=== PATIENT | female | born 1980 | race Two or more races ===

== ENCOUNTER 2017-02-09 19:37 | Inpatient (IN) | payer MEDICAID ==
[~2017-02-09] VITALS: Ht 154.9 cm; Wt 61.2 kg
[~2017-02-09 19:37] MED LIST: ACETAMINOPHEN-1 EAC1 ORAL; AZITHROMYCIN250 MG ORAL; CARAFATE1 G1 ORAL; CYCLOBENZAPRINE10 MG ORAL; DICLOFENAC SODI50 MG ORAL; FLEXERIL10 MG PO; IBUPROFEN600 MG ORAL; IMITREX50 MG ORAL; LEVAQUIN750 MG ORAL; MAALOX MAXIMUM355 M1 PO; NKM; NORCO 5-325 TA1 EAC1 ORAL; NORCO 5-325 TA1 EACH ORAL; OMEPRAZOLE-BIC1 EAC1 PO; PEPCID20 MG ORAL; REGLAN10 MG ORAL; ZANTAC150 MG ORAL; ZOFRAN ODT4 MG ORAL; ZOFRAN4 M3 ORAL; ZOFRAN4 MG ORAL; tramadol
[2017-02-09 20:00] VITALS: BP 101/62
[2017-02-09] MEDS ORDERED: LR 1000ml 1,000 ML IV SCH (20:15)
[2017-02-09] MEDS ORDERED: fentaNYL 100 mcg/2 mL IV ONE (20:15)
--- NOTE | 2017-02-09 20:21 | Emergency Room Report ---
History of Present Illness General Chief Complaint: Abdominal Pain Source: Patient, Family Member Present Illness HPI 36YOF walk-in with intermittent RUQ pain for 3 months. Worse today. Refractory to home [place]. No associ nausea/vomiting, urinary complaints. [facility] was "in and out of multiple hospitals" and "told me I have kidney stones and gallstones" but paperwork patient has with her [facility] outpatient followup scheduled for gallstones surgery. Allergies: Coded Allergies: DIPHENHYDRAMINE (Unverified Allergy, Severe, Shortness of Breath, 09/15/14) PROMETHAZINE (Verified Allergy, Unknown, 05/07/09) PROCHLORPERAZINE EDISYLATE (Verified Adverse Reaction, Severe, Anaphylaxis , 01/28/13) Tremors PROCHLORPERAZINE MALEATE (Verified Adverse Reaction, Severe, Anaphylaxis, 01/28/13) Tremors Patient History Past Medical History: other - cholelithiasis Past Surgical History: none Pertinent Family History: none Social History: Denies: alcohol use, drug use, smoking Last Menstrual Period: January Now: No Immunizations: UTD Reviewed Nursing Documentation: PMH: Agreed, PSxH: Agreed Nursing Documentation-PMH Hx Cardiac Problems: No - MIGRAINE Hx Gastrointestinal Problems: Yes - Gastritis,GALLSTONES Hx Headaches: Yes - Migraine Review of Systems All Other Systems: negative except mentioned in HPI Physical Exam Vital Signs Date Time Temp Pulse Resp B/P Pulse Ox O2 Delivery O2 Flow Rate FiO2 02/09/17 19:42 98.2 71 18 109/68 99 Room Air Sp02 EP Interpretation: reviewed, normal General Appearance: normal inspection, well appearing, no apparent distress, alert, GCS 15, non-toxic Head: normocephalic, atraumatic Eyes: bilateral eye EOMI, bilateral eye PERRL ENT: normal ENT inspection, hearing grossly normal, normal voice Neck: normal inspection, full range of motion, supple, no bony tend Respiratory: normal inspection, lungs clear, normal breath sounds, no respiratory distress, no retraction, no wheezing Cardiovascular #1: regular rate, rhythm, no edema Gastrointestinal: normal inspection, normal bowel sounds, soft, no guarding, no hernia, other - TTP RUQW Genitourinary: no CVA tenderness Musculoskeletal: normal inspection, back normal, normal range of motion, Danni' s Sign negative Neurologic: normal inspection, alert, oriented x3, responsive, handle turner III-XII nml as tested, motor strength/tone normal, speech normal Psychiatric: normal inspection, judgement/insight normal, mood/affect normal Skin: normal inspection Lymphatic: normal inspection Medical Decision Making Diagnostic Impression: Primary Impression: Abdominal pain Additional Impressions: Sludge in gallbladder Intractable abdominal pain ER Course RUQ pain for 3 months, worse today - History of cholelithiasis - VSS. Afebrile - No leuks. LFTs normal - Oral report from Repair Report on abd sono - GS sludge. No wall thickening, no ed- chol fluid. No gall stones. Also with fatty liver. - Patient continues with RUQ pain despite fentanyl, morphine, toradol. - Already taking many home PO meds - Low suspicion for acute kiara given Endorsed to Dr Wade for med/surg admission for intractable pain at 952pm - I also discussed case with Dr Anderson from [facility] who will see patient in Am Last Vital Signs Date Time Temp Pulse Resp B/P Pulse Ox O2 Delivery O2 Flow Rate FiO2 02/09/17 19:42 98.2 71 18 109/68 99 Room Air Status: improved Disposition: ADMITTED INPATIENT Condition: Serious MING SHERIDAN M.D. Feb 09, 2017 20:21
[2017-02-09 20:40] LABS: APPEARANCE,URINE CLEAR; KETONES,URINE NEGATIVE (NEGATIVE); LEUKOCYTE ESTERASE ,URINE NEGATIVE (NEGATIVE); NITRITE,URINE NEGATIVE (NEGATIVE); PH,URINE 7 (4.5-8.0); PROTEIN,URINE NEGATIVE (NEGATIVE); UROBILINOGEN,URINE NORMAL MG/DL (0.0-1.0)
[2017-02-09 20:42] LABS: BASOPHILS % (AUTO) 1.6 % (0.0-2.0); EOSINOPHILS % (AUTO) 1.2 % (0.0-3.0); LYMPHOCYTES % (AUTO) 40.4 % (20.0-45.0); MEAN CORPUSCULAR HEMOGLOBIN 31.5 PG (27.0-31.0); MEAN CORPUSCULAR HGB CONC 34.2 G/DL (32.0-36.0); MEAN CORPUSCULAR VOLUME 92 FL (80-99); MONOCYTES % (AUTO) 8.1 % (1.0-10.0); NEUTROPHILS % (AUTO) 48.8 % (45.0-75.0); PLATELET COUNT 226 K/UL (150-450); RED BLOOD COUNT 4.14 M/UL (4.20-5.40); RED CELL DISTRIBUTION WIDTH 11.4 % (11.6-14.8); WHITE BLOOD COUNT 8.7 K/UL (4.8-10.8)
[2017-02-09 20:54] LABS: PROTHROMBIN TIME 10.1 SEC (9.30-11.50)
[2017-02-09 20:56] LABS: RBC,URINE 0-2 /HPF (0 - 2); SQUAMOUS EPITHELIAL CELL,UR MODERATE /LPF (NONE/OCC); WBC,URINE 0-2 /HPF (0 - 2)
[2017-02-09 20:57] LABS: BACTERIA,URINE FEW /HPF
[2017-02-09] MEDS ORDERED: Morphine Sulfate 4mg/ml Inj IVP ONE (21:00)
[2017-02-09] MEDS ORDERED: Ketorolac 30mg Inj IV ONE (21:00)
[2017-02-09 21:05] LABS: ALANINE AMINOTRANSFERASE 17 U/L (3-33); ALBUMIN/GLOBULIN RATIO 1.6 (1.0-2.7); ANION GAP 16 (5-15); ASPARTATE AMINO TRANSFERASE 20 U/L (5-40); CALCIUM 9.2 mg/dL (8.6-10.2); CARBON DIOXIDE 25 mEQ/L (20-30); CHLORIDE 97 mEQ/L (98-107); CREATININE 0.7 mg/dL (0.5-0.9); GLOMERULAR FILTRATION RATE > 60 mL/min (>60); HEMOLYSIS 5; LIPASE 17 U/L (< 60); POTASSIUM 4.3 mEQ/L (3.4-4.9); SODIUM 138 mEQ/L (135-145); TOTAL PROTEIN 7.3 g/dL (6.6-8.7)
[2017-02-09 22:00] VITALS: BP 108/65
[2017-02-09] MEDS ORDERED: HYDROmorphone 1mg/ml Carpuject IVP ONE (22:30)
[2017-02-09 23:15] VITALS: BP 109/67
[2017-02-10] MEDS ORDERED: Morphine Sulfate 2mg/ml Inj IVP PRN (01:00)
[2017-02-10] MEDS: Morphine Sulfate 4mg/ml Inj IVP PRN ×5 (01:25→13:56)
[2017-02-10 04:00] VITALS: BP 97/54
[2017-02-10 06:47] LABS: BASOPHILS % (AUTO) 1.9 % (0.0-2.0); EOSINOPHILS % (AUTO) 1.5 % (0.0-3.0); MEAN CORPUSCULAR HGB CONC 35.1 G/DL (32.0-36.0); MEAN CORPUSCULAR VOLUME 94 FL (80-99); MEAN PLATELET VOLUME 9.7 FL (6.5-10.1); NEUTROPHILS % (AUTO) 41.5 % (45.0-75.0); PLATELET COUNT 191 K/UL (150-450); RED BLOOD COUNT 3.56 M/UL (4.20-5.40); RED CELL DISTRIBUTION WIDTH 11.6 % (11.6-14.8); WHITE BLOOD COUNT 7.4 K/UL (4.8-10.8)
[2017-02-10 06:55] LABS: ALANINE AMINOTRANSFERASE 14 U/L (3-33); ALBUMIN/GLOBULIN RATIO 1.4 (1.0-2.7); ANION GAP 12 (5-15); ASPARTATE AMINO TRANSFERASE 18 U/L (5-40); CALCIUM 8.8 mg/dL (8.6-10.2); CARBON DIOXIDE 26 mEQ/L (20-30); CHLORIDE 103 mEQ/L (98-107); CREATININE 0.7 mg/dL (0.5-0.9); GLOMERULAR FILTRATION RATE > 60 mL/min (>60); HEMOLYSIS 9; POTASSIUM 4.6 mEQ/L (3.4-4.9); SODIUM 141 mEQ/L (135-145); TOTAL PROTEIN 6.7 g/dL (6.6-8.7)
[2017-02-10 08:00] VITALS: BP 92/52
--- NOTE | 2017-02-10 08:19 | History & Physical ---
History and Physical History & Physicial 36YOF walk-in with intermittent RUQ pain for 3 months. Worse on admission. Refractory to home [place]. No associated nausea/vomiting, urinary complaints. Patient aware of kidney stones and gallstones and apparently scheduled for gallstones surgery. Allergies: DIPHENHYDRAMINE (Unverified Allergy, Severe, Shortness of Breath, 09/15/14) PROMETHAZINE (Verified Allergy, Unknown, 05/07/09) PROCHLORPERAZINE EDISYLATE (Verified Adverse Reaction, Severe, Anaphylaxis , 01/28/13) Tremors PROCHLORPERAZINE MALEATE (Verified Adverse Reaction, Severe, Anaphylaxis, 01/28/13) Tremors Past Medical History: cholelithiasis Past Surgical History: none Pertinent Family History: none Social History: Denies: alcohol use, drug use, smoking Physical exam WDWN NAD clear breath sounds bilaterally without rhonchi or wheeze [id number] without MRG NABS mildly tender no HSM no CCE nonfocal Laboratory Tests Test 02/09/17 20:20 02/10/17 05:30 White Blood Count 8.7 K/UL (4.8-10.8) 7.4 K/UL (4.8-10.8) Red Blood Count 4.14 M/UL (4.20-5.40) L 3.56 M/UL (4.20-5.40) L Hemoglobin 13.1 G/DL (12.0-16.0) 11.7 G/DL (12.0-16.0) L Hematocrit 38.2 % (37.0-47.0) 33.4 % (37.0-47.0) L Mean Corpuscular Volume 92 FL (80-99) 94 FL (80-99) Mean Corpuscular Hemoglobin 31.5 PG (27.0-31.0) H 33.0 PG (27.0-31.0) H Mean Corpuscular Hemoglobin Concent 34.2 G/DL (32.0-36.0) 35.1 G/DL (32.0-36.0) Red Cell Distribution Width 11.4 % (11.6-14.8) L 11.6 % (11.6-14.8) Platelet Count 226 K/UL (150-450) 191 K/UL (150-450) Mean Platelet Volume 9.0 FL (6.5-10.1) 9.7 FL (6.5-10.1) Neutrophils (%) (Auto) 48.8 % (45.0-75.0) 41.5 % (45.0-75.0) L Lymphocytes (%) (Auto) 40.4 % (20.0-45.0) 47.0 % (20.0-45.0) H Monocytes (%) (Auto) 8.1 % (1.0-10.0) 8.0 % (1.0-10.0) Eosinophils (%) (Auto) 1.2 % (0.0-3.0) 1.5 % (0.0-3.0) Basophils (%) (Auto) 1.6 % (0.0-2.0) 1.9 % (0.0-2.0) Prothrombin Time 10.1 SEC (9.30-11.50) Prothromb Time International Ratio 1.0 (0.9-1.1) Activated Partial Thromboplast Time 26 SEC (23-33) Urine Color Pale yellow Urine Appearance Clear Urine pH 7 (4.5-8.0) Urine Specific [place] 1.010 (1.005-1.035) Urine Protein Negative (NEGATIVE) Urine Glucose (UA) Negative (NEGATIVE) Urine Ketones Negative (NEGATIVE) Urine Occult Blood 1+ (NEGATIVE) H Urine Nitrite Negative (NEGATIVE) Urine Bilirubin Negative (NEGATIVE) Urine Urobilinogen Normal MG/DL (0.0-1.0) Urine Leukocyte Esterase Negative (NEGATIVE) Urine RBC 0-2 /HPF (0 - 2) Urine WBC 0-2 /HPF (0 - 2) Urine Squamous Epithelial Cells Moderate /LPF (NONE/OCC) H Urine Bacteria Few /HPF (NONE) Urine HCG, Qualitative Negative Sodium Level 138 mEQ/L (135-145) 141 mEQ/L (135-145) Potassium Level 4.3 mEQ/L (3.4-4.9) 4.6 mEQ/L (3.4-4.9) Chloride Level 97 mEQ/L (98-107) L 103 mEQ/L (98-107) Carbon Dioxide Level 25 mEQ/L (20-30) 26 mEQ/L (20-30) Anion Gap 16 (5-15) H 12 (5-15) Blood Urea Nitrogen 9 mg/dL (7-23) 8 mg/dL (7-23) Creatinine 0.7 mg/dL (0.5-0.9) 0.7 mg/dL (0.5-0.9) Estimat Glomerular Filtration Rate > 60 mL/min (>60) > 60 mL/min (>60) Glucose Level 89 mg/dL (74-106) 88 mg/dL (74-106) Calcium Level 9.2 mg/dL (8.6-10.2) 8.8 mg/dL (8.6-10.2) Total Bilirubin 0.6 mg/dL (0.0-1.2) 1.0 mg/dL (0.0-1.2) Aspartate Amino Transf (AST/SGOT) 20 U/L (5-40) 18 U/L (5-40) Alanine Aminotransferase (ALT/SGPT) 17 U/L (3-33) 14 U/L (3-33) Alkaline Phosphatase 58 U/L (35-104) 53 U/L (35-104) Total Protein 7.3 g/dL (6.6-8.7) 6.7 g/dL (6.6-8.7) Albumin 4.5 g/dL (3.5-5.2) 4.0 g/dL (3.5-5.2) Globulin 2.8 g/dL 2.7 g/dL Albumin/Globulin Ratio 1.6 (1.0-2.7) 1.4 (1.0-2.7) Lipase 17 U/L (< 60) Urine Opiates Screen Positive (NEGATIVE) H Urine Barbiturates Screen Negative (NEGATIVE) Phencyclidine (PCP) Screen Negative (NEGATIVE) Urine Amphetamines Screen Negative (NEGATIVE) Urine Benzodiazepines Screen Negative (NEGATIVE) Urine Cocaine Screen Negative (NEGATIVE) Urine Marijuana (THC) Screen Negative (NEGATIVE) IMPRESSION gallstones RUQ pain PLAN pain control IV hydration outpatient kiara needed JOAQUIN TIRADO Feb 10, 2017 08:19
--- NOTE | 2017-02-10 08:55 | Diagnostic Imaging Report ---
Indication: Right upper quadrant pain Technique: Ultrasound of the abdomen. Comparison: 09/08/15 Findings: Pancreas is obscured by overlying bowel gas. The liver is normal in size and echogenicity. No focal liver lesions are identified. Visualized portions of the main portal vein and the hepatic veins are grossly unremarkable although incompletely evaluated. Gallbladder sludge is present. Gallbladder wall thickness is within normal limits. Sonographic Jordan's is negative. Common bile duct measures 5 mm. Bilateral kidneys demonstrate normal echogenicity. No focal renal lesions are seen. There is no hydronephrosis. No echogenic renal stones are identified. The spleen is normal in size and echogenicity. The visualized aorta is normal in caliber. Visualized portions of the inferior vena cava are unremarkable. Impression: Gallbladder sludge. Positive sonographic Jrodan sign. Gallbladder wall thickness and common bile duct caliber within normal limits. Consider HIDA scan for further evaluation as indicated. Pancreas obscured by overlying bowel gas. Correlation with pancreatic enzymes recommended.
[2017-02-10] MEDS ORDERED: Pantoprazole Inj IVP SCH (09:00)
[2017-02-10 12:00] VITALS: BP 95/53
--- NOTE | 2017-02-10 13:43 | Consultation ---
History of Present Illness General Date patient seen: Feb 10, 2017 Chief Complaint: Abdominal Pain Reason for Consultation: biliary colic Present Illness HPI 36 year old otherwise healthy female presented to ED with complaints of persistent RUQ abdominal pain for 3+ weeks. States that she went out outside facility ([facility]) for similar episode and was discharged with follow up in surgery clinic 6 weeks later. She still had some vague RUQ pain with radiation to the back and did not want to wait for appointment so she came to ED at [facility] for evaluation. She was told that she needs a surgery for her gallbladder and has desire to have surgery as soon as possible. States pain is a constant RUQ cramping pain that radiates to the upper right back. No nausea or emesis. Can tolerate diet. ambulatory. normal BM's. In ED labs normal and ultrasound with only gallbladder sludge. Admitted for pain management and surgical evaluation. Allergies: Coded Allergies: DIPHENHYDRAMINE (Unverified Allergy, Severe, Shortness of Breath, 09/15/14) PROMETHAZINE (Verified Allergy, Unknown, 05/07/09) PROCHLORPERAZINE EDISYLATE (Verified Adverse Reaction, Severe, Anaphylaxis , 01/28/13) Tremors PROCHLORPERAZINE MALEATE (Verified Adverse Reaction, Severe, Anaphylaxis, 01/28/13) Tremors Medication History Scheduled Diclofenac Sod* (Voltaren*), 50 MG ORAL THREE TIMES A DAY Famotidine (Pepcid), 20 MG ORAL BID No Known Medications* (NKM - No Known Medications*), 0 ., (Reported) Scheduled PRN Acetaminophen With Codeine (T#3) (Tylenol #3 Tab*), 1 TAB ORAL Q4H PRN for For Pain Cyclobenzaprine Hcl* (Flexeril*), 10 MG ORAL BID PRN for Muscle Spasm Hydrocodone Bit/Acetaminophen 5-325* ([place] 5-325 Tablet*), 1 TAB ORAL Q4H PRN for For Pain Ibuprofen* (Motrin*), 600 MG ORAL Q8H PRN for For Pain Mag Hydrox/Al Hydrox/Simeth (Maalox Maximum Strength Susp), 5 ML PO Q6HR PRN for For Pain Ondansetron Odt* (Zofran Odt*), 4 MG ORAL Q6H PRN for Nausea & Vomiting Ondansetron Odt* (Zofran Odt*), 4 MG ORAL Q8H PRN for Nausea & Vomiting Ondansetron* (Zofran*), 4 MG ORAL Q6H PRN for Nausea & Vomiting Patient History History Provided By: Patient Healthcare decision maker Resuscitation status Full Code Advanced Directive on File Past Medical/Surgical History Past Medical/Surgical History: (1) Abdominal pain (2) Headache (3) Nausea (4) Lower Extremity Pain (5) migraine headaches (6) Torticollis, acute (7) Pain (8) Torticollis, acute (9) Pyelonephritis (10) Pyelonephritis (11) Flank pain (12) Flank pain (13) URI, acute (14) URI, acute (15) Cervicalgia (16) Cervicalgia (17) Acute abdominal pain (18) Gastritis (19) Left shoulder strain (20) Arthritis (21) Gastroenteritis (22) Sludge in gallbladder (23) Intractable abdominal pain (24) Gallstone Review of Systems Constitutional: Denies: chills, fever, malaise, no symptoms, other, see HPI, sweats, weakness Eye: Denies: acuity changes, blurred vision, discharge, double vision, eye pain , no symptoms, nose congestion, nose pain, other, see HPI, tearing ENT: Denies: ear discharge, ear pain, hearing loss, mouth pain, nasal discharge , no symptoms, nose congestion, nose pain, other, see HPI, throat pain, throat swelling Respiratory: Denies: HARDING, cough, no symptoms, orthopnea, other, see HPI, shortness of breath, sputum, stridor, wheezing Cardiovascular: Denies: PND, chest pain, edema, no symptoms, other, palpitations, see HPI, syncope Gastrointestinal: Denies: abdominal pain, constipation, diarrhea, hematemesis, melena, nausea, no symptoms, other, see HPI, vomiting Genitourinary: Denies: discharge, dysuria, frequency, hematuria, incontinence, no symptoms, other, pain, retention, see HPI, urgency, vag bleed/dc Musculoskeletal: Denies: back pain, gout, joint pain, joint swelling, muscle pain, muscle stiffness, no symptoms, other, see HPI Skin: Denies: change in color, change in hair/nails, dryness, lesions, no symptoms, other, rash, see HPI Psychiatric: Denies: HI, SI, anxiety, depressed feelings, emotional problems, hallucinations, no symptoms, other, prior hx, see HPI Neurological: Denies: dizziness, focal weakness, headache, no symptoms, numbness, other, paresthesia, see HPI, seizure, syncope, tingling, tremors Endocrine: Denies: excessive sweating, flushing, increased thirst, increased urine, intolerance to temperature, no symptoms, other, see HPI, unexplained weight loss Hematologic/Lymphatic: Denies: anemia, blood clots, diathesis, easy bleeding, easy bruising, no symptoms, other, see HPI, swollen glands All Other Systems: negative except mentioned in HPI Physical Exam General Appearance: WD/WN, no apparent distress, alert Lines, tubes and drains: peripheral HEENT: normocephalic, mucous membranes moist, PERRL Neck: normal inspection Respiratory/Chest: normal breath sounds, no respiratory distress, no accessory muscle use Cardiovascular/Chest: normal peripheral pulses, normal rate, regular rhythm Abdomen: normal bowel sounds, non tender - states RUQ pain but no rebound, guarding, and exam inconsistent. , soft Skin Exam: normal pigmentation Neurologic: alert, oriented x 3, responsive Last 24 Hour Vital Signs Date Time Temp Pulse Resp B/P Pulse Ox O2 Delivery O2 Flow Rate FiO2 02/10/17 12:00 96.3 52 18 95/53 97 Room Air 02/10/17 08:00 96.6 62 20 92/52 100 Room Air 02/10/17 04:00 97.0 52 20 97/54 97 Room Air 02/09/17 23:35 66 18 109/67 100 Room Air 02/09/17 23:15 98.2 66 18 109/67 100 Room Air 02/09/17 23:01 98.2 02/09/17 22:00 98.4 65 17 108/65 100 Room Air 02/09/17 21:28 98.2 02/09/17 21:28 98.2 02/09/17 20:59 98.2 02/09/17 20:00 98.2 63 15 101/62 100 Room Air 02/09/17 19:42 98.2 71 18 109/68 99 Room Air Intake and Output 02/09/17 02/10/17 19:00 07:00 Intake Total 300 ml Output Total 300 ml Balance 0 ml Intake IV Total 300 ml Output Urine Total 300 ml # Voids 3 Laboratory Tests Test 02/09/17 20:20 02/10/17 05:30 White Blood Count 8.7 K/UL (4.8-10.8) 7.4 K/UL (4.8-10.8) Red Blood Count 4.14 M/UL (4.20-5.40) L 3.56 M/UL (4.20-5.40) L Hemoglobin 13.1 G/DL (12.0-16.0) 11.7 G/DL (12.0-16.0) L Hematocrit 38.2 % (37.0-47.0) 33.4 % (37.0-47.0) L Mean Corpuscular Volume 92 FL (80-99) 94 FL (80-99) Mean Corpuscular Hemoglobin 31.5 PG (27.0-31.0) H 33.0 PG (27.0-31.0) H Mean Corpuscular Hemoglobin Concent 34.2 G/DL (32.0-36.0) 35.1 G/DL (32.0-36.0) Red Cell Distribution Width 11.4 % (11.6-14.8) L 11.6 % (11.6-14.8) Platelet Count 226 K/UL (150-450) 191 K/UL (150-450) Mean Platelet Volume 9.0 FL (6.5-10.1) 9.7 FL (6.5-10.1) Neutrophils (%) (Auto) 48.8 % (45.0-75.0) 41.5 % (45.0-75.0) L Lymphocytes (%) (Auto) 40.4 % (20.0-45.0) 47.0 % (20.0-45.0) H Monocytes (%) (Auto) 8.1 % (1.0-10.0) 8.0 % (1.0-10.0) Eosinophils (%) (Auto) 1.2 % (0.0-3.0) 1.5 % (0.0-3.0) Basophils (%) (Auto) 1.6 % (0.0-2.0) 1.9 % (0.0-2.0) Prothrombin Time 10.1 SEC (9.30-11.50) Prothromb Time International Ratio 1.0 (0.9-1.1) Activated Partial Thromboplast Time 26 SEC (23-33) Urine Color Pale yellow Urine Appearance Clear Urine pH 7 (4.5-8.0) Urine Specific [place] 1.010 (1.005-1.035) Urine Protein Negative (NEGATIVE) Urine Glucose (UA) Negative (NEGATIVE) Urine Ketones Negative (NEGATIVE) Urine Occult Blood 1+ (NEGATIVE) H Urine Nitrite Negative (NEGATIVE) Urine Bilirubin Negative (NEGATIVE) Urine Urobilinogen Normal MG/DL (0.0-1.0) Urine Leukocyte Esterase Negative (NEGATIVE) Urine RBC 0-2 /HPF (0 - 2) Urine WBC 0-2 /HPF (0 - 2) Urine Squamous Epithelial Cells Moderate /LPF (NONE/OCC) H Urine Bacteria Few /HPF (NONE) Urine HCG, Qualitative Negative Sodium Level 138 mEQ/L (135-145) 141 mEQ/L (135-145) Potassium Level 4.3 mEQ/L (3.4-4.9) 4.6 mEQ/L (3.4-4.9) Chloride Level 97 mEQ/L (98-107) L 103 mEQ/L (98-107) Carbon Dioxide Level 25 mEQ/L (20-30) 26 mEQ/L (20-30) Anion Gap 16 (5-15) H 12 (5-15) Blood Urea Nitrogen 9 mg/dL (7-23) 8 mg/dL (7-23) Creatinine 0.7 mg/dL (0.5-0.9) 0.7 mg/dL (0.5-0.9) Estimat Glomerular Filtration Rate > 60 mL/min (>60) > 60 mL/min (>60) Glucose Level 89 mg/dL (74-106) 88 mg/dL (74-106) Calcium Level 9.2 mg/dL (8.6-10.2) 8.8 mg/dL (8.6-10.2) Total Bilirubin 0.6 mg/dL (0.0-1.2) 1.0 mg/dL (0.0-1.2) Aspartate Amino Transf (AST/SGOT) 20 U/L (5-40) 18 U/L (5-40) Alanine Aminotransferase (ALT/SGPT) 17 U/L (3-33) 14 U/L (3-33) Alkaline Phosphatase 58 U/L (35-104) 53 U/L (35-104) Total Protein 7.3 g/dL (6.6-8.7) 6.7 g/dL (6.6-8.7) Albumin 4.5 g/dL (3.5-5.2) 4.0 g/dL (3.5-5.2) Globulin 2.8 g/dL 2.7 g/dL Albumin/Globulin Ratio 1.6 (1.0-2.7) 1.4 (1.0-2.7) Lipase 17 U/L (< 60) Urine Opiates Screen Positive (NEGATIVE) H Urine Barbiturates Screen Negative (NEGATIVE) Phencyclidine (PCP) Screen Negative (NEGATIVE) Urine Amphetamines Screen Negative (NEGATIVE) Urine Benzodiazepines Screen Negative (NEGATIVE) Urine Cocaine Screen Negative (NEGATIVE) Urine Marijuana (THC) Screen Negative (NEGATIVE) Height (Feet): 5 Height (Inches): 1.00 Weight (Pounds): 135 Medications Current Medications Medications (Trade) Dose Ordered Sig/Zahida Route PRN Reason Start Time Stop Time Status Last Admin Dose Admin Morphine Sulfate (Morphine Sulfate) 2 mg Q3H PRN IVP For mild Pain 02/10/17 01:00 02/17/17 00:59 Morphine Sulfate (Morphine Sulfate) 4 mg Q3H PRN IVP For mod Pain 02/10/17 01:00 02/17/17 00:59 02/10/17 05:09 Morphine Sulfate (Morphine Sulfate) 6 mg Q3H PRN IVP For severe Pain 02/10/17 01:00 02/17/17 00:59 02/10/17 11:06 Ondansetron HCl (Zofran) 4 mg Q6H PRN IVP Nausea & Vomiting 02/10/17 01:15 03/12/17 01:14 Pantoprazole 40 mg 40 mg DAILY IVP 02/10/17 09:00 03/12/17 08:59 02/10/17 08:09 Sodium Chloride (Sodium Chloride 1000ml bag) 1,000 ml @ 100 mls/hr Q10H IV 02/10/17 02:00 03/12/17 01:59 02/10/17 13:00 Assessment/Plan Problem List: (1) Sludge in gallbladder Assessment & Plan: 36F biliary colic. Initially diagnosed recently at outside facility and was given outpatient surgical appointment. Feels as if she is not better yet and came to ED yesterday for evaluation and possible surgery. This AM doing better but still has some cramping RUQ pain. Able to tolerate diet. Exam inconsistent (pain when asked but no pain on palpation). Ultrasound with sludge, some thickening of wall. Labs normal (no leukocytosis, LFT's okay, lipase okay) -No acute surgical intervention necessary -Okay to d/c from surgical standpoint -Office number and information given to patient for outpatient follow up. -patient and family member expressed understanding. I explained to them that based on her exam, labs findings, and ultrasound findings there is no need for urgent or emergent surgery. She can have procedure as outpatient. they will follow up with me in office this week to discuss possible surgical intervention. ICD Codes: K82.8 - Other specified diseases of gallbladder SNOMED: [id number] Status: stable Segun Ramírez Feb 10, 2017 13:43
--- NOTE | 2017-02-12 11:45 | Discharge Summary ---
Discharge Summary Hospital Course Date of Admission Feb 09, 2017 at 22:15 Date of Discharge Feb 10, 2017 at 16:07 Admitting Diagnosis intractable pain/gallstones HPI Kati Blankenship is a 36 year old female who was admitted on Feb 09, 2017 at 22:15 for Intractable Pain/Gallstones Hospital Course dc summary #[id number] Discharge Medications Continued Medications: Famotidine (Pepcid) 20 Mg Tablet 20 MG ORAL BID, #20 TAB 0 Refills Hydrocodone Bit/Acetaminophen 5-325* ([place] 5-325 Tablet*) 1 Each Tablet 1 TAB ORAL Q4H PRN for For Pain, #10 TAB Ibuprofen* (Motrin*) 600 Mg Tablet 600 MG ORAL Q8H PRN for For Pain, #30 TAB Mag Hydrox/Al Hydrox/Simeth (Maalox Maximum Strength Susp) 355 Ml Oral.susp 5 ML PO Q6HR PRN for For Pain, #355 ML Ondansetron* (Zofran*) 4 Mg Tablet 4 MG ORAL Q6H PRN for Nausea & Vomiting, #15 TAB Discharge Condition Upon Discharge: stable Discharge Disposition Patient was discharged to Home () Discharge Diagnoses: Discharge Instructions Discharge Instructions Special Instructions I have been assigned to complete a D/C Summary on this account. I was not involved in the patient management Megan Giordano NP (Vanchtein) Feb 12, 2017 11:45
--- NOTE | 2017-02-13 01:45 | Discharge Summary 2 SIG ---
DATE OF ADMISSION: 02/09/2017 DATE OF DISCHARGE: 02/10/2017 REASON FOR ADMISSION: 36-year-old female without past medical history, presented to emergency room complaining of intermittent right upper quadrant pain for the last three months. The patient reported no nausea, no vomiting, and no urinary complaints. The patient stated that she was in an out in [facility] and was told that she had gallstones .She was given option to be scheduled for outpatient surgery. The patient felt like the pain was worse; on the day of the presentation, was refractory to home [facility] , therefore she came for evaluation. The patient was afebrile. Vital signs were stable. Laboratory work was unremarkable. No leukocytosis. Stable LFT. Stable lipase. Abdominal ultrasound done in the emergency room revealed gallbladder sludge. Positive sonographic Jordan sign. Positive for gallbladder wall thickness, common bile duct caliber was within normal limits. The patient was admitted for further management. ADMITTING DIAGNOSES: 1. Gallbladder sludge. 2. Intractable right upper quadrant abdominal pain. HOSPITAL STAY: Surgery consult was requested. Surgeon seen and evaluated the patient. Per surgery, the patient had biliary colic. No acute surgical intervention required at this time. LFT stable, afebrile, no leukocytosis, stable lipase. Abdominal US reviewed in detail by surgeon. The patient was able to tolerate diet. Pain improved, but still had intermittent cramping in right upper quadrant pain. The exam was inconsistent. The patient reported pain when asked, but no pain on palpation. Surgeon discussed in detail with the patient and family member further plan of care. Based on the exam, laboratory findings and ultrasound findings, there was no need for urgent or emergent surgery. Phone number and address of the office was provided to the patient. Follow up next week to discuss possible surgical intervention. The patient was stable for discharge. Due to raid and unexpected improvement in patient condition, the patient was discharged in one day. DISCHARGE DIAGNOSES: 1. Intractable right upper quadrant abdominal pain. 2. Gallbladder sludge. 3. Biliary colic. DISCHARGE MEDICATIONS: See medication reconciliation list. DISCHARGE INSTRUCTIONS: The patient was discharged home. Follow up with the surgeon next week for discussion and schedule outpatient elective surgery. Ricardo Wade M.D. I have been assigned to dictate discharge summary on this account and I was not involved in the patient's management. Megan Giordano ([place]tein) NTheresaPTheresa DR: ADRIANNA JOB#: [id number] CC: [id number]
== END 2017-02-10 16:07 | disposition home or self-care (01) ==
LOC: EMR 20:26 → 4E 22:15 → EDBEDREQ 22:25
DX: K82.8 Other specified diseases of gallbladder (principal); R10.11 Right upper quadrant pain; Z88.8 Allergy status to other drugs, medicaments and biological substances
CPT/HCPCS: 36415; 76700; 80053; 80300; 81003; 81025; 83690; 85025; 85610; 85730; 86850; 86900; 86901; J2405

== ENCOUNTER 2017-02-13 14:17 | Emergency (ER) | payer MEDICAID ==
[~2017-02-13] VITALS: Ht 149.9 cm; Wt 56.7 kg
[2017-02-13 14:38] VITALS: BP 101/47
[2017-02-13] MEDS ORDERED: Lidocaine 2% Visc 15ml soln ORAL ONE (15:00)
[2017-02-13 15:03] LABS: APPEARANCE,URINE CLEAR; KETONES,URINE NEGATIVE (NEGATIVE); LEUKOCYTE ESTERASE ,URINE NEGATIVE (NEGATIVE); NITRITE,URINE NEGATIVE (NEGATIVE); PH,URINE 7 (4.5-8.0); PROTEIN,URINE NEGATIVE (NEGATIVE); UROBILINOGEN,URINE NORMAL MG/DL (0.0-1.0)
[2017-02-13 15:05] LABS: BASOPHILS % (AUTO) 1.3 % (0.0-2.0); EOSINOPHILS % (AUTO) 0.5 % (0.0-3.0); LYMPHOCYTES % (AUTO) 34.4 % (20.0-45.0); MEAN CORPUSCULAR HEMOGLOBIN 31.4 PG (27.0-31.0); MEAN CORPUSCULAR HGB CONC 34.1 G/DL (32.0-36.0); MEAN CORPUSCULAR VOLUME 92 FL (80-99); MEAN PLATELET VOLUME 9.2 FL (6.5-10.1); MONOCYTES % (AUTO) 8.2 % (1.0-10.0); NEUTROPHILS % (AUTO) 55.6 % (45.0-75.0); PLATELET COUNT 218 K/UL (150-450); RED BLOOD COUNT 3.93 M/UL (4.20-5.40); RED CELL DISTRIBUTION WIDTH 11.4 % (11.6-14.8); WHITE BLOOD COUNT 8.7 K/UL (4.8-10.8)
[2017-02-13] MEDS ORDERED: Pantoprazole Inj IVP ONE (15:15)
[2017-02-13] MEDS ORDERED: Ketorolac 30mg Inj IV ONE (15:15)
--- NOTE | 2017-02-13 15:24 | Emergency Room Report ---
History of Present Illness General Chief Complaint: Abdominal Pain Source: Patient Present Illness HPI This patient was discharged from [facility] 3 days ago. The patient first developed right upper quadrant abdominal pain back in October of this year. She has had ongoing pain daily since. The patient was initially diagnosed with kidney stones at [facility]. The patient was then diagnosed with gallstones at [facility] thereafter. The patient was seen here at [facility] last week and admitted for intractable pain. She was found to have gallbladder sludge but no gallstones or cholecystitis. She has uncontrolled pain and was admitted. The patient returns for ongoing and severe worsening pain in the same location. Allergies: Coded Allergies: DIPHENHYDRAMINE (Unverified Allergy, Severe, Shortness of Breath, 09/15/14) PROMETHAZINE (Verified Allergy, Unknown, 05/07/09) PROCHLORPERAZINE EDISYLATE (Verified Adverse Reaction, Severe, Anaphylaxis , 01/28/13) Tremors PROCHLORPERAZINE MALEATE (Verified Adverse Reaction, Severe, Anaphylaxis, 01/28/13) Tremors Patient History Past Medical History: see triage record, GERD, migraines, other - Kidney stones Social History: Reports: alcohol use, smoking, Denies: drug use Last Menstrual Period: 01/30/2017 Now: No Reviewed Nursing Documentation: PMH: Agreed, PSxH: Agreed Nursing Documentation-PMH Hx Cardiac Problems: No - MIGRAINE Hx Gastrointestinal Problems: Yes - Gastritis Review of Systems All Other Systems: negative except mentioned in HPI Physical Exam Vital Signs Date Time Temp Pulse Resp B/P Pulse Ox O2 Delivery O2 Flow Rate FiO2 02/13/17 14:26 98.4 72 22 101/47 97 Room Air Sp02 EP Interpretation: reviewed, normal General Appearance: no apparent distress, alert, GCS 15, non-toxic Head: normocephalic, atraumatic Eyes: bilateral eye PERRL, bilateral eye normal inspection ENT: hearing grossly normal, normal pharynx, no angioedema, normal voice Neck: full range of motion, supple/symm/no masses Respiratory: chest non-tender, lungs clear, normal breath sounds, speaking full sentences Cardiovascular #1: regular rate, rhythm, no edema Gastrointestinal: normal bowel sounds, soft, non-distended, no guarding, no rebound, tenderness - TTP RUQ Rectal: deferred Musculoskeletal: back normal, gait/station normal, normal range of motion, non- tender Neurologic: alert, oriented x3, responsive, motor strength/tone normal, sensory intact, speech normal Psychiatric: judgement/insight normal, memory normal, mood/affect normal, no suicidal/homicidal ideation Skin: normal color, no rash, warm/dry, well hydrated Medical Decision Making Diagnostic Impression: Primary Impression: Abdominal pain Additional Impression: Gastritis vs peptic ulcer disease ER Course This patient has a history of biliary colic. She complains of ongoing and worsening pain in uncontrolled pain at home. The patient states that the symptoms have been ongoing for several months but have escalated in severity. The patient did recently get admitted here to [facility] for intractable pain. The laboratory and ultrasound findings on that visit were benign. However, the patient has been home for a few days and has had worsening symptoms, so I did obtain repeat auditory workup to include CBC, CMP which was unremarkable. Lipase is also normal. Patient also underwent a right upper quadrant ultrasound which showed a normal gallbladder without gallstones and normal GB wall. I will go ahead and treat this patient has gastritis/ peptic ulcer disease. I did offer the patient a CT of the abdomen and pelvis, however, the patient states that she underwent 2 CT scans recently that was unremarkable. Therefore I felt that this was unnecessary given the urinalysis that is unremarkable. Educated the patient that she should followup closely with the cutter wet machine for possible upper endoscopy and/or HIDA scan. At this time I did not identify an emergency medical condition. The patient was given return precautions and followup instructions. Labs Test 02/13/17 14:45 02/13/17 15:00 Urine Color Pale yellow Urine Appearance Clear Urine pH 7 (4.5-8.0) Urine Specific [place] 1.005 (1.005-1.035) Urine Protein Negative (NEGATIVE) Urine Glucose (UA) Negative (NEGATIVE) Urine Ketones Negative (NEGATIVE) Urine Occult Blood Negative (NEGATIVE) Urine Nitrite Negative (NEGATIVE) Urine Bilirubin Negative (NEGATIVE) Urine Urobilinogen Normal MG/DL (0.0-1.0) Urine Leukocyte Esterase Negative (NEGATIVE) Urine HCG, Qualitative Negative White Blood Count 8.7 K/UL (4.8-10.8) Red Blood Count 3.93 M/UL (4.20-5.40) Hemoglobin 12.3 G/DL (12.0-16.0) Hematocrit 36.1 % (37.0-47.0) Mean Corpuscular Volume 92 FL (80-99) Mean Corpuscular Hemoglobin 31.4 PG (27.0-31.0) Mean Corpuscular Hemoglobin Concent 34.1 G/DL (32.0-36.0) Red Cell Distribution Width 11.4 % (11.6-14.8) Platelet Count 218 K/UL (150-450) Mean Platelet Volume 9.2 FL (6.5-10.1) Neutrophils (%) (Auto) 55.6 % (45.0-75.0) Lymphocytes (%) (Auto) 34.4 % (20.0-45.0) Monocytes (%) (Auto) 8.2 % (1.0-10.0) Eosinophils (%) (Auto) 0.5 % (0.0-3.0) Basophils (%) (Auto) 1.3 % (0.0-2.0) Sodium Level 139 mEQ/L (135-145) Potassium Level 4.3 mEQ/L (3.4-4.9) Chloride Level 98 mEQ/L (98-107) Carbon Dioxide Level 26 mEQ/L (20-30) Anion Gap 15 (5-15) Blood Urea Nitrogen 7 mg/dL (7-23) Creatinine 0.7 mg/dL (0.5-0.9) Estimat Glomerular Filtration Rate > 60 mL/min (>60) Glucose Level 76 mg/dL (74-106) Calcium Level 9.2 mg/dL (8.6-10.2) Total Bilirubin 0.8 mg/dL (0.0-1.2) Aspartate Amino Transf (AST/SGOT) 18 U/L (5-40) Alanine Aminotransferase (ALT/SGPT) 14 U/L (3-33) Alkaline Phosphatase 50 U/L (35-104) Total Protein 7.3 g/dL (6.6-8.7) Albumin 4.4 g/dL (3.5-5.2) Globulin 2.9 g/dL Albumin/Globulin Ratio 1.5 (1.0-2.7) Lipase 16 U/L (< 60) CT/MRI/US Diagnostic Results CT/MRI/US Diagnostic Results : Imaging Test Ordered: US RUQ Impression No acute findings. No gallstones. WNL. See official report. Last Vital Signs Date Time Temp Pulse Resp B/P Pulse Ox O2 Delivery O2 Flow Rate FiO2 02/13/17 14:26 98.4 72 22 101/47 97 Room Air Status: improved Disposition: HOME, SELF-CARE Condition: Improved Patient Instructions: Abdominal Pain, Adult Additional Instructions: Please to follow up with a cutter wet machine and your primary care physician. LAKESHA JOHNSON D.O. Feb 13, 2017 15:24
[2017-02-13 15:32] LABS: ALANINE AMINOTRANSFERASE 14 U/L (3-33); ALBUMIN/GLOBULIN RATIO 1.5 (1.0-2.7); ANION GAP 15 (5-15); ASPARTATE AMINO TRANSFERASE 18 U/L (5-40); CALCIUM 9.2 mg/dL (8.6-10.2); CARBON DIOXIDE 26 mEQ/L (20-30); CHLORIDE 98 mEQ/L (98-107); CREATININE 0.7 mg/dL (0.5-0.9); GLOMERULAR FILTRATION RATE > 60 mL/min (>60); HEMOLYSIS 3; LIPASE 16 U/L (< 60); POTASSIUM 4.3 mEQ/L (3.4-4.9); SODIUM 139 mEQ/L (135-145); TOTAL PROTEIN 7.3 g/dL (6.6-8.7)
[2017-02-13] MEDS ORDERED: PROTONIX40 MG ORAL (16:43)
[2017-02-13 16:45] VITALS: BP 101/41
--- NOTE | 2017-02-13 17:40 | Diagnostic Imaging Report ---
Indication: PAIN right upper quadrant pain, nausea, vomiting Technique: Steinberg-scale and duplex images of the upper abdomen were obtained Comparison: 02/09/2017 Findings: Gallbladder is unremarkable, without stones nor pericholecystic fluid. However, the wall is borderline thickened, measuring 3 mm thick Previously demonstrated sludge is not evident currently. Sonographic Jordan's sign is negative, previously thought 3 positive. Common bile duct measures 3 mm in diameter. No intrahepatic biliary ductal dilatation. Liver demonstrates normal echogenicity, no focal abnormality. Portal vein and hepatic veins are patent. Pancreas is unremarkable. Spleen is unremarkable. Left kidney measures 9.5 cm in length. Right kidney measures 10 cm length. Both kidneys demonstrate normal echogenicity. There is no hydronephrosis. No focal abnormality . Non-aneurysmal abdominal aorta . Impression: Probably normal gallbladder, with no evidence of stones, interim resolution of previously demonstrated sludge, and currently normal slight Jordan's sign. However, borderline gallbladder wall thickening precludes complete exclusion of acute acalculous cholecystitis, and hepatobiliary nuclear scan should be considered if there is high clinical suspicion Otherwise unremarkable
== END 2017-02-13 16:51 | disposition home or self-care (01) ==
LOC: EMR 16:27
DX: R10.11 Right upper quadrant pain (principal); Z87.19 Personal history of other diseases of the digestive system; Z88.8 Allergy status to other drugs, medicaments and biological substances; F17.200 Nicotine dependence, unspecified, uncomplicated
CPT/HCPCS: 36415; 76700; 80053; 81003; 81025; 83690; 85025; 96360; 96361; 96374; 96375; 99284; C9113; J1885; J2405

== ENCOUNTER 2017-03-23 15:02 | Emergency (ER) | payer MEDICAID ==
[~2017-03-23] VITALS: Ht 152.4 cm; Wt 60.8 kg
[~2017-03-23 15:02] MED LIST changes: +PROTONIX40 MG ORAL
[2017-03-23] MEDS ORDERED: Ketorolac 30mg Inj IV ONE (15:45)
[2017-03-23 16:19] LABS: BASOPHILS % (AUTO) 1.4 % (0.0-2.0); EOSINOPHILS % (AUTO) 0.8 % (0.0-3.0); LYMPHOCYTES % (AUTO) 28.9 % (20.0-45.0); MEAN CORPUSCULAR HEMOGLOBIN 32.2 PG (27.0-31.0); MEAN CORPUSCULAR HGB CONC 34.3 G/DL (32.0-36.0); MEAN CORPUSCULAR VOLUME 94 FL (80-99); MEAN PLATELET VOLUME 7.8 FL (6.5-10.1); MONOCYTES % (AUTO) 7.1 % (1.0-10.0); NEUTROPHILS % (AUTO) 61.9 % (45.0-75.0); PLATELET COUNT 224 K/UL (150-450); RED BLOOD COUNT 3.91 M/UL (4.20-5.40); RED CELL DISTRIBUTION WIDTH 11.3 % (11.6-14.8); WHITE BLOOD COUNT 8.8 K/UL (4.8-10.8)
[2017-03-23 16:20] LABS: APPEARANCE,URINE SLIGHTLY CLOUDY; KETONES,URINE NEGATIVE (NEGATIVE); LEUKOCYTE ESTERASE ,URINE NEGATIVE (NEGATIVE); NITRITE,URINE NEGATIVE (NEGATIVE); PH,URINE 7 (4.5-8.0); PROTEIN,URINE NEGATIVE (NEGATIVE); UROBILINOGEN,URINE NORMAL MG/DL (0.0-1.0)
--- NOTE | 2017-03-23 16:21 | Emergency Room Report ---
History of Present Illness General Chief Complaint: Abdominal Pain Source: Patient, Medical Record Present Illness HPI This patient has a history of biliary colic. She has had gallbladder sludge and gets right upper quadrant pain in the area of her gallbladder. She has undergone multiple tests and studies and was planned to undergo elective cholecystectomy on Sunday. However, the surgery was canceled secondary to some sort of approval that did not go through. The patient has had ongoing pain for the past week. She would like to have her gallbladder removed. She has no other complaints. Allergies: Coded Allergies: DIPHENHYDRAMINE (Unverified Allergy, Severe, Shortness of Breath, 09/15/14) PROMETHAZINE (Verified Allergy, Unknown, 05/07/09) PROCHLORPERAZINE EDISYLATE (Verified Adverse Reaction, Severe, Anaphylaxis , 01/28/13) Tremors PROCHLORPERAZINE MALEATE (Verified Adverse Reaction, Severe, Anaphylaxis, 01/28/13) Tremors Patient History Past Medical History: see triage record, GERD, other - migraine, biliary colic Social History: Denies: alcohol use, drug use, smoking Last Menstrual Period: 01/30/17 Now: No Reviewed Nursing Documentation: PMH: Agreed, PSxH: Agreed Nursing Documentation-PMH Past Medical History: No History, Except For Hx Cardiac Problems: No - MIGRAINE Hx Gastrointestinal Problems: Yes - Gastritis Review of Systems All Other Systems: negative except mentioned in HPI Physical Exam Vital Signs Date Time Temp Pulse Resp B/P Pulse Ox O2 Delivery O2 Flow Rate FiO2 03/23/17 15:05 98.1 77 18 106/65 99 Room Air Sp02 EP Interpretation: reviewed, normal General Appearance: no apparent distress, alert, GCS 15, non-toxic Head: normocephalic, atraumatic Eyes: bilateral eye PERRL, bilateral eye normal inspection ENT: hearing grossly normal, normal pharynx, no angioedema, normal voice Neck: full range of motion, supple/symm/no masses Respiratory: chest non-tender, lungs clear, normal breath sounds, speaking full sentences Cardiovascular #1: regular rate, rhythm, no edema Gastrointestinal: normal bowel sounds, soft, non-distended, no guarding, no rebound, tenderness - TTP RUQ Rectal: deferred Musculoskeletal: back normal, gait/station normal, normal range of motion, non- tender Neurologic: alert, oriented x3, responsive, motor strength/tone normal, sensory intact, speech normal Psychiatric: judgement/insight normal, memory normal, mood/affect normal, no suicidal/homicidal ideation Skin: normal color, no rash, warm/dry, well hydrated Medical Decision Making Diagnostic Impression: Primary Impression: Biliary colic Additional Impression: Abdominal pain ER Course This patient has ongoing known biliary colic. She had planned on getting an elective cholecystectomy but it ended up being canceled. She is requesting cholecystectomy because she has ongoing uncontrolled pain. The patient underwent basic laboratory workup and a repeat abdominal ultrasound which showed no acute findings. This patient is being followed by Dr. Tuttle. Further discussion with Dr. Allen and at this time this patient is not indicated to have emergency surgery. There are no gallstones and no evidence of cholecystitis or choledocholithiasis. Laboratory workup is within normal limits. There is no fever or systemic findings that would make me concerned for ongoing infection. The patient was instructed to followup with Dr. Tuttle on Sunday and they will plan the surgery electively. Patient was given return precautions and followup instructions. Labs Test 03/23/17 15:40 White Blood Count 8.8 K/UL (4.8-10.8) Red Blood Count 3.91 M/UL (4.20-5.40) Hemoglobin 12.6 G/DL (12.0-16.0) Hematocrit 36.7 % (37.0-47.0) Mean Corpuscular Volume 94 FL (80-99) Mean Corpuscular Hemoglobin 32.2 PG (27.0-31.0) Mean Corpuscular Hemoglobin Concent 34.3 G/DL (32.0-36.0) Red Cell Distribution Width 11.3 % (11.6-14.8) Platelet Count 224 K/UL (150-450) Mean Platelet Volume 7.8 FL (6.5-10.1) Neutrophils (%) (Auto) 61.9 % (45.0-75.0) Lymphocytes (%) (Auto) 28.9 % (20.0-45.0) Monocytes (%) (Auto) 7.1 % (1.0-10.0) Eosinophils (%) (Auto) 0.8 % (0.0-3.0) Basophils (%) (Auto) 1.4 % (0.0-2.0) Urine Color Pale yellow Urine Appearance Slightly cloudy Urine pH 7 (4.5-8.0) Urine Specific [place] 1.015 (1.005-1.035) Urine Protein Negative (NEGATIVE) Urine Glucose (UA) Negative (NEGATIVE) Urine Ketones Negative (NEGATIVE) Urine Occult Blood 1+ (NEGATIVE) Urine Nitrite Negative (NEGATIVE) Urine Bilirubin Negative (NEGATIVE) Urine Urobilinogen Normal MG/DL (0.0-1.0) Urine Leukocyte Esterase Negative (NEGATIVE) Urine RBC 0-2 /HPF (0 - 2) Urine WBC 0-2 /HPF (0 - 2) Urine Squamous Epithelial Cells Few /LPF (NONE/OCC) Urine Amorphous Sediment Many /LPF (NONE) Urine Bacteria Few /HPF (NONE) Urine HCG, Qualitative Negative Sodium Level 139 mEQ/L (135-145) Potassium Level 3.8 mEQ/L (3.4-4.9) Chloride Level 101 mEQ/L (98-107) Carbon Dioxide Level 25 mEQ/L (20-30) Anion Gap 13 (5-15) Blood Urea Nitrogen 10 mg/dL (7-23) Creatinine 0.7 mg/dL (0.5-0.9) Estimat Glomerular Filtration Rate > 60 mL/min (>60) Glucose Level 92 mg/dL (74-106) Calcium Level 9.6 mg/dL (8.6-10.2) Total Bilirubin 0.5 mg/dL (0.0-1.2) Aspartate Amino Transf (AST/SGOT) 19 U/L (5-40) Alanine Aminotransferase (ALT/SGPT) 15 U/L (3-33) Alkaline Phosphatase 54 U/L (35-104) Total Protein 7.2 g/dL (6.6-8.7) Albumin 4.3 g/dL (3.5-5.2) Globulin 2.9 g/dL Albumin/Globulin Ratio 1.4 (1.0-2.7) Lipase 21 U/L (< 60) CT/MRI/US Diagnostic Results CT/MRI/US Diagnostic Results : Imaging Test Ordered: US RUQ: Impression Negative RUQ US. See official report. Last Vital Signs Date Time Temp Pulse Resp B/P Pulse Ox O2 Delivery O2 Flow Rate FiO2 03/23/17 15:05 98.1 77 18 106/65 99 Room Air Disposition: HOME, SELF-CARE Condition: Stable LAKESHA JOHNSON D.O. Mar 23, 2017 16:21
[2017-03-23 16:30] LABS: RBC,URINE 0-2 /HPF (0 - 2); SQUAMOUS EPITHELIAL CELL,UR FEW /LPF (NONE/OCC); WBC,URINE 0-2 /HPF (0 - 2)
[2017-03-23 16:31] LABS: AMORPHOUS SEDIMENT,UR MANY /LPF; BACTERIA,URINE FEW /HPF
[2017-03-23 16:32] LABS: ALANINE AMINOTRANSFERASE 15 U/L (3-33); ALBUMIN/GLOBULIN RATIO 1.4 (1.0-2.7); ANION GAP 13 (5-15); ASPARTATE AMINO TRANSFERASE 19 U/L (5-40); CALCIUM 9.6 mg/dL (8.6-10.2); CARBON DIOXIDE 25 mEQ/L (20-30); CHLORIDE 101 mEQ/L (98-107); CREATININE 0.7 mg/dL (0.5-0.9); GLOMERULAR FILTRATION RATE > 60 mL/min (>60); HEMOLYSIS 7; LIPASE 21 U/L (< 60); POTASSIUM 3.8 mEQ/L (3.4-4.9); SODIUM 139 mEQ/L (135-145); TOTAL PROTEIN 7.2 g/dL (6.6-8.7)
[2017-03-23] MEDS ORDERED: Morphine Sulfate 4mg/ml Inj IVP ONE (16:45)
[2017-03-23 19:06] VITALS: BP 110/72
[2017-03-23 19:10] VITALS: BP 110/72
[2017-03-23] MEDS ORDERED: Norco 5mg/325mg tab ORAL ONE (19:15)
--- NOTE | 2017-03-26 08:04 | Diagnostic Imaging Report ---
Indication: Right upper quadrant and back pain Technique: Steinberg-scale and duplex images of the upper abdomen were obtained Comparison: None Findings: Gallbladder is unremarkable, without stones, wall thickening, nor pericholecystic fluid. However, technologist reports that the sonographic Jordan sign is positive previously demonstrated mild wall thickening is no longer evident. Common bile duct measures 3 mm in diameter. No intrahepatic biliary ductal dilatation. Liver demonstrates normal echogenicity, no focal abnormality. Portal vein and hepatic veins are patent. Pancreas is unremarkable. Spleen is unremarkable. Left kidney measures 10.2 cm in length. Right kidney measures 10.7 cm length. Both kidneys demonstrate normal echogenicity. There is no hydronephrosis. Bright echoes in the left renal sinus most likely represent calcified vessels, although nonobstructive calyceal calculus cannot be excluded. . Non-aneurysmal abdominal aorta . Impression: Negative for gallstones or dilated ducts. However, positive sonographic Jordan's sign does raise possibility of acute acalculous cholecystitis. Consider nuclear medicine hepatobiliary scan for further evaluation it there is high clinical suspicion Left renal hyperechoic focus, could represent arterial or nonobstructive calyceal calcification Otherwise unremarkable
== END 2017-03-23 19:12 | disposition home or self-care (01) ==
LOC: EMR 18:16 → EDBEDREQ 18:44 → CANBEDREQ 19:10 → EMR 19:12
DX: K80.20 Calculus of gallbladder without cholecystitis without obstruction (principal); Z88.8 Allergy status to other drugs, medicaments and biological substances; Z87.19 Personal history of other diseases of the digestive system
CPT/HCPCS: 36415; 76700; 80053; 81003; 81025; 83690; 85025; 96374; 96375; 99284; J1885; J2270; J2405

== ENCOUNTER 2017-05-22 10:55 | Emergency (ER) | payer MEDICAID, OTHER ==
[~2017-05-22] VITALS: Ht 160 cm; Wt 59.0 kg
[2017-05-22 11:20] VITALS: BP 101/56
[2017-05-22] MEDS ORDERED: Morphine Sulfate 4mg/ml Inj IVP ONE (11:45)
[2017-05-22] MEDS ORDERED: Famotidine 20 MG/ 2ML VIAL IVP ONE (11:45)
[2017-05-22 11:54] LABS: APPEARANCE,URINE CLOUDY; KETONES,URINE NEGATIVE (NEGATIVE); LEUKOCYTE ESTERASE ,URINE 1+ (NEGATIVE); NITRITE,URINE NEGATIVE (NEGATIVE); PH,URINE 5 (4.5-8.0); PROTEIN,URINE NEGATIVE (NEGATIVE); UROBILINOGEN,URINE NORMAL MG/DL (0.0-1.0)
[2017-05-22 12:07] LABS: RBC,URINE TNTC /HPF (0 - 2)
[2017-05-22 12:08] LABS: BACTERIA,URINE FEW /HPF; SQUAMOUS EPITHELIAL CELL,UR OCCASIONAL /LPF (NONE/OCC)
[2017-05-22 12:11] LABS: BASOPHILS % (AUTO) 1.1 % (0.0-2.0); EOSINOPHILS % (AUTO) 0.8 % (0.0-3.0); LYMPHOCYTES % (AUTO) 32.3 % (20.0-45.0); MEAN CORPUSCULAR HEMOGLOBIN 30.4 PG (27.0-31.0); MEAN CORPUSCULAR HGB CONC 32.4 G/DL (32.0-36.0); MEAN CORPUSCULAR VOLUME 94 FL (80-99); MEAN PLATELET VOLUME 9.2 FL (6.5-10.1); MONOCYTES % (AUTO) 6.1 % (1.0-10.0); NEUTROPHILS % (AUTO) 59.6 % (45.0-75.0); PLATELET COUNT 250 K/UL (150-450); RED BLOOD COUNT 3.72 M/UL (4.20-5.40); RED CELL DISTRIBUTION WIDTH 12.2 % (11.6-14.8); WHITE BLOOD COUNT 8.3 K/UL (4.8-10.8)
[2017-05-22 12:19] LABS: PROTHROMBIN TIME 10.3 SEC (9.30-11.50)
[2017-05-22 12:29] LABS: ALANINE AMINOTRANSFERASE 11 U/L (3-33); ALBUMIN/GLOBULIN RATIO 1.3 (1.0-2.7); ANION GAP 13 (5-15); ASPARTATE AMINO TRANSFERASE 20 U/L (5-40); CALCIUM 8.3 mg/dL (8.6-10.2); CARBON DIOXIDE 21 mEQ/L (20-30); CHLORIDE 107 mEQ/L (98-107); CREATININE 0.7 mg/dL (0.5-0.9); GLOMERULAR FILTRATION RATE > 60 mL/min (>60); HEMOLYSIS 92; LIPASE 39 U/L (< 60); POTASSIUM 4.4 mEQ/L (3.4-4.9); SODIUM 141 mEQ/L (135-145); TOTAL PROTEIN 6.3 g/dL (6.6-8.7)
[2017-05-22 13:30] VITALS: BP 95/67
[2017-05-22] MEDS ORDERED: HYDROmorphone 1mg/ml Carpuject IVP ONE (13:45)
--- NOTE | 2017-05-22 14:33 | Emergency Room Report ---
History of Present Illness General Chief Complaint: Abdominal Pain Source: Patient Present Illness HPI Patient presents with several days of abdominal pain, feverish and diarrhea. No vomiting. Diarrhea has been yellow without blood. No chills. Pain is mostly RUQ and radiates to back = severe 10/10, sharp pressure. Has had before and states U/S done with some question of problems in gall bladder. Has been taking advil with minimal help. Menses now. Not think she is . no dysuria. No URI sy, rashes, WICK, dizziness, cough, dysuria, chest pain. No travel, unusual foods, sick contacts. Ultrasound done 03/23/17: Impression: Negative for gallstones or dilated ducts. However, positive sonographic Jordan's sign does raise possibility of acute acalculous cholecystitis. Consider nuclear medicine hepatobiliary scan for further evaluation it there is high clinical suspicion Left renal hyperechoic focus, could represent arterial or nonobstructive calyceal calcification Otherwise unremarkable Allergies: Coded Allergies: DIPHENHYDRAMINE (Unverified Allergy, Severe, Shortness of Breath, 09/15/14) PROMETHAZINE (Verified Allergy, Unknown, 05/07/09) PROCHLORPERAZINE EDISYLATE (Verified Adverse Reaction, Severe, Anaphylaxis , 01/28/13) Tremors PROCHLORPERAZINE MALEATE (Verified Adverse Reaction, Severe, Anaphylaxis, 01/28/13) Tremors Patient History Past Medical History: see triage record Social History: Denies: smoking Social History Narrative with daughters, no outside work Now: No Reviewed Nursing Documentation: PMH: Agreed, PSxH: Agreed Nursing Documentation-PMH Past Medical History: No Stated History Hx Cardiac Problems: No - MIGRAINE Hx Gastrointestinal Problems: Yes - Gastritis Review of Systems All Other Systems: negative except mentioned in HPI Physical Exam Vital Signs Date Time Temp Pulse Resp B/P (MAP) Pulse Ox O2 Delivery O2 Flow Rate FiO2 05/22/17 11:10 98.1 88 16 110/80 98 Room Air Sp02 EP Interpretation: reviewed, normal General Appearance: well appearing, no apparent distress, GCS 15 Head: normocephalic Eyes: bilateral eye normal inspection, bilateral eye PERRL, bilateral eye anticteric ENT: moist mucus membranes Neck: supple Respiratory: lungs clear, normal breath sounds Cardiovascular #1: regular rate, rhythm Cardiovascular #2: 2+ radial (R) Gastrointestinal: normal inspection, normal bowel sounds, no mass, non- distended, no rebound, guarding - RUQ, tenderness Genitourinary: no CVA tenderness Musculoskeletal: back normal, gait/station normal, normal range of motion Neurologic: alert, oriented x3, grossly normal Psychiatric: mood/affect normal Skin: normal inspection, warm/dry Medical Decision Making Diagnostic Impression: Primary Impression: Abdominal pain ER Course Patient with RUQ pain and diarrhea. Ddx: GItis, cholecystitis, PUD, diverticulitis, pancreatitis, hepatitis amongst others. Significant pain, needs urgent evaluation with labs. U/S not indicated as prior negative. Tx with iv hydration and analgesia. Consider U/S or CT if abnormal labs or persistent pain. Complicated patient with possible surgical problem. Labs with normal WBC and h/h. Normal lytes, LFTs, lipase. UA c/w menses. ( Area of pain not near L kidney.) Pain better with MS, but still significant. Dilaudid given. Improved with tx. Discussed need for further work up. (Stated tramadol causes itching.) Consider CT in future if pain and abnormal labs. Patient stable for outpatient observation and treatment. Laboratory Tests Test 05/22/17 11:09 05/22/17 11:40 Urine Color Yellow Urine Appearance Cloudy Urine pH 5 (4.5-8.0) Urine Specific [place] 1.025 (1.005-1.035) Urine Protein Negative (NEGATIVE) Urine Glucose (UA) Negative (NEGATIVE) Urine Ketones Negative (NEGATIVE) Urine Occult Blood 5+ (NEGATIVE) H Urine Nitrite Negative (NEGATIVE) Urine Bilirubin Negative (NEGATIVE) Urine Urobilinogen Normal MG/DL (0.0-1.0) Urine Leukocyte Esterase 1+ (NEGATIVE) H Urine RBC Tntc /HPF (0 - 2) H Urine WBC 2-4 /HPF (0 - 2) Urine Squamous Epithelial Cells Occasional /LPF Urine Bacteria Few /HPF (NONE) Urine HCG, Qualitative Negative White Blood Count 8.3 K/UL (4.8-10.8) Red Blood Count 3.72 M/UL (4.20-5.40) L Hemoglobin 11.3 G/DL (12.0-16.0) L Hematocrit 34.9 % (37.0-47.0) L Mean Corpuscular Volume 94 FL (80-99) Mean Corpuscular Hemoglobin 30.4 PG (27.0-31.0) Mean Corpuscular Hemoglobin Concent 32.4 G/DL (32.0-36.0) Red Cell Distribution Width 12.2 % (11.6-14.8) Platelet Count 250 K/UL (150-450) Mean Platelet Volume 9.2 FL (6.5-10.1) Neutrophils (%) (Auto) 59.6 % (45.0-75.0) Lymphocytes (%) (Auto) 32.3 % (20.0-45.0) Monocytes (%) (Auto) 6.1 % (1.0-10.0) Eosinophils (%) (Auto) 0.8 % (0.0-3.0) Basophils (%) (Auto) 1.1 % (0.0-2.0) Prothrombin Time 10.3 SEC (9.30-11.50) Prothrombin Time INR 1.0 (0.9-1.1) Sodium Level 141 mEQ/L (135-145) Potassium Level 4.4 mEQ/L (3.4-4.9) Chloride Level 107 mEQ/L (98-107) Carbon Dioxide Level 21 mEQ/L (20-30) Anion Gap 13 (5-15) Blood Urea Nitrogen 9 mg/dL (7-23) Creatinine 0.7 mg/dL (0.5-0.9) Estimate Glomerular Filtration Rate > 60 mL/min (>60) Glucose Level 114 mg/dL (74-106) H Calcium Level 8.3 mg/dL (8.6-10.2) L Total Bilirubin 0.4 mg/dL (0.0-1.2) Aspartate Amino Transferase (AST) 20 U/L (5-40) Alanine Aminotransferase (ALT) 11 U/L (3-33) Alkaline Phosphatase 51 U/L (35-104) Total Protein 6.3 g/dL (6.6-8.7) L Albumin 3.6 g/dL (3.5-5.2) Globulin 2.7 g/dL Albumin/Globulin Ratio 1.3 (1.0-2.7) Lipase 39 U/L (< 60) Last Vital Signs Date Time Temp Pulse Resp B/P (MAP) Pulse Ox O2 Delivery O2 Flow Rate FiO2 05/22/17 15:00 84 20 107/85 99 Room Air 05/22/17 15:00 97.6 Status: improved Disposition: HOME, SELF-CARE Condition: Improved Scripts Hydrocodone Bit/Acetaminophen 5-325* (NORCO 5-325*) 1 Each Tablet 1 TAB ORAL Q6H Y for For Pain, #14 TAB 0 Refills Prov: Patrick Soto M.D. 05/22/17 Diphenoxylate HCl/Atropine (Lomotil Tablet) 1 Each Tablet 1 EACH PO BID Y for Diarrhea, #6 TAB Prov: Patrick Soto M.D. 05/22/17 Famotidine (PEPCID) 20 Mg Tablet 20 MG ORAL DAILY, #30 TAB 0 Refills Prov: Patrick Soto M.D. 05/22/17 Ondansetron Odt* (ZOFRAN ODT*) 4 Mg Tab.rapdis 4 MG ORAL Q8H Y for Nausea & Vomiting, #12 TAB 1 Refill Prov: Patrick Soto M.D. 05/22/17 Referrals: [facility],REFERRING (PCP) Patrick Soto M.D. May 22, 2017 14:33
[2017-05-22] MEDS ORDERED: PEPCID20 MG ORAL (14:44)
[2017-05-22] MEDS ORDERED: ZOFRAN ODT4 MG ORAL (14:44)
[2017-05-22] MEDS ORDERED: TRAMADOL HCL50 MG ORAL (14:44)
[2017-05-22] MEDS ORDERED: LOMOTIL TABLET1 EAC1 PO (14:50)
[2017-05-22] MEDS ORDERED: NORCO 5-325 TA1 EACH ORAL (14:50)
[2017-05-22 15:00] VITALS: BP 107/85
== END 2017-05-22 15:00 | disposition home or self-care (01) ==
LOC: EMR 11:45
DX: R10.11 Right upper quadrant pain (principal); Z87.19 Personal history of other diseases of the digestive system; Z88.8 Allergy status to other drugs, medicaments and biological substances
CPT/HCPCS: 36415; 80053; 81003; 81025; 83690; 85025; 85610; 96361; 96374; 96375; 99284; J1170; J2270; J2405; S0028

== ENCOUNTER 2017-06-11 13:44 | Emergency (ER) | payer MEDICAID, OTHER ==
[~2017-06-11] VITALS: Ht 149.9 cm; Wt 56.7 kg
[~2017-06-11 13:44] MED LIST changes: +LOMOTIL TABLET1 EAC1 PO; +TRAMADOL HCL50 MG ORAL
[2017-06-11] MEDS ORDERED: Morphine Sulfate 4mg/ml Inj IM ONE (14:30)
[2017-06-11 14:38] LABS: APPEARANCE,URINE SLIGHTLY CLOUDY; KETONES,URINE NEGATIVE (NEGATIVE); LEUKOCYTE ESTERASE ,URINE 1+ (NEGATIVE); NITRITE,URINE NEGATIVE (NEGATIVE); PH,URINE 8 (4.5-8.0); PROTEIN,URINE NEGATIVE (NEGATIVE); UROBILINOGEN,URINE NORMAL MG/DL (0.0-1.0)
[2017-06-11 14:54] LABS: WBC,URINE 0-2 /HPF (0 - 2)
[2017-06-11 14:55] LABS: BACTERIA,URINE FEW /HPF; SQUAMOUS EPITHELIAL CELL,UR OCCASIONAL /LPF (NONE/OCC)
[2017-06-11] MEDS ORDERED: Ketorolac 30mg Inj IV ONE (16:00)
[2017-06-11 17:05] LABS: BASOPHILS % (AUTO) 1.5 % (0.0-2.0); EOSINOPHILS % (AUTO) 0.7 % (0.0-3.0); LYMPHOCYTES % (AUTO) 34.7 % (20.0-45.0); MEAN CORPUSCULAR HEMOGLOBIN 30.4 PG (27.0-31.0); MEAN CORPUSCULAR HGB CONC 31.8 G/DL (32.0-36.0); MEAN CORPUSCULAR VOLUME 96 FL (80-99); MEAN PLATELET VOLUME 7.4 FL (6.5-10.1); PLATELET COUNT 253 K/UL (150-450); RED BLOOD COUNT 3.78 M/UL (4.20-5.40); RED CELL DISTRIBUTION WIDTH 12.2 % (11.6-14.8); WHITE BLOOD COUNT 9.6 K/UL (4.8-10.8)
[2017-06-11 17:16] LABS: PROTHROMBIN TIME 10.4 SEC (9.30-11.50)
[2017-06-11 17:28] LABS: ALANINE AMINOTRANSFERASE 22 U/L (12-78); ALBUMIN/GLOBULIN RATIO 0.9 (1.0-2.7); ANION GAP 8 mmol/L (5-15); ASPARTATE AMINO TRANSFERASE 17 U/L (15-37); CALCIUM 9.2 MG/DL (8.5-10.1); CARBON DIOXIDE 26 MMOL/L (21-32); CHLORIDE 104 MMOL/L (98-107); CREATININE 0.9 MG/DL (0.55-1.30); GLOMERULAR FILTRATION RATE > 60 mL/min (>60); LIPASE 160 U/L (73-393); POTASSIUM 4.4 MMOL/L (3.5-5.1); SODIUM 138 MMOL/L (136-145); TOTAL PROTEIN 7.5 G/DL (6.4-8.2)
[2017-06-11] MEDS ORDERED: Morphine Sulfate 4mg/ml Inj IVP ONE (17:30)
[2017-06-11] MEDS ORDERED: NORCO 5-325 TA1 EAC1 ORAL (18:14)
[2017-06-11] MEDS ORDERED: ZOFRAN4 M3 ORAL (18:14)
[2017-06-11 19:26] VITALS: BP 99/50
[2017-06-11 19:28] VITALS: BP 99/50
--- NOTE | 2017-06-11 23:37 | Emergency Room Report ---
History of Present Illness General Chief Complaint: Pelvic Pain Source: Patient Present Illness HPI The patient is a 36-year-old female presenting for abdominal pain. She denies recent travel or sick contacts. She states the symptoms began yesterday described as a 9/10 dull ache to the entire abdomen primarily the mid lower region. She also admits to nausea and vomiting. She denies diarrhea, fever, chills, shortness of breath, back pain, dysuria Allergies: Coded Allergies: DIPHENHYDRAMINE (Unverified Allergy, Severe, Shortness of Breath, 09/15/14) PROMETHAZINE (Verified Allergy, Unknown, 05/07/09) PROCHLORPERAZINE EDISYLATE (Verified Adverse Reaction, Severe, Anaphylaxis , 01/28/13) Tremors PROCHLORPERAZINE MALEATE (Verified Adverse Reaction, Severe, Anaphylaxis, 01/28/13) Tremors Patient History Past Medical History: see triage record Pertinent Family History: none Last Menstrual Period: 05/25/17 Now: No Reviewed Nursing Documentation: PMH: Agreed, PSxH: Agreed Nursing Documentation-PMH Past Medical History: No Stated History Hx Cardiac Problems: No - MIGRAINE Hx Gastrointestinal Problems: Yes - Gastritis Review of Systems All Other Systems: negative except mentioned in HPI Physical Exam Vital Signs Date Time Temp Pulse Resp B/P (MAP) Pulse Ox O2 Delivery O2 Flow Rate FiO2 06/11/17 13:47 98.2 89 18 99/50 98 Room Air Sp02 EP Interpretation: reviewed, normal General Appearance: no apparent distress, alert, GCS 15, non-toxic Head: normocephalic, atraumatic Eyes: bilateral eye normal inspection, bilateral eye PERRL ENT: hearing grossly normal, normal pharynx, no angioedema, normal voice Neck: full range of motion, supple/symm/no masses Respiratory: chest non-tender, lungs clear, normal breath sounds, speaking full sentences Gastrointestinal: normal bowel sounds, soft, non-distended, no guarding, no rebound, tenderness - epigastric, suprapubic Genitourinary: normal inspection, no CVA tenderness Musculoskeletal: back normal, gait/station normal, normal range of motion, non- tender, calf tenderness Neurologic: alert, oriented x3, responsive, motor strength/tone normal, sensory intact, speech normal Psychiatric: judgement/insight normal, memory normal, mood/affect normal, no suicidal/homicidal ideation Skin: normal color, no rash, warm/dry, well hydrated Medical Decision Making PA Attestation Dr. Nguyen is my supervising physician. Patient management was discussed with my supervising physician Diagnostic Impression: Primary Impression: Gastroenteritis ER Course The patient is a 36-year-old female presenting for abdominal pain Differential diagnoses considered but not limited to: Gastroenteritis, GERD, gastritis, appendicitis, pancreatitis, UTI PE: Vitals WNL. NAD. Abdomen: Normal appearance. Non distended. No ecchymosis. + Epigastric TTP. No McBurney point tenderness. No guarding. No CVA tenderness Labs: CBC unremarkable CMP unremarkable Lipase unremarkable UA: Not consistent with UTI The patient is given IV fluids, Zofran, and pain medication and states that she is feeling much better. CT scan has signs consistent with gastroenteritis The patient we discharged home and treated symptomatically. She will followup with her primary doctor. ER precautions given Laboratory Tests Test 06/11/17 14:10 06/11/17 16:00 Urine Color Pale yellow Urine Appearance Slightly cloudy Urine pH 8 (4.5-8.0) Urine Specific [place] 1.015 (1.005-1.035) Urine Protein Negative (NEGATIVE) Urine Glucose (UA) Negative (NEGATIVE) Urine Ketones Negative (NEGATIVE) Urine Occult Blood 1+ (NEGATIVE) H Urine Nitrite Negative (NEGATIVE) Urine Bilirubin Negative (NEGATIVE) Urine Urobilinogen Normal MG/DL (0.0-1.0) Urine Leukocyte Esterase 1+ (NEGATIVE) H Urine RBC 2-4 /HPF (0 - 2) H Urine WBC 0-2 /HPF (0 - 2) Urine Squamous Epithelial Cells Occasional /LPF Urine Bacteria Few /HPF (NONE) Urine HCG, Qualitative Negative White Blood Count 9.6 K/UL (4.8-10.8) Red Blood Count 3.78 M/UL (4.20-5.40) L Hemoglobin 11.5 G/DL (12.0-16.0) L Hematocrit 36.2 % (37.0-47.0) L Mean Corpuscular Volume 96 FL (80-99) Mean Corpuscular Hemoglobin 30.4 PG (27.0-31.0) Mean Corpuscular Hemoglobin Concent 31.8 G/DL (32.0-36.0) L Red Cell Distribution Width 12.2 % (11.6-14.8) Platelet Count 253 K/UL (150-450) Mean Platelet Volume 7.4 FL (6.5-10.1) Neutrophils (%) (Auto) 56.0 % (45.0-75.0) Lymphocytes (%) (Auto) 34.7 % (20.0-45.0) Monocytes (%) (Auto) 7.0 % (1.0-10.0) Eosinophils (%) (Auto) 0.7 % (0.0-3.0) Basophils (%) (Auto) 1.5 % (0.0-2.0) Prothrombin Time 10.4 SEC (9.30-11.50) Prothrombin Time INR 1.0 (0.9-1.1) PTT 28 SEC (23-33) Sodium Level 138 MMOL/L (136-145) Potassium Level 4.4 MMOL/L (3.5-5.1) Chloride Level 104 MMOL/L (98-107) Carbon Dioxide Level 26 MMOL/L (21-32) Anion Gap 8 mmol/L (5-15) Blood Urea Nitrogen 14 mg/dL (7-18) Creatinine 0.9 MG/DL (0.55-1.30) Estimate Glomerular Filtration Rate > 60 mL/min (>60) Glucose Level 94 MG/DL (74-106) Calcium Level 9.2 MG/DL (8.5-10.1) Total Bilirubin 0.4 MG/DL (0.2-1.0) Aspartate Amino Transferase (AST) 17 U/L (15-37) Alanine Aminotransferase (ALT) 22 U/L (12-78) Alkaline Phosphatase 64 U/L (46-116) Total Protein 7.5 G/DL (6.4-8.2) Albumin 3.6 G/DL (3.4-5.0) Globulin 3.9 g/dL Albumin/Globulin Ratio 0.9 (1.0-2.7) L Lipase 160 U/L (73-393) Lab Results Impression No leukocytosis. Unremarkable CT/MRI/US Diagnostic Results CT/MRI/US Diagnostic Results : Imaging Test Ordered: CT Abd/Pelvis Impression consistent with gastroenteritis Last Vital Signs Date Time Temp Pulse Resp B/P (MAP) Pulse Ox O2 Delivery O2 Flow Rate FiO2 06/11/17 19:28 98.3 68 18 99/50 98 Room Air Status: improved Disposition: HOME, SELF-CARE Condition: Improved Scripts Ondansetron* (ZOFRAN*) 4 Mg Tablet 4 MG ORAL Q6H Y for Nausea & Vomiting, #15 TAB Prov: MOLLY UMAÑA.Ephraim. 06/11/17 Hydrocodone Bit/Acetaminophen 5-325* (NORCO 5-325 TABLET*) 1 Each Tablet 1 TAB ORAL Q6HR Y for For Pain, #12 TAB Prov: MOLLY UMAÑA 06/11/17 Patient Instructions: Viral Gastroenteritis, Adult, Abdominal Pain, Adult Additional Instructions: I discussed my findings with the patient. All questions and concerns have been answered. Treatment and medication compliance have been addressed. I advised the patient that they need to follow up with PMD in 3-5 days. Return to ED if symptoms worsen, new symptoms arise, or if needed for any reason. Patient verbalized understanding of discharge instructions. MOLLY UMAÑA Jun 11, 2017 23:37
--- NOTE | 2017-06-12 10:55 | Diagnostic Imaging Report ---
Indication: Abdominal pain Technique: Continuous helical transaxial imaging of the abdomen and pelvis was obtained from the lung bases to the pubic symphysis during intravenous contrast administration. Coronal 2-D reformats were also obtained. Study obtained in a Siemens sensation [address] Total Dose length Product (DLP): [address] Dose Index Volume (CTDIvol): 0.15, 15.03 mGy Comparison: None Findings: Lung bases are clear. Proximal small bowel loops appear mildly distended and fluid-filled. Consider enteritis. Some stool retention in the colon demonstrated. Gallbladder is contracted. There is no free fluid or free air. There are several small nodes in the mesentery especially on the right lower quadrant. The appendix is normal. Diverticula demonstrated in the sigmoid colon. No definite diverticulitis. Uterus is present. Suggestion of a left ovarian cyst demonstrated measuring approximately 2.6 x 2.0 cm. Urinary bladder is unremarkable in appearance. There is a small umbilical hernia containing fat. Slight heterogeneity of the uterus noted, nonspecific. Both kidneys enhance normally. There is no hydronephrosis. No abnormalities of the liver or spleen identified. Pancreas is unremarkable. Impression: Suspected enteritis/ileus as discussed above. Diverticulosis of the sigmoid colon. 2.6 cm left ovarian cyst suspected. Heterogeneous uterus nonspecific. Small mesenteric nodes nonspecific. Small fat-containing umbilical hernia. The CT scanner at [facility] is accredited by the [employer] and the scans are performed using dose optimization techniques as appropriate to a performed exam including Automatic Exposure control.
== END 2017-06-11 18:45 | disposition home or self-care (01) ==
LOC: EMR 14:55
DX: K52.9 Noninfective gastroenteritis and colitis, unspecified (principal); K57.30 Diverticulosis of large intestine without perforation or abscess without bleeding; K42.9 Umbilical hernia without obstruction or gangrene; Z88.8 Allergy status to other drugs, medicaments and biological substances; Z87.19 Personal history of other diseases of the digestive system
CPT/HCPCS: 36415; 74177; 80053; 81003; 81025; 83690; 85025; 85610; 85730; 96361; 96372; 96374; 96375; 99284; J1885; J2270; J2405; Q9967

== ENCOUNTER 2017-06-28 15:17 | Emergency (ER) | payer MEDICAID ==
[~2017-06-28] VITALS: Ht 157.5 cm; Wt 63.5 kg
[2017-06-28 15:37] VITALS: BP 111/69
[2017-06-28] MEDS ORDERED: Morphine Sulfate 4mg/ml Inj IVP ONE ×2 (16:00→17:45)
[2017-06-28 16:27] LABS: BASOPHILS % (AUTO) 1.2 % (0.0-2.0); EOSINOPHILS % (AUTO) 1.1 % (0.0-3.0); LYMPHOCYTES % (AUTO) 31.4 % (20.0-45.0); MEAN CORPUSCULAR HEMOGLOBIN 31.5 PG (27.0-31.0); MEAN CORPUSCULAR HGB CONC 34.5 G/DL (32.0-36.0); MEAN CORPUSCULAR VOLUME 92 FL (80-99); MONOCYTES % (AUTO) 8.5 % (1.0-10.0); NEUTROPHILS % (AUTO) 57.8 % (45.0-75.0); PLATELET COUNT 210 K/UL (150-450); RED BLOOD COUNT 3.66 M/UL (4.20-5.40); WHITE BLOOD COUNT 8.2 K/UL (4.8-10.8)
[2017-06-28 16:30] LABS: APPEARANCE,URINE CLEAR; KETONES,URINE NEGATIVE (NEGATIVE); LEUKOCYTE ESTERASE ,URINE NEGATIVE (NEGATIVE); NITRITE,URINE NEGATIVE (NEGATIVE); PH,URINE 7 (4.5-8.0); PROTEIN,URINE NEGATIVE (NEGATIVE); UROBILINOGEN,URINE 4 MG/DL (0.0-1.0)
[2017-06-28 16:33] LABS: PROTHROMBIN TIME 10.7 SEC (9.30-11.50)
[2017-06-28 16:39] LABS: ALANINE AMINOTRANSFERASE 21 U/L (12-78); ALBUMIN/GLOBULIN RATIO 1.3 (1.0-2.7); ANION GAP 8 mmol/L (5-15); ASPARTATE AMINO TRANSFERASE 16 U/L (15-37); CARBON DIOXIDE 27 MMOL/L (21-32); CHLORIDE 104 MMOL/L (98-107); CREATININE 0.7 MG/DL (0.55-1.30); GLOMERULAR FILTRATION RATE > 60 mL/min (>60); LIPASE 148 U/L (73-393); POTASSIUM 3.7 MMOL/L (3.5-5.1); SODIUM 139 MMOL/L (136-145); TOTAL PROTEIN 6.8 G/DL (6.4-8.2)
[2017-06-28 16:46] LABS: AMORPHOUS SEDIMENT,UR FEW /LPF; BACTERIA,URINE FEW /HPF; SQUAMOUS EPITHELIAL CELL,UR FEW /LPF (NONE/OCC); WBC,URINE 0-2 /HPF (0 - 2)
[2017-06-28] MEDS ORDERED: TRAMADOL HCL50 MG ORAL (17:16)
[2017-06-28] MEDS ORDERED: ZOFRAN4 M3 ORAL (17:16)
[2017-06-28] MEDS ORDERED: CIPROFLOXACIN500 M2 ORAL (17:16)
[2017-06-28 18:09] VITALS: BP 110/70
[2017-06-28 18:15] VITALS: BP 110/70
--- NOTE | 2017-06-28 22:35 | Emergency Room Report ---
History of Present Illness General Chief Complaint: Abdominal Pain Source: Patient Present Illness HPI The patient is a 36 old female presenting for abdominal pain, nausea, diarrhea, and subjective fever for the past 4 weeks. She was seen in this emergency department approximately 2 weeks prior for the same complaint and had blood work done with CT scan. CT scan had findings consistent with enteritis. She states that symptoms have continued and she admits to having occasional bright red blood mixed with diarrhea. Abdominal pain is an 8/10 dull ache. No known provoking or relieving factors. She denies any recent travel or known sick contacts. She denies seeing anything else in her stools. She denies any other symptoms Allergies: Coded Allergies: DIPHENHYDRAMINE (Unverified Allergy, Severe, Shortness of Breath, 09/15/14) PROMETHAZINE (Verified Allergy, Unknown, 05/07/09) PROCHLORPERAZINE EDISYLATE (Verified Adverse Reaction, Severe, Anaphylaxis , 01/28/13) Tremors PROCHLORPERAZINE MALEATE (Verified Adverse Reaction, Severe, Anaphylaxis, 01/28/13) Tremors Patient History Past Medical History: see triage record Pertinent Family History: none Last Menstrual Period: 06/21/2017 Now: No Reviewed Nursing Documentation: PMH: Agreed, PSxH: Agreed Nursing Documentation-PMH Past Medical History: No History, Except For Hx Cardiac Problems: No - MIGRAINE Hx Gastrointestinal Problems: Yes - Gastritis Review of Systems All Other Systems: negative except mentioned in HPI Physical Exam Vital Signs Date Time Temp Pulse Resp B/P (MAP) Pulse Ox O2 Delivery O2 Flow Rate FiO2 06/28/17 15:25 98.2 87 16 111/69 100 Room Air Sp02 EP Interpretation: reviewed, normal General Appearance: no apparent distress, alert, GCS 15, non-toxic Head: normocephalic, atraumatic Eyes: bilateral eye normal inspection, bilateral eye PERRL ENT: hearing grossly normal, normal pharynx, no angioedema, normal voice Neck: full range of motion, supple/symm/no masses Respiratory: chest non-tender, lungs clear, normal breath sounds, speaking full sentences Gastrointestinal: normal bowel sounds, soft, non-distended, no guarding, no rebound, tenderness - diffuse Genitourinary: normal inspection, no CVA tenderness Musculoskeletal: back normal, gait/station normal, normal range of motion, non- tender Neurologic: alert, oriented x3, responsive, motor strength/tone normal, sensory intact, speech normal Psychiatric: judgement/insight normal, memory normal, mood/affect normal, no suicidal/homicidal ideation Skin: normal color, no rash, warm/dry, well hydrated Medical Decision Making PA Attestation Dr. Akhtar is my supervising physician. Patient management was discussed with my supervising physician Diagnostic Impression: Primary Impression: Gastroenteritis ER Course The patient is a 36 old female presenting for abdominal pain, nausea, diarrhea, and subjective fever for the past 4 weeks DDx considered but not limited to: viral or bacterial gastroenteritis, diverticulitis, appendicitis, cholecystitis, pancreatitis, among others PE: vitals WNL. NAD RRR Lungs CTA bilat Abd is soft. Normal BS. Non distended. No guarding. Diffuse TTP. No CVA tenderness Skin is warm and dry Labs unremarkable. No leukocytosis. Previous CT showed signs of enteritis. Due to prolonged symptoms and presence of bright red blood in stool, the patient will be treated with antibiotics. She needs to FU with PMD. ER precautions given I spoke with the patient on 06/02/17 and she stated symptoms have improved. Labs Test 06/28/17 16:00 White Blood Count 8.2 K/UL (4.8-10.8) Red Blood Count 3.66 M/UL (4.20-5.40) Hemoglobin 11.5 G/DL (12.0-16.0) Hematocrit 33.5 % (37.0-47.0) Mean Corpuscular Volume 92 FL (80-99) Mean Corpuscular Hemoglobin 31.5 PG (27.0-31.0) Mean Corpuscular Hemoglobin Concent 34.5 G/DL (32.0-36.0) Red Cell Distribution Width 12.0 % (11.6-14.8) Platelet Count 210 K/UL (150-450) Mean Platelet Volume 10.0 FL (6.5-10.1) Neutrophils (%) (Auto) 57.8 % (45.0-75.0) Lymphocytes (%) (Auto) 31.4 % (20.0-45.0) Monocytes (%) (Auto) 8.5 % (1.0-10.0) Eosinophils (%) (Auto) 1.1 % (0.0-3.0) Basophils (%) (Auto) 1.2 % (0.0-2.0) Prothrombin Time 10.7 SEC (9.30-11.50) Prothromb Time International Ratio 1.0 (0.9-1.1) Activated Partial Thromboplast Time 27 SEC (23-33) Urine Color Yellow Urine Appearance Clear Urine pH 7 (4.5-8.0) Urine Specific [place] 1.015 (1.005-1.035) Urine Protein Negative (NEGATIVE) Urine Glucose (UA) Negative (NEGATIVE) Urine Ketones Negative (NEGATIVE) Urine Occult Blood 1+ (NEGATIVE) Urine Nitrite Negative (NEGATIVE) Urine Bilirubin Negative (NEGATIVE) Urine Urobilinogen 4 MG/DL (0.0-1.0) Urine Leukocyte Esterase Negative (NEGATIVE) Urine RBC 2-4 /HPF (0 - 2) Urine WBC 0-2 /HPF (0 - 2) Urine Squamous Epithelial Cells Few /LPF (NONE/OCC) Urine Amorphous Sediment Few /LPF (NONE) Urine Bacteria Few /HPF (NONE) Urine HCG, Qualitative Negative Sodium Level 139 MMOL/L (136-145) Potassium Level 3.7 MMOL/L (3.5-5.1) Chloride Level 104 MMOL/L (98-107) Carbon Dioxide Level 27 MMOL/L (21-32) Anion Gap 8 mmol/L (5-15) Blood Urea Nitrogen 11 mg/dL (7-18) Creatinine 0.7 MG/DL (0.55-1.30) Estimat Glomerular Filtration Rate > 60 mL/min (>60) Glucose Level 91 MG/DL (74-106) Calcium Level 9.0 MG/DL (8.5-10.1) Total Bilirubin 0.8 MG/DL (0.2-1.0) Aspartate Amino Transf (AST/SGOT) 16 U/L (15-37) Alanine Aminotransferase (ALT/SGPT) 21 U/L (12-78) Alkaline Phosphatase 57 U/L (46-116) Total Protein 6.8 G/DL (6.4-8.2) Albumin 3.8 G/DL (3.4-5.0) Globulin 3.0 g/dL Albumin/Globulin Ratio 1.3 (1.0-2.7) Lipase 148 U/L (73-393) Lab Results Impression CBC, CMP, UA unremarkable Last Vital Signs Date Time Temp Pulse Resp B/P (MAP) Pulse Ox O2 Delivery O2 Flow Rate FiO2 06/28/17 18:15 98.2 65 17 110/70 100 Room Air Status: improved Disposition: HOME, SELF-CARE Condition: Improved Scripts Ciprofloxacin Hcl* (CIPROFLOXACIN HCL*) 500 Mg Tablet 500 MG ORAL EVERY 12 HOURS, #10 TAB 0 Refills Prov: MOLLY UMAÑA.A. 06/28/17 Ondansetron* (ZOFRAN*) 4 Mg Tablet 4 MG ORAL Q6H Y for Nausea & Vomiting, #10 TAB Prov: MOLLY UMAÑA P.A. 06/28/17 Tramadol Hcl* (ULTRAM*) 50 Mg Tablet 50 MG ORAL Q6H Y for For Pain, #10 TAB 0 Refills Prov: MOLLY UMAÑA P.A. 06/28/17 Patient Instructions: Abdominal Pain, Adult, Bloody Diarrhea Additional Instructions: I discussed my findings with the patient. All questions and concerns have been answered. Treatment and medication compliance have been addressed. I advised the patient that they need to follow up with primary doctor as soon as possible. Return to ED if symptoms worsen, new symptoms arise, or if needed for any reason. Patient verbalized understanding of discharge instructions. MOLLY UMAÑA Jun 28, 2017 22:35
== END 2017-06-28 18:17 | disposition home or self-care (01) ==
LOC: EMR 16:20
DX: K52.9 Noninfective gastroenteritis and colitis, unspecified (principal)
CPT/HCPCS: 36415; 80053; 81003; 81025; 83690; 85025; 85610; 85730; 96361; 96374; 96375; 99284; J2270; J2405

== ENCOUNTER 2017-07-02 10:42 | Emergency (ER) | payer MEDICAID ==
[~2017-07-02] VITALS: Ht 149.9 cm; Wt 61.2 kg
[~2017-07-02 10:42] MED LIST changes: +CIPROFLOXACIN500 M2 ORAL
[2017-07-02] MEDS ORDERED: Norco 10mg/325mg tab ORAL ONE (11:00)
--- NOTE | 2017-07-02 11:03 | Emergency Room Report ---
History of Present Illness General Chief Complaint: Upper Extremity Injury Source: Patient Present Illness HPI Patient reports fall yesterday at about 7 PM In the shower Patient has pain to the left elbow 8/10 worse with touch or movement Patient initially had some mild left shoulder discomfort as well however reports her main discomfort is the elbow Denies any head injury denies any chest pain or shortness of breath Allergies: Coded Allergies: DIPHENHYDRAMINE (Unverified Allergy, Severe, Shortness of Breath, 09/15/14) PROMETHAZINE (Verified Allergy, Unknown, 05/07/09) PROCHLORPERAZINE EDISYLATE (Verified Adverse Reaction, Severe, Anaphylaxis , 01/28/13) Tremors PROCHLORPERAZINE MALEATE (Verified Adverse Reaction, Severe, Anaphylaxis, 01/28/13) Tremors Patient History Past Medical History: see triage record Pertinent Family History: none Last Menstrual Period: 06/21/17 Now: No Reviewed Nursing Documentation: PMH: Agreed, PSxH: Agreed Nursing Documentation-PMH Past Medical History: No Stated History Hx Cardiac Problems: No - MIGRAINE Hx Gastrointestinal Problems: Yes - Gastritis Review of Systems All Other Systems: negative except mentioned in HPI Physical Exam Vital Signs Date Time Temp Pulse Resp B/P (MAP) Pulse Ox O2 Delivery O2 Flow Rate FiO2 07/02/17 10:44 98.1 65 16 105/60 99 Room Air Sp02 EP Interpretation: reviewed, normal General Appearance: well appearing, no apparent distress Head: normocephalic, atraumatic Eyes: bilateral eye PERRL, bilateral eye EOMI ENT: hearing grossly normal, normal pharynx, TMs + canals normal, uvula midline Neck: full range of motion, supple, no meningismus, no bony tend Respiratory: lungs clear, normal breath sounds, no rhonchi, no respiratory distress, no retraction, no accessory muscle use Cardiovascular #1: regular rate, rhythm Gastrointestinal: normal bowel sounds, non tender Musculoskeletal: swelling - Obvious swelling to the left elbow, neurovascularly intact, able to move digits Neurologic: alert, oriented x3, responsive Skin: other - as above Lymphatic: no adenopathy Medical Decision Making Diagnostic Impression: Primary Impression: Elbow contusion ER Course Given the patient's history and presentation imaging study was obtained At this time no obvious acute pathology was seen Patient was given a shoulder sling This is not a splint Patient was provided with pain medication and will have close outpatient followup Other X-Ray Diagnostic Results Other X-Ray Diagnostic Results : X-Ray ordered: left elbow # of Views/Limited Vs Complete: 3 View Indication: Pain EP Interpretation: Yes Interpretation: no dislocation, no fractures, other - Mild soft tissue swelling Impression: Other - soft tissue swelling Electronically Signed by: Nacho English, Last Vital Signs Date Time Temp Pulse Resp B/P (MAP) Pulse Ox O2 Delivery O2 Flow Rate FiO2 07/02/17 10:44 98.1 65 16 105/60 99 Room Air Status: improved Disposition: HOME, SELF-CARE Condition: Improved Scripts Ibuprofen* (MOTRIN*) 600 Mg Tablet 600 MG ORAL Q8H Y for For Pain, #20 TAB 0 Refills Prov: NACHO ENGLISH D.O. 07/02/17 Additional Instructions: Patient is provided with the discharge instructions notified to follow up with primary doctor in the next 2-3 days otherwise return to the er with any worsening symptoms. Please note that this report is being documented using [employer] technology. This can lead to erroneous entry secondary to incorrect interpretation by the dictating instrument. NACHO ENGLISH D.O. Jul 02, 2017 11:03
--- NOTE | 2017-07-02 11:58 | Diagnostic Imaging Report ---
Indication: Pain Findings: 3 views of the left elbow were obtained. No acute fractures, malalignment, erosions or periostitis are identified. Soft tissues are unremarkable. Impression: No acute injury
[2017-07-02] MEDS ORDERED: IBUPROFEN600 MG ORAL (12:03)
[2017-07-02 12:06] VITALS: BP 108/68
[2017-07-02 12:45] VITALS: BP 108/68
== END 2017-07-02 12:45 | disposition home or self-care (01) ==
LOC: EMR 11:10
DX: S50.02XA Contusion of left elbow, initial encounter (principal); Z88.8 Allergy status to other drugs, medicaments and biological substances; W18.30XA Fall on same level, unspecified, initial encounter; Y93.E1 Activity, personal bathing and showering; Y92.9 Unspecified place or not applicable
CPT/HCPCS: 99283

== ENCOUNTER 2017-07-08 21:11 | Emergency (ER) | payer MEDICAID, OTHER ==
[~2017-07-08] VITALS: Ht 149.9 cm; Wt 61.7 kg
[2017-07-08] MEDS ORDERED: Metoclopramide 10mg/2ml Inj IVP ONE (21:30)
[2017-07-08] MEDS ORDERED: Ketorolac 30mg Inj IV ONE (21:30)
[2017-07-08 22:12] LABS: BASOPHILS % (AUTO) 2.2 % (0.0-2.0); EOSINOPHILS % (AUTO) 1.4 % (0.0-3.0); LYMPHOCYTES % (AUTO) 41.2 % (20.0-45.0); MEAN CORPUSCULAR VOLUME 94 FL (80-99); MEAN PLATELET VOLUME 9.9 FL (6.5-10.1); MONOCYTES % (AUTO) 10.1 % (1.0-10.0); NEUTROPHILS % (AUTO) 45.1 % (45.0-75.0); PLATELET COUNT 213 K/UL (150-450); RED BLOOD COUNT 3.78 M/UL (4.20-5.40); RED CELL DISTRIBUTION WIDTH 11.9 % (11.6-14.8); WHITE BLOOD COUNT 8.3 K/UL (4.8-10.8)
[2017-07-08 22:13] LABS: KETONES,URINE NEGATIVE (NEGATIVE); LEUKOCYTE ESTERASE ,URINE 1+ (NEGATIVE); NITRITE,URINE NEGATIVE (NEGATIVE); PH,URINE 7 (4.5-8.0); PROTEIN,URINE NEGATIVE (NEGATIVE); UROBILINOGEN,URINE NORMAL MG/DL (0.0-1.0)
[2017-07-08 22:25] LABS: APPEARANCE,URINE SLIGHTLY CLOUDY
[2017-07-08 22:26] LABS: BACTERIA,URINE MANY /HPF; SQUAMOUS EPITHELIAL CELL,UR MANY /LPF (NONE/OCC)
[2017-07-08 22:27] LABS: ANION GAP 9 mmol/L (5-15); CALCIUM 8.8 MG/DL (8.5-10.1); CARBON DIOXIDE 27 MMOL/L (21-32); CHLORIDE 103 MMOL/L (98-107); CREATININE 0.8 MG/DL (0.55-1.30); GLOMERULAR FILTRATION RATE > 60 mL/min (>60); POTASSIUM 3.7 MMOL/L (3.5-5.1); SODIUM 139 MMOL/L (136-145)
[2017-07-08 22:33] LABS: ALANINE AMINOTRANSFERASE 27 U/L (12-78); ASPARTATE AMINO TRANSFERASE 19 U/L (15-37); TOTAL PROTEIN 7.3 G/DL (6.4-8.2)
[2017-07-08] MEDS ORDERED: Cephalexin 500mg cap ORAL ONE (22:45)
[2017-07-08] MEDS ORDERED: KEFLEX500 MG ORAL (23:12)
[2017-07-08 23:15] VITALS: BP 122/68
[2017-07-08 23:19] VITALS: BP 122/68
--- NOTE | 2017-07-08 23:28 | Emergency Room Report ---
History of Present Illness General Chief Complaint: Headache Source: Patient Present Illness HPI 36 year-old female presents ED for evaluation. Patient states she's had a headache today since about noon. Patient describes the pain as throbbing, 10 out of 10, left-sided. Denies photophobia or blurry vision. Denies neck stiffness. Denies nausea or vomiting. Patient states she is prior history of headaches. Denies fevers or chills. No other aggravating relieving factors. Denies any other associated symptoms Allergies: Coded Allergies: DIPHENHYDRAMINE (Unverified Allergy, Severe, Shortness of Breath, 09/15/14) PROMETHAZINE (Verified Allergy, Unknown, 05/07/09) PROCHLORPERAZINE EDISYLATE (Verified Adverse Reaction, Severe, Anaphylaxis , 01/28/13) Tremors PROCHLORPERAZINE MALEATE (Verified Adverse Reaction, Severe, Anaphylaxis, 01/28/13) Tremors Patient History Past Medical History: GERD Past Surgical History: none Pertinent Family History: none Social History: Denies: smoking, alcohol use, drug use Last Menstrual Period: jun 21 Now: No : 3 Immunizations: UTD Reviewed Nursing Documentation: PMH: Agreed, PSxH: Agreed Nursing Documentation-PMH Hx Cardiac Problems: No - MIGRAINE Hx Gastrointestinal Problems: Yes - Gastritis Review of Systems All Other Systems: negative except mentioned in HPI Physical Exam Vital Signs Date Time Temp Pulse Resp B/P (MAP) Pulse Ox O2 Delivery O2 Flow Rate FiO2 07/08/17 21:17 98.2 90 18 126/75 98 Room Air Sp02 EP Interpretation: reviewed, normal General Appearance: no apparent distress, alert, GCS 15, non-toxic Head: normocephalic, atraumatic Eyes: bilateral eye normal inspection, bilateral eye PERRL ENT: hearing grossly normal, normal pharynx, no angioedema, normal voice Neck: full range of motion, supple, no meningismus, supple/symm/no masses Respiratory: chest non-tender, lungs clear, normal breath sounds, speaking full sentences Cardiovascular #1: regular rate, rhythm, no edema Cardiovascular #2: 2+ carotid (R), 2+ carotid (L), 2+ radial (R), 2+ radial (L) , 2+ dorsalis pedis (R), 2+ dorsalis pedis (L) Gastrointestinal: normal bowel sounds, non tender, soft, non-distended, no guarding, no rebound Rectal: deferred Genitourinary: normal inspection, no CVA tenderness Musculoskeletal: back normal, gait/station normal, normal range of motion, non- tender Neurologic: alert, oriented x3, responsive, motor strength/tone normal, sensory intact, speech normal Psychiatric: judgement/insight normal, memory normal, mood/affect normal, no suicidal/homicidal ideation Reflexes: 3+ bicep (R), 3+ bicep (L), 3+ tricep (R), 3+ tricep (L), 3+ knee (R) , 3+ knee (L) Skin: normal color, no rash, warm/dry, well hydrated Lymphatic: no adenopathy Medical Decision Making Diagnostic Impression: Primary Impression: UTI (urinary tract infection) Qualified Codes: N39.0 - Urinary tract infection, site not specified Additional Impression: Headache Qualified Codes: G44.059 - Short lasting unilateral neuralgiform headache with conjunctival injection and tearing (SUNCT), not intractable ER Course Hospital Course 36-year-old female presents to ED complaining of headaches. No photophobia, no nausea or vomiting Differential diagnoses include: tension headache, migraine, dehydration, intracranial bleed Clinical course Patient placed on stretcher. After initial history and physical I ordered labs , IV fluids, Reglan, Toradol and CT Head Labs reviewed- electrolytes okay, no leukocytosis, hemoglobin/hematocrit stable , UA + bacteria Upon reassessment patient states pain has improved. Patient feels better wishes to go home. Given the lack of fever, nuchal rigidity or neurological findings my suspicion for intracranial pathology is low patient be safely discharged to home. given keflex in ED i. I feel this is a highly complex case requiring extensive working including EKG/Rhythm strip, Xray/CT/US, Blood/urine lab work, repeat exams while in ED, and administration of strong opiates/narcotics for pain control, admission to hospital or close patient follow up. Diagnosis - headache, UTI stable and discharged to home with Rx Keflex. f/up with PMD. return to ED if symptoms recur/worsen. Labs Test 07/08/17 21:54 White Blood Count 8.3 K/UL (4.8-10.8) Red Blood Count 3.78 M/UL (4.20-5.40) Hemoglobin 11.3 G/DL (12.0-16.0) Hematocrit 35.4 % (37.0-47.0) Mean Corpuscular Volume 94 FL (80-99) Mean Corpuscular Hemoglobin 30.0 PG (27.0-31.0) Mean Corpuscular Hemoglobin Concent 32.0 G/DL (32.0-36.0) Red Cell Distribution Width 11.9 % (11.6-14.8) Platelet Count 213 K/UL (150-450) Mean Platelet Volume 9.9 FL (6.5-10.1) Neutrophils (%) (Auto) 45.1 % (45.0-75.0) Lymphocytes (%) (Auto) 41.2 % (20.0-45.0) Monocytes (%) (Auto) 10.1 % (1.0-10.0) Eosinophils (%) (Auto) 1.4 % (0.0-3.0) Basophils (%) (Auto) 2.2 % (0.0-2.0) Urine Color Pale yellow Urine Appearance Slightly cloudy Urine pH 7 (4.5-8.0) Urine Specific [place] 1.010 (1.005-1.035) Urine Protein Negative (NEGATIVE) Urine Glucose (UA) Negative (NEGATIVE) Urine Ketones Negative (NEGATIVE) Urine Occult Blood 2+ (NEGATIVE) Urine Nitrite Negative (NEGATIVE) Urine Bilirubin Negative (NEGATIVE) Urine Urobilinogen Normal MG/DL (0.0-1.0) Urine Leukocyte Esterase 1+ (NEGATIVE) Urine RBC 2-4 /HPF (0 - 2) Urine WBC 10-15 /HPF (0 - 2) Urine Squamous Epithelial Cells Many /LPF (NONE/OCC) Urine Bacteria Many /HPF (NONE) Urine HCG, Qualitative Negative Sodium Level 139 MMOL/L (136-145) Potassium Level 3.7 MMOL/L (3.5-5.1) Chloride Level 103 MMOL/L (98-107) Carbon Dioxide Level 27 MMOL/L (21-32) Anion Gap 9 mmol/L (5-15) Blood Urea Nitrogen 13 mg/dL (7-18) Creatinine 0.8 MG/DL (0.55-1.30) Estimat Glomerular Filtration Rate > 60 mL/min (>60) Glucose Level 99 MG/DL (74-106) Calcium Level 8.8 MG/DL (8.5-10.1) Total Bilirubin 0.4 MG/DL (0.2-1.0) Aspartate Amino Transf (AST/SGOT) 19 U/L (15-37) Alanine Aminotransferase (ALT/SGPT) 27 U/L (12-78) Alkaline Phosphatase 50 U/L (46-116) Total Protein 7.3 G/DL (6.4-8.2) Albumin 3.7 G/DL (3.4-5.0) Globulin 3.6 g/dL Albumin/Globulin Ratio 1.0 (1.0-2.7) CT/MRI/US Diagnostic Results CT/MRI/US Diagnostic Results : Imaging Test Ordered: CT head Impression no acute process Last Vital Signs Date Time Temp Pulse Resp B/P (MAP) Pulse Ox O2 Delivery O2 Flow Rate FiO2 07/08/17 23:15 98.2 66 16 122/68 98 Room Air Status: improved Disposition: HOME, SELF-CARE Condition: Stable Scripts Cephalexin* (KEFLEX*) 500 Mg Capsule 500 MG ORAL Q6H, #28 CAP 0 Refills Prov: XAVIER JOHNSON M.D. 07/08/17 Patient Instructions: Dysuria XAVIER JOHNSON M.D. Jul 08, 2017 23:28
--- NOTE | 2017-07-09 11:55 | Diagnostic Imaging Report ---
Indication: H/A left-sided numbness and headache since today around 12:00 10 out of 10 pain Technique: Continuous helical CT scanning of the head was performed without intravenous contrast material. Axial and coronal 5 mm sections were generated. Radiation dose was minimized using automated exposure control Dose: Total Dose Length Product - DLP [address] Dose Index - CTDIvol(s) 70.38 mGy. Comparison: 10/17/2013 Findings: The ventricular system is normal in size and configuration. There is no shift of midline structures. No abnormal extra-axial fluid collections are noted. There is no evidence of intracerebral bleeding. No other abnormal high or low density areas are noted within the brain. No significant interim change Impression: Normal CT scan of the head without contrast material. This agrees with the preliminary interpretation provided overnight by [facility] teleradiology service. The CT scanner at [facility] is accredited by the [employer] and the scans are performed using protocols designed to limit radiation exposure to as low as reasonably achievable to attain images of sufficient resolution adequate for diagnostic evaluation.
== END 2017-07-08 23:19 | disposition home or self-care (01) ==
LOC: EMR 21:18
DX: N39.0 Urinary tract infection, site not specified (principal); R51 Headache; Z87.19 Personal history of other diseases of the digestive system
CPT/HCPCS: 36415; 70450; 80053; 81003; 81025; 85025; 87086; 96361; 96374; 96375; 99284; J1885; J2765

== ENCOUNTER 2017-07-27 15:24 | Emergency (ER) | payer MEDICAID ==
[~2017-07-27] VITALS: Ht 157.5 cm; Wt 65.8 kg
[~2017-07-27 15:24] MED LIST changes: +KEFLEX500 MG ORAL
[2017-07-27] MEDS ORDERED: NKM (15:30)
--- NOTE | 2017-07-27 15:54 | Emergency Room Report ---
History of Present Illness General Chief Complaint: Abdominal Pain Source: Patient (Nilda Douglass) Present Illness HPI 36 YO Female presents to the ED c/o 06/05 in severity RUQ abdominal pain acute onset after EGD performed on Sunday. pt. reports pain to be constant. and no relief from PO tramadol. Pt. has hx of RUQ pain intermittently x months with hx of gallbladder stones and sludge. pt. reports she was supposed to have surgery but her insurance required prior auth., and has been waiting months. pt. denies fevers, chills, vomiting, constipation, diarrhea, blood in the stool or dark tarry stools. pt. denies night sweats, or significant changes in weight. pt. reports exacerbation of her symptoms with eating. Denies CP, Palpitations, LOC, AMS, dizziness, Changes in Vision, Sensation, paresthesias, or a sudden severe headache. (Nilda Douglass) Allergies: Coded Allergies: DIPHENHYDRAMINE (Unverified Allergy, Severe, Shortness of Breath, 09/15/14) PROMETHAZINE (Verified Allergy, Unknown, 05/07/09) PROCHLORPERAZINE EDISYLATE (Verified Adverse Reaction, Severe, Anaphylaxis , 01/28/13) Tremors PROCHLORPERAZINE MALEATE (Verified Adverse Reaction, Severe, Anaphylaxis, 01/28/13) Tremors Patient History Past Medical History: see triage record Past Surgical History: none Pertinent Family History: none Last Menstrual Period: 07/20/17 Immunizations: UTD Reviewed Nursing Documentation: PMH: Agreed, PSxH: Agreed (Nilda Douglass) Nursing Documentation-PMH Past Medical History: No Stated History Hx Cardiac Problems: No - MIGRAINE Hx Gastrointestinal Problems: Yes - Gastritis (Nilda Douglass) Review of Systems All Other Systems: negative except mentioned in HPI (Nilda Douglass) Physical Exam Vital Signs Date Time Temp Pulse Resp B/P (MAP) Pulse Ox O2 Delivery O2 Flow Rate FiO2 07/27/17 15:26 97.9 82 18 103/72 98 Room Air Sp02 EP Interpretation: reviewed, normal General Appearance: no apparent distress, alert, GCS 15, non-toxic Head: normocephalic, atraumatic Eyes: bilateral eye normal inspection, bilateral eye PERRL ENT: hearing grossly normal, normal voice Neck: full range of motion Respiratory: chest non-tender, lungs clear, normal breath sounds, speaking full sentences Cardiovascular #1: regular rate, rhythm Gastrointestinal: normal bowel sounds, soft, no guarding, no rebound, tenderness - RUQ TTP Rectal: deferred Genitourinary: normal inspection, no CVA tenderness Musculoskeletal: back normal, gait/station normal, normal range of motion, non- tender Neurologic: alert, oriented x3, responsive, motor strength/tone normal, sensory intact, speech normal Skin: normal color, no rash, warm/dry, well hydrated (Nilda Douglass) Medical Decision Making PA Attestation Dr. Nguyen is my supervising Physician whom patient management has been discussed with. (Nilda Douglass) Diagnostic Impression: Primary Impression: Recurrent biliary colic ER Course Pt. presents to the ED c/o 06/05 in severity RUQ abdominal pain acute onset after EGD performed on Sunday. pt. reports pain to be constant. and no relief from PO tramadol. Pt. has hx of RUQ pain intermittently x months with hx of gallbladder stones and sludge. pt. reports she was supposed to have surgery but her insurance required prior auth, and has been waiting months. pt. denies fevers, chills, vomiting, constipation, diarrhea, blood in the stool or dark tarry stools. pt. denies night sweats, or significant changes in weight. pt. reports exacerbation of her symptoms with eating. Ddx considered but are not limited to Diverticulitis, acute appy, diarrhea,UC, PUD, GE, pancreatitis, gallstone, perforation. Vital signs: are WNL, pt. is afebrile H&PE are most consistent with abdominal pain in female of reproductive age, with recent EGD performed. ORDERS: -CBC, CMP, lipase, amylase: Unremarkable normal lipase and LFT's - UA: Unremarkable -Urine HCG: Negative -ABDOMINAL xray- had well circumscribed 4.4 cm round radiopaque FB, not found on pt. sent to [facility] which recommended additional views as possible lung mass. - CXR PA and lateral as requested by [facility] radiologist: WNL no acute pathology ED INTERVENTIONS: -Morphine IV -1000cc NS Bolus -Lidocaine viscous PO -Pepcid IV -Mylanta PO - D/w pt. to follow up with GI specialist, will give Dr. Anderson's contact information as he was the specialist that evaluated her on her previous admission. d/w pt. to return to ED with worsening or new symptoms. I do not suspect an emergent condition at this time. With current presentation, pt. is stable for close outpatient follow up and conservative treatment. DISCHARGE: At this time pt. is stable for d/c to home. Will provide printed patient care instructions, and any necessary prescriptions. Care plan and follow up instructions have been discussed with the patient prior to discharge. Labs Test 07/27/17 16:05 White Blood Count 6.7 K/UL (4.8-10.8) Red Blood Count 3.96 M/UL (4.20-5.40) Hemoglobin 12.1 G/DL (12.0-16.0) Hematocrit 35.7 % (37.0-47.0) Mean Corpuscular Volume 90 FL (80-99) Mean Corpuscular Hemoglobin 30.6 PG (27.0-31.0) Mean Corpuscular Hemoglobin Concent 33.9 G/DL (32.0-36.0) Red Cell Distribution Width 12.3 % (11.6-14.8) Platelet Count 279 K/UL (150-450) Mean Platelet Volume 9.4 FL (6.5-10.1) Neutrophils (%) (Auto) 50.8 % (45.0-75.0) Lymphocytes (%) (Auto) 40.1 % (20.0-45.0) Monocytes (%) (Auto) 7.0 % (1.0-10.0) Eosinophils (%) (Auto) 1.0 % (0.0-3.0) Basophils (%) (Auto) 1.2 % (0.0-2.0) Urine Color Pale yellow Urine Appearance Clear Urine pH 5 (4.5-8.0) Urine Specific [place] 1.015 (1.005-1.035) Urine Protein Negative (NEGATIVE) Urine Glucose (UA) Negative (NEGATIVE) Urine Ketones Negative (NEGATIVE) Urine Occult Blood 2+ (NEGATIVE) Urine Nitrite Negative (NEGATIVE) Urine Bilirubin Negative (NEGATIVE) Urine Urobilinogen Normal MG/DL (0.0-1.0) Urine Leukocyte Esterase Negative (NEGATIVE) Urine RBC 2-4 /HPF (0 - 2) Urine WBC 0-2 /HPF (0 - 2) Urine Squamous Epithelial Cells Many /LPF (NONE/OCC) Urine Bacteria Few /HPF (NONE) Urine HCG, Qualitative Negative Sodium Level 139 MMOL/L (136-145) Potassium Level 3.7 MMOL/L (3.5-5.1) Chloride Level 103 MMOL/L (98-107) Carbon Dioxide Level 28 MMOL/L (21-32) Anion Gap 8 mmol/L (5-15) Blood Urea Nitrogen 9 mg/dL (7-18) Creatinine 0.8 MG/DL (0.55-1.30) Estimat Glomerular Filtration Rate > 60 mL/min (>60) Glucose Level 82 MG/DL (74-106) Calcium Level 9.5 MG/DL (8.5-10.1) Total Bilirubin 0.9 MG/DL (0.2-1.0) Aspartate Amino Transf (AST/SGOT) 16 U/L (15-37) Alanine Aminotransferase (ALT/SGPT) 20 U/L (12-78) Alkaline Phosphatase 61 U/L (46-116) Total Protein 7.6 G/DL (6.4-8.2) Albumin 4.1 G/DL (3.4-5.0) Globulin 3.5 g/dL Albumin/Globulin Ratio 1.2 (1.0-2.7) Amylase Level 36 U/L (25-115) Lipase 70 U/L (73-393) (Nilda Douglass.Ephraim.) ER Course I have reviewed the PA's interpretation of Xray results and agree with findings. (Noa Nguyen M.D.) Other X-Ray Diagnostic Results Other X-Ray Diagnostic Results #1: X-Ray ordered: Abdomen # of Views/Limited Vs Complete: 2 View Indication: Pain EP Interpretation: Yes PA Xray: Interpretation reviewed, by supervising MD Interpretation: nonspecific bowel gas, no sbo, other - no free air under the diaphragm. had well circumscribed 4.4 cm round radiopaque FB, not found on pt. sent to [facility] which recommended additional views as possible lung mass. Impression: No acute disease - had well circumscribed 4.4 cm round radiopaque FB, not found on pt. sent to [facility] which recommended additional views as possible lung mass. Electronically Signed by: Nilda Douglass PA-C Other X-Ray Diagnostic Results #2: X-Ray ordered: Chest PA + Lateral # of Views/Limited Vs Complete: 2 View Indication: Other - due to 4.4cm well circumcribed opacity on abdominal xray to evaluate for possible lung mass EP Interpretation: Yes PA Xray: Interpretation reviewed, by supervising MD, and agrees with findings. Interpretation: no dislocation, no soft tissue swelling, no fractures, other - previously seen opacity is no longer present Impression: No acute disease Electronically Signed by: Nilda Douglass PA-C (Nilda Douglass) Last Vital Signs Date Time Temp Pulse Resp B/P (MAP) Pulse Ox O2 Delivery O2 Flow Rate FiO2 07/27/17 15:26 97.9 82 18 103/72 98 Room Air (Nilda Douglass) Disposition: HOME, SELF-CARE Condition: Stable Scripts Famotidine (PEPCID) 20 Mg Tablet 20 MG ORAL BEDTIME, #7 TAB 0 Refills Prov: Nilda Douglass 07/27/17 Lidocaine HCl 2% Viscous (Lidocaine HCl 2% Viscous) 100 Ml Solution 15 ML ORAL QID for For Pain, #200 ML Prov: Nilda Douglass 07/27/17 Patient Instructions: Biliary Colic Additional Instructions: Take medications as directed. Avoid fatty foods , spicy foods, or oily foods. recommend plain breads, high fiber diet Follow up with a GI Specialist in 3-5 days, even if your symptoms have resolved. Return sooner to ED if new symptoms occur, or current symptoms become worse. - Please note that this Emergency Department Report was dictated using [employer] sack breaker technology software, occasionally this can lead to erroneous entry secondary to interpretation by the dictation equipment. Nilda Douglass Jul 27, 2017 15:54 Noa Nguyen M.D. Aug 08, 2017 03:02
[2017-07-27] MEDS: Morphine Sulfate 4mg/ml Inj IVP ONE (16:12)
[2017-07-27 16:31] VITALS: BP 103/72
[2017-07-27 16:41] LABS: BASOPHILS % (AUTO) 1.2 % (0.0-2.0); LYMPHOCYTES % (AUTO) 40.1 % (20.0-45.0); MEAN CORPUSCULAR HEMOGLOBIN 30.6 PG (27.0-31.0); MEAN CORPUSCULAR HGB CONC 33.9 G/DL (32.0-36.0); MEAN CORPUSCULAR VOLUME 90 FL (80-99); MEAN PLATELET VOLUME 9.4 FL (6.5-10.1); NEUTROPHILS % (AUTO) 50.8 % (45.0-75.0); PLATELET COUNT 279 K/UL (150-450); RED BLOOD COUNT 3.96 M/UL (4.20-5.40); RED CELL DISTRIBUTION WIDTH 12.3 % (11.6-14.8); WHITE BLOOD COUNT 6.7 K/UL (4.8-10.8)
[2017-07-27 16:46] LABS: APPEARANCE,URINE CLEAR; KETONES,URINE NEGATIVE (NEGATIVE); LEUKOCYTE ESTERASE ,URINE NEGATIVE (NEGATIVE); NITRITE,URINE NEGATIVE (NEGATIVE); PH,URINE 5 (4.5-8.0); PROTEIN,URINE NEGATIVE (NEGATIVE); UROBILINOGEN,URINE NORMAL MG/DL (0.0-1.0)
[2017-07-27 16:49] LABS: ANION GAP 8 mmol/L (5-15); CALCIUM 9.5 MG/DL (8.5-10.1); CARBON DIOXIDE 28 MMOL/L (21-32); CHLORIDE 103 MMOL/L (98-107); CREATININE 0.8 MG/DL (0.55-1.30); GLOMERULAR FILTRATION RATE > 60 mL/min (>60); POTASSIUM 3.7 MMOL/L (3.5-5.1); SODIUM 139 MMOL/L (136-145)
[2017-07-27 16:54] LABS: ALANINE AMINOTRANSFERASE 20 U/L (12-78); ALBUMIN/GLOBULIN RATIO 1.2 (1.0-2.7); ASPARTATE AMINO TRANSFERASE 16 U/L (15-37); LIPASE 70 U/L (73-393); TOTAL PROTEIN 7.6 G/DL (6.4-8.2)
[2017-07-27 16:56] LABS: BACTERIA,URINE FEW /HPF; SQUAMOUS EPITHELIAL CELL,UR MANY /LPF (NONE/OCC); WBC,URINE 0-2 /HPF (0 - 2)
[2017-07-27 17:50] VITALS: BP 114/68
[2017-07-27] MEDS: Lidocaine 2% Visc 15ml soln ORAL ONE (18:43)
[2017-07-27] MEDS ORDERED: PEPCID20 MG ORAL (19:01)
[2017-07-27] MEDS ORDERED: LIDOCAINE VISC100 ML ORAL (19:01)
[2017-07-27 20:55] VITALS: BP 106/59
--- NOTE | 2017-07-28 10:02 | Diagnostic Imaging Report ---
Indication:Abdominal pain Technique: Grayscale and duplex Doppler imaging of the abdomen performed. Comparison: None Findings: Colon is distended. No definite gallstones are seen but Jordan's is positive per technologist. Please correlate clinically for cholecystitis. The liver, demonstrated part of the pancreas, aorta and IVC, both kidneys, spleen appear unremarkable. There is no biliary ductal dilatation identified. Doppler evaluation of the main portal vein shows patency. There is no ascites. No hydronephrosis seen. CBD is 5 mm Impression: Distended gallbladder. No gallstones. Positive sonographic Jordan's per technologist. Please correlate for cholecystitis.
--- NOTE | 2017-07-28 10:56 | Diagnostic Imaging Report ---
Indication: Dyspnea Comparison: 10/17/14 2 views of the chest obtained. Findings: Cardiomediastinal silhouette and pulmonary vascularity are within normal limits for age. The diaphragmatic contour is smooth and costophrenic angles are sharp. No pleural effusions are identified. The bones are unremarkable. Impression: No acute disease
--- NOTE | 2017-07-28 11:02 | Diagnostic Imaging Report ---
Indication: Abdominal pain Comparison: None Single view of the abdomen obtained Findings: Bowel gas pattern is nonspecific. No mass, ectopic calcifications, or abnormal gas collections are identified. The bones are unremarkable. There is an unusually dense rounded opacity projected over the right lung base. This is probably artifact from a structure external to the patient. A subsequent chest x-ray done at 20:15 shows disappearance of this density, presumably removed. Impression: No acute findings
== END 2017-07-27 20:55 | disposition home or self-care (01) ==
LOC: EMR 15:55
DX: K80.50 Calculus of bile duct without cholangitis or cholecystitis without obstruction (principal); Z87.19 Personal history of other diseases of the digestive system
CPT/HCPCS: 36415; 71020; 74000; 76700; 80053; 81003; 81025; 82150; 83690; 85025; 96374; 96375; 99284; J2270; S0028

== ENCOUNTER 2017-08-31 16:39 | Emergency (ER) | payer MEDICAID ==
[~2017-08-31] VITALS: Ht 157.5 cm; Wt 65.8 kg
[~2017-08-31 16:39] MED LIST changes: +LIDOCAINE VISC100 ML ORAL
[2017-08-31] MEDS ORDERED: Morphine Sulfate 4mg/ml Inj IVP ONE (17:15)
[2017-08-31] MEDS ORDERED: Phenazopyridine 200mg tab ORAL ONE (17:15)
[2017-08-31 17:21] LABS: APPEARANCE,URINE CLEAR; BILIRUBIN, URINE NEGATIVE (NEGATIVE); COLOR,URINE PALE YELLOW; GLUCOSE, URINE (UA) NEGATIVE (NEGATIVE); KETONES,URINE NEGATIVE (NEGATIVE); LEUKOCYTE ESTERASE ,URINE NEGATIVE (NEGATIVE); NITRITE,URINE NEGATIVE (NEGATIVE); PH,URINE 6.5 (4.5-8.0); PROTEIN,URINE NEGATIVE (NEGATIVE); UROBILINOGEN,URINE NORMAL MG/DL (0.0-1.0)
[2017-08-31 18:00] LABS: BASOPHILS % (AUTO) 1.3 % (0.0-2.0); EOSINOPHILS % (AUTO) 0.6 % (0.0-3.0); HEMATOCRIT 35.2 % (37.0-47.0); HEMOGLOBIN 11.1 G/DL (12.0-16.0); LYMPHOCYTES % (AUTO) 37.2 % (20.0-45.0); MEAN CORPUSCULAR VOLUME 92 FL (80-99); MONOCYTES % (AUTO) 6.1 % (1.0-10.0); NEUTROPHILS % (AUTO) 54.8 % (45.0-75.0); PLATELET COUNT 224 K/UL (150-450); RED BLOOD COUNT 3.82 M/UL (4.20-5.40); RED CELL DISTRIBUTION WIDTH 11.8 % (11.6-14.8); WHITE BLOOD COUNT 9.3 K/UL (4.8-10.8)
[2017-08-31 18:15] LABS: ANION GAP 7 mmol/L (5-15); BLOOD UREA NITROGEN 10 mg/dL (7-18); CALCIUM 8.2 MG/DL (8.5-10.1); CARBON DIOXIDE 27 MMOL/L (21-32); CHLORIDE 106 MMOL/L (98-107); CREATININE 0.8 MG/DL (0.55-1.30); POTASSIUM 4.1 MMOL/L (3.5-5.1); SODIUM 140 MMOL/L (136-145)
[2017-08-31 18:21] LABS: ALANINE AMINOTRANSFERASE 16 U/L (12-78); ALBUMIN 3.7 G/DL (3.4-5.0); ALBUMIN/GLOBULIN RATIO 1.1 (1.0-2.7); ALKALINE PHOSPHATASE 50 U/L (46-116); ASPARTATE AMINO TRANSFERASE 19 U/L (15-37); BILIRUBIN,TOTAL 0.3 MG/DL (0.2-1.0)
--- NOTE | 2017-08-31 18:59 | Emergency Room Report ---
History of Present Illness General Chief Complaint: Abdominal Pain Present Illness HPI 36 YO Female presents to the ED c/o 10 out of 10 in severity right-sided abdominal pain that started in the upper quadrant tenderness migrated to the lower quadrant in addition to dysuria, urinary frequency and nausea x2 days. Patient has a history of gallstones and biliary colic. Pt. reports 2 episodes of nonbloody diarrhea. Patient denies recent antibiotic use. Denies fevers or chills. reports abdominal bloating. Patient reports nausea she denies vomiting. Denies CP, Palpitations, LOC, AMS, dizziness, Changes in Vision, Sensation, paresthesias, or a sudden severe headache. Denies . Allergies: Coded Allergies: DIPHENHYDRAMINE (Unverified Allergy, Severe, Shortness of Breath, 09/15/14) PROMETHAZINE (Verified Allergy, Unknown, 05/07/09) PROCHLORPERAZINE EDISYLATE (Verified Adverse Reaction, Severe, Anaphylaxis , 01/28/13) Tremors PROCHLORPERAZINE MALEATE (Verified Adverse Reaction, Severe, Anaphylaxis, 01/28/13) Tremors Patient History Past Medical History: see triage record Past Surgical History: none Pertinent Family History: none Immunizations: UTD Reviewed Nursing Documentation: PMH: Agreed, PSxH: Agreed Nursing Documentation-PMH Hx Cardiac Problems: No - MIGRAINE Hx Gastrointestinal Problems: Yes - Gastritis, KIDNEYSTONE Review of Systems All Other Systems: negative except mentioned in HPI Physical Exam Vital Signs Date Time Temp Pulse Resp B/P (MAP) Pulse Ox O2 Delivery O2 Flow Rate FiO2 08/31/17 16:46 98.1 78 20 114/69 100 Room Air Sp02 EP Interpretation: reviewed, normal General Appearance: alert, GCS 15, non-toxic, moderate distress Head: normocephalic, atraumatic ENT: hearing grossly normal, normal voice Neck: full range of motion Respiratory: chest non-tender, lungs clear, normal breath sounds, speaking full sentences Cardiovascular #1: regular rate, rhythm Gastrointestinal: normal bowel sounds, soft, no organomegaly, no peritonitis, non-distended, no guarding, no rebound, tenderness - RUQ TTP. Rectal: deferred Genitourinary: normal inspection, CVA tenderness (R) Musculoskeletal: back normal, gait/station normal, normal range of motion, non- tender Neurologic: alert, oriented x3, responsive, motor strength/tone normal, sensory intact, normal gait, speech normal Skin: normal color, no rash, warm/dry, well hydrated Medical Decision Making PA Attestation Dr. Akhtar is my supervising Physician whom patient management has been discussed with. Diagnostic Impression: Primary Impression: Abdominal pain Additional Impressions: Dysuria UTI (urinary tract infection) Qualified Codes: N30.01 - Acute cystitis with hematuria ER Course 36 YO Female presents to the ED c/o 10 out of 10 in severity right-sided abdominal pain that started in the upper quadrant tenderness migrated to the lower quadrant in addition to dysuria, urinary frequency and nausea x2 days. Patient has a history of gallstones and biliary colic. Pt. reports 2 episodes of nonbloody diarrhea. Patient denies recent antibiotic use. Denies fevers or chills. reports abdominal bloating. Patient reports nausea she denies vomiting. Denies CP, Palpitations, LOC, AMS, dizziness, Changes in Vision, Sensation, paresthesias, or a sudden severe headache. Denies . Ddx considered but are not limited to Diverticulitis, acute appy, diarrhea,UC, PUD, GE, pancreatitis, gallstone Vital signs: are WNL, pt. is afebrile H&PE are most consistent with Hypovolemia and diarrhea ORDERS: -CBC, CMP, lipase: unremarkable, no leukocytosis , normal lipase. - Urine HCG: negative -UA: some RBC's and few bacteria -- Although most likely contamination since this patient is having clinical symptoms of dysuria will treat as UTI. -Ultrasound abdomen: "Unremarkable, no evidence of hydronephrosis, normal gallbladder no evidence of gallstones at this time".--Per Preliminary reliability technologist report ED INTERVENTIONS: - zofran 4mg. -Morphine IV - Pepcid PO - Mylanta PO - pt. declines toradol requests something "stronger" - Tylenol # 3 PO -I do not identify an emergent condition at this time. With current presentation , pt. is stable for close outpatient follow up and conservative treatment. D/ w pt. to return promptly to ED with worsening or new symptoms.- Pt. (and or responsible alliance party) verbalizes' understanding and agreement with proposed treatment plan.proposed treatment plan. DISCHARGE: At this time pt. is stable for d/c to home. Will provide printed patient care instructions, and any necessary prescriptions. Care plan and follow up instructions have been discussed with the patient prior to discharge. Labs Test 08/31/17 17:01 08/31/17 17:30 Urine Color Pale yellow Urine Appearance Clear Urine pH 6.5 (4.5-8.0) Urine Specific [place] 1.020 (1.005-1.035) Urine Protein Negative (NEGATIVE) Urine Glucose (UA) Negative (NEGATIVE) Urine Ketones Negative (NEGATIVE) Urine Occult Blood 1+ (NEGATIVE) Urine Nitrite Negative (NEGATIVE) Urine Bilirubin Negative (NEGATIVE) Urine Urobilinogen Normal MG/DL (0.0-1.0) Urine Leukocyte Esterase Negative (NEGATIVE) Urine RBC 2-4 /HPF (0 - 2) Urine WBC 0-2 /HPF (0 - 2) Urine Squamous Epithelial Cells Moderate /LPF (NONE/OCC) Urine Bacteria Few /HPF (NONE) Urine HCG, Qualitative Negative White Blood Count 9.3 K/UL (4.8-10.8) Red Blood Count 3.82 M/UL (4.20-5.40) Hemoglobin 11.1 G/DL (12.0-16.0) Hematocrit 35.2 % (37.0-47.0) Mean Corpuscular Volume 92 FL (80-99) Mean Corpuscular Hemoglobin 29.1 PG (27.0-31.0) Mean Corpuscular Hemoglobin Concent 31.5 G/DL (32.0-36.0) Red Cell Distribution Width 11.8 % (11.6-14.8) Platelet Count 224 K/UL (150-450) Mean Platelet Volume 8.1 FL (6.5-10.1) Neutrophils (%) (Auto) 54.8 % (45.0-75.0) Lymphocytes (%) (Auto) 37.2 % (20.0-45.0) Monocytes (%) (Auto) 6.1 % (1.0-10.0) Eosinophils (%) (Auto) 0.6 % (0.0-3.0) Basophils (%) (Auto) 1.3 % (0.0-2.0) Sodium Level 140 MMOL/L (136-145) Potassium Level 4.1 MMOL/L (3.5-5.1) Chloride Level 106 MMOL/L (98-107) Carbon Dioxide Level 27 MMOL/L (21-32) Anion Gap 7 mmol/L (5-15) Blood Urea Nitrogen 10 mg/dL (7-18) Creatinine 0.8 MG/DL (0.55-1.30) Estimat Glomerular Filtration Rate > 60 mL/min (>60) Glucose Level 90 MG/DL (74-106) Calcium Level 8.2 MG/DL (8.5-10.1) Total Bilirubin 0.3 MG/DL (0.2-1.0) Aspartate Amino Transf (AST/SGOT) 19 U/L (15-37) Alanine Aminotransferase (ALT/SGPT) 16 U/L (12-78) Alkaline Phosphatase 50 U/L (46-116) Total Protein 7.2 G/DL (6.4-8.2) Albumin 3.7 G/DL (3.4-5.0) Globulin 3.5 g/dL Albumin/Globulin Ratio 1.1 (1.0-2.7) Lipase 68 U/L (73-393) Last Vital Signs Date Time Temp Pulse Resp B/P (MAP) Pulse Ox O2 Delivery O2 Flow Rate FiO2 08/31/17 16:46 98.1 78 20 114/69 100 Room Air Disposition: HOME, SELF-CARE Condition: Stable Scripts Acetaminophen With Codeine (T#3) (TYLENOL #3 TAB*) Y Tab 1 TAB ORAL Q6HR Y for For Pain, #10 TAB Prov: Nilda Douglass P.A. 08/31/17 Nitrofurantoin Monohyd/M-Cryst* (MACROBID 100 MG*) 100 Mg Capsule 100 MG ORAL EVERY 12 HOURS for 5 Days, #10 CAP Prov: Nilda Douglass P.A. 08/31/17 Phenazopyridine Hcl* (PYRIDIUM*) 200 Mg Tablet 200 MG ORAL THREE TIMES A DAY for 3 Days, #9 TAB 0 Refills Prov: Nilda Douglass P.A. 08/31/17 Ondansetron Odt* (ZOFRAN ODT*) 4 Mg Tab.rapdis 4 MG ORAL Q6H Y for Nausea & Vomiting, #15 TAB Prov: Nilda Douglass P.A. 08/31/17 Ranitidine Hcl* (ZANTAC*) 150 Mg Tablet 150 MG ORAL TWICE A DAY, #20 TAB Prov: Nilda Douglass 08/31/17 Referrals: [facility],REFERRING (PCP) Patient Instructions: Abdominal Pain, Adult, Flank Pain, [id number], Gastritis, Adult, [id number], Urinary Tract Infection, [id number] Additional Instructions: Take medications as directed. Follow up with a Primary Care Provider in 3-5 days, even if your symptoms have resolved. --Please review list of primary care clinics, if you do not already have a primary care provider Return sooner to ED if new symptoms occur, or current symptoms become worse. - Please note that this Emergency Department Report was dictated using [employer] commission technology software, occasionally this can lead to erroneous entry secondary to interpretation by the dictation equipment. Nilda Douglass Aug 31, 2017 18:59
[2017-08-31] MEDS ORDERED: Lidocaine 2% Visc 15ml soln ORAL ONE (19:30)
[2017-08-31] MEDS ORDERED: Ketorolac 60mg Inj IM ONE (19:30)
[2017-08-31 19:45] VITALS: BP 116/69
[2017-08-31] MEDS ORDERED: ZANTAC150 MG ORAL (20:01)
[2017-08-31] MEDS ORDERED: PHENAZOPYRIDIN200 MG ORAL (20:01)
[2017-08-31] MEDS ORDERED: ZOFRAN ODT4 MG ORAL (20:01)
[2017-08-31] MEDS ORDERED: ACETAMINOPHEN-1 EAC1 ORAL (20:01)
[2017-08-31] MEDS ORDERED: NITROFURANTOIN100 M2 ORAL (20:01)
[2017-08-31 20:40] VITALS: BP 120/62
[2017-08-31] MEDS ORDERED: Tylenol #3 tab (300mg/30mg) ORAL ONE (20:45)
[2017-08-31 20:50] VITALS: BP 120/62
== END 2017-08-31 20:50 | disposition home or self-care (01) ==
LOC: EMR 18:04
DX: R10.11 Right upper quadrant pain (principal); N39.0 Urinary tract infection, site not specified; Z87.19 Personal history of other diseases of the digestive system; Z87.442 Personal history of urinary calculi; Z88.8 Allergy status to other drugs, medicaments and biological substances
CPT/HCPCS: 36415; 76705; 80053; 81003; 81025; 83690; 85025; 96374; 96375; 99284; J2270; J2405

== ENCOUNTER 2017-09-25 19:02 | Emergency (ER) | payer MEDICAID ==
[~2017-09-25] VITALS: Ht 152.4 cm; Wt 59.0 kg
[~2017-09-25 19:02] MED LIST changes: +NITROFURANTOIN100 M2 ORAL; +PHENAZOPYRIDIN200 MG ORAL
[2017-09-25 19:15] VITALS: BP 105/65
[2017-09-25] MEDS ORDERED: Morphine Sulfate 4mg/ml Inj IVP ONE (19:30)
[2017-09-25 19:52] LABS: APPEARANCE,URINE SLIGHTLY CLOUDY; BILIRUBIN, URINE NEGATIVE (NEGATIVE); COLOR,URINE PALE YELLOW; GLUCOSE, URINE (UA) NEGATIVE (NEGATIVE); KETONES,URINE NEGATIVE (NEGATIVE); LEUKOCYTE ESTERASE ,URINE NEGATIVE (NEGATIVE); NITRITE,URINE NEGATIVE (NEGATIVE); PH,URINE 6.5 (4.5-8.0); PROTEIN,URINE NEGATIVE (NEGATIVE); UROBILINOGEN,URINE NORMAL MG/DL (0.0-1.0)
[2017-09-25 19:58] LABS: BASOPHILS % (AUTO) 1.7 % (0.0-2.0); EOSINOPHILS % (AUTO) 1.1 % (0.0-3.0); HEMATOCRIT 34.4 % (37.0-47.0); HEMOGLOBIN 11.1 G/DL (12.0-16.0); LYMPHOCYTES % (AUTO) 34.1 % (20.0-45.0); MEAN CORPUSCULAR VOLUME 91 FL (80-99); MONOCYTES % (AUTO) 8.8 % (1.0-10.0); NEUTROPHILS % (AUTO) 54.4 % (45.0-75.0); PLATELET COUNT 241 K/UL (150-450); RED BLOOD COUNT 3.78 M/UL (4.20-5.40); RED CELL DISTRIBUTION WIDTH 12.7 % (11.6-14.8); WHITE BLOOD COUNT 9.4 K/UL (4.8-10.8)
[2017-09-25 20:10] LABS: ANION GAP 8 mmol/L (5-15); BLOOD UREA NITROGEN 10 mg/dL (7-18); CARBON DIOXIDE 25 MMOL/L (21-32); CHLORIDE 108 MMOL/L (98-107); CREATININE 0.6 MG/DL (0.55-1.30); POTASSIUM 4.3 MMOL/L (3.5-5.1); SODIUM 141 MMOL/L (136-145)
[2017-09-25 20:15] LABS: ALANINE AMINOTRANSFERASE 16 U/L (12-78); ALBUMIN 3.4 G/DL (3.4-5.0); ALKALINE PHOSPHATASE 53 U/L (46-116); ASPARTATE AMINO TRANSFERASE 18 U/L (15-37); BILIRUBIN,TOTAL 0.4 MG/DL (0.2-1.0)
--- NOTE | 2017-09-25 20:46 | Emergency Room Report ---
History of Present Illness General Chief Complaint: Abdominal Pain Present Illness HPI 36-year-old female presents to the emergency department complaining of 10 out of 10 in severity right upper quadrant pain that radiates to the right flank area in addition to frequency and dysuria x2 days. Denies vaginal discharge or lesions. Patient has a history of gallstones and has frequent visits to the ER for gallstone-related pain. She states that she has followed up with GI specialist and she is scheduled to have gallbladder removal next month. Patient currently takes omeprazole and ranitidine. Denies fevers, chills, nausea, vomiting, constipation or diarrhea. Denies CP, Palpitations, LOC, AMS, dizziness, Changes in Vision, Sensation, paresthesias, or a sudden severe headache. Allergies: Coded Allergies: DIPHENHYDRAMINE (Unverified Allergy, Severe, Shortness of Breath, 09/15/14) PROMETHAZINE (Verified Allergy, Unknown, 05/07/09) PROCHLORPERAZINE EDISYLATE (Verified Adverse Reaction, Severe, Anaphylaxis , 01/28/13) Tremors PROCHLORPERAZINE MALEATE (Verified Adverse Reaction, Severe, Anaphylaxis, 01/28/13) Tremors Patient History Past Medical History: see triage record, other - gall stones with sludge. Past Surgical History: none Pertinent Family History: none Now: No Reviewed Nursing Documentation: PMH: Agreed, PSxH: Agreed Nursing Documentation-PMH Hx Cardiac Problems: No - MIGRAINE Hx Gastrointestinal Problems: Yes - Gastritis, KIDNEYSTONE Review of Systems All Other Systems: negative except mentioned in HPI Physical Exam Vital Signs Date Time Temp Pulse Resp B/P (MAP) Pulse Ox O2 Delivery O2 Flow Rate FiO2 09/25/17 19:07 97.3 71 20 102/60 99 Room Air Sp02 EP Interpretation: reviewed, normal General Appearance: alert, GCS 15, non-toxic, mild distress Head: normocephalic, atraumatic Eyes: bilateral eye normal inspection, bilateral eye PERRL ENT: hearing grossly normal, normal voice Neck: full range of motion Respiratory: lungs clear, normal breath sounds, speaking full sentences Cardiovascular #1: regular rate, rhythm Gastrointestinal: normal bowel sounds, soft, tenderness - RUQ TTP Rectal: deferred Genitourinary: normal inspection, no CVA tenderness Musculoskeletal: back normal, gait/station normal, normal range of motion, non- tender Neurologic: alert, oriented x3, responsive, motor strength/tone normal, sensory intact, normal gait, speech normal, grossly normal Psychiatric: judgement/insight normal Skin: normal color, no rash, warm/dry, well hydrated Lymphatic: no adenopathy Medical Decision Making PA Attestation Dr. Puri is my supervising Physician whom patient management has been discussed with. Diagnostic Impression: Primary Impression: UTI (urinary tract infection) Qualified Codes: N30.00 - Acute cystitis without hematuria Additional Impression: Gallstone Qualified Codes: K80.10 - Calculus of gallbladder with chronic cholecystitis without obstruction ER Course 36-year-old female presents to the emergency department complaining of 10 out of 10 in severity right upper quadrant pain that radiates to the right flank area in addition to frequency and dysuria x2 days. Denies vaginal discharge or lesions. Patient has a history of gallstones and has frequent visits to the ER for gallstone-related pain. She states that she has followed up with GI specialist and she is scheduled to have gallbladder removal next month. Patient currently takes omeprazole and ranitidine. Denies fevers, chills, nausea, vomiting, constipation or diarrhea. Denies CP, Palpitations, LOC, AMS, dizziness, Changes in Vision, Sensation, paresthesias, or a sudden severe headache. Ddx considered but are not limited to Diverticulitis, acute appy, diarrhea,UC, PUD, GE, pancreatitis, gallstone, cholecystitis, cholangitis, UTI, pyelo, renal stone just to name a few. Vital signs: are WNL, pt. is afebrile H&PE are most consistent with biliary colic secondary to known frequently exacerbated gallstones and possible UTI, no CVA Tenderness, no changes in character to previous symptoms. - US performed at last ED visit showed notable stones, sludge but no CBD. ORDERS: -CBC, CMP & lipase,: Unremarkable no evidence of acute obstruction, inflammatory response or elevated LFTs. UA: Moderate bacteria suspicious for UTI. -Urine Hcg: Negative ED INTERVENTIONS: -- 4mg Morphine IV DISCHARGE: At this time pt. is stable for d/c to home. Will provide printed patient care instructions, and any necessary prescriptions. Care plan and follow up instructions have been discussed with the patient prior to discharge. Labs Test 09/25/17 19:04 1/30/18 19:30 Urine Color Pale yellow Urine Appearance Slightly cloudy Urine pH 6.5 (4.5-8.0) Urine Specific [place] 1.020 (1.005-1.035) Urine Protein Negative (NEGATIVE) Urine Glucose (UA) Negative (NEGATIVE) Urine Ketones Negative (NEGATIVE) Urine Occult Blood 1+ (NEGATIVE) Urine Nitrite Negative (NEGATIVE) Urine Bilirubin Negative (NEGATIVE) Urine Urobilinogen Normal MG/DL (0.0-1.0) Urine Leukocyte Esterase Negative (NEGATIVE) Urine RBC 5-10 /HPF (0 - 2) Urine WBC 0-2 /HPF (0 - 2) Urine Squamous Epithelial Cells Many /LPF (NONE/OCC) Urine Bacteria Moderate /HPF (NONE) Urine HCG, Qualitative Negative White Blood Count 9.4 K/UL (4.8-10.8) Red Blood Count 3.78 M/UL (4.20-5.40) Hemoglobin 11.1 G/DL (12.0-16.0) Hematocrit 34.4 % (37.0-47.0) Mean Corpuscular Volume 91 FL (80-99) Mean Corpuscular Hemoglobin 29.4 PG (27.0-31.0) Mean Corpuscular Hemoglobin Concent 32.3 G/DL (32.0-36.0) Red Cell Distribution Width 12.7 % (11.6-14.8) Platelet Count 241 K/UL (150-450) Mean Platelet Volume 9.6 FL (6.5-10.1) Neutrophils (%) (Auto) 54.4 % (45.0-75.0) Lymphocytes (%) (Auto) 34.1 % (20.0-45.0) Monocytes (%) (Auto) 8.8 % (1.0-10.0) Eosinophils (%) (Auto) 1.1 % (0.0-3.0) Basophils (%) (Auto) 1.7 % (0.0-2.0) Sodium Level 141 MMOL/L (136-145) Potassium Level 4.3 MMOL/L (3.5-5.1) Chloride Level 108 MMOL/L (98-107) Carbon Dioxide Level 25 MMOL/L (21-32) Anion Gap 8 mmol/L (5-15) Blood Urea Nitrogen 10 mg/dL (7-18) Creatinine 0.6 MG/DL (0.55-1.30) Estimat Glomerular Filtration Rate > 60 mL/min (>60) Glucose Level 94 MG/DL (74-106) Calcium Level 9.0 MG/DL (8.5-10.1) Total Bilirubin 0.4 MG/DL (0.2-1.0) Aspartate Amino Transf (AST/SGOT) 18 U/L (15-37) Alanine Aminotransferase (ALT/SGPT) 16 U/L (12-78) Alkaline Phosphatase 53 U/L (46-116) Total Protein 6.8 G/DL (6.4-8.2) Albumin 3.4 G/DL (3.4-5.0) Globulin 3.4 g/dL Albumin/Globulin Ratio 1.0 (1.0-2.7) Lipase 134 U/L (73-393) Last Vital Signs Date Time Temp Pulse Resp B/P (MAP) Pulse Ox O2 Delivery O2 Flow Rate FiO2 09/25/17 19:07 97.3 71 20 102/60 99 Room Air Disposition: HOME, SELF-CARE Condition: Stable Scripts Phenazopyridine Hcl* (PYRIDIUM*) 200 Mg Tablet 200 MG ORAL THREE TIMES A DAY for 3 Days, #9 TAB 0 Refills Prov: Nilda Douglass P.A. 09/25/17 Cephalexin* (KEFLEX*) 500 Mg Capsule 500 MG ORAL EVERY 12 HOURS for 7 Days, #14 CAP 0 Refills Prov: Nilda Douglass P.A. 09/25/17 Acetaminophen With Codeine (T#3) (TYLENOL #3 TAB*) Y Tab 1 TAB ORAL Q8HR Y for For Pain, #9 TAB Prov: Nilda Douglass P.A. 09/25/17 Patient Instructions: Urinary Tract Infection, [id number] Additional Instructions: Take medications as directed. Follow up with Your GI SPECIALIST in 3-5 days, even if your symptoms have resolved. Let them know that you visited the ED again for biliary colic. --Please review list of primary care clinics, if you do not already have a primary care provider Pyridium will cause your urine to change color (Red/[place]), this is a normal side effect of the medication. Return sooner to ED if new symptoms occur, or current symptoms become worse. - Please note that this Emergency Department Report was dictated using [employer] professor technology software, occasionally this can lead to erroneous entry secondary to interpretation by the dictation equipment. Nilda Douglass Sep 25, 2017 20:46
[2017-09-25] MEDS ORDERED: PHENAZOPYRIDIN200 MG ORAL (21:01)
[2017-09-25] MEDS ORDERED: ACETAMINOPHEN-1 EAC1 ORAL (21:01)
[2017-09-25] MEDS ORDERED: CEPHALEXIN500 MG ORAL (21:01)
[2017-09-25 21:15] VITALS: BP 110/68
[2017-09-25 21:30] VITALS: BP 110/68
== END 2017-09-25 21:40 | disposition home or self-care (01) ==
LOC: EMR 21:32
DX: N39.0 Urinary tract infection, site not specified (principal); K80.20 Calculus of gallbladder without cholecystitis without obstruction; Z87.19 Personal history of other diseases of the digestive system; Z88.8 Allergy status to other drugs, medicaments and biological substances; Z87.442 Personal history of urinary calculi
CPT/HCPCS: 36415; 80053; 81003; 81025; 83690; 85025; 87086; 96374; 99284; J2270

== ENCOUNTER 2017-10-11 13:12 | Emergency (ER) | payer MEDICAID ==
[~2017-10-11] VITALS: Ht 152.4 cm; Wt 59.0 kg
[~2017-10-11 13:12] MED LIST changes: +CEPHALEXIN500 MG ORAL
--- NOTE | 2017-10-11 14:03 | Emergency Room Report ---
History of Present Illness General Chief Complaint: Abdominal Pain Source: Patient Present Illness HPI 36-year-old female presents to the emergency department complaining of 10 out of 10 in severity right-sided upper and lower quadrant abdominal pain that radiates around to the low back with vomiting and fevers x2 days. Patient is status post cholecystectomy 2 days ago. She reports taking Motrin to control fevers at home. She states her pain is not controlled with [place]. Patient states she is unable to tolerate oral intake. Patient denies discharge or bleeding from surgical wounds. Pt. reports pain exacerbation with palpation, breathing, and vomiting. She estimates approximately 4 episodes of vomiting since yesterday denies blood in the vomit or stool she denies black tarry stools she does report some constipation her last bowel movement was 3 days ago. Denies CP, Palpitations, LOC, AMS, dizziness, Changes in Vision, Sensation , paresthesias, or a sudden severe headache. Allergies: Coded Allergies: KETOROLAC (Verified Allergy, Unknown, 10/11/17) PROMETHAZINE (Verified Allergy, Unknown, 05/07/09) PROCHLORPERAZINE EDISYLATE (Verified Adverse Reaction, Severe, Anaphylaxis , 01/28/13) Tremors PROCHLORPERAZINE MALEATE (Verified Adverse Reaction, Severe, Anaphylaxis, 01/28/13) Tremors Patient History Past Medical History: see triage record Past Surgical History: none Pertinent Family History: none Last Menstrual Period: 09/15/17 Now: No Reviewed Nursing Documentation: PMH: Agreed, PSxH: Agreed Nursing Documentation-PMH Past Medical History: No History, Except For Hx Cardiac Problems: No - MIGRAINE Hx Gastrointestinal Problems: Yes - Laparoscopic Cholecystectomy Hx Neurological Problems: Yes - Migraine Review of Systems All Other Systems: negative except mentioned in HPI Physical Exam Vital Signs Date Time Temp Pulse Resp B/P (MAP) Pulse Ox O2 Delivery O2 Flow Rate FiO2 10/11/17 13:25 97.3 63 16 117/73 99 97.3 Sp02 EP Interpretation: reviewed, normal General Appearance: alert, GCS 15, non-toxic, moderate distress Head: normocephalic, atraumatic Eyes: bilateral eye normal inspection, bilateral eye PERRL ENT: hearing grossly normal, normal voice Neck: full range of motion Respiratory: chest non-tender, lungs clear, normal breath sounds, no rhonchi, no respiratory distress, no wheezing, speaking full sentences Cardiovascular #1: regular rate, rhythm Gastrointestinal: normal bowel sounds, soft, tenderness - TTP generalized in all 4 quadrants. , other - umbillical surgical incision as well as several small abdominal incisions that are not erythematous. Rectal: deferred Genitourinary: normal inspection Musculoskeletal: back normal, gait/station normal, normal range of motion, non- tender Neurologic: alert, oriented x3, responsive, motor strength/tone normal, sensory intact, speech normal, grossly normal Psychiatric: judgement/insight normal Skin: normal color, no rash, warm/dry, well hydrated, wd healing/no infection noted - umbillical and several abdominal surgical incisions., other - umbillical surgical incisions as well as several small abdominal incisions that are not erythematous. prior to exam were dressed and mild spotting of blood noted on dressing upon removal for visual inspection Medical Decision Making PA Attestation Dr. Nguyen is my supervising physician whom pt. management has been discussed with. Diagnostic Impression: Primary Impression: Abdominal pain ER Course 36-year-old female presents to the emergency department complaining of 10 out of 10 in severity right-sided upper and lower quadrant abdominal pain that radiates around to the low back with vomiting and fevers x2 days. Patient is status post cholecystectomy 2 days ago. She reports taking Motrin to control fevers at home. She states her pain is not controlled with [place]. Patient states she is unable to tolerate oral intake. Patient denies discharge or bleeding from surgical wounds. Pt. reports pain exacerbation with palpation, breathing, and vomiting. She estimates approximately 4 episodes of vomiting since yesterday denies blood in the vomit or stool she denies black tarry stools she does report some constipation her last bowel movement was 3 days ago. Denies CP, Palpitations, LOC, AMS, dizziness, Changes in Vision, Sensation , paresthesias, or a sudden severe headache. Ddx considered but are not limited to Diverticulitis, acute appy, diarrhea,UC, PUD, GE, pancreatitis, gallstone, surgical site infection, peritonitis, bowel perforation, just to name a few. Vital signs: are WNL, pt. is afebrile H&PE are most consistent with vomiting s/p cholecystectomy will do labs and imaging to r/o differentials. ORDERS: -CBC: mild anemia no evidence of significant acute blood loss -CMP: unremarkable -Lactic Acid : WNL 1.6 -Blood Cultures: no growth after 48 hours -UA: unremarkable -Urine HCG: Negative -CXR: WNL - CT Abdomen & Pelvis: " Status post recent laparoscopic cholecystectomy. Postsurgical changes noted. No abscess. Suggestion of a small left ovarian cyst. Slightly prominent appendix although there is no definite inflammation and similar appearance previously. Doubt appendicitis." - Per official radiology report- Please see report for specific details. ED INTERVENTIONS: -- 1000NS - Zofran 4mg. -Morphine IV -[place] PO DISCHARGE: At this time pt. is stable for d/c to home. Will provide printed patient care instructions, and any necessary prescriptions. Care plan and follow up instructions have been discussed with the patient prior to discharge. Labs Test 10/11/17 14:30 White Blood Count 11.2 K/UL (4.8-10.8) Red Blood Count 4.02 M/UL (4.20-5.40) Hemoglobin 11.9 G/DL (12.0-16.0) Hematocrit 36.4 % (37.0-47.0) Mean Corpuscular Volume 91 FL (80-99) Mean Corpuscular Hemoglobin 29.7 PG (27.0-31.0) Mean Corpuscular Hemoglobin Concent 32.8 G/DL (32.0-36.0) Red Cell Distribution Width 13.2 % (11.6-14.8) Platelet Count 259 K/UL (150-450) Mean Platelet Volume 8.9 FL (6.5-10.1) Neutrophils (%) (Auto) 68.3 % (45.0-75.0) Lymphocytes (%) (Auto) 21.9 % (20.0-45.0) Monocytes (%) (Auto) 8.4 % (1.0-10.0) Eosinophils (%) (Auto) 0.5 % (0.0-3.0) Basophils (%) (Auto) 0.8 % (0.0-2.0) Urine Color Pale yellow Urine Appearance Clear Urine pH 6.5 (4.5-8.0) Urine Specific [place] 1.005 (1.005-1.035) Urine Protein Negative (NEGATIVE) Urine Glucose (UA) Negative (NEGATIVE) Urine Ketones Negative (NEGATIVE) Urine Occult Blood 1+ (NEGATIVE) Urine Nitrite Negative (NEGATIVE) Urine Bilirubin Negative (NEGATIVE) Urine Urobilinogen Normal MG/DL (0.0-1.0) Urine Leukocyte Esterase Negative (NEGATIVE) Urine RBC 2-4 /HPF (0 - 2) Urine WBC 0-2 /HPF (0 - 2) Urine Squamous Epithelial Cells Few /LPF (NONE/OCC) Urine Bacteria Few /HPF (NONE) Urine HCG, Qualitative Negative Sodium Level 136 MMOL/L (136-145) Potassium Level 4.3 MMOL/L (3.5-5.1) Chloride Level 103 MMOL/L (98-107) Carbon Dioxide Level 29 MMOL/L (21-32) Anion Gap 4 mmol/L (5-15) Blood Urea Nitrogen 6 mg/dL (7-18) Creatinine 0.6 MG/DL (0.55-1.30) Estimat Glomerular Filtration Rate > 60 mL/min (>60) Glucose Level 93 MG/DL (74-106) Lactic Acid Level 1.60 mmol/L (0.66-2.22) Calcium Level 8.9 MG/DL (8.5-10.1) Total Bilirubin 0.9 MG/DL (0.2-1.0) Aspartate Amino Transf (AST/SGOT) 44 U/L (15-37) Alanine Aminotransferase (ALT/SGPT) 52 U/L (12-78) Alkaline Phosphatase 57 U/L (46-116) Total Creatine Kinase 66 U/L (26-308) Total Protein 7.2 G/DL (6.4-8.2) Albumin 3.3 G/DL (3.4-5.0) Globulin 3.9 g/dL Albumin/Globulin Ratio 0.8 (1.0-2.7) Chest X-Ray Diagnostic Results Chest X-Ray Diagnostic Results : Chest X-Ray Ordered: Yes # of Views/Limited/Complete: 1 View Indication: Chest Pain EP Interpretation: Yes PA Xray: Interpretation reviewed, by supervising MD, and agrees with findings. Interpretation: no consolidation, no effusion, no pneumothorax, no acute cardiopulmonary disease, other - no free air under the diaphragm Impression: No acute disease Electronically Signed by: Nilda Douglass PA-C CT/MRI/US Diagnostic Results CT/MRI/US Diagnostic Results : Imaging Test Ordered: CT Abdomen & Pelvis with contrast Impression " Status post recent laparoscopic cholecystectomy. Postsurgical changes noted. No abscess. Suggestion of a small left ovarian cyst. Slightly prominent appendix although there is no definite inflammation and similar appearance previously. Doubt appendicitis." - Per official radiology report- Please see report for specific details. Last Vital Signs Date Time Temp Pulse Resp B/P (MAP) Pulse Ox O2 Delivery O2 Flow Rate FiO2 10/11/17 13:25 97.3 63 16 117/73 99 97.3 Disposition: HOME, SELF-CARE Condition: Stable Scripts Famotidine (PEPCID) 20 Mg Tablet 20 MG ORAL DAILY, #7 TAB 0 Refills Prov: Nilda Douglass 10/11/17 Docusate Sodium* (COLACE*) 100 Mg Capsule 100 MG ORAL THREE TIMES A DAY, #20 CAP Prov: Nilda Douglass 10/11/17 Patient Instructions: Abdominal Pain, Adult Additional Instructions: You have an appointment scheduled with YOUR SURGEON Dr. MALONE for Sunday at 3: 30 PM. Take previously prescribed and any new medications as directed. Follow up with you surgeon and PCP in 3-5 days, even if your symptoms have resolved. --Please review list of primary care clinics, if you do not already have a primary care provider Return sooner to ED if new symptoms occur, or current symptoms become worse. - Please note that this Emergency Department Report was dictated using [employer] technology software, occasionally this can lead to erroneous entry secondary to interpretation by the dictation equipment. Nilda Douglass Oct 11, 2017 14:03
[2017-10-11] MEDS ORDERED: Morphine Sulfate 4mg/ml Inj IVP ONE (14:15)
[2017-10-11 14:47] LABS: APPEARANCE,URINE CLEAR; BILIRUBIN, URINE NEGATIVE (NEGATIVE); COLOR,URINE PALE YELLOW; GLUCOSE, URINE (UA) NEGATIVE (NEGATIVE); KETONES,URINE NEGATIVE (NEGATIVE); LEUKOCYTE ESTERASE ,URINE NEGATIVE (NEGATIVE); NITRITE,URINE NEGATIVE (NEGATIVE); PH,URINE 6.5 (4.5-8.0); PROTEIN,URINE NEGATIVE (NEGATIVE); UROBILINOGEN,URINE NORMAL MG/DL (0.0-1.0)
[2017-10-11 14:48] LABS: BASOPHILS % (AUTO) 0.8 % (0.0-2.0); EOSINOPHILS % (AUTO) 0.5 % (0.0-3.0); HEMATOCRIT 36.4 % (37.0-47.0); HEMOGLOBIN 11.9 G/DL (12.0-16.0); LYMPHOCYTES % (AUTO) 21.9 % (20.0-45.0); MEAN CORPUSCULAR VOLUME 91 FL (80-99); MONOCYTES % (AUTO) 8.4 % (1.0-10.0); NEUTROPHILS % (AUTO) 68.3 % (45.0-75.0); PLATELET COUNT 259 K/UL (150-450); RED BLOOD COUNT 4.02 M/UL (4.20-5.40); RED CELL DISTRIBUTION WIDTH 13.2 % (11.6-14.8); WHITE BLOOD COUNT 11.2 K/UL (4.8-10.8)
[2017-10-11 15:00] LABS: ANION GAP 4 mmol/L (5-15); BLOOD UREA NITROGEN 6 mg/dL (7-18); CALCIUM 8.9 MG/DL (8.5-10.1); CARBON DIOXIDE 29 MMOL/L (21-32); CHLORIDE 103 MMOL/L (98-107); CREATININE 0.6 MG/DL (0.55-1.30); POTASSIUM 4.3 MMOL/L (3.5-5.1); SODIUM 136 MMOL/L (136-145)
[2017-10-11 15:05] LABS: ALBUMIN 3.3 G/DL (3.4-5.0); ALBUMIN/GLOBULIN RATIO 0.8 (1.0-2.7); ALKALINE PHOSPHATASE 57 U/L (46-116); ASPARTATE AMINO TRANSFERASE 44 U/L (15-37); BILIRUBIN,TOTAL 0.9 MG/DL (0.2-1.0); CREATINE KINASE 66 U/L (26-308)
--- NOTE | 2017-10-11 15:06 | Diagnostic Imaging Report ---
Indication: Chest pain Comparison: 07/27/2017 A single view chest radiograph was obtained. Findings: Cardiomediastinal appearance is within normal limits for age. Pulmonary vascularity is appropriate. The diaphragmatic contour is smooth and costophrenic angles are sharp. No pleural effusions are identified. The bones are unremarkable. Impression: No acute findings
[2017-10-11 15:15] LABS: ALANINE AMINOTRANSFERASE 52 U/L (12-78)
[2017-10-11 15:29] VITALS: BP 117/73
--- NOTE | 2017-10-11 16:55 | Diagnostic Imaging Report ---
Indication: Abdominal pain Technique: Continuous helical transaxial imaging of the abdomen and pelvis was obtained from the lung bases to the pubic symphysis during intravenous contrast administration. Coronal 2-D reformats were also obtained. Study obtained in a Siemens sensation [address] Automatic Exposure Control was utilized. Total Dose length Product (DLP): 599.[address] Dose Index Volume (CTDIvol): 12.57 mGy Comparison: 06/11/2017 Findings: Mild subsegmental atelectasis demonstrated at the lung bases. Cholecystectomy noted. Liver and spleen are unremarkable. Pancreas is unremarkable. There is a tiny focus of air noted within the gallbladder fossa consistent with recent surgery. There are also laparoscopic scars and air in the subcutaneous anterior abdominal wall. There is no abscess. There is moderate amount of fecal retention. Urinary bladder is mildly distended. There is a suggestion of a small left ovarian cyst. The uterus is noted. The appendix appears slightly prominent. There is no inflammation and the appearance was similar previously. IMPRESSION: Status post recent laparoscopic cholecystectomy. Postsurgical changes noted. No abscess. Suggestion of a small left ovarian cyst. Slightly prominent appendix although there is no definite inflammation and similar appearance previously. Doubt appendicitis. The CT scanner at [facility] is accredited by the [employer] and the scans are performed using dose optimization techniques as appropriate to a performed exam including Automatic Exposure control.
[2017-10-11] MEDS ORDERED: PEPCID20 MG ORAL (17:27)
[2017-10-11] MEDS ORDERED: COLACE100 MG ORAL (17:27)
[2017-10-11] MEDS ORDERED: Norco 5mg/325mg tab ORAL ONE (17:30)
[2017-10-11 17:50] VITALS: BP 119/76
[2017-10-11 17:55] VITALS: BP 119/76
== END 2017-10-11 17:57 | disposition home or self-care (01) ==
LOC: EMR 14:27
DX: R10.11 Right upper quadrant pain (principal); R10.31 Right lower quadrant pain; Z90.49 Acquired absence of other specified parts of digestive tract; Z88.8 Allergy status to other drugs, medicaments and biological substances
CPT/HCPCS: 36415; 71045; 74177; 80053; 81003; 81025; 82550; 83605; 85025; 87040; 96361; 96374; 99284; J2270; Q9967

== ENCOUNTER 2017-11-01 16:05 | Emergency (ER) | payer MEDICAID ==
[~2017-11-01] VITALS: Ht 152.4 cm; Wt 56.7 kg
[~2017-11-01 16:05] MED LIST changes: +COLACE100 MG ORAL
--- NOTE | 2017-11-01 16:43 | Emergency Room Report ---
History of Present Illness General Chief Complaint: Back Pain-No Injury Source: Patient Present Illness HPI 37 yo female patient presents to ER complaining of flank pain. Complains of dysuria and burning sensation with urination. Denies hematuria, vaginal discharge, foul odor. Reports recent hx of gallbladder surgery 3 weeks ago. Patient reports she is , sexually monogamous relationship. Also complains of nausea, denies vomiting. Seen in ER 3 weeks ago for similar symptoms, CT performed at that time.. Denies chest pain, SOB, neck pain, leg swelling. Reports watery diarrhea; denies recent travel, denies blood in stool. Reports taking Ibuprofen and Tylenol today for pain symptoms prior to arrival at ER. Reports being seen at another hospital one week ago and having CT abdomen performed, results negative. Allergies: Coded Allergies: KETOROLAC (Verified Allergy, Unknown, 10/11/17) PROMETHAZINE (Verified Allergy, Unknown, 05/07/09) PROCHLORPERAZINE EDISYLATE (Verified Adverse Reaction, Severe, Anaphylaxis , 01/28/13) Tremors PROCHLORPERAZINE MALEATE (Verified Adverse Reaction, Severe, Anaphylaxis, 01/28/13) Tremors Patient History Past Medical History: see triage record Last Menstrual Period: 10/12/2017 Reviewed Nursing Documentation: PMH: Agreed, PSxH: Agreed Nursing Documentation-PMH Past Medical History: No History, Except For Hx Cardiac Problems: No - MIGRAINE Hx Gastrointestinal Problems: Yes - Laparoscopic Cholecystectomy Hx Neurological Problems: Yes Review of Systems All Other Systems: negative except mentioned in HPI Physical Exam Vital Signs Date Time Temp Pulse Resp B/P (MAP) Pulse Ox O2 Delivery O2 Flow Rate FiO2 11/01/17 16:20 99.1 78 16 101/68 98 Room Air 99.1 Sp02 EP Interpretation: reviewed, normal General Appearance: well appearing, no apparent distress, alert, GCS 15 Head: normocephalic, atraumatic Eyes: bilateral eye normal inspection, bilateral eye PERRL ENT: hearing grossly normal, normal pharynx, no angioedema, normal voice, uvula midline, moist mucus membranes Neck: full range of motion Respiratory: lungs clear, normal breath sounds, no rhonchi, no respiratory distress, no accessory muscle use, no wheezing, speaking full sentences Cardiovascular #1: regular rate, rhythm, no edema Gastrointestinal: non tender, soft, no mass, non-distended, no guarding, no rebound Genitourinary: no CVA tenderness, deferred Musculoskeletal: back normal, digits/nails normal, gait/station normal, normal range of motion, non-tender Neurologic: alert, oriented x3, responsive, motor strength/tone normal, sensory intact Psychiatric: mood/affect normal Skin: no rash, other - no ecchhymosis Lymphatic: no adenopathy Medical Decision Making PA Attestation Dr. Venegas is my supervising Physician whom patient management has been discussed with. Diagnostic Impression: Primary Impression: UTI (urinary tract infection) ER Course Pt presents to ED c/o urinary problems. DDX considered but are not limited to cystitis, pyelonephritis, STI, vaginitis, . VITAL SIGNS are WNL, patient is afebrile. On PE patient has TTP of abdomen initially but no pain on distraction. Patient has had 2 CT scans of abdomen in three weeks, last one was 1 week ago; both negative. Patient wants to know if she needs more imaging. Patient does not need imaging at this time. Discuss with patient harm of that much radiation. Patient reports understanding and agreement. Ordered UA with reflux and urine . UA with reflux ED INTERVENTIONS: Ibuprofen for pain. Zofran ER COURSE UA results indicate UTI, will treat accordingly. UA was equivocal, will treat based on symptoms. Patient is resting comfortably in chair, nontoxic appearing, in no acute distress. Patient states they feel better and is ready to go home. Patient is afebrile prior to discharge. DISCHARGE: -Rx provided for Macrobid -Rx provided for Phenazopyridine for dysuria. Advised of side effect of turning urine orange. Patient ready for discharge. Patient resting comfortably, in no acute distress, nontoxic appearing, smiling and talking on phone without difficulty. Will provide with patient care instructions and any necessary prescriptions. Patient understands and agrees to treatment plan. Patient encouraged to drink plenty of fluids. Patient to take medication as instructed. Care plan and follow-up instructions provided. Patient questions asked and answered. Patient instructed to follow-up with primary care provider in 3 - 5 days. ER precautions given. Patient instructed to return to ER immediately for any new or worsening of symptoms. Including but not limited to fever, worsening pain , intractable vomiting. Labs Test 11/01/17 16:42 Urine Color Yellow Urine Appearance Clear Urine pH 6.5 (4.5-8.0) Urine Specific [place] 1.015 (1.005-1.035) Urine Protein Negative (NEGATIVE) Urine Glucose (UA) Negative (NEGATIVE) Urine Ketones 1+ (NEGATIVE) Urine Occult Blood 2+ (NEGATIVE) Urine Nitrite Negative (NEGATIVE) Urine Bilirubin Negative (NEGATIVE) Urine Urobilinogen 1 MG/DL (0.0-1.0) Urine Leukocyte Esterase 1+ (NEGATIVE) Urine RBC 2-4 /HPF (0 - 2) Urine WBC 0-2 /HPF (0 - 2) Urine Squamous Epithelial Cells Many /LPF (NONE/OCC) Urine Bacteria Moderate /HPF (NONE) Urine Mucus Many /LPF (NONE/OCC) Urine HCG, Qualitative Negative Last Vital Signs Date Time Temp Pulse Resp B/P (MAP) Pulse Ox O2 Delivery O2 Flow Rate FiO2 11/01/17 16:20 99.1 78 16 101/68 98 Room Air 99.1 Disposition: HOME, SELF-CARE Condition: Stable Scripts Phenazopyridine Hcl* (PYRIDIUM*) 100 Mg Tablet 100 MG ORAL THREE TIMES A DAY for 3 Days, #9 TAB Prov: Matthew Robertson 11/01/17 Nitrofurantoin Monohyd/M-Cryst* (MACROBID 100 MG*) 100 Mg Capsule 100 MG ORAL EVERY 12 HOURS for 7 Days, #14 CAP Prov: Matthew Robertson 11/01/17 Patient Instructions: Urinary Tract Infection, [id number] Additional Instructions: Followup with primary care provider in 3 -5 days. Take medications as directed. Patient questions asked and answered. ER precautions given, patient instructed to return to ER immediately for any new or worsening of symptoms. Matthew Robertson Nov 01, 2017 16:43
[2017-11-01 16:48] VITALS: BP 108/66
[2017-11-01 17:09] LABS: APPEARANCE,URINE CLEAR; BILIRUBIN, URINE NEGATIVE (NEGATIVE); COLOR,URINE YELLOW; GLUCOSE, URINE (UA) NEGATIVE (NEGATIVE); KETONES,URINE 1+ (NEGATIVE); LEUKOCYTE ESTERASE ,URINE 1+ (NEGATIVE); NITRITE,URINE NEGATIVE (NEGATIVE); PH,URINE 6.5 (4.5-8.0); PROTEIN,URINE NEGATIVE (NEGATIVE); UROBILINOGEN,URINE 1 MG/DL (0.0-1.0)
[2017-11-01] MEDS ORDERED: NITROFURANTOIN100 M2 ORAL (18:07)
[2017-11-01] MEDS ORDERED: PHENAZOPYRIDIN100 MG ORAL (18:07)
[2017-11-01 18:35] VITALS: BP_SYST 104; BP_SYST 108; BP_DIAS 62; BP_DIAS 66
== END 2017-11-01 18:35 | disposition home or self-care (01) ==
LOC: EMR 18:20
DX: N39.0 Urinary tract infection, site not specified (principal); Z88.8 Allergy status to other drugs, medicaments and biological substances; Z90.49 Acquired absence of other specified parts of digestive tract
CPT/HCPCS: 81003; 81025; 87086; 99283

== ENCOUNTER 2017-12-23 15:38 | Emergency (ER) | payer MEDICAID ==
[~2017-12-23] VITALS: Ht 149.9 cm; Wt 57.2 kg
[~2017-12-23 15:38] MED LIST changes: +PHENAZOPYRIDIN100 MG ORAL
[2017-12-23] MEDS ORDERED: Naproxen 500mg tab ORAL ONE (16:00)
[2017-12-23] MEDS ORDERED: Morphine Sulfate 2mg/ml Inj IVP ONE (16:00)
[2017-12-23 16:37] LABS: BASOPHILS % (AUTO) 1.2 % (0.0-2.0); EOSINOPHILS % (AUTO) 0.6 % (0.0-3.0); HEMATOCRIT 37.2 % (37.0-47.0); HEMOGLOBIN 12.8 G/DL (12.0-16.0); LYMPHOCYTES % (AUTO) 24.8 % (20.0-45.0); MEAN CORPUSCULAR VOLUME 88 FL (80-99); MONOCYTES % (AUTO) 9.3 % (1.0-10.0); NEUTROPHILS % (AUTO) 64.1 % (45.0-75.0); PLATELET COUNT 231 K/UL (150-450); RED BLOOD COUNT 4.21 M/UL (4.20-5.40); RED CELL DISTRIBUTION WIDTH 12.2 % (11.6-14.8); WHITE BLOOD COUNT 8.7 K/UL (4.8-10.8)
[2017-12-23 16:44] LABS: ANION GAP 6 mmol/L (5-15); BLOOD UREA NITROGEN 8 mg/dL (7-18); CALCIUM 8.8 MG/DL (8.5-10.1); CARBON DIOXIDE 30 MMOL/L (21-32); CHLORIDE 104 MMOL/L (98-107); CREATININE 0.7 MG/DL (0.55-1.30); SODIUM 140 MMOL/L (136-145)
[2017-12-23 16:49] LABS: ALANINE AMINOTRANSFERASE 20 U/L (12-78); ALBUMIN 3.8 G/DL (3.4-5.0); ALBUMIN/GLOBULIN RATIO 1.1 (1.0-2.7); ALKALINE PHOSPHATASE 67 U/L (46-116); ASPARTATE AMINO TRANSFERASE 16 U/L (15-37); BILIRUBIN,TOTAL 0.6 MG/DL (0.2-1.0); CREATINE KINASE 120 U/L (26-308)
[2017-12-23 17:22] VITALS: BP 114/71
[2017-12-23] MEDS ORDERED: Morphine Sulfate 4mg/ml Inj IVP ONE (17:30)
[2017-12-23 17:45] LABS: APPEARANCE,URINE CLEAR; BILIRUBIN, URINE NEGATIVE (NEGATIVE); COLOR,URINE AMBER; GLUCOSE, URINE (UA) NEGATIVE (NEGATIVE); KETONES,URINE NEGATIVE (NEGATIVE); LEUKOCYTE ESTERASE ,URINE 1+ (NEGATIVE); NITRITE,URINE NEGATIVE (NEGATIVE); PH,URINE 8 (4.5-8.0); PROTEIN,URINE 1+ (NEGATIVE); UROBILINOGEN,URINE 1 MG/DL (0.0-1.0)
--- NOTE | 2017-12-23 18:29 | Emergency Room Report ---
History of Present Illness General Chief Complaint: Chest Pain Source: Patient Present Illness HPI Patient presents with chest pain and swelling which she noticed this morning. She has associated nausea and vomiting X1. No blood or coffee grounds. No fever, cough, sore throat. She has some SOB, not exertional HARDING. No calf pain , edema/swelling of LE. She has been seen for epigastric pain in the past and denies this now. The pain is where the swelling in her chest is. Pain rated 10 /10, sharp, positional and somewhat pleuritic. She took Aleve with some help. Post kiara. No dysuria. She doesn't believe she is . No ill contacts, travel or unusual foods. She is anxious and worried about breast cancer. She has not had a mammogram and denies family hx of breast CA. No breast D/C or rash in area. H/O migraines Allergies: Coded Allergies: KETOROLAC (Verified Allergy, Unknown, 10/11/17) PROCHLORPERAZINE EDISYLATE (Verified Adverse Reaction, Severe, Anaphylaxis , 01/28/13) Tremors PROCHLORPERAZINE MALEATE (Verified Adverse Reaction, Severe, Anaphylaxis, 01/28/13) Tremors Patient History Past Medical History: see triage record Past Surgical History: kiara Social History: Reports: smoking Social History Narrative at home Last Menstrual Period: 12/10/17 Reviewed Nursing Documentation: PMH: Agreed; PSxH: Agreed Nursing Documentation-PMH Hx Cardiac Problems: No - MIGRAINE Hx Gastrointestinal Problems: Yes - Laparoscopic Cholecystectomy Review of Systems All Other Systems: negative except mentioned in HPI Physical Exam Vital Signs Date Time Temp Pulse Resp B/P (MAP) Pulse Ox O2 Delivery O2 Flow Rate FiO2 12/23/17 15:46 98.1 93 17 104/68 99 Room Air 98.1 Sp02 EP Interpretation: reviewed, normal General Appearance: well appearing, no apparent distress, GCS 15 Head: normocephalic Eyes: bilateral eye normal inspection ENT: moist mucus membranes Neck: supple Respiratory: lungs clear, normal breath sounds, other - anterior costosteral boarder with TTP which re-creates the pain Cardiovascular #1: regular rate, rhythm Cardiovascular #2: 2+ radial (R) Gastrointestinal: normal inspection, normal bowel sounds, non tender, no mass, non-distended Musculoskeletal: back normal, gait/station normal, normal range of motion, no calf tenderness, Danni's Sign negative Neurologic: alert, oriented x3, grossly normal Psychiatric: anxious Skin: normal inspection, warm/dry Medical Decision Making Diagnostic Impression: Primary Impression: Costochondral chest pain Additional Impression: Nausea ER Course Patient presents with chest wall pain and vomiting beginning this AM. DDx: cellulitis, costochondritis, pleurisy, muscle strain, cardiac cause, pulmonary etiology amongst others. Based on Hx, and exam, PE unlikely. Evaluation with EKG, CXR, labs. Treatment with Naprosyn, morphine and Zofran. EKG without injury. CXR normal. Labs unremarkable. Patient improved but still with pain. Morphine repeated, increased dose. Patient improved. Discussed etiology of pain and swelling with importance of treatment and follow up. Patient stable for outpatient observation and treatment. Laboratory Tests Test 12/23/17 16:18 12/23/17 17:25 White Blood Count 8.7 K/UL (4.8-10.8) Red Blood Count 4.21 M/UL (4.20-5.40) Hemoglobin 12.8 G/DL (12.0-16.0) Hematocrit 37.2 % (37.0-47.0) Mean Corpuscular Volume 88 FL (80-99) Mean Corpuscular Hemoglobin 30.4 PG (27.0-31.0) Mean Corpuscular Hemoglobin Concent 34.4 G/DL (32.0-36.0) Red Cell Distribution Width 12.2 % (11.6-14.8) Platelet Count 231 K/UL (150-450) Mean Platelet Volume 8.5 FL (6.5-10.1) Neutrophils (%) (Auto) 64.1 % (45.0-75.0) Lymphocytes (%) (Auto) 24.8 % (20.0-45.0) Monocytes (%) (Auto) 9.3 % (1.0-10.0) Eosinophils (%) (Auto) 0.6 % (0.0-3.0) Basophils (%) (Auto) 1.2 % (0.0-2.0) Sodium Level 140 MMOL/L (136-145) Potassium Level 4.0 MMOL/L (3.5-5.1) Chloride Level 104 MMOL/L (98-107) Carbon Dioxide Level 30 MMOL/L (21-32) Anion Gap 6 mmol/L (5-15) Blood Urea Nitrogen 8 mg/dL (7-18) Creatinine 0.7 MG/DL (0.55-1.30) Estimate Glomerular Filtration Rate > 60 mL/min (>60) Glucose Level 102 MG/DL (74-106) Calcium Level 8.8 MG/DL (8.5-10.1) Total Bilirubin 0.6 MG/DL (0.2-1.0) Aspartate Amino Transferase (AST) 16 U/L (15-37) Alanine Aminotransferase (ALT) 20 U/L (12-78) Alkaline Phosphatase 67 U/L (46-116) Total Creatine Kinase 120 U/L (26-308) Total Protein 7.4 G/DL (6.4-8.2) Albumin 3.8 G/DL (3.4-5.0) Globulin 3.6 g/dL Albumin/Globulin Ratio 1.1 (1.0-2.7) Urine Color [place] Urine Appearance Clear Urine pH 8 (4.5-8.0) Urine Specific [place] 1.010 (1.005-1.035) Urine Protein 1+ (NEGATIVE) H Urine Glucose (UA) Negative (NEGATIVE) Urine Ketones Negative (NEGATIVE) Urine Occult Blood Negative (NEGATIVE) Urine Nitrite Negative (NEGATIVE) Urine Bilirubin Negative (NEGATIVE) Urine Ictotest Negative Urine Urobilinogen 1 MG/DL (0.0-1.0) H Urine Leukocyte Esterase 1+ (NEGATIVE) H Urine RBC 0-2 /HPF (0 - 2) Urine WBC 2-4 /HPF (0 - 2) Urine Squamous Epithelial Cells Moderate /LPF (NONE/OCC) H Urine Amorphous Sediment Few /LPF (NONE) H Urine Bacteria Moderate /HPF (NONE) H Urine HCG, Qualitative Negative (NEGATIVE) EKG Diagnostic Results Rate: normal Rhythm: NSR ST Segments: no acute changes Rhythm Strip Diag. Results EP Interpretation: yes Rhythm: NSR, no PVC's, no ectopy Chest X-Ray Diagnostic Results Chest X-Ray Diagnostic Results : Chest X-Ray Ordered: Yes # of Views/Limited/Complete: 1 View Indication: Chest Pain Interpretation: no consolidation, no effusion, no pneumothorax Impression: No acute disease Electronically Signed by: Patrick Soto MD Last Vital Signs Date Time Temp Pulse Resp B/P (MAP) Pulse Ox O2 Delivery O2 Flow Rate FiO2 12/23/17 19:08 97.8 75 13 112/73 100 Room Air 97.8 Status: improved Disposition: HOME, SELF-CARE Condition: Improved Scripts Tramadol Hcl* (ULTRAM*) 50 Mg Tablet 50 MG ORAL Q6H PRN for For Pain, #14 TAB 0 Refills Prov: Patrick Soto M.D. 12/23/17 Naproxen* (NAPROSYN*) 375 Mg Tablet 375 MG ORAL TID, #14 TAB 0 Refills Prov: Patrick Soto M.D. 12/23/17 Referrals: NON PHYSICIAN (PCP) Patrick Soto M.D. Dec 23, 2017 18:29
[2017-12-23] MEDS ORDERED: TRAMADOL HCL50 MG ORAL (18:34)
[2017-12-23] MEDS ORDERED: NAPROXEN375 MG ORAL (18:34)
[2017-12-23 19:05] VITALS: BP 112/73
[2017-12-23 19:08] VITALS: BP 112/73
--- NOTE | 2017-12-24 14:55 | Diagnostic Imaging Report ---
Indication: Chest pain Technique: XRAY Chest 1v Comparison: 08/10/2018 Findings: Heart size and mediastinal contours are within normal limits and stable compared to the prior exam. There is no focal consolidation, pneumothorax or pleural effusion. Osseous structures demonstrate no acute abnormality. Likely cholecystectomy clips noted in the right upper quadrant. Impression: No radiographic evidence of acute cardiopulmonary disease.
== END 2017-12-23 19:08 | disposition home or self-care (01) ==
LOC: EMR 17:33
DX: R07.89 Other chest pain (principal); R11.0 Nausea; Z90.49 Acquired absence of other specified parts of digestive tract; F41.9 Anxiety disorder, unspecified; Z88.8 Allergy status to other drugs, medicaments and biological substances; F17.200 Nicotine dependence, unspecified, uncomplicated
CPT/HCPCS: 36415; 71045; 80053; 81003; 81025; 82550; 85025; 87086; 93005; 96374; 96375; 99284; J2270; J2405; S0028

== ENCOUNTER → 2018-01-14 | Emergency (ER) | payer MEDICAID ==
[~2018-01-14] VITALS: Ht 152.4 cm; Wt 54.4 kg
[~2018-01-14] MED LIST changes: +NAPROXEN375 MG ORAL
[2018-01-14 13:00] VITALS: BP 108/64
--- NOTE | 2018-01-14 13:06 | Emergency Room Report ---
History of Present Illness General Chief Complaint: Abdominal Pain Source: Patient Present Illness HPI Patient presents with complaints of right flank pain radiation towards the lower abdomen Increased nausea and vomiting Patient also reports episode of diarrhea Denies any dysuria denies any fevers or chills Denies any chest pain or shortness of breath Patient has had previous cholecystectomy Denies any other fall or trauma Allergies: Coded Allergies: KETOROLAC (Verified Allergy, Unknown, 10/11/17) PROCHLORPERAZINE EDISYLATE (Verified Adverse Reaction, Severe, Anaphylaxis , 01/28/13) Tremors PROCHLORPERAZINE MALEATE (Verified Adverse Reaction, Severe, Anaphylaxis, 01/28/13) Tremors Patient History Past Medical History: see triage record Pertinent Family History: none Last Menstrual Period: 01/11/2018 Now: No Reviewed Nursing Documentation: PMH: Agreed; PSxH: Agreed Nursing Documentation-PMH Past Medical History: No History, Except For Hx Cardiac Problems: No - MIGRAINE Hx Gastrointestinal Problems: Yes - Laparoscopic Cholecystectomy Review of Systems All Other Systems: negative except mentioned in HPI Physical Exam Vital Signs Date Time Temp Pulse Resp B/P (MAP) Pulse Ox O2 Delivery O2 Flow Rate FiO2 01/14/18 12:50 98.1 81 16 108/64 98 Room Air 98.1 Sp02 EP Interpretation: reviewed, normal General Appearance: well appearing, no apparent distress Head: normocephalic, atraumatic Eyes: bilateral eye PERRL, bilateral eye EOMI ENT: hearing grossly normal, normal pharynx, TMs + canals normal, uvula midline Neck: full range of motion, supple, no meningismus, no bony tend Respiratory: lungs clear, normal breath sounds, no rhonchi, no respiratory distress, no retraction, no accessory muscle use Cardiovascular #1: normal peripheral pulses, regular rate, rhythm, no edema, no gallop, no JVD, no murmur Gastrointestinal: normal bowel sounds, non tender - On palpation however subjectively points to the right mid abdomen, soft, no mass, no organomegaly, non-distended, no guarding, no hernia, no pulsatile mass, no rebound Genitourinary: no CVA tenderness Musculoskeletal: normal inspection Neurologic: oriented x3, responsive, drapery hand III-XII nml as tested, motor strength/ tone normal, sensory intact Psychiatric: mood/affect normal Skin: normal color, no rash, warm/dry, palpation normal Lymphatic: normal inspection, no adenopathy Medical Decision Making Diagnostic Impression: Primary Impression: Abdominal pain Additional Impression: Flank pain ER Course With the history exam and presentation, multiple differentials considered, including but not limited to appendicitis, gastritis, cholecystitis, diverticulitis Patient has significant discomfort in the for unfortunately CT imaging was obtained again Does not show any obvious acute pathology There was area a small calcification with possible ureteral stone but difficult to evaluate no signs of any obstruction Urine sample also was clean Appendicolith is seen however no secondary signs of inflammation or appendicitis , patient is also afebrile and does not appear septic or toxic Is provided early abdominal pain educational instruction Also regarding early appendicitis At this time is stable for close outpatient follow-up, Labs Test 01/14/18 13:04 Urine Color Pale yellow Urine Appearance Cloudy Urine pH 8 (4.5-8.0) Urine Specific [place] 1.015 (1.005-1.035) Urine Protein Negative (NEGATIVE) Urine Glucose (UA) Negative (NEGATIVE) Urine Ketones Negative (NEGATIVE) Urine Occult Blood 1+ (NEGATIVE) Urine Nitrite Negative (NEGATIVE) Urine Bilirubin Negative (NEGATIVE) Urine Urobilinogen Normal MG/DL (0.0-1.0) Urine Leukocyte Esterase Negative (NEGATIVE) Urine RBC 2-4 /HPF (0 - 2) Urine WBC 0-2 /HPF (0 - 2) Urine Squamous Epithelial Cells Many /LPF (NONE/OCC) Urine Amorphous Sediment Many /LPF (NONE) Urine Bacteria Few /HPF (NONE) Urine HCG, Qualitative Negative (NEGATIVE) CT/MRI/US Diagnostic Results CT/MRI/US Diagnostic Results : Impression CT abdomen pelvisIMPRESSION: Small nonobstructive stone in the left kidney. Right distal ureter not well visualized. No hydronephrosis seen but the possibility of a tiny intraureteral calculus in the distal right ureter is not excluded. Appendicolith without evidence of acute appendicitis. Status post cholecystectomy. Last Vital Signs Date Time Temp Pulse Resp B/P (MAP) Pulse Ox O2 Delivery O2 Flow Rate FiO2 01/14/18 12:50 98.1 81 16 108/64 98 Room Air 98.1 Status: improved Disposition: HOME, SELF-CARE Condition: Stable Additional Instructions: Patient is provided with the discharge instructions notified to follow up with primary doctor in the next 2-3 days otherwise return to the er with any worsening symptoms. Please note that this report is being documented using DRAGON technology. This can lead to erroneous entry secondary to incorrect interpretation by the dictating instrument. Nacho Ybarra DO January 14, 2018 13:06
[2018-01-14 13:25] LABS: APPEARANCE,URINE CLOUDY; BILIRUBIN, URINE NEGATIVE (NEGATIVE); COLOR,URINE PALE YELLOW; GLUCOSE, URINE (UA) NEGATIVE (NEGATIVE); KETONES,URINE NEGATIVE (NEGATIVE); LEUKOCYTE ESTERASE ,URINE NEGATIVE (NEGATIVE); NITRITE,URINE NEGATIVE (NEGATIVE); PH,URINE 8 (4.5-8.0); PROTEIN,URINE NEGATIVE (NEGATIVE); UROBILINOGEN,URINE NORMAL MG/DL (0.0-1.0)
--- NOTE | 2018-01-14 13:52 | Diagnostic Imaging Report ---
Indication: Abdominal pain Technique: Continuous helical transaxial imaging of the abdomen and pelvis was obtained from the lung bases to the pubic symphysis. No intravenous contrast was administered. Coronal 2-D reformats were also obtained. Automatic Exposure Control was utilized. Total Dose length Product (DLP): 555.[address] Dose Index Volume (CTDIvol): 11.66 mGy Comparison: 10/11/2017 Findings: The lung bases are clear. Cholecystectomy noted. There is a small nonobstructive stone in left kidney. There is no hydronephrosis in either kidney. The patient has pain on the right side. The right proximal ureter appears normal caliber. The distal part of the ureter is not seen well on the current examination. There are 2, possibly 3 punctate calcifications in the expected location of the ureter. It is conceivable that one of these may be within the distal ureter. The callus occasions are in the order of 1 to 2 mm in size. At worse there may be a 1 to 2 mm stone in the right distal ureter is nondilated. High density noted within the appendix which appears normal. Small nodes are present. No evidence of bowel obstruction. The uterus is noted. There is trace free fluid within the pelvis are demonstrated. IMPRESSION: Small nonobstructive stone in the left kidney. Right distal ureter not well visualized. No hydronephrosis seen but the possibility of a tiny intraureteral calculus in the distal right ureter is not excluded. Appendicolith without evidence of acute appendicitis. Status post cholecystectomy. The CT scanner at [facility] is accredited by the [employer] and the scans are performed using dose optimization techniques as appropriate to a performed exam including Automatic Exposure control.
[2018-01-14 13:58] VITALS: BP 94/68
== END | disposition home or self-care (01) ==
LOC: EMR 14:12
DX: R10.9 Unspecified abdominal pain (principal); R19.7 Diarrhea, unspecified; R11.2 Nausea with vomiting, unspecified; Z90.49 Acquired absence of other specified parts of digestive tract; N20.0 Calculus of kidney
CPT/HCPCS: 74176; 81003; 81025; 99284

== ENCOUNTER 2018-02-18 11:28 | Emergency (ER) | payer MEDICAID ==
[~2018-02-18] VITALS: Ht 152.4 cm; Wt 54.4 kg
[2018-02-18] MEDS ORDERED: Morphine Sulfate 4mg/ml Inj IVP ONE (12:00)
[2018-02-18 12:25] VITALS: BP 148/127
[2018-02-18 12:35] LABS: BASOPHILS % (AUTO) 1.3 % (0.0-2.0); EOSINOPHILS % (AUTO) 0.6 % (0.0-3.0); HEMATOCRIT 36.4 % (37.0-47.0); HEMOGLOBIN 12.1 G/DL (12.0-16.0); MEAN CORPUSCULAR VOLUME 91 FL (80-99); MONOCYTES % (AUTO) 6.4 % (1.0-10.0); NEUTROPHILS % (AUTO) 61.8 % (45.0-75.0); PLATELET COUNT 272 K/UL (150-450); RED BLOOD COUNT 3.98 M/UL (4.20-5.40); RED CELL DISTRIBUTION WIDTH 11.6 % (11.6-14.8)
[2018-02-18 12:40] LABS: APPEARANCE,URINE SLIGHTLY CLOUDY; BILIRUBIN, URINE NEGATIVE (NEGATIVE); COLOR,URINE PALE YELLOW; GLUCOSE, URINE (UA) NEGATIVE (NEGATIVE); KETONES,URINE NEGATIVE (NEGATIVE); LEUKOCYTE ESTERASE ,URINE NEGATIVE (NEGATIVE); NITRITE,URINE NEGATIVE (NEGATIVE); PH,URINE 8 (4.5-8.0); PROTEIN,URINE NEGATIVE (NEGATIVE); UROBILINOGEN,URINE NORMAL MG/DL (0.0-1.0)
[2018-02-18 12:59] LABS: ANION GAP 5 mmol/L (5-15); BLOOD UREA NITROGEN 9 mg/dL (7-18); CALCIUM 9.1 MG/DL (8.5-10.1); CARBON DIOXIDE 26 MMOL/L (21-32); CHLORIDE 107 MMOL/L (98-107); CREATININE 0.6 MG/DL (0.55-1.30); POTASSIUM 3.7 MMOL/L (3.5-5.1); SODIUM 138 MMOL/L (136-145)
[2018-02-18] MEDS ORDERED: fentaNYL 100 mcg/2 mL IV ONE ×2 (13:00→15:30)
[2018-02-18 13:04] LABS: ALANINE AMINOTRANSFERASE 17 U/L (12-78); ALBUMIN 3.4 G/DL (3.4-5.0); ALBUMIN/GLOBULIN RATIO 0.9 (1.0-2.7); ALKALINE PHOSPHATASE 55 U/L (46-116); ASPARTATE AMINO TRANSFERASE 13 U/L (15-37); BILIRUBIN,TOTAL 0.7 MG/DL (0.2-1.0)
[2018-02-18 13:38] VITALS: BP 106/59
[2018-02-18 16:30] VITALS: BP 111/64
--- NOTE | 2018-02-18 17:42 | Emergency Room Report ---
History of Present Illness General Chief Complaint: Abdominal Pain Source: Patient, Medical Record Present Illness HPI Patient presents with severe flank pain on R which began last night and is constant and worsened. There is associated nausea. She has had renal stones in the past and she feels this is the problem. She denies fevers. There is some dysuria. She has been able to pass the stones in the past without other procedures. LNMP normal, she doesn't believe she is . She has a h/o migraines. Post kiara. No diarrhea, rashes, headache, extremity pain, anxiety. Allergies: Coded Allergies: KETOROLAC (Verified Allergy, Unknown, 10/11/17) PROCHLORPERAZINE EDISYLATE (Verified Adverse Reaction, Severe, Anaphylaxis , 01/28/13) Tremors PROCHLORPERAZINE MALEATE (Verified Adverse Reaction, Severe, Anaphylaxis, 01/28/13) Tremors Patient History Past Medical History: see triage record Past Surgical History: kiara Social History: Reports: smoking Social History Narrative at home Last Menstrual Period: 02/09/18 Reviewed Nursing Documentation: PMH: Agreed; PSxH: Agreed Nursing Documentation-PMH Past Medical History: No History, Except For Hx Cardiac Problems: No - MIGRAINE Hx Gastrointestinal Problems: Yes - Laparoscopic Cholecystectomy Review of Systems All Other Systems: negative except mentioned in HPI Physical Exam Vital Signs Date Time Temp Pulse Resp B/P (MAP) Pulse Ox O2 Delivery O2 Flow Rate FiO2 02/18/18 11:39 98.7 74 18 116/54 99 Room Air 98.8 Sp02 EP Interpretation: reviewed, normal General Appearance: well appearing, alert, GCS 15, mild distress Head: normocephalic Eyes: bilateral eye normal inspection, bilateral eye PERRL ENT: moist mucus membranes Neck: supple Respiratory: lungs clear, normal breath sounds Cardiovascular #1: regular rate, rhythm Cardiovascular #2: 2+ radial (R) Gastrointestinal: normal inspection, normal bowel sounds, non tender, no mass, non-distended Genitourinary: no CVA tenderness Musculoskeletal: back normal, gait/station normal, normal range of motion Neurologic: alert, oriented x3, grossly normal Psychiatric: mood/affect normal Skin: normal inspection, warm/dry Medical Decision Making Diagnostic Impression: Primary Impression: Renal colic on right side Additional Impression: Headache Qualified Codes: R51 - Headache ER Course Patient presents with R flank pain. DDx: renal stone, UTI, pyeolo, diverticulitis, appendicitis, ectopic amongst others. Evaluation with labs and U/S. Treatment with IV hydration and analgesia. Pain was still severe and analgesia repeated. Labs with normal CBC, CMP and UA. U/S normal (at time, no pain). Patient c/o headache. Treated. Pain free. Discussed diagnosis and need for stone analysis. Patient stable for outpatient observation and treatment. Laboratory Tests Test 02/18/18 11:45 02/18/18 12:15 Urine Color Pale yellow Urine Appearance Slightly cloudy Urine pH 8 (4.5-8.0) Urine Specific [place] 1.015 (1.005-1.035) Urine Protein Negative (NEGATIVE) Urine Glucose (UA) Negative (NEGATIVE) Urine Ketones Negative (NEGATIVE) Urine Occult Blood Negative (NEGATIVE) Urine Nitrite Negative (NEGATIVE) Urine Bilirubin Negative (NEGATIVE) Urine Urobilinogen Normal MG/DL (0.0-1.0) Urine Leukocyte Esterase Negative (NEGATIVE) Urine RBC 0-2 /HPF (0 - 2) Urine WBC 0-2 /HPF (0 - 2) Urine Squamous Epithelial Cells Occasional /LPF Urine Amorphous Sediment Many /LPF (NONE) H Urine Bacteria Occasional /HPF (NONE) Urine HCG, Qualitative Negative (NEGATIVE) White Blood Count 8.0 K/UL (4.8-10.8) Red Blood Count 3.98 M/UL (4.20-5.40) L Hemoglobin 12.1 G/DL (12.0-16.0) Hematocrit 36.4 % (37.0-47.0) L Mean Corpuscular Volume 91 FL (80-99) Mean Corpuscular Hemoglobin 30.4 PG (27.0-31.0) Mean Corpuscular Hemoglobin Concent 33.3 G/DL (32.0-36.0) Red Cell Distribution Width 11.6 % (11.6-14.8) Platelet Count 272 K/UL (150-450) Mean Platelet Volume 8.6 FL (6.5-10.1) Neutrophils (%) (Auto) 61.8 % (45.0-75.0) Lymphocytes (%) (Auto) 30.0 % (20.0-45.0) Monocytes (%) (Auto) 6.4 % (1.0-10.0) Eosinophils (%) (Auto) 0.6 % (0.0-3.0) Basophils (%) (Auto) 1.3 % (0.0-2.0) Sodium Level 138 MMOL/L (136-145) Potassium Level 3.7 MMOL/L (3.5-5.1) Chloride Level 107 MMOL/L (98-107) Carbon Dioxide Level 26 MMOL/L (21-32) Anion Gap 5 mmol/L (5-15) Blood Urea Nitrogen 9 mg/dL (7-18) Creatinine 0.6 MG/DL (0.55-1.30) Estimate Glomerular Filtration Rate > 60 mL/min (>60) Glucose Level 102 MG/DL (74-106) Calcium Level 9.1 MG/DL (8.5-10.1) Total Bilirubin 0.7 MG/DL (0.2-1.0) Aspartate Amino Transferase (AST) 13 U/L (15-37) L Alanine Aminotransferase (ALT) 17 U/L (12-78) Alkaline Phosphatase 55 U/L (46-116) Total Protein 7.0 G/DL (6.4-8.2) Albumin 3.4 G/DL (3.4-5.0) Globulin 3.6 g/dL Albumin/Globulin Ratio 0.9 (1.0-2.7) L Lipase 113 U/L (73-393) Rhythm Strip Diag. Results Rhythm: NSR, no PVC's, no ectopy CT/MRI/US Diagnostic Results CT/MRI/US Diagnostic Results : Imaging Test Ordered: Abd US Impression neg Last Vital Signs Date Time Temp Pulse Resp B/P (MAP) Pulse Ox O2 Delivery O2 Flow Rate FiO2 02/18/18 17:55 97.2 72 15 106/59 100 Room Air 97.2 Status: improved Disposition: HOME, SELF-CARE Condition: Improved Scripts Tramadol Hcl* (ULTRAM*) 50 Mg Tablet 50 MG ORAL Q6H PRN for For Pain, #8 TAB 0 Refills Prov: Patrick Soto M.D. 02/18/18 Referrals: NON PHYSICIAN (PCP) Patrick Soto M.D. Feb 18, 2018 17:42
[2018-02-18] MEDS ORDERED: TRAMADOL HCL50 MG ORAL (17:43)
[2018-02-18 17:50] VITALS: BP 106/59
[2018-02-18 17:55] VITALS: BP 106/59
--- NOTE | 2018-02-18 18:37 | Diagnostic Imaging Report ---
Indication: Right-sided abdominal pain and right-sided flank pain Technique: Steinberg-scale and duplex images of the upper abdomen were obtained Comparison: 08/31/2017 Findings: Gallbladder is unremarkable, without stones, wall thickening, nor pericholecystic fluid. Sonographic Jordan's sign is negative. Common bile duct measures mm in diameter. No intrahepatic biliary ductal dilatation. Liver demonstrates normal echogenicity, no focal abnormality. Portal vein and hepatic veins are patent. Pancreas is unremarkable. Spleen is unremarkable. Left kidney measures cm in length. Right kidney measures cm length. Both kidneys demonstrate normal echogenicity. There is no hydronephrosis. No focal abnormality . Non-aneurysmal abdominal aorta . Impression: Negative
== END 2018-02-18 18:00 | disposition home or self-care (01) ==
LOC: EMR 15:46
DX: N23 Unspecified renal colic (principal); R51 Headache; Z87.442 Personal history of urinary calculi; Z88.8 Allergy status to other drugs, medicaments and biological substances; Z90.49 Acquired absence of other specified parts of digestive tract
CPT/HCPCS: 36415; 76700; 80053; 81003; 81025; 83690; 85025; 96360; 96365; 96366; 96374; 96375; 99284; J2270; J2405; J3010

== ENCOUNTER 2018-03-05 15:06 | Emergency (ER) | payer MEDICAID ==
[~2018-03-05] VITALS: Ht 160 cm; Wt 63.5 kg
[2018-03-05] MEDS ORDERED: Isovue-300 100ml vial INJ PRN (15:30)
[2018-03-05] MEDS ORDERED: Morphine Sulfate 4mg/ml Inj IVP ONE ×2 (16:00→17:15)
[2018-03-05 16:09] LABS: BASOPHILS % (AUTO) 0.7 % (0.0-2.0); EOSINOPHILS % (AUTO) 0.8 % (0.0-3.0); HEMATOCRIT 37.8 % (37.0-47.0); HEMOGLOBIN 12.7 G/DL (12.0-16.0); LYMPHOCYTES % (AUTO) 21.7 % (20.0-45.0); MEAN CORPUSCULAR VOLUME 92 FL (80-99); MONOCYTES % (AUTO) 7.8 % (1.0-10.0); PLATELET COUNT 283 K/UL (150-450); RED BLOOD COUNT 4.12 M/UL (4.20-5.40); RED CELL DISTRIBUTION WIDTH 11.7 % (11.6-14.8)
[2018-03-05 16:10] LABS: APPEARANCE,URINE SLIGHTLY CLOUDY; BILIRUBIN, URINE NEGATIVE (NEGATIVE); GLUCOSE, URINE (UA) NEGATIVE (NEGATIVE); KETONES,URINE 1+ (NEGATIVE); LEUKOCYTE ESTERASE ,URINE 1+ (NEGATIVE); NITRITE,URINE NEGATIVE (NEGATIVE); PH,URINE 8 (4.5-8.0); PROTEIN,URINE 1+ (NEGATIVE); UROBILINOGEN,URINE 1 MG/DL (0.0-1.0)
--- NOTE | 2018-03-05 16:17 | Emergency Room Report ---
History of Present Illness General Chief Complaint: Abdominal Pain Source: Patient Present Illness HPI 37-year-old female with history of chronic abdominal pain p/w abdominal pain 3 days. She was sent in by her PMD to "rule out appendicitis" Patient states pain localized to bilateral lower quadrants, non radiating, sharp and cramping in nature, intermittent. No relieving or exacerbating factors. Severity is been 7 out of 10. Patient has a history of cholecystectomy as well as kidney stones but states that this does not feel like her kidney stones She is also currently menstruating Denies nvd. Denies fever, chills. Patient states that she has been to a tosser who did endoscopy and states that it was normal. Has not been to an FIELD OPERATIONS MANAGER yet. Patient has had 2 CAT scans since September at [facility] and states that she has had more at another hospital, but has never been positive for appendicitis Allergies: Coded Allergies: KETOROLAC (Verified Allergy, Unknown, 10/11/17) PROCHLORPERAZINE EDISYLATE (Verified Adverse Reaction, Severe, Anaphylaxis , 01/28/13) Tremors PROCHLORPERAZINE MALEATE (Verified Adverse Reaction, Severe, Anaphylaxis, 01/28/13) Tremors Patient History Past Medical History: see triage record Past Surgical History: none Pertinent Family History: none Last Menstrual Period: 03/02/18 Reviewed Nursing Documentation: PMH: Agreed; PSxH: Agreed Nursing Documentation-PMH Past Medical History: No History, Except For Hx Cardiac Problems: No - MIGRAINE Hx Gastrointestinal Problems: Yes - Laparoscopic Cholecystectomy Review of Systems All Other Systems: negative except mentioned in HPI Physical Exam Vital Signs Date Time Temp Pulse Resp B/P (MAP) Pulse Ox O2 Delivery O2 Flow Rate FiO2 03/05/18 15:16 98.0 64 18 109/56 97 Room Air 98.1 Sp02 EP Interpretation: reviewed, normal General Appearance: alert, GCS 15, non-toxic, moderate distress Head: normocephalic, atraumatic Eyes: bilateral eye normal inspection, bilateral eye PERRL, bilateral eye EOMI ENT: normal ENT inspection, normal pharynx, normal voice, moist mucus membranes Neck: normal inspection, full range of motion, supple Respiratory: normal inspection, lungs clear, normal breath sounds, no respiratory distress, no retraction, no wheezing, speaking full sentences, chest symmetrical Cardiovascular #1: normal inspection, regular rate, rhythm, no edema, normal capillary refill Cardiovascular #2: 2+ radial (R), 2+ radial (L) Gastrointestinal: other - Suprapubic tenderness, no focal right lower left lower quadrant tenderness no rebound no guarding, no CVA tenderness bilaterally no grimacing to deep palpation Musculoskeletal: normal inspection, back normal, normal range of motion, non- tender Neurologic: normal inspection, alert, oriented x3, responsive, motor strength/ tone normal, sensory intact, normal gait, speech normal Psychiatric: normal inspection, judgement/insight normal, memory normal Skin: normal inspection, normal color, no rash, warm/dry, well hydrated, normal turgor Medical Decision Making Diagnostic Impression: Primary Impression: Abdominal pain ER Course 37-year-old female with abdominal pain for the last 3 days, has had this similar pain multiple times in the past Differential Diagnosis: Gastritis, gastroenteritis, appendicitis, diverticulitis, ovarian pathology UTI/ pyelo Plan: Basic labs, ua Pelvic sonogram ER course: Patient has remained stable during ED stay. I had an extensive conversation with patient and patient's daughter, patient has had multiple CAT scans in the past, that have been negative for acute surgical pathology. She states that she has had this similar pain multiple times in the past so I doubt at this time that it is appendicitis. Her abdomen is very soft and there is no focal right lower quadrant tenderness. She also states that she is menstruating so this could also be due to menstrual cramps. At this time and will perform pelvic ultrasound and reassess for CAT scan she states that she agrees with this plan and she does not want another CAT scan Her ultrasound has been negative. Patient has been stable during ED stay repeat abdominal exams have been completely benign, soft, no guarding or rigidity. Patient states that she feels much better. I gave very strict return precautions with patient such as severe worsening pain intractable nausea vomiting high fever chills. At this time I do not feel the patient is a CAT scan given her benign exam she verbalized understanding and agrees with plan Disposition: Patient is to be discharged to home. Patient is instructed to follow up with their primary care doctor within 5 days AND OBGYN Please note that this Emergency Department Report was dictated using Movablepresser hand technology software, occasionally this can lead to erroneous entry secondary to interpretation by the dictation equipment Rhythm Strip EP Interpretation: Yes Rate: 71 Rhythm: NSR, no PVCs, no ectopy Laboratory Tests Test 03/05/18 15:30 03/05/18 15:40 Urine Color Pale yellow Urine Appearance Slightly cloudy Urine pH 8 (4.5-8.0) Urine Specific [place] 1.015 (1.005-1.035) Urine Protein 1+ (NEGATIVE) H Urine Glucose (UA) Negative (NEGATIVE) Urine Ketones 1+ (NEGATIVE) H Urine Occult Blood 5+ (NEGATIVE) H Urine Nitrite Negative (NEGATIVE) Urine Bilirubin Negative (NEGATIVE) Urine Urobilinogen 1 MG/DL (0.0-1.0) H Urine Leukocyte Esterase 1+ (NEGATIVE) H Urine RBC 5-10 /HPF (0 - 2) H Urine WBC 2-4 /HPF (0 - 2) Urine Squamous Epithelial Cells Few /LPF (NONE/OCC) Urine Amorphous Sediment Moderate /LPF (NONE) H Urine Bacteria Few /HPF (NONE) Urine HCG, Qualitative Negative (NEGATIVE) White Blood Count 9.0 K/UL (4.8-10.8) Red Blood Count 4.12 M/UL (4.20-5.40) L Hemoglobin 12.7 G/DL (12.0-16.0) Hematocrit 37.8 % (37.0-47.0) Mean Corpuscular Volume 92 FL (80-99) Mean Corpuscular Hemoglobin 30.8 PG (27.0-31.0) Mean Corpuscular Hemoglobin Concent 33.5 G/DL (32.0-36.0) Red Cell Distribution Width 11.7 % (11.6-14.8) Platelet Count 283 K/UL (150-450) Mean Platelet Volume 7.8 FL (6.5-10.1) Neutrophils (%) (Auto) 69.0 % (45.0-75.0) Lymphocytes (%) (Auto) 21.7 % (20.0-45.0) Monocytes (%) (Auto) 7.8 % (1.0-10.0) Eosinophils (%) (Auto) 0.8 % (0.0-3.0) Basophils (%) (Auto) 0.7 % (0.0-2.0) Sodium Level 139 MMOL/L (136-145) Potassium Level 4.2 MMOL/L (3.5-5.1) Chloride Level 107 MMOL/L (98-107) Carbon Dioxide Level 27 MMOL/L (21-32) Anion Gap 5 mmol/L (5-15) Blood Urea Nitrogen 9 mg/dL (7-18) Creatinine 0.8 MG/DL (0.55-1.30) Estimate Glomerular Filtration Rate > 60 mL/min (>60) Glucose Level 102 MG/DL (74-106) Calcium Level 8.9 MG/DL (8.5-10.1) Total Bilirubin 0.6 MG/DL (0.2-1.0) Aspartate Amino Transferase (AST) 18 U/L (15-37) Alanine Aminotransferase (ALT) 24 U/L (12-78) Alkaline Phosphatase 66 U/L (46-116) Total Protein 7.4 G/DL (6.4-8.2) Albumin 3.6 G/DL (3.4-5.0) Globulin 3.8 g/dL Albumin/Globulin Ratio 0.9 (1.0-2.7) L Lipase 99 U/L (73-393) Human Chorionic Gonadotropin, Quant < 1 mIU/mL (1-6) L CT/MRI/US Diagnostic Results CT/MRI/US Diagnostic Results : Imaging Test Ordered: US PELVIC Impression negative Last Vital Signs Date Time Temp Pulse Resp B/P (MAP) Pulse Ox O2 Delivery O2 Flow Rate FiO2 03/05/18 15:50 98.0 03/05/18 15:16 64 18 109/56 97 Room Air Disposition: HOME, SELF-CARE Condition: Improved Scripts Acetaminophen With Codeine (T#3) (TYLENOL #3 TAB*) Y Tab 1 TAB ORAL Q8H PRN for For Pain, #20 TAB 0 Refills Prov: Noa Nguyen M.D. 03/05/18 Referrals: NON PHYSICIAN (PCP) Noa Nguyen M.D. Mar 05, 2018 16:17
[2018-03-05 16:21] LABS: COLOR,URINE PALE YELLOW
[2018-03-05 16:32] LABS: ANION GAP 5 mmol/L (5-15); BLOOD UREA NITROGEN 9 mg/dL (7-18); CALCIUM 8.9 MG/DL (8.5-10.1); CARBON DIOXIDE 27 MMOL/L (21-32); CHLORIDE 107 MMOL/L (98-107); CREATININE 0.8 MG/DL (0.55-1.30); POTASSIUM 4.2 MMOL/L (3.5-5.1); SODIUM 139 MMOL/L (136-145)
[2018-03-05 16:36] LABS: ALANINE AMINOTRANSFERASE 24 U/L (12-78); ALBUMIN 3.6 G/DL (3.4-5.0); ALBUMIN/GLOBULIN RATIO 0.9 (1.0-2.7); ALKALINE PHOSPHATASE 66 U/L (46-116); ASPARTATE AMINO TRANSFERASE 18 U/L (15-37); BILIRUBIN,TOTAL 0.6 MG/DL (0.2-1.0)
[2018-03-05 17:00] VITALS: BP 105/54
[2018-03-05] MEDS ORDERED: ACETAMINOPHEN-1 EAC1 ORAL (18:55)
[2018-03-05 18:58] VITALS: BP 103/63
[2018-03-05 19:00] VITALS: BP 103/63
--- NOTE | 2018-03-06 10:45 | Diagnostic Imaging Report ---
Indication:Lower abdominal and pelvic pain Technique: Grayscale and duplex Doppler imaging of the pelvis performed utilizing a transabdominal scan. Patient refused endovaginal scan. Comparison: None Findings: No abnormalities are identified but the study is limited since no endovaginal examination was done. Uterus is homogeneous. Endometrium is thick measuring 17 mm. Uterus measures 8.5 x 5.8 x 4.7 cm. Dopplerable blood flow within both ovaries demonstrated. Right ovary 3.4 x 3 x 1.4 cm. Left ovary 2.9 x 2.6 x 1.7 cm. IMPRESSION: Negative examination
== END 2018-03-05 19:04 | disposition home or self-care (01) ==
LOC: EMR 15:47
DX: R10.31 Right lower quadrant pain (principal); R10.32 Left lower quadrant pain; Z88.8 Allergy status to other drugs, medicaments and biological substances; Z90.49 Acquired absence of other specified parts of digestive tract
CPT/HCPCS: 36415; 76856; 80053; 81003; 81025; 83690; 84702; 85025; 96374; 96376; 99284; J2270

== ENCOUNTER 2018-03-17 11:39 | Emergency (ER) | payer MEDICAID ==
[~2018-03-17] VITALS: Ht 149.9 cm; Wt 56.7 kg
[2018-03-17] MEDS ORDERED: Acetaminophen 500mg (ES) tab ORAL ONE (12:00)
--- NOTE | 2018-03-17 12:07 | Emergency Room Report ---
History of Present Illness General Chief Complaint: Upper Extremity Injury Source: Patient Present Illness HPI 37-year-old female patient presents to ER complaining of neck and left upper extremity pain status post fall 4 hours ago. States that she was at home when she slipped and fell and landed on her left elbow, complaining of left elbow and wrist pain, also states she fell onto her left neck. Denies hitting her head. Denies loss consciousness, vomiting, vision changes, other acute injury. Denies dizziness or fainting prior to fall. Denies chest pain, shortness of breath, abdominal pain. Reports she is right-hand dominant. Reports that she took a Tylenol with Codeine following injury. Allergies: Coded Allergies: KETOROLAC (Verified Allergy, Unknown, 10/11/17) PROCHLORPERAZINE EDISYLATE (Verified Adverse Reaction, Severe, Anaphylaxis , 01/28/13) Tremors PROCHLORPERAZINE MALEATE (Verified Adverse Reaction, Severe, Anaphylaxis, 01/28/13) Tremors Patient History Past Medical History: see triage record Last Menstrual Period: 7-16 Now: No Reviewed Nursing Documentation: PMH: Agreed; PSxH: Agreed Nursing Documentation-PMH Past Medical History: No History, Except For Hx Cardiac Problems: No - MIGRAINE Hx Gastrointestinal Problems: Yes - Laparoscopic Cholecystectomy Review of Systems All Other Systems: negative except mentioned in HPI Physical Exam Vital Signs Date Time Temp Pulse Resp B/P (MAP) Pulse Ox O2 Delivery O2 Flow Rate FiO2 03/17/18 11:51 98.3 73 18 103/70 98 Room Air 98.2 Sp02 EP Interpretation: reviewed, normal General Appearance: well appearing, no apparent distress, alert, GCS 15, non- toxic Head: normocephalic, atraumatic, other - negative Reynolds sign, negative raccoon eyes Eyes: bilateral eye normal inspection, bilateral eye PERRL ENT: hearing grossly normal, normal pharynx, no angioedema, normal voice, TMs + canals normal - negative hemotympanum bilaterally, uvula midline, moist mucus membranes Neck: full range of motion, no bony tend, limited range of motion - secondary to pain when turning side to side, other - no spinous process tenderness, no bony depression Respiratory: lungs clear, normal breath sounds, no rhonchi, no respiratory distress, no accessory muscle use, no wheezing, speaking full sentences Cardiovascular #1: regular rate, rhythm, no edema Cardiovascular #2: 2+ radial (R), 2+ radial (L) Musculoskeletal: back normal, digits/nails normal, gait/station normal, non- tender - wrist, decreased range of motion - elbow and wrist secondary to pain, other - NVI, no snuffbox tenderness; no ecchymosis or edema, tender - medial aspect of right elbow Neurologic: alert, oriented x3, responsive, 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 Puri is my supervising Physician whom patient management has been discussed with. Diagnostic Impression: Primary Impression: Elbow pain, left Additional Impressions: Wrist pain Neck pain ER Course Pt. presents to the ED c/o left-sided neck, left elbow and wrist pain. Ddx considered but are not limited to fracture, sprain, strain, contusion, dislocation. No erythema, no warmth to touch, no fever, nontoxic appearing, low suspicion for septic joint. Negative Reynolds sign, negative raccoon eyes, no hemotympanum bilaterally, cranial nerves intact assessed, denies any head or loss of consciousness, low suspicion for intracranial pathology, does not require CT head at this time. Vital signs: are WNL, pt. is afebrile Ordered X-ray and pain medication. ER COURSE Provided with pain medication. An X-ray of the cervical spine shows no acute fracture per the preliminary reading. An X-ray of the left elbow shows no acute disease, no posterior fat pad sign, per the preliminary reading. An X-ray of the left wrist shows no acute disease per the preliminary reading. No snuffbox tenderness, does not require splint at this time. Likely contusion vs sprain/strain causing pain symptoms. Sling was applied to the right arm was checked afterwards by me showing good alignment and support with distal neurovascular functioning intact. Advised patient to perform ROM exercises on elbow and wrist to prevent stiffness of joints. Patient instructed on RICE method: rest, ice, compression, elevation. Patient instructed on rest, ice and heat. Patient instructed to be WBAT Followup with primary care provider. Discuss referral to ortho/pain management/ PT as needed. Discuss further imaging with MRI/CT as needed. DISCHARGE: -Rx provided for Tylenol for pain symptoms. At this time pt. is stable for d/c to home. Patient is resting comfortably, in no acute distress, nontoxic appearing, talking without difficulty. Will provide printed patient care instructions, and any necessary prescriptions. Patient instructed to follow with primary care provider in 3 - 5 days and to request further follow-up as needed. Care plan and follow up instructions have been discussed with the patient prior to discharge. Take medications as directed. Patient questions asked and answered. Patient reports understanding and agreement to treatment plan. ER precautions given, patient instructed to return to ER immediately for any new or worsening of symptoms. - Please note that this Emergency Department Report was dictated using SmartBIMearring maker technology software, occasionally this can lead to erroneous entry secondary to interpretation by the dictation equipment. Other X-Ray Diagnostic Results Other X-Ray Diagnostic Results #1: X-Ray ordered: cervical neck # of Views/Limited Vs Complete: 3 View Indication: Pain EP Interpretation: Yes PA Xray: Interpretation reviewed, by supervising MD, and agrees with findings. Interpretation: no dislocation, no soft tissue swelling, no fractures Impression: No acute disease PA Scribe Text Bernabe Robertson PA-C Other X-Ray Diagnostic Results #2: X-Ray ordered: left elbow # of Views/Limited Vs Complete: 3 View Indication: Pain EP Interpretation: Yes PA Xray: Interpretation reviewed, by supervising MD, and agrees with findings. Interpretation: no dislocation, no soft tissue swelling, no fractures Impression: No acute disease PA Scribe Jose Robertson PA-C Other X-Ray Diagnostic Results #3: X-Ray ordered: left wrist # of Views/Limited Vs Complete: 3 View Indication: Pain EP Interpretation: Yes PA Xray: Interpretation reviewed, by supervising MD, and agrees with findings. Interpretation: no dislocation, no soft tissue swelling, no fractures Impression: No acute disease PA Scribe Text Bernabe Robertson PA-C Last Vital Signs Date Time Temp Pulse Resp B/P (MAP) Pulse Ox O2 Delivery O2 Flow Rate FiO2 03/17/18 11:51 98.3 73 18 103/70 98 Room Air 98.2 Disposition: HOME, SELF-CARE Condition: Stable Scripts Acetaminophen* (TYLENOL EXTRA STRENGTH*) 500 Mg Tablet 500 MG ORAL Q8H PRN for Prn Headache/Temp > 101, #30 TAB 0 Refills Prov: Matthew Robertson 03/17/18 Patient Instructions: Elbow Contusion, [id number], Soft Tissue Injury of the Neck, [id number], Wrist Pain, [id number] Additional Instructions: Patient instructed to follow up with primary care provider and discuss further referral to orthopedics. Patient instructed on RICE method: rest, ice, compression, elevation. Patient instructed to WBAT. Take medications as directed. Patient questions asked and answered. ER precautions given, patient instructed to return to ER immediately for any new or worsening of symptoms. Matthew Robertson Mar 17, 2018 12:06
[2018-03-17 12:30] VITALS: BP 103/70
[2018-03-17] MEDS ORDERED: TYLENOL EXTRA500 MG ORAL (13:39)
[2018-03-17 13:40] VITALS: BP 110/76
--- NOTE | 2018-03-18 13:10 | Diagnostic Imaging Report ---
Indication: Pain Technique: XRAY Elbow Min 3v L Comparison: 04/27/2012 Findings: No definite/displaced acute fracture identified. Elbow joint is preserved. No elbow joint effusion. No radiopaque foreign body identified. IMPRESSION: No definite/displaced acute fracture. No elbow joint effusion.
--- NOTE | 2018-03-18 13:10 | Diagnostic Imaging Report ---
Indication: Pain Technique: XRAY Wrist Complete L Comparison: None Findings: No evidence of acute fracture or dislocation. Alignment and joint spaces preserved. No soft tissue abnormality appreciated. No radiopaque foreign body seen. Impression: No acute fracture or dislocation.
--- NOTE | 2018-03-18 13:12 | Diagnostic Imaging Report ---
Indication: Pain Technique: Frontal, open-mouth and lateral views of the cervical spine. Comparison: None Findings: There is straightening of the cervical lordosis. No evidence of acute fracture. Anterior and lateral atlantodental intervals within normal limits. No prevertebral soft tissue abnormality is appreciated. Imaged lung apices are clear. Partially imaged mastoid air cells grossly clear. Unerupted maxillary and mandibular molars noted. Impression: * Mild straightening of the cervical lordosis, possibly related to positioning or muscle spasm. * No acute fracture.
== END 2018-03-17 13:40 | disposition home or self-care (01) ==
LOC: EMR 12:27
DX: M25.522 Pain in left elbow (principal); M25.532 Pain in left wrist; M54.2 Cervicalgia; Z90.49 Acquired absence of other specified parts of digestive tract; W01.0XXA Fall on same level from slipping, tripping and stumbling without subsequent striking against object, initial encounter; Y92.009 Unspecified place in unspecified non-institutional (private) residence as the place of occurrence of the external cause; Z88.8 Allergy status to other drugs, medicaments and biological substances
CPT/HCPCS: 72040; 99284

== ENCOUNTER 2018-05-15 16:52 | Emergency (ER) | payer MEDICAID ==
[~2018-05-15] VITALS: Ht 152.4 cm; Wt 54.4 kg
[~2018-05-15 16:52] MED LIST changes: +DICYCLOMINE HCL20 M1 PO; +TYLENOL EXTRA500 MG ORAL
[2018-05-15] MEDS ORDERED: Morphine Sulfate 4mg/ml Inj (IV USE ONLY) IVP ONE (17:30)
[2018-05-15 17:55] LABS: APPEARANCE,URINE SLIGHTLY CLOUDY; BILIRUBIN, URINE NEGATIVE (NEGATIVE); GLUCOSE, URINE (UA) NEGATIVE (NEGATIVE); KETONES,URINE NEGATIVE (NEGATIVE); LEUKOCYTE ESTERASE ,URINE 1+ (NEGATIVE); NITRITE,URINE NEGATIVE (NEGATIVE); PH,URINE 6 (4.5-8.0); PROTEIN,URINE NEGATIVE (NEGATIVE); UROBILINOGEN,URINE 1 MG/DL (0.0-1.0)
[2018-05-15 17:56] LABS: BASOPHILS % (AUTO) 1.1 % (0.0-2.0); EOSINOPHILS % (AUTO) 1.7 % (0.0-3.0); HEMATOCRIT 38.3 % (37.0-47.0); HEMOGLOBIN 12.9 G/DL (12.0-16.0); LYMPHOCYTES % (AUTO) 45.4 % (20.0-45.0); MEAN CORPUSCULAR VOLUME 90 FL (80-99); MONOCYTES % (AUTO) 7.4 % (1.0-10.0); NEUTROPHILS % (AUTO) 44.4 % (45.0-75.0); PLATELET COUNT 242 K/UL (150-450); RED BLOOD COUNT 4.27 M/UL (4.20-5.40); RED CELL DISTRIBUTION WIDTH 11.7 % (11.6-14.8)
[2018-05-15 18:01] LABS: COLOR,URINE YELLOW
[2018-05-15 18:05] VITALS: BP 132/56
[2018-05-15 18:12] LABS: ANION GAP 8 mmol/L (5-15); BLOOD UREA NITROGEN 14 mg/dL (7-18); CALCIUM 9.3 MG/DL (8.5-10.1); CARBON DIOXIDE 27 MMOL/L (21-32); CHLORIDE 102 MMOL/L (98-107); CREATININE 0.8 MG/DL (0.55-1.30); SODIUM 137 MMOL/L (136-145)
[2018-05-15 18:16] LABS: ALANINE AMINOTRANSFERASE 24 U/L (12-78); ALBUMIN 3.8 G/DL (3.4-5.0); ALKALINE PHOSPHATASE 69 U/L (46-116); ASPARTATE AMINO TRANSFERASE 17 U/L (15-37); BILIRUBIN,TOTAL 0.4 MG/DL (0.2-1.0)
[2018-05-15] MEDS ORDERED: ACETAMINOPHEN-1 EAC1 ORAL (18:25)
[2018-05-15] MEDS ORDERED: CEPHALEXIN500 MG ORAL (18:25)
[2018-05-15 18:53] VITALS: BP 132/56
--- NOTE | 2018-05-15 18:58 | Emergency Room Report ---
History of Present Illness General Chief Complaint: Abdominal Pain Source: Patient Present Illness HPI 37-year-old female presents ED for evaluation. Complaining of abdominal pain 1 month. Pain is localized right upper quadrant, sharp, 8 out of 10, nonradiating. Denies chest pain or shortness of breath. Denies fevers or chills. States she was seen here approximately one month ago and was told that she had ovarian cyst. Denies dysuria or hematuria. No other aggravating relieving factors. Denies any other associated symptoms Allergies: Coded Allergies: KETOROLAC (Verified Allergy, Unknown, 10/11/17) PROCHLORPERAZINE EDISYLATE (Verified Adverse Reaction, Severe, Anaphylaxis , 01/28/13) Tremors PROCHLORPERAZINE MALEATE (Verified Adverse Reaction, Severe, Anaphylaxis, 01/28/13) Tremors Patient History Past Medical History: none Past Surgical History: kiara Pertinent Family History: none Social History: Denies: smoking, alcohol use, drug use Last Menstrual Period: 04/30/18 Now: No : 3 Para: 4 Immunizations: UTD Reviewed Nursing Documentation: PMH: Agreed; PSxH: Agreed Nursing Documentation-PMH Past Medical History: No History, Except For Hx Cardiac Problems: No - MIGRAINE Hx Gastrointestinal Problems: Yes - Laparoscopic Cholecystectomy Review of Systems All Other Systems: negative except mentioned in HPI Physical Exam Vital Signs Date Time Temp Pulse Resp B/P (MAP) Pulse Ox O2 Delivery O2 Flow Rate FiO2 05/15/18 17:01 98.3 68 18 98 Room Air 98.2 05/15/18 18:05 132/56 Sp02 EP Interpretation: reviewed, normal General Appearance: no apparent distress, alert, GCS 15, non-toxic Head: normocephalic, atraumatic Eyes: bilateral eye normal inspection, bilateral eye PERRL ENT: hearing grossly normal, normal pharynx, no angioedema, normal voice Neck: full range of motion, supple/symm/no masses Respiratory: chest non-tender, lungs clear, normal breath sounds, speaking full sentences Cardiovascular #1: regular rate, rhythm, no edema Cardiovascular #2: 2+ carotid (R), 2+ carotid (L), 2+ radial (R), 2+ radial (L) , 2+ dorsalis pedis (R), 2+ dorsalis pedis (L) Gastrointestinal: soft, non-distended, no guarding, tenderness - RUQ Rectal: deferred Genitourinary: normal inspection, no CVA tenderness Musculoskeletal: back normal, gait/station normal, normal range of motion, non- tender Neurologic: alert, oriented x3, responsive, motor strength/tone normal, sensory intact, speech normal Psychiatric: judgement/insight normal, memory normal, mood/affect normal, no suicidal/homicidal ideation Reflexes: 3+ bicep (R), 3+ bicep (L), 3+ tricep (R), 3+ tricep (L), 3+ knee (R) , 3+ knee (L) Skin: normal color, no rash, warm/dry, well hydrated Lymphatic: no adenopathy Medical Decision Making Diagnostic Impression: Primary Impression: UTI (urinary tract infection) Qualified Codes: N39.0 - Urinary tract infection, site not specified; R31.9 - Hematuria, unspecified Additional Impression: Abdominal pain Qualified Codes: R10.11 - Right upper quadrant pain ER Course Hospital Course 37-year-old F presents to ED with abdominal pain Differential diagnosis includes-appendicitis, cholecystitis, small bowel obstruction, gastritis, Clinical course Patient placed on stretcher. After initial history and physical I reviewed EMR. Patient was seen here in March for similar pain Patient had pelvic ultrasound which documented some ovarian cyst. Had CT abdomen and pelvis which was unremarkable. Patient has been here multiple times for abdominal pain complaints. Has had multiple imaging studies. I splinted patient we will not repeat CT today. We will order labs check ultrasound Ordered labs, IV fluids, pain medications and US Labs - no leukocytosis, electrolytes ok, LFTs normal, UA + blood, + bacteria US - s/p cholecystectomy. no hydronephrosis. no kidney stones Discussed findings with patient. Patient safe for discharge with close outpatient follow-up. We'll prescribe antibiotics. I feel this is a highly complex case requiring extensive working including EKG/ Rhythm strip, Xray/CT/US, Blood/urine lab work, repeat exams while in ED, and administration of strong opiates/narcotics for pain control, admission to hospital or close patient follow up. Diagnosis - UTI, abdominal pain Stable and discharged to home with Rx Keflex, Tylenol #3. Followup with PMD. Return to ED if symptoms recur or worsen Labs Test 05/15/18 17:30 White Blood Count 9.0 K/UL (4.8-10.8) Red Blood Count 4.27 M/UL (4.20-5.40) Hemoglobin 12.9 G/DL (12.0-16.0) Hematocrit 38.3 % (37.0-47.0) Mean Corpuscular Volume 90 FL (80-99) Mean Corpuscular Hemoglobin 30.2 PG (27.0-31.0) Mean Corpuscular Hemoglobin Concent 33.7 G/DL (32.0-36.0) Red Cell Distribution Width 11.7 % (11.6-14.8) Platelet Count 242 K/UL (150-450) Mean Platelet Volume 8.4 FL (6.5-10.1) Neutrophils (%) (Auto) 44.4 % (45.0-75.0) Lymphocytes (%) (Auto) 45.4 % (20.0-45.0) Monocytes (%) (Auto) 7.4 % (1.0-10.0) Eosinophils (%) (Auto) 1.7 % (0.0-3.0) Basophils (%) (Auto) 1.1 % (0.0-2.0) Urine Color Yellow Urine Appearance Slightly cloudy Urine pH 6 (4.5-8.0) Urine Specific [place] 1.015 (1.005-1.035) Urine Protein Negative (NEGATIVE) Urine Glucose (UA) Negative (NEGATIVE) Urine Ketones Negative (NEGATIVE) Urine Blood 1+ (NEGATIVE) Urine Nitrite Negative (NEGATIVE) Urine Bilirubin Negative (NEGATIVE) Urine Urobilinogen 1 MG/DL (0.0-1.0) Urine Leukocyte Esterase 1+ (NEGATIVE) Urine RBC 2-4 /HPF (0 - 2) Urine WBC 0-2 /HPF (0 - 2) Urine Squamous Epithelial Cells Many /LPF (NONE/OCC) Urine Bacteria Moderate /HPF (NONE) Urine HCG, Qualitative Negative (NEGATIVE) Sodium Level 137 MMOL/L (136-145) Potassium Level 4.0 MMOL/L (3.5-5.1) Chloride Level 102 MMOL/L (98-107) Carbon Dioxide Level 27 MMOL/L (21-32) Anion Gap 8 mmol/L (5-15) Blood Urea Nitrogen 14 mg/dL (7-18) Creatinine 0.8 MG/DL (0.55-1.30) Estimat Glomerular Filtration Rate > 60 mL/min (>60) Glucose Level 78 MG/DL (74-106) Calcium Level 9.3 MG/DL (8.5-10.1) Total Bilirubin 0.4 MG/DL (0.2-1.0) Aspartate Amino Transf (AST/SGOT) 17 U/L (15-37) Alanine Aminotransferase (ALT/SGPT) 24 U/L (12-78) Alkaline Phosphatase 69 U/L (46-116) Total Protein 7.7 G/DL (6.4-8.2) Albumin 3.8 G/DL (3.4-5.0) Globulin 3.9 g/dL Albumin/Globulin Ratio 1.0 (1.0-2.7) Lipase 100 U/L (73-393) CT/MRI/US Diagnostic Results CT/MRI/US Diagnostic Results : Imaging Test Ordered: ABD US Impression s/p cholecystectomy. no hydronephrosis. no evidence of kidney stones Last Vital Signs Date Time Temp Pulse Resp B/P (MAP) Pulse Ox O2 Delivery O2 Flow Rate FiO2 05/15/18 18:07 98.6 05/15/18 18:05 58 13 132/56 98 Room Air Status: improved Disposition: HOME, SELF-CARE Condition: Stable Scripts Acetaminophen With Codeine (T#3) (TYLENOL #3 TAB*) Y Tab 1 TAB ORAL Q8H PRN for For Pain, #20 TAB Prov: Dion Gant MD 05/15/18 Cephalexin* (KEFLEX*) 500 Mg Capsule 500 MG ORAL EVERY 6 HOURS for 7 Days, CAP Prov: Dion Gant MD 05/15/18 Referrals: NOT CHOSEN [facility]/,REFERRING (PCP) Patient Instructions: Dysuria, Abdominal Pain, Adult Dion Gant MD May 15, 2018 18:58
--- NOTE | 2018-05-16 09:22 | Diagnostic Imaging Report ---
Indication: Abdominal pain Technique: Steinberg-scale and duplex images of the upper abdomen were obtained Comparison: . Reference made to abdomen pelvis CT dated 04/21/2018, abdomen ultrasound dated 02/18/2018 Findings: Gallbladder is surgically absent (previously inadvertently reported as present and normal on prior ultrasound). Common bile duct measures 3 mm in diameter. No intrahepatic biliary ductal dilatation. Liver demonstrates normal echogenicity, no focal abnormality. Portal vein and hepatic veins are patent. Pancreas is unremarkable. Spleen is unremarkable. Left kidney measures 10.9 cm in length. Right kidney measures 10.7 cm length. Both kidneys demonstrate normal echogenicity. There is no hydronephrosis. No focal abnormality. Please note that left renal calculus demonstrated on prior CT scan is not evident sonographically . Non-aneurysmal abdominal aorta . Unremarkable inferior vena cava Impression: Surgically absent gallbladder. Negative for dilated ducts No other acute or significant findings
== END 2018-05-15 18:53 | disposition home or self-care (01) ==
LOC: EMR 17:28
DX: N39.0 Urinary tract infection, site not specified (principal); R10.11 Right upper quadrant pain; Z90.49 Acquired absence of other specified parts of digestive tract; Z88.8 Allergy status to other drugs, medicaments and biological substances
CPT/HCPCS: 36415; 76700; 80053; 81003; 81025; 83690; 85025; 87086; 96374; 99284; J2270

== ENCOUNTER 2018-06-21 11:39 | Emergency (ER) | payer MEDICAID ==
[~2018-06-21] VITALS: Ht 149.9 cm; Wt 55.8 kg
[2018-06-21] MEDS ORDERED: NKM (11:59)
[2018-06-21] MEDS ORDERED: Morphine Sulfate 4mg/ml Inj (IV/IM USE ONLY) IVP ONE (12:30)
[2018-06-21] MEDS ORDERED: HYDROmorphone 1mg/ml Carpuject IVP ONE ×2 (13:30→14:00)
[2018-06-21 13:34] LABS: APPEARANCE,URINE CLEAR; BASOPHILS % (AUTO) 1.7 % (0.0-2.0); BILIRUBIN, URINE NEGATIVE (NEGATIVE); COLOR,URINE PALE YELLOW; EOSINOPHILS % (AUTO) 1.6 % (0.0-3.0); GLUCOSE, URINE (UA) NEGATIVE (NEGATIVE); HEMATOCRIT 38.5 % (37.0-47.0); HEMOGLOBIN 13.1 G/DL (12.0-16.0); KETONES,URINE NEGATIVE (NEGATIVE); LEUKOCYTE ESTERASE ,URINE 2+ (NEGATIVE); LYMPHOCYTES % (AUTO) 41.2 % (20.0-45.0); MEAN CORPUSCULAR VOLUME 89 FL (80-99); MONOCYTES % (AUTO) 8.1 % (1.0-10.0); NEUTROPHILS % (AUTO) 47.3 % (45.0-75.0); NITRITE,URINE NEGATIVE (NEGATIVE); PH,URINE 9 (4.5-8.0); PLATELET COUNT 217 K/UL (150-450); PROTEIN,URINE 1+ (NEGATIVE); RED BLOOD COUNT 4.34 M/UL (4.20-5.40); RED CELL DISTRIBUTION WIDTH 12.1 % (11.6-14.8); UROBILINOGEN,URINE NORMAL MG/DL (0.0-1.0)
[2018-06-21 13:42] LABS: INR 1.1 (0.9-1.1)
[2018-06-21 13:43] LABS: ANION GAP 6 mmol/L (5-15); BLOOD UREA NITROGEN 12 mg/dL (7-18); CALCIUM 9.2 MG/DL (8.5-10.1); CARBON DIOXIDE 30 MMOL/L (21-32); CHLORIDE 105 MMOL/L (98-107); CREATININE 0.7 MG/DL (0.55-1.30); POTASSIUM 4.8 MMOL/L (3.5-5.1); SODIUM 140 MMOL/L (136-145)
[2018-06-21 13:48] LABS: ALANINE AMINOTRANSFERASE 21 U/L (12-78); ALBUMIN 3.6 G/DL (3.4-5.0); ALBUMIN/GLOBULIN RATIO 0.9 (1.0-2.7); ALKALINE PHOSPHATASE 56 U/L (46-116); ASPARTATE AMINO TRANSFERASE 25 U/L (15-37); BILIRUBIN,TOTAL 0.6 MG/DL (0.2-1.0)
[2018-06-21] MEDS ORDERED: cefTRIAXone 1 GM in NS 55 ML IVPB ONE (14:00)
[2018-06-21 14:30] VITALS: BP 110/65
--- NOTE | 2018-06-21 14:34 | Emergency Room Report ---
History of Present Illness General Chief Complaint: Abdominal Pain Source: Patient Present Illness HPI Patient with increased lower abdominal pain. Has had for 1 week. Worsened today. Now 10/10 pain, RLQ, constant, pressure and aching. H/O ovarian cyst. No fevers, NVD, dysuria. Pain not radiate. No meds to help. No URI sy, cough, dyspnea, sore throat, rashes, back pain, chest pain, anxiety, headache. LNMP normal. No vag d/c. Seen multiple times for abdominal pain. Last in April with UTI. U/S post kiara. She also fell onto her L elbow. Pain is 7/10 there. No numbness. She applied an ludwig with some help. Allergies: Coded Allergies: KETOROLAC (Verified Allergy, Unknown, 10/11/17) PROCHLORPERAZINE (Verified Allergy, Unknown, 06/21/18) PROCHLORPERAZINE EDISYLATE (Verified Adverse Reaction, Severe, Anaphylaxis , 01/28/13) Tremors PROCHLORPERAZINE MALEATE (Verified Adverse Reaction, Severe, Anaphylaxis, 01/28/13) Tremors Patient History Past Medical History: see triage record Past Surgical History: kiara Social History Narrative Last Menstrual Period: 06/10/18 Reviewed Nursing Documentation: PMH: Agreed; PSxH: Agreed Nursing Documentation-PMH Past Medical History: No Stated History Review of Systems All Other Systems: negative except mentioned in HPI Physical Exam Vital Signs Date Time Temp Pulse Resp B/P (MAP) Pulse Ox O2 Delivery O2 Flow Rate FiO2 06/21/18 11:56 98.1 69 18 105/66 100 Room Air Sp02 EP Interpretation: reviewed, normal General Appearance: GCS 15, mild distress - with vomiting Head: normocephalic Eyes: bilateral eye normal inspection, bilateral eye PERRL ENT: moist mucus membranes Neck: supple Respiratory: lungs clear, normal breath sounds Cardiovascular #1: regular rate, rhythm Cardiovascular #2: 2+ radial (R) Gastrointestinal: normal inspection, normal bowel sounds, no mass, non- distended, no guarding, no rebound, tenderness - RLQ/suprapubic Musculoskeletal: back normal, gait/station normal, normal range of motion Neurologic: alert, oriented x3, grossly normal Psychiatric: mood/affect normal Skin: normal inspection, warm/dry Medical Decision Making Diagnostic Impression: Primary Impression: Abdominal pain Qualified Codes: R10.30 - Lower abdominal pain, unspecified Additional Impressions: UTI (urinary tract infection) Qualified Codes: N30.00 - Acute cystitis without hematuria Contusion of right elbow Qualified Codes: S50.01XA - Contusion of right elbow, initial encounter ER Course Patient presents with abdominal pain and vomiting. DDX: ovarian cyst, UTI, pyelo, diverticulitis, appendicitis, renal colic amongst others. Evaluation with labs. Not surgical abdomen. IV hydration and analgesia ordered. Also has elbow injury. DDX: fx, contusion. Xray indicated. No improvement after morphine. Dilaudid ordered. Labs with oma CBC, CMP, lipase. UA with pyuria. Multiple doses of dilaudid given. Pain controlled. Antibiotics begun. Elbow x-ray no fx or fat pad. Sling and ludwig applied by tech. Neurovasc normal as checked by me. Discussed outpatient observation and treatment with patient. Improved with treatment. Patient stable for outpatient observation and treatment. Laboratory Tests Test 06/21/18 13:20 White Blood Count 8.0 K/UL (4.8-10.8) Red Blood Count 4.34 M/UL (4.20-5.40) Hemoglobin 13.1 G/DL (12.0-16.0) Hematocrit 38.5 % (37.0-47.0) Mean Corpuscular Volume 89 FL (80-99) Mean Corpuscular Hemoglobin 30.3 PG (27.0-31.0) Mean Corpuscular Hemoglobin Concent 34.1 G/DL (32.0-36.0) Red Cell Distribution Width 12.1 % (11.6-14.8) Platelet Count 217 K/UL (150-450) Mean Platelet Volume 9.8 FL (6.5-10.1) Neutrophils (%) (Auto) 47.3 % (45.0-75.0) Lymphocytes (%) (Auto) 41.2 % (20.0-45.0) Monocytes (%) (Auto) 8.1 % (1.0-10.0) Eosinophils (%) (Auto) 1.6 % (0.0-3.0) Basophils (%) (Auto) 1.7 % (0.0-2.0) Prothrombin Time 11.1 SEC (9.30-11.50) Prothrombin Time INR 1.1 (0.9-1.1) PTT 24 SEC (23-33) Urine Color Pale yellow Urine Appearance Clear Urine pH 9 (4.5-8.0) Urine Specific [place] 1.015 (1.005-1.035) Urine Protein 1+ (NEGATIVE) H Urine Glucose (UA) Negative (NEGATIVE) Urine Ketones Negative (NEGATIVE) Urine Blood Negative (NEGATIVE) Urine Nitrite Negative (NEGATIVE) Urine Bilirubin Negative (NEGATIVE) Urine Urobilinogen Normal MG/DL (0.0-1.0) Urine Leukocyte Esterase 2+ (NEGATIVE) H Urine RBC 0-2 /HPF (0 - 2) Urine WBC 5-10 /HPF (0 - 2) H Urine Squamous Epithelial Cells Moderate /LPF (NONE/OCC) H Urine Bacteria Few /HPF (NONE) Urine HCG, Qualitative Negative (NEGATIVE) Sodium Level 140 MMOL/L (136-145) Potassium Level 4.8 MMOL/L (3.5-5.1) Chloride Level 105 MMOL/L (98-107) Carbon Dioxide Level 30 MMOL/L (21-32) Anion Gap 6 mmol/L (5-15) Blood Urea Nitrogen 12 mg/dL (7-18) Creatinine 0.7 MG/DL (0.55-1.30) Estimate Glomerular Filtration Rate > 60 mL/min (>60) Glucose Level 102 MG/DL (74-106) Calcium Level 9.2 MG/DL (8.5-10.1) Total Bilirubin 0.6 MG/DL (0.2-1.0) Aspartate Amino Transferase (AST) 25 U/L (15-37) Alanine Aminotransferase (ALT) 21 U/L (12-78) Alkaline Phosphatase 56 U/L (46-116) Total Protein 7.5 G/DL (6.4-8.2) Albumin 3.6 G/DL (3.4-5.0) Globulin 3.9 g/dL Albumin/Globulin Ratio 0.9 (1.0-2.7) L Lipase 164 U/L (73-393) Other X-Ray Diagnostic Results Other X-Ray Diagnostic Results : X-Ray ordered: L elbow # of Views/Limited Vs Complete: 3 View Indication: Pain Interpretation: no dislocation, no soft tissue swelling, no fractures Impression: No acute disease Electronically Signed by: Electronically signed by Patrick Soto MD Last Vital Signs Date Time Temp Pulse Resp B/P (MAP) Pulse Ox O2 Delivery O2 Flow Rate FiO2 06/21/18 14:47 98.8 68 18 110/65 99 Room Air Status: improved Disposition: HOME, SELF-CARE Condition: Improved Scripts Tramadol Hcl* (ULTRAM*) 50 Mg Tablet 50 MG ORAL Q6H PRN for For Pain, #8 TAB 0 Refills Prov: Patrick Soto MD 06/21/18 Naproxen* (NAPROXEN*) 375 Mg Tablet.dr 375 MG ORAL TWICE A DAY, #14 TAB Prov: Patrick Soto MD 06/21/18 Nitrofurantoin Monohyd/M-Cryst* (MACROBID 100 MG*) 100 Mg Capsule 100 MG ORAL EVERY 12 HOURS, #14 CAP Prov: Patrick Soto MD 06/21/18 Referrals: NOT CHOSEN [facility]/,REFERRING (PCP) Patrick Soto MD Jun 21, 2018 14:34
[2018-06-21] MEDS ORDERED: TRAMADOL HCL50 MG ORAL (14:37)
[2018-06-21] MEDS ORDERED: NITROFURANTOIN100 M2 ORAL (14:37)
[2018-06-21] MEDS ORDERED: NAPROXEN375 M2 ORAL (14:37)
[2018-06-21 14:47] VITALS: BP 110/65
== END 2018-06-21 14:49 | disposition home or self-care (01) ==
LOC: MERGE 11:39 → EMR 12:40
DX: R10.30 Lower abdominal pain, unspecified (principal); N39.0 Urinary tract infection, site not specified; S50.01XA Contusion of right elbow, initial encounter; X58.XXXA Exposure to other specified factors, initial encounter; Y92.9 Unspecified place or not applicable; Z88.8 Allergy status to other drugs, medicaments and biological substances
CPT/HCPCS: 36415; 73080; 80053; 81003; 81025; 83690; 85025; 85610; 85730; 96361; 96365; 96375; 96376; 99284; J0696; J1170; J2270; J2405

== ENCOUNTER 2018-06-26 14:27 | Inpatient (IN) | payer MEDICAID ==
[~2018-06-26] VITALS: Ht 154.9 cm; Wt 56.7 kg
[~2018-06-26 14:27] MED LIST changes: +NAPROXEN375 M2 ORAL
[2018-06-26 14:41] VITALS: BP 107/64
--- NOTE | 2018-06-26 14:41 | Emergency Room Report ---
History of Present Illness General Chief Complaint: Abdominal Pain Source: Patient, Family Member, Significant Other, Medical Record Present Illness HPI Patient returns with abdominal pain today. She was evaluated on June 21 by me. At that time she had a UTI. She required large doses of Dilaudid to control the pain. She was treated with antibiotics and analgesia as an outpatient. She states the pain is 10/10, RUQ and radiating to her back. The tramadol prescribed has "done nothing" for the pain. She denies fevers, but c/ o chills. She has been vomiting, but has been drinking orange juice and eating solid foods - all coming back up. Almost finished with Macrobid. Previously, she had had RLQ pain. This is not where the pain is at this time. Seen in April for UTI. Required dose of morphine. U/S done - post kiara. Seen in March for abdominal pain. CT abdomen done: IMPRESSION: Nonobstructive stone in the left kidney. Normal appendix. U/S done: IMPRESSION: Suspect a left hemorrhagic cyst. Recommend six-week follow-up. Echogenic endometrium may be due to prior D&C or instrumentation. Treated with repeated doses of morphine and Ativan. Seen in February for abdominal pain. Repeated doses of morphine needed to control pain. Seen in January for R flank pain. Presumptive renal colic. U/S was normal (at time pain free). Morphine and fentanyl given. Seen in December for abdominal pain. CT per [facility] report: CT abdomen pelvisIMPRESSION : Small nonobstructive stone in the left kidney. Right distal ureter not well visualized. No hydronephrosis seen but the possibility of a tiny intraureteral calculus in the distal right ureter is not excluded. Appendicolith without evidence of acute appendicitis. Status post cholecystectomy. Seen in November for costochondral chest pain. Multiple doses morphine (2,4) given. Seen in September with abdominal pain. Morphine and Dilaudid given to control pain. CT done - report per PA: Status post recent laparoscopic cholecystectomy. Postsurgical changes noted. No abscess. Suggestion of a small left ovarian cyst. Slightly prominent appendix although there is no definite inflammation and similar appearance previously. Doubt appendicitis. Seen in July for gall bladder pain. Treated with morphine 1 dose, pepcid and GI cocktail. In 2016 she was treated for abdominal pain and admitted. She tolerated Toradol at that time but states it recently had caused rash and shortness of breath. Admitted January 2017 for intractable abdominal pain. At that time had gall bladder sludge. Improved and discharged. Surgical consultation. Visits go back to 2005 for abdominal pain and headaches. S/P kiara - warned of possible retained stone H/O renal stone R H/O ovarian cysts. Was seen in March and stated had been evaluated at [facility] with U/S and told she had cysts. H/O migraines H/O neck pain and torticollis. She denies abuse. Has been seen for extremity injury due to "fall" Allergies: Coded Allergies: KETOROLAC (Verified Allergy, Unknown, 10/11/17) PROCHLORPERAZINE (Verified Allergy, Unknown, 06/21/18) PROCHLORPERAZINE EDISYLATE (Verified Adverse Reaction, Severe, Anaphylaxis , 01/28/13) Tremors PROCHLORPERAZINE MALEATE (Verified Adverse Reaction, Severe, Anaphylaxis, 01/28/13) Tremors Patient History Past Medical History: see triage record Past Surgical History: kiara Social History: Reports: smoking Social History Narrative Last Menstrual Period: 06/10/18 Reviewed Nursing Documentation: PMH: Agreed; PSxH: Agreed Nursing Documentation-PMH Past Medical History: No History, Except For Hx Cardiac Problems: No - MIGRAINE Hx Cancer: No - kidney stone Hx Gastrointestinal Problems: No - Laparoscopic Cholecystectomy Physical Exam Vital Signs Date Time Temp Pulse Resp B/P (MAP) Pulse Ox O2 Delivery O2 Flow Rate FiO2 06/26/18 14:31 98.1 87 18 107/64 100 Room Air Sp02 EP Interpretation: reviewed, normal General Appearance: well appearing, GCS 15, mild distress, other - vomiting - no blood or coffeegrounds Head: normocephalic Eyes: bilateral eye normal inspection, bilateral eye PERRL ENT: moist mucus membranes Neck: supple Respiratory: lungs clear, normal breath sounds Cardiovascular #1: regular rate, rhythm Cardiovascular #2: 2+ radial (R) Gastrointestinal: normal inspection, normal bowel sounds, no mass, non- distended, no rebound, tenderness - RUQ, min guarding Genitourinary: no CVA tenderness Musculoskeletal: back normal, gait/station normal, normal range of motion Neurologic: alert, oriented x3, grossly normal Psychiatric: anxious Skin: normal inspection, warm/dry Medical Decision Making Diagnostic Impression: Primary Impression: Intractable abdominal pain Additional Impressions: Chronic abdominal pain Physical tolerance to opiate drug ER Course Patient presents with continued abdominal pain. Differential includes a retained common bile duct stone, pancreatitis, gastroenteritis, pyelonephritis, diverticulitis, ovarian cyst, UTI, drug seeking amongst others. She will be evaluated today with ultrasound and labs. The patient describes the pain it is consistent with common bile duct stone or acalculous cholecystitis. She will receive IV hydration, Zofran and Dilaudid for pain. The patient's abdominal pain has been persistent for many years. Recently, she has required higher doses of analgesics to control the pain. WBC normal, CMP normal, Lipase normal. UA clear. Tox is negative. CBD upper limit normal, 7.9 mm. Pain medicine repeated as she states pain is still severe. Nausea improved. Pain better but still severe. Consider abdominal migraine versus gall bladder dysfunction. Patient with multiple visits - needs GI evaluation, observation and further treatment. Consider more careful evaluation for other causes of complaints and prior trauma (possible interview without present). Admit med Dr. Colon. Laboratory Tests Test 06/26/18 15:00 White Blood Count 7.1 K/UL (4.8-10.8) Red Blood Count 4.30 M/UL (4.20-5.40) Hemoglobin 12.7 G/DL (12.0-16.0) Hematocrit 38.3 % (37.0-47.0) Mean Corpuscular Volume 89 FL (80-99) Mean Corpuscular Hemoglobin 29.4 PG (27.0-31.0) Mean Corpuscular Hemoglobin Concent 33.1 G/DL (32.0-36.0) Red Cell Distribution Width 12.1 % (11.6-14.8) Platelet Count 278 K/UL (150-450) Mean Platelet Volume 8.0 FL (6.5-10.1) Neutrophils (%) (Auto) 51.3 % (45.0-75.0) Lymphocytes (%) (Auto) 37.9 % (20.0-45.0) Monocytes (%) (Auto) 9.1 % (1.0-10.0) Eosinophils (%) (Auto) 0.7 % (0.0-3.0) Basophils (%) (Auto) 1.0 % (0.0-2.0) Prothrombin Time 10.7 SEC (9.30-11.50) Prothrombin Time INR 1.0 (0.9-1.1) PTT 25 SEC (23-33) Urine Color Pale yellow Urine Appearance Clear Urine pH 6 (4.5-8.0) Urine Specific [place] 1.005 (1.005-1.035) Urine Protein Negative (NEGATIVE) Urine Glucose (UA) Negative (NEGATIVE) Urine Ketones Negative (NEGATIVE) Urine Blood 2+ (NEGATIVE) H Urine Nitrite Negative (NEGATIVE) Urine Bilirubin Negative (NEGATIVE) Urine Urobilinogen Normal MG/DL (0.0-1.0) Urine Leukocyte Esterase Negative (NEGATIVE) Urine RBC 0-2 /HPF (0 - 2) Urine WBC 0 /HPF (0 - 2) Urine Squamous Epithelial Cells None /LPF (NONE/OCC) Urine Bacteria None /HPF (NONE) Urine HCG, Qualitative Negative (NEGATIVE) Sodium Level 141 MMOL/L (136-145) Potassium Level 4.5 MMOL/L (3.5-5.1) Chloride Level 104 MMOL/L (98-107) Carbon Dioxide Level 28 MMOL/L (21-32) Anion Gap 9 mmol/L (5-15) Blood Urea Nitrogen 13 mg/dL (7-18) Creatinine 0.7 MG/DL (0.55-1.30) Estimate Glomerular Filtration Rate > 60 mL/min (>60) Glucose Level 83 MG/DL (74-106) Calcium Level 9.5 MG/DL (8.5-10.1) Total Bilirubin 0.6 MG/DL (0.2-1.0) Aspartate Amino Transferase (AST) 18 U/L (15-37) Alanine Aminotransferase (ALT) 20 U/L (12-78) Alkaline Phosphatase 58 U/L (46-116) Total Protein 7.8 G/DL (6.4-8.2) Albumin 3.9 G/DL (3.4-5.0) Globulin 3.9 g/dL Albumin/Globulin Ratio 1.0 (1.0-2.7) Lipase 242 U/L (73-393) Urine Opiates Screen Negative (NEGATIVE) Urine Barbiturates Screen Negative (NEGATIVE) Phencyclidine (PCP) Screen Negative (NEGATIVE) Urine Amphetamines Screen Negative (NEGATIVE) Urine Benzodiazepines Screen Negative (NEGATIVE) Urine Cocaine Screen Negative (NEGATIVE) Urine Marijuana (THC) Screen Negative (NEGATIVE) Serum Alcohol < 3 mg/dL Rhythm Strip Diag. Results EP Interpretation: yes Rhythm: NSR, no PVC's, no ectopy CT/MRI/US Diagnostic Results CT/MRI/US Diagnostic Results : Imaging Test Ordered: US abd Impression CBD upper limit of normal Last Vital Signs Date Time Temp Pulse Resp B/P (MAP) Pulse Ox O2 Delivery O2 Flow Rate FiO2 06/27/18 00:00 97.8 63 17 93/52 (66) 96 06/26/18 22:17 Room Air Status: improved Disposition: ADMITTED INPATIENT Condition: Serious Patrick Soto MD Jun 26, 2018 14:41
[2018-06-26] MEDS ORDERED: HYDROmorphone 1mg/ml Carpuject IVP ONE ×2 (15:00→15:45)
[2018-06-26 15:22] LABS: APPEARANCE,URINE CLEAR; BILIRUBIN, URINE NEGATIVE (NEGATIVE); COLOR,URINE PALE YELLOW; GLUCOSE, URINE (UA) NEGATIVE (NEGATIVE); KETONES,URINE NEGATIVE (NEGATIVE); LEUKOCYTE ESTERASE ,URINE NEGATIVE (NEGATIVE); NITRITE,URINE NEGATIVE (NEGATIVE); PH,URINE 6 (4.5-8.0); PROTEIN,URINE NEGATIVE (NEGATIVE); UROBILINOGEN,URINE NORMAL MG/DL (0.0-1.0)
[2018-06-26 15:24] LABS: EOSINOPHILS % (AUTO) 0.7 % (0.0-3.0); HEMATOCRIT 38.3 % (37.0-47.0); HEMOGLOBIN 12.7 G/DL (12.0-16.0); LYMPHOCYTES % (AUTO) 37.9 % (20.0-45.0); MEAN CORPUSCULAR VOLUME 89 FL (80-99); MONOCYTES % (AUTO) 9.1 % (1.0-10.0); NEUTROPHILS % (AUTO) 51.3 % (45.0-75.0); PLATELET COUNT 278 K/UL (150-450); RED CELL DISTRIBUTION WIDTH 12.1 % (11.6-14.8); WHITE BLOOD COUNT 7.1 K/UL (4.8-10.8)
[2018-06-26 15:34] LABS: ANION GAP 9 mmol/L (5-15); BLOOD UREA NITROGEN 13 mg/dL (7-18); CALCIUM 9.5 MG/DL (8.5-10.1); CARBON DIOXIDE 28 MMOL/L (21-32); CHLORIDE 104 MMOL/L (98-107); CREATININE 0.7 MG/DL (0.55-1.30); POTASSIUM 4.5 MMOL/L (3.5-5.1); SODIUM 141 MMOL/L (136-145)
[2018-06-26 15:38] LABS: ALANINE AMINOTRANSFERASE 20 U/L (12-78); ALBUMIN 3.9 G/DL (3.4-5.0); ALKALINE PHOSPHATASE 58 U/L (46-116); ASPARTATE AMINO TRANSFERASE 18 U/L (15-37); BILIRUBIN,TOTAL 0.6 MG/DL (0.2-1.0)
[2018-06-26 16:30] VITALS: BP 118/54
--- NOTE | 2018-06-26 17:15 | Diagnostic Imaging Report ---
Indication: Abdominal pain, history of cholecystectomy Technique: Steinberg-scale and duplex images of the upper abdomen were obtained. Doppler interrogation of the hepatic vessels Comparison: 05/15/2018 Findings: Gallbladder is surgically absent. Common bile duct measures 8 mm in diameter. No definite intraductal calculi demonstrated No intrahepatic biliary ductal dilatation. Liver demonstrates normal echogenicity, no focal abnormality. Portal vein and hepatic veins are patent. Pancreas is incompletely visualized due to overlying bowel gas, visualized portions are unremarkable. Spleen is unremarkable. Left kidney measures 9 point cm in length. Right kidney measures 9 cm length. Both kidneys demonstrate normal echogenicity. There is no hydronephrosis. No focal abnormality . Abdominal aorta is partially obscured by bowel gas, visualized portions are non-aneurysmal . Impression: Surgically absent gallbladder, also previously described Mildly dilated common bile duct. This is is a new finding from the previous study of 05/15/2018. Although no stones are seen sonographically, downstream obstruction not excludable. Correlate with liver function tests, consider MRCP if clinically indicated No other acute or significant abnormality Note inability to visualize portions of the pancreas and abdominal aorta
[2018-06-26] MEDS ORDERED: Morphine Sulfate 4mg/ml Inj (IV/IM USE ONLY) IVP ONE (17:45)
[2018-06-26] MEDS ORDERED: Mylanta II UD 30ml ORAL PRN (18:00)
[2018-06-26] MEDS ORDERED: LORazepam Inj 2mg/ml 1ml IV PRN (18:00)
[2018-06-26] MEDS ORDERED: Metoclopramide 10mg/2ml Inj IVP PRN (18:00)
[2018-06-26] MEDS ORDERED: Nitroglycerin Subl 0.4mg tab SL PRN (18:00)
[2018-06-26] MEDS ORDERED: Miralax 17gm pkt ORAL PRN (18:00)
[2018-06-26] MEDS ORDERED: Morphine Sulfate 2mg/ml Inj IVP PRN (18:00)
[2018-06-26 19:07] VITALS: BP 122/70
[2018-06-26 19:32] VITALS: BP 96/60
[2018-06-26 20:00] VITALS: BP 98/65
[2018-06-26] MEDS: D5 1/2NS 1,000 ML IV SCH (20:46)
[2018-06-26] MEDS: Heparin 5000 units/ml inj SUBQ SCH (20:47)
[2018-06-26] MEDS: HYDROmorphone 1mg/ml Carpuject IVP PRN (23:18)
[2018-06-27] VITALS: BP 93/52
[2018-06-27] MEDS ORDERED: Morphine Sulfate 2mg/ml Inj IVP PRN (01:00)
[2018-06-27] MEDS: HYDROmorphone 1mg/ml Carpuject IVP PRN (03:00)
[2018-06-27 04:00] VITALS: BP 92/53
[2018-06-27] MEDS: D5 1/2NS 1,000 ML IV SCH ×2 (07:07→20:10)
[2018-06-27 07:31] LABS: HEMATOCRIT 34.4 % (37.0-47.0); HEMOGLOBIN 11.3 G/DL (12.0-16.0); MEAN CORPUSCULAR VOLUME 90 FL (80-99); PLATELET COUNT 217 K/UL (150-450); RED BLOOD COUNT 3.83 M/UL (4.20-5.40); RED CELL DISTRIBUTION WIDTH 12.2 % (11.6-14.8); WHITE BLOOD COUNT 6.3 K/UL (4.8-10.8)
[2018-06-27 07:55] LABS: ALANINE AMINOTRANSFERASE 17 U/L (12-78); ALBUMIN 3.1 G/DL (3.4-5.0); ALKALINE PHOSPHATASE 50 U/L (46-116); AMYLASE 46 U/L (25-115); ANION GAP 4 mmol/L (5-15); ASPARTATE AMINO TRANSFERASE 18 U/L (15-37); BILIRUBIN,TOTAL 0.6 MG/DL (0.2-1.0); BLOOD UREA NITROGEN 7 mg/dL (7-18); CALCIUM 8.2 MG/DL (8.5-10.1); CARBON DIOXIDE 29 MMOL/L (21-32); CHLORIDE 107 MMOL/L (98-107); CREATININE 0.7 MG/DL (0.55-1.30); POTASSIUM 3.8 MMOL/L (3.5-5.1); SODIUM 140 MMOL/L (136-145)
[2018-06-27 08:00] VITALS: BP 98/58
[2018-06-27] MEDS ORDERED: HYDROmorphone 1mg/ml Carpuject ONE (08:48)
[2018-06-27] MEDS: Pantoprazole Inj IV SCH (09:22)
[2018-06-27] MEDS: Heparin 5000 units/ml inj SUBQ SCH ×2 (09:25→20:10)
--- NOTE | 2018-06-27 11:19 | GI Initial Consult Note ---
History of Present Illness General Date patient seen: Jun 27, 2018 Time patient seen: 14:49 Reason for Hospitalization: Abdominal Pain Referring physician: KAROLINA VALIENTE Reason for Consultation: ABDOMINAL PAIN Present Illness HPI Patient returns with abdominal pain today. She was evaluated on June 21 by me. At that time she had a UTI. She required large doses of Dilaudid to control the pain. She was treated with antibiotics and analgesia as an outpatient. She states the pain is 10/10, RUQ and radiating to her back. The tramadol prescribed has "done nothing" for the pain. She denies fevers, but c/ o chills. She has been vomiting, but has been drinking orange juice and eating solid foods - all coming back up. Almost finished with Macrobid. Previously, she had had RLQ pain. This is not where the pain is at this time. Seen in April for UTI. Required dose of morphine. U/S done - post kiara. Seen in March for abdominal pain. CT abdomen done: IMPRESSION: Nonobstructive stone in the left kidney. Normal appendix. U/S done: IMPRESSION: Suspect a left hemorrhagic cyst. Recommend six-week follow-up. Echogenic endometrium may be due to prior D&C or instrumentation. Treated with repeated doses of morphine and Ativan. Seen in February for abdominal pain. Repeated doses of morphine needed to control pain. Seen in January for R flank pain. Presumptive renal colic. U/S was normal (at time pain free). Morphine and fentanyl given. Seen in December for abdominal pain. CT per [facility] report: CT abdomen pelvis IMPRESSION: Small nonobstructive stone in the left kidney. Right distal ureter not well visualized. No hydronephrosis seen but the possibility of a tiny intraureteral Seen in November for costochondral chest pain. Multiple doses morphine (2,4) given. Seen in September with abdominal pain. Morphine and Dilaudid given to control pain. CT done - report per PA: Status post recent laparoscopic cholecystectomy. Postsurgical changes noted. No abscess. Suggestion of a small left ovarian cyst. Slightly prominent appendix although there is no definite inflammation and similar appearance previously. Doubt appendicitis. Seen in July for gall bladder pain. Treated with morphine 1 dose, pepcid and GI cocktail. In 2016 she was treated for abdominal pain and admitted. She tolerated Toradol at that time but states it recently had caused rash and shortness of breath. Admitted January 2017 for intractable abdominal pain. At that time had gall bladder sludge. Improved and discharged. Surgical consultation. Visits go back to 2005 for abdominal pain and headaches. S/P kiara - warned of possible retained stone H/O renal stone R H/O ovarian cysts. Was seen in March and stated had been evaluated at [facility] with U/S and told she had cysts. H/O migraines H/O neck pain and torticollis. She denies abuse. Has been seen for extremity injury due to "fall" HPI noted above. GI consulted for abdominal pain. Abdominal US reviewed showed new mild dilation of the CBD approximately 8mm in nature. The patient was seen, awake A&Ox4 c/o or RUQ pain with radiation to the back. RUQ tenderness. No bloating noted. Stated she had diarrhea x3 days. No history of endoscopy / colonoscopy. 10+ year tobacco user. Home Meds Active Scripts Tramadol Hcl* (ULTRAM*) 50 Mg Tablet, 50 MG ORAL Q6H PRN for For Pain, #8 TAB 0 Refills Prov:Patrick Soto MD 06/21/18 Naproxen* (NAPROXEN*) 375 Mg Tablet.dr, 375 MG ORAL TWICE A DAY, #14 TAB Prov:Patrick Soto MD 06/21/18 Nitrofurantoin Monohyd/M-Cryst* (MACROBID 100 MG*) 100 Mg Capsule, 100 MG ORAL EVERY 12 HOURS, #14 CAP Prov:Patrick Soto MD 06/21/18 Acetaminophen With Codeine (T#3) (TYLENOL #3 TAB*) Y Tab, 1 TAB ORAL Q8H PRN for For Pain, #20 TAB Prov:Dion Gant MD 05/15/18 Cephalexin* (KEFLEX*) 500 Mg Capsule, 500 MG ORAL EVERY 6 HOURS for 7 Days, CAP Prov:Dion Gant MD 05/15/18 Ondansetron* (ZOFRAN*) 4 Mg Tablet, 4 MG ORAL Q6H PRN for Nausea & Vomiting for 3 Days, #12 TAB Prov:ALEXANDRIA STEWART M.D 04/21/18 Dicyclomine Hcl (DICYCLOMINE HCL) 20 Mg Tablet, 20 MG PO BID PRN for Abdominal cramps for 7 Days, #14 TAB Prov:ALEXANDRIA STEWART M.D 04/21/18 Nitrofurantoin Monohyd/M-Cryst* (MACROBID 100 MG*) 100 Mg Capsule, 100 MG ORAL EVERY 12 HOURS for 7 Days, #14 CAP Prov:ALEXANDRIA STEWART M.D 04/21/18 Acetaminophen* (TYLENOL EXTRA STRENGTH*) 500 Mg Tablet, 500 MG ORAL Q8H PRN for Prn Headache/Temp > 101, #30 TAB 0 Refills Prov:Matthew Robertson 03/17/18 Acetaminophen With Codeine (T#3) (TYLENOL #3 TAB*) Y Tab, 1 TAB ORAL Q8H PRN for For Pain, #20 TAB 0 Refills Prov:Noa Nguyen M.D. 03/05/18 Tramadol Hcl* (ULTRAM*) 50 Mg Tablet, 50 MG ORAL Q6H PRN for For Pain, #8 TAB 0 Refills Prov:Patrick Soto MD 02/18/18 Tramadol Hcl* (ULTRAM*) 50 Mg Tablet, 50 MG ORAL Q6H PRN for For Pain, #14 TAB 0 Refills Prov:Patrick Soto MD 12/23/17 Naproxen* (NAPROSYN*) 375 Mg Tablet, 375 MG ORAL TID, #14 TAB 0 Refills Prov:Patrick Soto MD 12/23/17 Reported Medications No Known Medications* (NKM - No Known Medications*) ., 0 ., 0 Refills 06/21/18 Ondansetron* (ZOFRAN*) 4 Mg Tablet, 4 MG ORAL Q6H PRN for Nausea & Vomiting, TAB 04/21/18 No Known Medications* (NKM - No Known Medications*) ., 0 ., 0 Refills 07/27/17 No Known Medications* (NKM - No Known Medications*) ., 0 . 11/28/12 Med list reviewed/reconciled: Yes Allergies: Coded Allergies: KETOROLAC (Verified Allergy, Unknown, 10/11/17) PROCHLORPERAZINE (Verified Allergy, Unknown, 06/21/18) PROCHLORPERAZINE EDISYLATE (Verified Adverse Reaction, Severe, Anaphylaxis , 01/28/13) Tremors PROCHLORPERAZINE MALEATE (Verified Adverse Reaction, Severe, Anaphylaxis, 01/28/13) Tremors Patient History PMH Narrative Past Medical History: see triage record Past Surgical History: kiara Social History: Reports: smoking Social History Narrative Last Menstrual Period: 06/10/18 Reviewed Nursing Documentation: PMH: Agreed; PSxH: Agreed Nursing Documentation-PMH Past Medical History: No History, Except For Hx Cardiac Problems: No - MIGRAINE Hx Cancer: No - kidney stone Hx Gastrointestinal Problems: No - Laparoscopic Cholecystectomy Social History: Reports: smoking Review of Systems All Other Systems: negative except mentioned in HPI Physical Exam Vital Signs Date Time Temp Pulse Resp B/P (MAP) Pulse Ox O2 Delivery O2 Flow Rate FiO2 06/26/18 14:31 98.1 87 18 107/64 100 Room Air Sp02 EP Interpretation: reviewed, normal Labs Laboratory Tests Test 06/26/18 15:00 06/27/18 06:40 White Blood Count 7.1 K/UL (4.8-10.8) 6.3 K/UL (4.8-10.8) Red Blood Count 4.30 M/UL (4.20-5.40) 3.83 M/UL (4.20-5.40) L Hemoglobin 12.7 G/DL (12.0-16.0) 11.3 G/DL (12.0-16.0) L Hematocrit 38.3 % (37.0-47.0) 34.4 % (37.0-47.0) L Mean Corpuscular Volume 89 FL (80-99) 90 FL (80-99) Mean Corpuscular Hemoglobin 29.4 PG (27.0-31.0) 29.5 PG (27.0-31.0) Mean Corpuscular Hemoglobin Concent 33.1 G/DL (32.0-36.0) 32.9 G/DL (32.0-36.0) Red Cell Distribution Width 12.1 % (11.6-14.8) 12.2 % (11.6-14.8) Platelet Count 278 K/UL (150-450) 217 K/UL (150-450) Mean Platelet Volume 8.0 FL (6.5-10.1) 7.9 FL (6.5-10.1) Neutrophils (%) (Auto) 51.3 % (45.0-75.0) % (45.0-75.0) Lymphocytes (%) (Auto) 37.9 % (20.0-45.0) % (20.0-45.0) Monocytes (%) (Auto) 9.1 % (1.0-10.0) % (1.0-10.0) Eosinophils (%) (Auto) 0.7 % (0.0-3.0) % (0.0-3.0) Basophils (%) (Auto) 1.0 % (0.0-2.0) % (0.0-2.0) Prothrombin Time 10.7 SEC (9.30-11.50) Prothromb Time International Ratio 1.0 (0.9-1.1) Activated Partial Thromboplast Time 25 SEC (23-33) 27 SEC (23-33) Urine Color Pale yellow Urine Appearance Clear Urine pH 6 (4.5-8.0) Urine Specific [place] 1.005 (1.005-1.035) Urine Protein Negative (NEGATIVE) Urine Glucose (UA) Negative (NEGATIVE) Urine Ketones Negative (NEGATIVE) Urine Blood 2+ (NEGATIVE) H Urine Nitrite Negative (NEGATIVE) Urine Bilirubin Negative (NEGATIVE) Urine Urobilinogen Normal MG/DL (0.0-1.0) Urine Leukocyte Esterase Negative (NEGATIVE) Urine RBC 0-2 /HPF (0 - 2) Urine WBC 0 /HPF (0 - 2) Urine Squamous Epithelial Cells None /LPF (NONE/OCC) Urine Bacteria None /HPF (NONE) Urine HCG, Qualitative Negative (NEGATIVE) Sodium Level 141 MMOL/L (136-145) 140 MMOL/L (136-145) Potassium Level 4.5 MMOL/L (3.5-5.1) 3.8 MMOL/L (3.5-5.1) Chloride Level 104 MMOL/L (98-107) 107 MMOL/L (98-107) Carbon Dioxide Level 28 MMOL/L (21-32) 29 MMOL/L (21-32) Anion Gap 9 mmol/L (5-15) 4 mmol/L (5-15) L Blood Urea Nitrogen 13 mg/dL (7-18) 7 mg/dL (7-18) Creatinine 0.7 MG/DL (0.55-1.30) 0.7 MG/DL (0.55-1.30) Estimat Glomerular Filtration Rate > 60 mL/min (>60) > 60 mL/min (>60) Glucose Level 83 MG/DL (74-106) 100 MG/DL (74-106) Calcium Level 9.5 MG/DL (8.5-10.1) 8.2 MG/DL (8.5-10.1) L Total Bilirubin 0.6 MG/DL (0.2-1.0) 0.6 MG/DL (0.2-1.0) Aspartate Amino Transf (AST/SGOT) 18 U/L (15-37) 18 U/L (15-37) Alanine Aminotransferase (ALT/SGPT) 20 U/L (12-78) 17 U/L (12-78) Alkaline Phosphatase 58 U/L (46-116) 50 U/L (46-116) Total Protein 7.8 G/DL (6.4-8.2) 6.3 G/DL (6.4-8.2) L Albumin 3.9 G/DL (3.4-5.0) 3.1 G/DL (3.4-5.0) L Globulin 3.9 g/dL 3.2 g/dL Albumin/Globulin Ratio 1.0 (1.0-2.7) 1.0 (1.0-2.7) Lipase 242 U/L (73-393) Urine Opiates Screen Negative (NEGATIVE) Urine Barbiturates Screen Negative (NEGATIVE) Phencyclidine (PCP) Screen Negative (NEGATIVE) Urine Amphetamines Screen Negative (NEGATIVE) Urine Benzodiazepines Screen Negative (NEGATIVE) Urine Cocaine Screen Negative (NEGATIVE) Urine Marijuana (THC) Screen Negative (NEGATIVE) Serum Alcohol < 3 mg/dL Differential Total Cells Counted 100 Neutrophils % (Manual) 27 % (45-75) L Lymphocytes % (Manual) 62 % (20-45) H Monocytes % (Manual) 8 % (1-10) Eosinophils % (Manual) 2 % (0-3) Basophils % (Manual) 1 % (0-2) Band Neutrophils % (0-8) Platelet Estimate Adequate Platelet Morphology Normal Anisocytosis 1+ Amylase Level 46 U/L (25-115) General Appearance: well appearing, no apparent distress, alert Head: normocephalic EENT: PERRL/EOMI, normal ENT inspection Neck: supple Respiratory: normal breath sounds, no respiratory distress Cardiovascular: normal rate Gastrointestinal: normal inspection, non tender, soft, normal bowel sounds, non -distended Rectal: deferred Genitourinary: no CVA tenderness Musculoskeletal: normal inspection, back normal Neurologic: normal inspection, alert, oriented x3, responsive Psychiatric: normal inspection, judgement/insight normal, memory normal Skin: normal inspection, normal color, no rash, warm/dry, palpation normal, well hydrated Lymphatic: normal inspection, no adenopathy Current Medications Current Medications Medications (Trade) Dose Ordered Sig/Zahida Route PRN Reason Start Time Stop Time Status Last Admin Dose Admin Acetaminophen (Tylenol) 650 mg Q4H PRN ORAL fever 06/26/18 18:00 07/26/18 17:59 Al Hydroxide/Mg Hydroxide (Mylanta II) 30 ml Q6H PRN ORAL dyspepsia 06/26/18 18:00 07/26/18 17:59 Dextrose (Dextrose 50%) 25 ml Q30M PRN IV Hypoglycemia 06/26/18 18:00 07/26/18 17:59 Dextrose (Dextrose 50%) 50 ml Q30M PRN IV Hypoglycemia 06/26/18 18:00 07/26/18 17:59 Dextrose/Sodium Chloride 1,000 ml @ 75 mls/hr [id number] IV 06/26/18 17:48 07/26/18 17:47 06/27/18 07:07 Diphenhydramine HCl (Benadryl) 25 mg Q6H PRN ORAL Itching/Pruritis 06/26/18 18:00 07/26/18 17:59 Heparin Sodium (Porcine) (Heparin 5000 units/ml) 5,000 units EVERY 12 HOURS SUBQ 06/26/18 21:00 07/26/18 20:59 06/27/18 09:25 Hydromorphone HCl (Dilaudid) 2 mg Q3H PRN IVP Severe Pain (Pain Scale 7-10) 06/27/18 09:15 07/04/18 09:14 06/27/18 09:11 Lorazepam (Ativan 2mg/ml 1ml) 1 mg Q4H PRN IV agitation 06/26/18 18:00 07/03/18 17:59 Metoclopramide HCl (Reglan) 10 mg Q6H PRN IVP severe [place] 06/26/18 18:00 07/26/18 17:59 Morphine Sulfate (Morphine Sulfate) 2 mg Q4H PRN IVP Moderate Pain (Pain Scale 4-6) 06/27/18 01:00 07/04/18 00:59 06/27/18 05:44 Nitroglycerin (Ntg) 0.4 mg Q5M X 3 DOSES PRN SL Prn Chest Pain 06/26/18 18:00 07/26/18 17:59 Ondansetron HCl (Zofran) 4 mg Q6H PRN IVP Nausea & Vomiting 06/26/18 18:00 07/26/18 17:59 06/27/18 10:42 Pantoprazole (Protonix) 40 mg DAILY IV 06/27/18 09:00 07/27/18 08:59 06/27/18 09:22 Polyethylene Glycol (Miralax) 17 gm HSPRN PRN ORAL Constipation 06/26/18 18:00 07/26/18 17:59 Temazepam (Restoril) 15 mg HSPRN PRN ORAL Insomnia 06/26/18 18:00 07/03/18 17:59 GI: Plan Problems: (1) Intractable abdominal pain (2) Nausea (3) Gastroenteritis (4) Intractable nausea and vomiting Plan abdominal US reviewed >> CBD 8mm MRCP ordered >> will follow with additional recs post imaging ok to adv diet after imaging study pain mgmt ppi fu labs Discussed with Dr. Kendrick. Thank you for this patient referral, we will follow. The patient was seen and examined at bedside and all new and available data was reviewed in the patients chart. I agree with the above findings, impression and plan. (Patient seen earlier today. Signature stamp does not reflect patient encounter time.). - MD Tiffanie Allen,[facility] MONOTYP[facility] Jun 27, 2018 11:19
--- NOTE | 2018-06-27 11:51 | Consultation ---
History of Present Illness General Date patient seen: Jun 27, 2018 Chief Complaint: Abdominal Pain Present Illness HPI 37 year old female with hx of cholecystectomy presented to ER with CC of abdominal pain. Her abdominal US showed dilated bile duct. She is admitted for further work up. Allergies: Coded Allergies: KETOROLAC (Verified Allergy, Unknown, 10/11/17) PROCHLORPERAZINE (Verified Allergy, Unknown, 06/21/18) PROCHLORPERAZINE EDISYLATE (Verified Adverse Reaction, Severe, Anaphylaxis , 01/28/13) Tremors PROCHLORPERAZINE MALEATE (Verified Adverse Reaction, Severe, Anaphylaxis, 01/28/13) Tremors Medication History Scheduled Cephalexin* (Keflex*), 500 MG ORAL EVERY 6 HOURS Naproxen* (Naprosyn*), 375 MG ORAL TID Naproxen* (Naproxen*), 375 MG ORAL TWICE A DAY Nitrofurantoin Monohyd/M-Cryst* (Macrobid 100 Mg*), 100 MG ORAL EVERY 12 HOURS Nitrofurantoin Monohyd/M-Cryst* (Macrobid 100 Mg*), 100 MG ORAL EVERY 12 HOURS No Known Medications* (NKM - No Known Medications*), 0 ., (Reported) No Known Medications* (NKM - No Known Medications*), 0 ., (Reported) No Known Medications* (NKM - No Known Medications*), 0 ., (Reported) Scheduled PRN Acetaminophen With Codeine (T#3) (Tylenol #3 Tab*), 1 TAB ORAL Q8H PRN for For Pain Acetaminophen With Codeine (T#3) (Tylenol #3 Tab*), 1 TAB ORAL Q8H PRN for For Pain Acetaminophen* (Tylenol Extra Strength*), 500 MG ORAL Q8H PRN for Prn Headache/ Temp > 101 Dicyclomine Hcl (Dicyclomine Hcl), 20 MG PO BID PRN for Abdominal cramps Ondansetron* (Zofran*), 4 MG ORAL Q6H PRN for Nausea & Vomiting, (Reported) Ondansetron* (Zofran*), 4 MG ORAL Q6H PRN for Nausea & Vomiting Tramadol Hcl* (Ultram*), 50 MG ORAL Q6H PRN for For Pain Tramadol Hcl* (Ultram*), 50 MG ORAL Q6H PRN for For Pain Tramadol Hcl* (Ultram*), 50 MG ORAL Q6H PRN for For Pain Patient History Healthcare decision maker Resuscitation status Full Code Advanced Directive on File No Past Medical/Surgical History Past Medical/Surgical History: (1) Chronic abdominal pain (2) migraine headaches (3) Cervicalgia Review of Systems All Other Systems: negative except mentioned in HPI Physical Exam General Appearance: WD/WN Lines, tubes and drains: peripheral HEENT: normocephalic, atraumatic Neck: non-tender, normal alignment Respiratory/Chest: chest wall non-tender, lungs clear Breasts: no masses Cardiovascular/Chest: normal peripheral pulses Genitourinary/Rectal: normal genital exam Last 24 Hour Vital Signs Date Time Temp Pulse Resp B/P (MAP) Pulse Ox O2 Delivery O2 Flow Rate FiO2 06/27/18 09:00 Room Air 06/27/18 08:00 97.2 61 19 98/58 (71) 94 06/27/18 04:00 97.7 59 19 92/53 (66) 97 06/27/18 00:00 97.8 63 17 93/52 (66) 96 06/26/18 22:17 Room Air 06/26/18 21:52 Room Air 06/26/18 20:00 98.1 66 17 98/65 (76) 97 06/26/18 20:00 98.7 64 16 96/60 100 Room Air 06/26/18 19:32 98.7 64 16 96/60 100 Room Air 06/26/18 19:07 98.7 80 16 122/70 99 Room Air 06/26/18 18:26 98.7 06/26/18 16:30 98.5 67 18 118/54 100 Room Air 06/26/18 16:19 98.5 06/26/18 15:43 98.5 06/26/18 14:41 87 18 Room Air 06/26/18 14:41 98.1 18 107/64 100 Room Air 06/26/18 14:31 98.1 87 18 107/64 100 Room Air Intake and Output 06/26/18 06/27/18 19:00 07:00 Intake Total 1300 ml 675 ml Balance 1300 ml 675 ml Intake IV Total 1300 ml 675 ml # Voids 1 Laboratory Tests Test 06/26/18 15:00 06/27/18 06:40 White Blood Count 7.1 K/UL (4.8-10.8) 6.3 K/UL (4.8-10.8) Red Blood Count 4.30 M/UL (4.20-5.40) 3.83 M/UL (4.20-5.40) L Hemoglobin 12.7 G/DL (12.0-16.0) 11.3 G/DL (12.0-16.0) L Hematocrit 38.3 % (37.0-47.0) 34.4 % (37.0-47.0) L Mean Corpuscular Volume 89 FL (80-99) 90 FL (80-99) Mean Corpuscular Hemoglobin 29.4 PG (27.0-31.0) 29.5 PG (27.0-31.0) Mean Corpuscular Hemoglobin Concent 33.1 G/DL (32.0-36.0) 32.9 G/DL (32.0-36.0) Red Cell Distribution Width 12.1 % (11.6-14.8) 12.2 % (11.6-14.8) Platelet Count 278 K/UL (150-450) 217 K/UL (150-450) Mean Platelet Volume 8.0 FL (6.5-10.1) 7.9 FL (6.5-10.1) Neutrophils (%) (Auto) 51.3 % (45.0-75.0) % (45.0-75.0) Lymphocytes (%) (Auto) 37.9 % (20.0-45.0) % (20.0-45.0) Monocytes (%) (Auto) 9.1 % (1.0-10.0) % (1.0-10.0) Eosinophils (%) (Auto) 0.7 % (0.0-3.0) % (0.0-3.0) Basophils (%) (Auto) 1.0 % (0.0-2.0) % (0.0-2.0) Prothrombin Time 10.7 SEC (9.30-11.50) Prothromb Time International Ratio 1.0 (0.9-1.1) Activated Partial Thromboplast Time 25 SEC (23-33) 27 SEC (23-33) Urine Color Pale yellow Urine Appearance Clear Urine pH 6 (4.5-8.0) Urine Specific [place] 1.005 (1.005-1.035) Urine Protein Negative (NEGATIVE) Urine Glucose (UA) Negative (NEGATIVE) Urine Ketones Negative (NEGATIVE) Urine Blood 2+ (NEGATIVE) H Urine Nitrite Negative (NEGATIVE) Urine Bilirubin Negative (NEGATIVE) Urine Urobilinogen Normal MG/DL (0.0-1.0) Urine Leukocyte Esterase Negative (NEGATIVE) Urine RBC 0-2 /HPF (0 - 2) Urine WBC 0 /HPF (0 - 2) Urine Squamous Epithelial Cells None /LPF (NONE/OCC) Urine Bacteria None /HPF (NONE) Urine HCG, Qualitative Negative (NEGATIVE) Sodium Level 141 MMOL/L (136-145) 140 MMOL/L (136-145) Potassium Level 4.5 MMOL/L (3.5-5.1) 3.8 MMOL/L (3.5-5.1) Chloride Level 104 MMOL/L (98-107) 107 MMOL/L (98-107) Carbon Dioxide Level 28 MMOL/L (21-32) 29 MMOL/L (21-32) Anion Gap 9 mmol/L (5-15) 4 mmol/L (5-15) L Blood Urea Nitrogen 13 mg/dL (7-18) 7 mg/dL (7-18) Creatinine 0.7 MG/DL (0.55-1.30) 0.7 MG/DL (0.55-1.30) Estimat Glomerular Filtration Rate > 60 mL/min (>60) > 60 mL/min (>60) Glucose Level 83 MG/DL (74-106) 100 MG/DL (74-106) Calcium Level 9.5 MG/DL (8.5-10.1) 8.2 MG/DL (8.5-10.1) L Total Bilirubin 0.6 MG/DL (0.2-1.0) 0.6 MG/DL (0.2-1.0) Aspartate Amino Transf (AST/SGOT) 18 U/L (15-37) 18 U/L (15-37) Alanine Aminotransferase (ALT/SGPT) 20 U/L (12-78) 17 U/L (12-78) Alkaline Phosphatase 58 U/L (46-116) 50 U/L (46-116) Total Protein 7.8 G/DL (6.4-8.2) 6.3 G/DL (6.4-8.2) L Albumin 3.9 G/DL (3.4-5.0) 3.1 G/DL (3.4-5.0) L Globulin 3.9 g/dL 3.2 g/dL Albumin/Globulin Ratio 1.0 (1.0-2.7) 1.0 (1.0-2.7) Lipase 242 U/L (73-393) Urine Opiates Screen Negative (NEGATIVE) Urine Barbiturates Screen Negative (NEGATIVE) Phencyclidine (PCP) Screen Negative (NEGATIVE) Urine Amphetamines Screen Negative (NEGATIVE) Urine Benzodiazepines Screen Negative (NEGATIVE) Urine Cocaine Screen Negative (NEGATIVE) Urine Marijuana (THC) Screen Negative (NEGATIVE) Serum Alcohol < 3 mg/dL Differential Total Cells Counted 100 Neutrophils % (Manual) 27 % (45-75) L Lymphocytes % (Manual) 62 % (20-45) H Monocytes % (Manual) 8 % (1-10) Eosinophils % (Manual) 2 % (0-3) Basophils % (Manual) 1 % (0-2) Band Neutrophils % (0-8) Platelet Estimate Adequate Platelet Morphology Normal Anisocytosis 1+ Amylase Level 46 U/L (25-115) Height (Feet): 5 Height (Inches): 1.00 Weight (Pounds): 125 Medications Current Medications Medications (Trade) Dose Ordered Sig/Zahida Route PRN Reason Start Time Stop Time Status Last Admin Dose Admin Acetaminophen (Tylenol) 650 mg Q4H PRN ORAL fever 06/26/18 18:00 07/26/18 17:59 Al Hydroxide/Mg Hydroxide (Mylanta II) 30 ml Q6H PRN ORAL dyspepsia 06/26/18 18:00 07/26/18 17:59 Dextrose (Dextrose 50%) 25 ml Q30M PRN IV Hypoglycemia 06/26/18 18:00 07/26/18 17:59 Dextrose (Dextrose 50%) 50 ml Q30M PRN IV Hypoglycemia 06/26/18 18:00 07/26/18 17:59 Dextrose/Sodium Chloride 1,000 ml @ 75 mls/hr [id number] IV 06/26/18 17:48 07/26/18 17:47 06/27/18 07:07 Diphenhydramine HCl (Benadryl) 25 mg Q6H PRN ORAL Itching/Pruritis 06/26/18 18:00 07/26/18 17:59 Heparin Sodium (Porcine) (Heparin 5000 units/ml) 5,000 units EVERY 12 HOURS SUBQ 06/26/18 21:00 07/26/18 20:59 06/27/18 09:25 Hydromorphone HCl (Dilaudid) 2 mg Q3H PRN IVP Severe Pain (Pain Scale 7-10) 06/27/18 09:15 07/04/18 09:14 06/27/18 09:11 Lorazepam (Ativan 2mg/ml 1ml) 1 mg Q4H PRN IV agitation 06/26/18 18:00 07/03/18 17:59 Metoclopramide HCl (Reglan) 10 mg Q6H PRN IVP severe [place] 06/26/18 18:00 07/26/18 17:59 Morphine Sulfate (Morphine Sulfate) 2 mg Q4H PRN IVP Moderate Pain (Pain Scale 4-6) 06/27/18 01:00 07/04/18 00:59 06/27/18 05:44 Nitroglycerin (Ntg) 0.4 mg Q5M X 3 DOSES PRN SL Prn Chest Pain 06/26/18 18:00 07/26/18 17:59 Ondansetron HCl (Zofran) 4 mg Q6H PRN IVP Nausea & Vomiting 06/26/18 18:00 07/26/18 17:59 06/27/18 10:42 Pantoprazole (Protonix) 40 mg DAILY IV 06/27/18 09:00 07/27/18 08:59 06/27/18 09:22 Polyethylene Glycol (Miralax) 17 gm HSPRN PRN ORAL Constipation 06/26/18 18:00 07/26/18 17:59 Temazepam (Restoril) 15 mg HSPRN PRN ORAL Insomnia 06/26/18 18:00 07/03/18 17:59 Assessment/Plan Problem List: (1) Acute abdominal pain ICD Codes: R10.0 - Acute abdomen SNOMED: 354020643 (2) Intractable nausea and vomiting ICD Codes: R11.2 - Nausea with vomiting, unspecified SNOMED: 722059893 Assessment/Plan NPO IV fluids GI evaluation US reviewed, might need MRCP check electrolytes Naman Chapman MD Jun 27, 2018 11:51
[2018-06-27 12:00] VITALS: BP 98/55
[2018-06-27 16:00] VITALS: BP 102/60
--- NOTE | 2018-06-27 16:07 | Diagnostic Imaging Report ---
Indication: Abdominal pain, biliary ductal dilatation on recent sonogram Technique: Coronal and axial single shot fast spin-echo breath-hold, axial T2 FRFSE, 2-D thick slab MRCP, AXIAL 2-D FIESTA fat saturated, water weighted axial LAVA FLEX, revealed 3-D MRCP images were obtained of the abdomen. MIP reconstructions were generated of the bile ducts Comparison: Reference made to ultrasound abdomen 06/26/2018, CT scan dated 04/21/2018 Findings: Current exam demonstrates normal caliber extrahepatic bile ducts, common bile duct and common hepatic duct measuring no more than 5 mm in diameter. No intraluminal filling defects are demonstrated. No pancreatic head mass or ampullary mass demonstrated. The gallbladder is not visualized, consistent with known surgical absence. No intrahepatic biliary ductal dilatation. Foci of susceptibility artifact in the gallbladder fossa are seen related to cholecystectomy clips. No pancreatic ductal dilatation choledocholithiasis or downstream obstructive lesion is demonstrated. The liver, pancreas, spleen, adrenals, kidneys are all unremarkable. Visualized bowel appears unremarkable. Impression: Normal caliber bile ducts. Suspect previously questioned biliary ductal dilatation suggested on prior sonogram was either transient or, more likely, artifactual due to suboptimal measurement technique. No evidence of choledocholithiasis or downstream obstructive lesion Surgically absent gallbladder
--- NOTE | 2018-06-27 16:30 | Consultation ---
History of Present Illness General Date patient seen: Jun 27, 2018 Chief Complaint: Abdominal Pain Referring physician: KAROLINA VALIENTE Reason for Consultation: ABDOMINAL PAIN Present Illness HPI 37 year old female well known to me for prior admission. Has been having RUQ abdominal discomfort for over 2 years. Last seen and recommended to have lap kiara. Has since had lap kiara at [facility] by Dr. Nunez but continues to have RUQ discomfort. Associated n/v. no f/c. pain cramping sharp 10/10 intermittent ruq pain. normal bm's. labs normal. US demonstrated dilated biliary duct. admitted for care and management. surgery called to evaluate. patient seen, chart reviewed, patient examined. Allergies: Coded Allergies: KETOROLAC (Verified Allergy, Unknown, 10/11/17) PROCHLORPERAZINE (Verified Allergy, Unknown, 06/21/18) PROCHLORPERAZINE EDISYLATE (Verified Adverse Reaction, Severe, Anaphylaxis , 01/28/13) Tremors PROCHLORPERAZINE MALEATE (Verified Adverse Reaction, Severe, Anaphylaxis, 01/28/13) Tremors Medication History Scheduled Cephalexin* (Keflex*), 500 MG ORAL EVERY 6 HOURS Naproxen* (Naprosyn*), 375 MG ORAL TID Naproxen* (Naproxen*), 375 MG ORAL TWICE A DAY Nitrofurantoin Monohyd/M-Cryst* (Macrobid 100 Mg*), 100 MG ORAL EVERY 12 HOURS Nitrofurantoin Monohyd/M-Cryst* (Macrobid 100 Mg*), 100 MG ORAL EVERY 12 HOURS No Known Medications* (NKM - No Known Medications*), 0 ., (Reported) No Known Medications* (NKM - No Known Medications*), 0 ., (Reported) No Known Medications* (NKM - No Known Medications*), 0 ., (Reported) Scheduled PRN Acetaminophen With Codeine (T#3) (Tylenol #3 Tab*), 1 TAB ORAL Q8H PRN for For Pain Acetaminophen With Codeine (T#3) (Tylenol #3 Tab*), 1 TAB ORAL Q8H PRN for For Pain Acetaminophen* (Tylenol Extra Strength*), 500 MG ORAL Q8H PRN for Prn Headache/ Temp > 101 Dicyclomine Hcl (Dicyclomine Hcl), 20 MG PO BID PRN for Abdominal cramps Ondansetron* (Zofran*), 4 MG ORAL Q6H PRN for Nausea & Vomiting, (Reported) Ondansetron* (Zofran*), 4 MG ORAL Q6H PRN for Nausea & Vomiting Tramadol Hcl* (Ultram*), 50 MG ORAL Q6H PRN for For Pain Tramadol Hcl* (Ultram*), 50 MG ORAL Q6H PRN for For Pain Tramadol Hcl* (Ultram*), 50 MG ORAL Q6H PRN for For Pain Patient History History Provided By: Patient, Medical Record, PMD Healthcare decision maker Resuscitation status Full Code Advanced Directive on File No Past Medical/Surgical History Past Medical/Surgical History: (1) Intractable nausea and vomiting (2) Cervicalgia (3) Acute abdominal pain (4) Arthritis (5) Flank pain (6) Pyelonephritis (7) Torticollis, acute (8) Lower Extremity Pain (9) migraine headaches (10) Gastroenteritis (11) Costochondral chest pain (12) Renal colic on right side (13) Nausea (14) UTI (urinary tract infection) (15) Chronic abdominal pain (16) Intractable abdominal pain Review of Systems All Other Systems: negative except mentioned in HPI Physical Exam General Appearance: no apparent distress, alert Lines, tubes and drains: peripheral HEENT: normocephalic, mucous membranes moist Neck: normal inspection Respiratory/Chest: lungs clear, normal breath sounds, no respiratory distress Cardiovascular/Chest: normal rate Abdomen: normal bowel sounds, soft, no organomegaly, no mass, tender - ruq almost at level of lowest costal margin possble rib/muscle pain Extremities: normal inspection, no calf tenderness Skin Exam: warm/dry Neurologic: alert, oriented x 3 Last 24 Hour Vital Signs Date Time Temp Pulse Resp B/P (MAP) Pulse Ox O2 Delivery O2 Flow Rate FiO2 06/27/18 16:00 97.8 60 18 102/60 (74) 99 06/27/18 12:00 97.4 84 18 98/55 (69) 98 06/27/18 09:00 Room Air 06/27/18 08:00 97.2 61 19 98/58 (71) 94 06/27/18 04:00 97.7 59 19 92/53 (66) 97 06/27/18 00:00 97.8 63 17 93/52 (66) 96 06/26/18 22:17 Room Air 06/26/18 21:52 Room Air 06/26/18 20:00 98.1 66 17 98/65 (76) 97 06/26/18 20:00 98.7 64 16 96/60 100 Room Air 06/26/18 19:32 98.7 64 16 96/60 100 Room Air 06/26/18 19:07 98.7 80 16 122/70 99 Room Air 06/26/18 18:26 98.7 06/26/18 16:30 98.5 67 18 118/54 100 Room Air Intake and Output 06/26/18 06/27/18 19:00 07:00 Intake Total 1300 ml 675 ml Balance 1300 ml 675 ml Intake IV Total 1300 ml 675 ml # Voids 1 Laboratory Tests Test 06/27/18 06:40 White Blood Count 6.3 K/UL (4.8-10.8) Red Blood Count 3.83 M/UL (4.20-5.40) L Hemoglobin 11.3 G/DL (12.0-16.0) L Hematocrit 34.4 % (37.0-47.0) L Mean Corpuscular Volume 90 FL (80-99) Mean Corpuscular Hemoglobin 29.5 PG (27.0-31.0) Mean Corpuscular Hemoglobin Concent 32.9 G/DL (32.0-36.0) Red Cell Distribution Width 12.2 % (11.6-14.8) Platelet Count 217 K/UL (150-450) Mean Platelet Volume 7.9 FL (6.5-10.1) Neutrophils (%) (Auto) % (45.0-75.0) Lymphocytes (%) (Auto) % (20.0-45.0) Monocytes (%) (Auto) % (1.0-10.0) Eosinophils (%) (Auto) % (0.0-3.0) Basophils (%) (Auto) % (0.0-2.0) Differential Total Cells Counted 100 Neutrophils % (Manual) 27 % (45-75) L Lymphocytes % (Manual) 62 % (20-45) H Monocytes % (Manual) 8 % (1-10) Eosinophils % (Manual) 2 % (0-3) Basophils % (Manual) 1 % (0-2) Band Neutrophils % (0-8) Platelet Estimate Adequate Platelet Morphology Normal Anisocytosis 1+ Activated Partial Thromboplast Time 27 SEC (23-33) Sodium Level 140 MMOL/L (136-145) Potassium Level 3.8 MMOL/L (3.5-5.1) Chloride Level 107 MMOL/L (98-107) Carbon Dioxide Level 29 MMOL/L (21-32) Anion Gap 4 mmol/L (5-15) L Blood Urea Nitrogen 7 mg/dL (7-18) Creatinine 0.7 MG/DL (0.55-1.30) Estimat Glomerular Filtration Rate > 60 mL/min (>60) Glucose Level 100 MG/DL (74-106) Calcium Level 8.2 MG/DL (8.5-10.1) L Total Bilirubin 0.6 MG/DL (0.2-1.0) Aspartate Amino Transf (AST/SGOT) 18 U/L (15-37) Alanine Aminotransferase (ALT/SGPT) 17 U/L (12-78) Alkaline Phosphatase 50 U/L (46-116) Total Protein 6.3 G/DL (6.4-8.2) L Albumin 3.1 G/DL (3.4-5.0) L Globulin 3.2 g/dL Albumin/Globulin Ratio 1.0 (1.0-2.7) Amylase Level 46 U/L (25-115) Height (Feet): 5 Height (Inches): 1.00 Weight (Pounds): 125 Medications Current Medications Medications (Trade) Dose Ordered Sig/Zahida Route PRN Reason Start Time Stop Time Status Last Admin Dose Admin Acetaminophen (Tylenol) 650 mg Q4H PRN ORAL fever 06/26/18 18:00 07/26/18 17:59 Al Hydroxide/Mg Hydroxide (Mylanta II) 30 ml Q6H PRN ORAL dyspepsia 06/26/18 18:00 07/26/18 17:59 Dextrose (Dextrose 50%) 25 ml Q30M PRN IV Hypoglycemia 06/26/18 18:00 07/26/18 17:59 Dextrose (Dextrose 50%) 50 ml Q30M PRN IV Hypoglycemia 06/26/18 18:00 07/26/18 17:59 Dextrose/Sodium Chloride 1,000 ml @ 75 mls/hr [id number] IV 06/26/18 17:48 07/26/18 17:47 06/27/18 07:07 Diphenhydramine HCl (Benadryl) 25 mg Q6H PRN ORAL Itching/Pruritis 06/26/18 18:00 07/26/18 17:59 Heparin Sodium (Porcine) (Heparin 5000 units/ml) 5,000 units EVERY 12 HOURS SUBQ 06/26/18 21:00 07/26/18 20:59 06/27/18 09:25 Hydromorphone HCl (Dilaudid) 2 mg Q3H PRN IVP Severe Pain (Pain Scale 7-10) 06/27/18 09:15 07/04/18 09:14 06/27/18 15:11 Lorazepam (Ativan 2mg/ml 1ml) 1 mg Q4H PRN IV agitation 06/26/18 18:00 07/03/18 17:59 Metoclopramide HCl (Reglan) 10 mg Q6H PRN IVP severe [place] 06/26/18 18:00 07/26/18 17:59 Morphine Sulfate (Morphine Sulfate) 2 mg Q4H PRN IVP Moderate Pain (Pain Scale 4-6) 06/27/18 01:00 07/04/18 00:59 06/27/18 05:44 Nitroglycerin (Ntg) 0.4 mg Q5M X 3 DOSES PRN SL Prn Chest Pain 06/26/18 18:00 07/26/18 17:59 Ondansetron HCl (Zofran) 4 mg Q6H PRN IVP Nausea & Vomiting 06/26/18 18:00 07/26/18 17:59 06/27/18 10:42 Pantoprazole (Protonix) 40 mg DAILY IV 06/27/18 09:00 07/27/18 08:59 06/27/18 09:22 Polyethylene Glycol (Miralax) 17 gm HSPRN PRN ORAL Constipation 06/26/18 18:00 07/26/18 17:59 Temazepam (Restoril) 15 mg HSPRN PRN ORAL Insomnia 06/26/18 18:00 07/03/18 17:59 Assessment/Plan Problem List: (1) Acute abdominal pain ICD Codes: R10.0 - Acute abdomen SNOMED: 941603256 (2) Intractable abdominal pain Assessment & Plan: known hx of intractable abdominal pain. work up thus far negative hx of cholecystectomy and still with pain US with dilated duct MRCP with normal ducts and exam no acute surgical intervention necessary diet as tolerated discharge planning thank you ICD Codes: R10.9 - Unspecified abdominal pain SNOMED: [id number], [id number] Status: stable Segun Ramírez Jun 27, 2018 16:30
--- NOTE | 2018-06-27 18:45 | History and Physical Report ---
DATE OF ADMISSION: 06/26/2018 TIME SEEN: On 06/27/2018, at 1 p.m. CONSULTANTS: 1. Naman Chapman M.D. 2. Clifford Kendrick M.D. 3. Segun Ramírez M.D. CHIEF COMPLAINT: Abdominal pain, slight nausea, vomiting, diarrhea. BRIEF HISTORY: This is a 37-year-old female, who lives at home and presents with two days of increased abdominal pain, slight nausea, vomiting, and diarrhea. She came to [facility], diagnosed with the above, and admitted to medical floor for further treatment. Currently, slight nausea and tolerating liquid diet and slight abdominal pain. REVIEW OF SYSTEMS: No chest pain. No shortness of breath. No nausea, vomiting, or diarrhea. PAST MEDICAL HISTORY: Nothing. PAST SURGICAL HISTORY: Gallbladder, . ALLERGIES: Compazine, Toradol, and ketorolac. MEDICATIONS: Include Dilaudid, Protonix, hydromorphone, morphine, heparin, Zofran, temazepam. SOCIAL HISTORY: Positive smoke. Occasional alcohol. No intravenous drug abuse. FAMILY HISTORY: Noncontributory. PHYSICAL EXAMINATION: GENERAL: Calm in bed, oriented x3, in slight distress secondary to abdominal pain. VITAL SIGNS: Temperature 97 degrees, pulse 84, respirations 18, blood pressure 98/55. CARDIOVASCULAR: No murmur. LUNGS: Distant and clear. ABDOMEN: Bowel sounds positive. Slightly tender. No guarding. No rigidity. No rebound. EXTREMITIES: No cyanosis, clubbing, or edema. NEUROLOGIC: The patient moves all extremities, slightly weak. LABORATORY AND DIAGNOSTIC DATA: Labs at this time show hemoglobin and hematocrit 11/34, otherwise CBC is normal. BMP shows calcium 8.2, albumin 3.1, otherwise BMP is normal. INR is 1.0, PTT 25. Urine-tox is negative. Urinalysis shows 2+ blood. ASSESSMENT: Abdominal pain, nausea, vomiting, diarrhea, anemia. PLAN: Pain control. GI and Surgery followup. Dietary evaluation. We will check CBC and BMP in the morning. Bill Colon D.O. DR: Mando JOB#: [id number] CC:
[2018-06-27 20:00] VITALS: BP 102/60
[2018-06-28] VITALS: BP 109/63
[2018-06-28 04:00] VITALS: BP 98/60
[2018-06-28 06:41] LABS: ANION GAP 7 mmol/L (5-15); BLOOD UREA NITROGEN 4 mg/dL (7-18); CALCIUM 8.8 MG/DL (8.5-10.1); CARBON DIOXIDE 27 MMOL/L (21-32); CHLORIDE 106 MMOL/L (98-107); CREATININE 0.7 MG/DL (0.55-1.30); SODIUM 140 MMOL/L (136-145)
[2018-06-28 06:42] LABS: BASOPHILS % (AUTO) 1.3 % (0.0-2.0); EOSINOPHILS % (AUTO) 2.2 % (0.0-3.0); HEMATOCRIT 32.8 % (37.0-47.0); HEMOGLOBIN 10.9 G/DL (12.0-16.0); LYMPHOCYTES % (AUTO) 42.1 % (20.0-45.0); MEAN CORPUSCULAR VOLUME 90 FL (80-99); MONOCYTES % (AUTO) 8.5 % (1.0-10.0); NEUTROPHILS % (AUTO) 45.8 % (45.0-75.0); PLATELET COUNT 209 K/UL (150-450); RED BLOOD COUNT 3.65 M/UL (4.20-5.40); RED CELL DISTRIBUTION WIDTH 12.1 % (11.6-14.8); WHITE BLOOD COUNT 6.1 K/UL (4.8-10.8)
[2018-06-28 08:00] VITALS: BP 93/65
[2018-06-28] MEDS: Pantoprazole Inj IV SCH (08:40)
[2018-06-28] MEDS: Heparin 5000 units/ml inj SUBQ SCH (08:51)
[2018-06-28] MEDS: D5 1/2NS 1,000 ML IV SCH (09:48)
--- NOTE | 2018-06-28 11:41 | General Surgery Progress Note ---
General Surgery-Progress Note Subjective Symptoms: improved, tolerating diet, passing flatus Objective Last 24 Hour Vital Signs Date Time Temp Pulse Resp B/P (MAP) Pulse Ox O2 Delivery O2 Flow Rate FiO2 06/28/18 09:00 Room Air 06/28/18 08:00 98.1 66 16 93/65 (74) 100 06/28/18 04:00 98.4 64 18 98/60 (73) 100 06/28/18 00:00 98.2 64 16 109/63 (78) 99 06/27/18 21:00 Room Air 06/27/18 20:00 97.8 67 18 102/60 (74) 95 06/27/18 16:00 97.8 60 18 102/60 (74) 99 06/27/18 12:00 97.4 84 18 98/55 (69) 98 I&O Intake and Output 06/27/18 06/28/18 19:00 07:00 Intake Total 1380 ml 750 ml Balance 1380 ml 750 ml Intake Oral 480 ml IV Total 900 ml 750 ml # Voids 2 Drains: none Cardiovascular: RSR Respiratory: clear Abdomen: soft, flat, non-tender, present bowel sounds Extremities: no edema, no tenderness, no cyanosis Laboratory Tests Test 06/28/18 05:50 White Blood Count 6.1 K/UL (4.8-10.8) Red Blood Count 3.65 M/UL (4.20-5.40) L Hemoglobin 10.9 G/DL (12.0-16.0) L Hematocrit 32.8 % (37.0-47.0) L Mean Corpuscular Volume 90 FL (80-99) Mean Corpuscular Hemoglobin 29.9 PG (27.0-31.0) Mean Corpuscular Hemoglobin Concent 33.3 G/DL (32.0-36.0) Red Cell Distribution Width 12.1 % (11.6-14.8) Platelet Count 209 K/UL (150-450) Mean Platelet Volume 7.6 FL (6.5-10.1) Neutrophils (%) (Auto) 45.8 % (45.0-75.0) Lymphocytes (%) (Auto) 42.1 % (20.0-45.0) Monocytes (%) (Auto) 8.5 % (1.0-10.0) Eosinophils (%) (Auto) 2.2 % (0.0-3.0) Basophils (%) (Auto) 1.3 % (0.0-2.0) Sodium Level 140 MMOL/L (136-145) Potassium Level 4.0 MMOL/L (3.5-5.1) Chloride Level 106 MMOL/L (98-107) Carbon Dioxide Level 27 MMOL/L (21-32) Anion Gap 7 mmol/L (5-15) Blood Urea Nitrogen 4 mg/dL (7-18) L Creatinine 0.7 MG/DL (0.55-1.30) Estimat Glomerular Filtration Rate > 60 mL/min (>60) Glucose Level 115 MG/DL (74-106) H Calcium Level 8.8 MG/DL (8.5-10.1) Plan Problems: (1) Acute abdominal pain (2) Intractable abdominal pain Assessment & Plan: known hx of intractable abdominal pain. work up thus far negative hx of cholecystectomy and still with pain US with dilated duct MRCP with normal ducts and exam no acute surgical intervention necessary diet as tolerated discharge planning okay to d/c home from surgical standpoint thank you Segun Ramírez Jun 28, 2018 11:41
--- NOTE | 2018-06-28 11:52 | Pulmonology Progress Note ---
Assessment/Plan Problems: (1) Acute abdominal pain (2) Intractable nausea and vomiting Assessment/Plan clear by surgery and GI tolerating diet dc home Subjective ROS Limited/Unobtainable: No Constitutional: Reports: no symptoms HEENT: Repors: no symptoms Allergies: Coded Allergies: KETOROLAC (Verified Allergy, Unknown, 10/11/17) PROCHLORPERAZINE (Verified Allergy, Unknown, 06/21/18) PROCHLORPERAZINE EDISYLATE (Verified Adverse Reaction, Severe, Anaphylaxis , 01/28/13) Tremors PROCHLORPERAZINE MALEATE (Verified Adverse Reaction, Severe, Anaphylaxis, 01/28/13) Tremors Objective Last 24 Hour Vital Signs Date Time Temp Pulse Resp B/P (MAP) Pulse Ox O2 Delivery O2 Flow Rate FiO2 06/28/18 09:00 Room Air 06/28/18 08:00 98.1 66 16 93/65 (74) 100 06/28/18 04:00 98.4 64 18 98/60 (73) 100 06/28/18 00:00 98.2 64 16 109/63 (78) 99 06/27/18 21:00 Room Air 06/27/18 20:00 97.8 67 18 102/60 (74) 95 06/27/18 16:00 97.8 60 18 102/60 (74) 99 06/27/18 12:00 97.4 84 18 98/55 (69) 98 Intake and Output 06/27/18 06/28/18 19:00 07:00 Intake Total 1380 ml 750 ml Balance 1380 ml 750 ml Intake Oral 480 ml IV Total 900 ml 750 ml # Voids 2 General Appearance: WD/WN HEENT: normocephalic, atraumatic Respiratory/Chest: chest wall non-tender, lungs clear Breasts: no masses Cardiovascular: normal peripheral pulses Abdomen: normal bowel sounds, no organomegaly Genitourinary: normal external genitalia Extremities: no clubbing Skin: no lesions Laboratory Tests 06/28/18 05:50: White Blood Count 6.1, Red Blood Count 3.65L, Hemoglobin 10.9L, Hematocrit 32.8L , Mean Corpuscular Volume 90, Mean Corpuscular Hemoglobin 29.9, Mean Corpuscular Hemoglobin Concent 33.3, Red Cell Distribution Width 12.1, Platelet Count 209, Mean Platelet Volume 7.6, Neutrophils (%) (Auto) 45.8, Lymphocytes (% ) (Auto) 42.1, Monocytes (%) (Auto) 8.5, Eosinophils (%) (Auto) 2.2, Basophils ( %) (Auto) 1.3, Sodium Level 140, Potassium Level 4.0, Chloride Level 106, Carbon Dioxide Level 27, Anion Gap 7, Blood Urea Nitrogen 4L, Creatinine 0.7, Estimat Glomerular Filtration Rate > 60, Glucose Level 115H, Calcium Level 8.8 Current Medications Medications (Trade) Dose Ordered Sig/Zahida Route PRN Reason Start Time Stop Time Status Last Admin Dose Admin Acetaminophen (Tylenol) 650 mg Q4H PRN ORAL fever 06/26/18 18:00 07/26/18 17:59 Al Hydroxide/Mg Hydroxide (Mylanta II) 30 ml Q6H PRN ORAL dyspepsia 06/26/18 18:00 07/26/18 17:59 Dextrose (Dextrose 50%) 25 ml Q30M PRN IV Hypoglycemia 06/26/18 18:00 07/26/18 17:59 Dextrose (Dextrose 50%) 50 ml Q30M PRN IV Hypoglycemia 06/26/18 18:00 07/26/18 17:59 Dextrose/Sodium Chloride 1,000 ml @ 75 mls/hr [id number] IV 06/26/18 17:48 07/26/18 17:47 06/28/18 09:48 Diphenhydramine HCl (Benadryl) 25 mg Q6H PRN ORAL Itching/Pruritis 06/26/18 18:00 07/26/18 17:59 Heparin Sodium (Porcine) (Heparin 5000 units/ml) 5,000 units EVERY 12 HOURS SUBQ 06/26/18 21:00 07/26/18 20:59 06/28/18 08:51 Hydromorphone HCl (Dilaudid) 2 mg Q3H PRN IVP Severe Pain (Pain Scale 7-10) 06/27/18 09:15 07/04/18 09:14 06/28/18 08:41 Lorazepam (Ativan 2mg/ml 1ml) 1 mg Q4H PRN IV agitation 06/26/18 18:00 07/03/18 17:59 Metoclopramide HCl (Reglan) 10 mg Q6H PRN IVP severe [place] 06/26/18 18:00 07/26/18 17:59 Morphine Sulfate (Morphine Sulfate) 2 mg Q4H PRN IVP Moderate Pain (Pain Scale 4-6) 06/27/18 01:00 07/04/18 00:59 06/27/18 05:44 Nitroglycerin (Ntg) 0.4 mg Q5M X 3 DOSES PRN SL Prn Chest Pain 06/26/18 18:00 07/26/18 17:59 Ondansetron HCl (Zofran) 4 mg Q6H PRN IVP Nausea & Vomiting 06/26/18 18:00 07/26/18 17:59 06/28/18 10:24 Pantoprazole (Protonix) 40 mg DAILY IV 06/27/18 09:00 07/27/18 08:59 06/28/18 08:40 Polyethylene Glycol (Miralax) 17 gm HSPRN PRN ORAL Constipation 06/26/18 18:00 07/26/18 17:59 Temazepam (Restoril) 15 mg HSPRN PRN ORAL Insomnia 06/26/18 18:00 07/03/18 17:59 Naman Chapman MD Jun 28, 2018 11:52
[2018-06-28 12:00] VITALS: BP 99/59
--- NOTE | 2018-06-28 13:12 | General Progress Note ---
Assessment/Plan Problem List: (1) Anemia ICD Codes: D64.9 - Anemia, unspecified SNOMED: 476260294 (2) Intractable nausea and vomiting ICD Codes: R11.2 - Nausea with vomiting, unspecified SNOMED: 880185285 (3) Acute abdominal pain ICD Codes: R10.0 - Acute abdomen SNOMED: 835070325 (4) Nausea Status: stable, progressing Assessment/Plan dc if clear by gi Subjective Constitutional: Reports: weakness Allergies: Coded Allergies: KETOROLAC (Verified Allergy, Unknown, 10/11/17) PROCHLORPERAZINE (Verified Allergy, Unknown, 06/21/18) PROCHLORPERAZINE EDISYLATE (Verified Adverse Reaction, Severe, Anaphylaxis , 01/28/13) Tremors PROCHLORPERAZINE MALEATE (Verified Adverse Reaction, Severe, Anaphylaxis, 01/28/13) Tremors All Systems: reviewed and negative except above Subjective feeling better eating ok Objective Last 24 Hour Vital Signs Date Time Temp Pulse Resp B/P (MAP) Pulse Ox O2 Delivery O2 Flow Rate FiO2 06/28/18 12:00 97.2 64 16 99/59 (72) 99 06/28/18 09:00 Room Air 06/28/18 08:00 98.1 66 16 93/65 (74) 100 06/28/18 04:00 98.4 64 18 98/60 (73) 100 06/28/18 00:00 98.2 64 16 109/63 (78) 99 06/27/18 21:00 Room Air 06/27/18 20:00 97.8 67 18 102/60 (74) 95 06/27/18 16:00 97.8 60 18 102/60 (74) 99 Intake and Output 06/27/18 06/28/18 19:00 07:00 Intake Total 1380 ml 750 ml Balance 1380 ml 750 ml Intake Oral 480 ml IV Total 900 ml 750 ml # Voids 2 Laboratory Tests 06/28/18 05:50: White Blood Count 6.1, Red Blood Count 3.65L, Hemoglobin 10.9L, Hematocrit 32.8L , Mean Corpuscular Volume 90, Mean Corpuscular Hemoglobin 29.9, Mean Corpuscular Hemoglobin Concent 33.3, Red Cell Distribution Width 12.1, Platelet Count 209, Mean Platelet Volume 7.6, Neutrophils (%) (Auto) 45.8, Lymphocytes (% ) (Auto) 42.1, Monocytes (%) (Auto) 8.5, Eosinophils (%) (Auto) 2.2, Basophils ( %) (Auto) 1.3, Sodium Level 140, Potassium Level 4.0, Chloride Level 106, Carbon Dioxide Level 27, Anion Gap 7, Blood Urea Nitrogen 4L, Creatinine 0.7, Estimat Glomerular Filtration Rate > 60, Glucose Level 115H, Calcium Level 8.8 Height (Feet): 5 Height (Inches): 1.00 Weight (Pounds): 125 General Appearance: alert EENT: normal ENT inspection Neck: normal alignment Cardiovascular: normal peripheral pulses, normal rate, regular rhythm Respiratory/Chest: chest wall non-tender, lungs clear, normal breath sounds Abdomen: normal bowel sounds, non tender, soft Extremities: normal inspection Edema: no edema noted Arm (L), no edema noted Arm (R), no edema noted Leg (L), no edema noted Leg (R), no edema noted Pedal (L), no edema noted Pedal (R), no edema noted Generalized Neurologic: responsive, motor weakness Skin: normal pigmentation, warm/dry Bill Colon DO Jun 28, 2018 13:12
--- NOTE | 2018-06-28 13:34 | GI Progress Note ---
Assessment/Plan Problems: (1) Intractable nausea and vomiting ICD Codes: R11.2 - Nausea with vomiting, unspecified SNOMED: 503751488 (2) Anemia ICD Codes: D64.9 - Anemia, unspecified SNOMED: 786953280 (3) Acute abdominal pain ICD Codes: R10.0 - Acute abdomen SNOMED: 344972112 Status: stable Status Narrative Discussed with Dr. Kendrick. Assessment/Plan MRCP negative okay for DC per GI standpoint symptomatic treatment regular diet pain mgmt ppi fu labs The patient was seen and examined at bedside and all new and available data was reviewed in the patients chart. I agree with the above findings, impression and plan. (Patient seen earlier today. Signature stamp does not reflect patient encounter time.). - Clifford Kendrick MD Subjective Gastrointestinal/Abdominal: Reports: abdominal pain Objective Last 24 Hour Vital Signs Date Time Temp Pulse Resp B/P (MAP) Pulse Ox O2 Delivery O2 Flow Rate FiO2 06/28/18 12:00 97.2 64 16 99/59 (72) 99 06/28/18 09:00 Room Air 06/28/18 08:00 98.1 66 16 93/65 (74) 100 06/28/18 04:00 98.4 64 18 98/60 (73) 100 06/28/18 00:00 98.2 64 16 109/63 (78) 99 06/27/18 21:00 Room Air 06/27/18 20:00 97.8 67 18 102/60 (74) 95 06/27/18 16:00 97.8 60 18 102/60 (74) 99 Intake and Output 06/27/18 06/28/18 19:00 07:00 Intake Total 1380 ml 750 ml Balance 1380 ml 750 ml Intake Oral 480 ml IV Total 900 ml 750 ml # Voids 2 Laboratory Tests Test 06/28/18 05:50 White Blood Count 6.1 K/UL (4.8-10.8) Red Blood Count 3.65 M/UL (4.20-5.40) L Hemoglobin 10.9 G/DL (12.0-16.0) L Hematocrit 32.8 % (37.0-47.0) L Mean Corpuscular Volume 90 FL (80-99) Mean Corpuscular Hemoglobin 29.9 PG (27.0-31.0) Mean Corpuscular Hemoglobin Concent 33.3 G/DL (32.0-36.0) Red Cell Distribution Width 12.1 % (11.6-14.8) Platelet Count 209 K/UL (150-450) Mean Platelet Volume 7.6 FL (6.5-10.1) Neutrophils (%) (Auto) 45.8 % (45.0-75.0) Lymphocytes (%) (Auto) 42.1 % (20.0-45.0) Monocytes (%) (Auto) 8.5 % (1.0-10.0) Eosinophils (%) (Auto) 2.2 % (0.0-3.0) Basophils (%) (Auto) 1.3 % (0.0-2.0) Sodium Level 140 MMOL/L (136-145) Potassium Level 4.0 MMOL/L (3.5-5.1) Chloride Level 106 MMOL/L (98-107) Carbon Dioxide Level 27 MMOL/L (21-32) Anion Gap 7 mmol/L (5-15) Blood Urea Nitrogen 4 mg/dL (7-18) L Creatinine 0.7 MG/DL (0.55-1.30) Estimat Glomerular Filtration Rate > 60 mL/min (>60) Glucose Level 115 MG/DL (74-106) H Calcium Level 8.8 MG/DL (8.5-10.1) Height (Feet): 5 Height (Inches): 1.00 Weight (Pounds): 125 General Appearance: WD/WN, no apparent distress, alert Cardiovascular: normal rate Respiratory/Chest: normal breath sounds, no respiratory distress Abdominal Exam: normal bowel sounds, non tender, soft Extremities: normal range of motion, non-tender Talon Moreno NP Jun 28, 2018 13:34
[2018-06-28] MEDS ORDERED: NS 500ML ONE (13:50)
--- NOTE | 2018-07-01 08:50 | Discharge Summary ---
Discharge Summary Discharge Summary _ DATE OF ADMISSION: 06/26/2018 DATE OF DISCHARGE: 06/28/2018 REASON FOR ADMISSION: 37 years old female with history of recent laparoscopic cholecystectomy, history of ovarian cysts, right renal stone ,migraines, presented to emergency department with abdominal pain . Patient seen in emergency department few days prior with complaint of abdominal pain At that time she was found to have urinary tract infection patient. Patient required large doses of analgesic to control pain . Patient was treated with antibiotic and analgesics as outpatient. At this time upon evaluation vital signs were stable . Laboratory workup was unremarkable : no leukocytosis, stable hemoglobin and hematocrit ,stable electrolytes, LFT, and lipase. Urinalysis revealed no evidence of UTI . Urine test was negative. Urine toxicology screen was -negative. Ultrasound of the abdomen showed mild dilatation of common bile duct. Patient admitted with diagnoses of intractable abdominal pain ,intractable nausea and vomiting CONSULTANTS: pulmonary Dr. Chapman GI specialist Dr. Kendrick surgery [facility] [employer] [facility] COURSE: Patient admitted to medical surgical floor and started on IV fluids. Patient initially was kept nothing by mouth. GI and surgery consults requested. Per GI , MRI of the abdomen was ordered, due to findings of mildly dilated common bile duct on ultrasound image. MRI of abdomen was negative. Pain management was addressed, and pain was controlled, Patient started on PPI. Diet started and advanced as tolerated. Patietn was able to tolerate deit. Supportive care provided .,Antiemetics provided as needed. Surgeon seen and evaluated patient, reviewed images and concluded that no acute surgical interventions were necessary at this time. Dietary evaluation was completed. Patient appeared to have good oral intake , BMI within normal limits . Patient was cleared for discharge Intractable abdominal pain was likely due to gastroenteritis superimposed on chronic abdominal pain. Intractable nausea and vomiting resolved . Patient was stable for discharge home FINAL DIAGNOSES: Gastroenteritis Intractable abdominal pain Intractable nausea vomiting resolved DISCHARGE MEDICATIONS: See Medication Reconciliation list. DISCHARGE INSTRUCTIONS: Patient was discharged home . Follow up with primary care provider in one-two weeks. I have been assigned to dictate discharge summary for this account. I was not involved in the patient's management. Megan Giordano NP Jul 01, 2018 08:50
== END 2018-06-28 13:51 | disposition home or self-care (01) | DRG 249 ==
LOC: EMR 15:47 → 4E 16:16 → EDBEDREQ 18:51
DX: K52.9 Noninfective gastroenteritis and colitis, unspecified (principal); D64.9 Anemia, unspecified; M19.90 Unspecified osteoarthritis, unspecified site; R10.9 Unspecified abdominal pain; Z88.8 Allergy status to other drugs, medicaments and biological substances; Z90.49 Acquired absence of other specified parts of digestive tract
CPT/HCPCS: 36415; 74181; 76700; 80048; 80053; 80307; 80329; 81003; 81025; 82150; 83690; 85007; 85025; 85610; 85730; 86850; 86900; 86901; 96361; 96374; 96375; 99285; J2405

== ENCOUNTER 2018-07-11 16:05 | Emergency (ER) | payer MEDICAID ==
[~2018-07-11] VITALS: Ht 154.9 cm; Wt 55.8 kg
[2018-07-11 16:20] VITALS: BP 112/41
[2018-07-11] MEDS ORDERED: Dicyclomine HCl 10mg/5ml oral soln ORAL ONE (17:00)
[2018-07-11] MEDS ORDERED: Morphine Sulfate 10mg/ml Inj IVP ONE (17:00)
--- NOTE | 2018-07-11 17:02 | Emergency Room Report ---
History of Present Illness General Chief Complaint: Abdominal Pain Source: Patient, Medical Record Present Illness HPI this is a 37-year-old female who is otherwise healthy, who complains of left upper abdominal pain that started this morning. She had 2 episodes of vomiting today. She denies any other associated symptoms. She denies any dysuria or fever. Dull pain without any radiation. Allergies: Coded Allergies: KETOROLAC (Verified Allergy, Unknown, 10/11/17) PROCHLORPERAZINE (Verified Allergy, Unknown, 06/21/18) PROCHLORPERAZINE EDISYLATE (Verified Adverse Reaction, Severe, Anaphylaxis , 01/28/13) Tremors PROCHLORPERAZINE MALEATE (Verified Adverse Reaction, Severe, Anaphylaxis, 01/28/13) Tremors Patient History Past Surgical History: none, kiara Pertinent Family History: none Last Menstrual Period: 06/22/18 Nursing Documentation-[facility] Past Medical History: No History, Except For Hx Cardiac Problems: No Hx Cancer: No - kidney stone Hx Gastrointestinal Problems: Yes - Laparoscopic Cholecystectomy Hx Neurological Problems: No - MIGRAINE Review of Systems All Other Systems: negative except mentioned in HPI Physical Exam Vital Signs Date Time Temp Pulse Resp B/P (MAP) Pulse Ox O2 Delivery O2 Flow Rate FiO2 07/11/18 16:20 98.4 20 112/41 99 Room Air 07/11/18 16:20 68 Eyes: bilateral eye normal inspection, bilateral eye PERRL ENT: hearing grossly normal, normal pharynx, no angioedema, normal voice Neck: full range of motion, supple/symm/no masses Respiratory: chest non-tender, lungs clear, normal breath sounds, speaking full sentences Cardiovascular #1: regular rate, rhythm, no edema Gastrointestinal: soft - mild left upper quadrant tenderness Musculoskeletal: back normal, gait/station normal, normal range of motion, non- tender, calf tenderness Medical Decision Making ER Course Patient presented with significant complexity or risk requiring multiple bedside evaluation. Patient alert and nontoxic-appearing. His particular concern about acute diverticula's, pancreatitis, pneumonia, pneumothorax, sepsis , intra-abdominal abscess, kidney stone, ectopic . Blood was reviewed. Urinalysis was reviewed as well. Patient is alert. Patient was given IV morphine for pain with significant relief. At this time, I feel the patient may be discharged home with very close follow-up with her primary care physician. Clear liquid diet as tolerated. She is tolerated by mouth challenge here. Laboratory Tests Test 07/11/18 17:00 White Blood Count 8.3 K/UL (4.8-10.8) Red Blood Count 3.72 M/UL (4.20-5.40) L Hemoglobin 11.4 G/DL (12.0-16.0) L Hematocrit 33.3 % (37.0-47.0) L Mean Corpuscular Volume 89 FL (80-99) Mean Corpuscular Hemoglobin 30.6 PG (27.0-31.0) Mean Corpuscular Hemoglobin Concent 34.2 G/DL (32.0-36.0) Red Cell Distribution Width 11.8 % (11.6-14.8) Platelet Count 218 K/UL (150-450) Mean Platelet Volume 8.3 FL (6.5-10.1) Neutrophils (%) (Auto) 34.4 % (45.0-75.0) L Lymphocytes (%) (Auto) 54.8 % (20.0-45.0) H Monocytes (%) (Auto) 7.4 % (1.0-10.0) Eosinophils (%) (Auto) 2.5 % (0.0-3.0) Basophils (%) (Auto) 1.0 % (0.0-2.0) Urine Color Pale yellow Urine Appearance Slightly cloudy Urine pH 8 (4.5-8.0) Urine Specific [place] 1.010 (1.005-1.035) Urine Protein Negative (NEGATIVE) Urine Glucose (UA) Negative (NEGATIVE) Urine Ketones Negative (NEGATIVE) Urine Blood Negative (NEGATIVE) Urine Nitrite Negative (NEGATIVE) Urine Bilirubin Negative (NEGATIVE) Urine Urobilinogen Normal MG/DL (0.0-1.0) Urine Leukocyte Esterase Negative (NEGATIVE) Urine RBC 0-2 /HPF (0 - 2) Urine WBC 0-2 /HPF (0 - 2) Urine Squamous Epithelial Cells Many /LPF (NONE/OCC) H Urine Bacteria Many /HPF (NONE) H Sodium Level 142 MMOL/L (136-145) Potassium Level 3.9 MMOL/L (3.5-5.1) Chloride Level 108 MMOL/L (98-107) H Carbon Dioxide Level 26 MMOL/L (21-32) Anion Gap 8 mmol/L (5-15) Blood Urea Nitrogen 7 mg/dL (7-18) Creatinine 0.7 MG/DL (0.55-1.30) Estimate Glomerular Filtration Rate > 60 mL/min (>60) Glucose Level 93 MG/DL (74-106) Calcium Level 8.8 MG/DL (8.5-10.1) Total Bilirubin 0.3 MG/DL (0.2-1.0) Aspartate Amino Transferase (AST) 19 U/L (15-37) Alanine Aminotransferase (ALT) 27 U/L (12-78) Alkaline Phosphatase 50 U/L (46-116) Total Protein 7.2 G/DL (6.4-8.2) Albumin 3.4 G/DL (3.4-5.0) Globulin 3.8 g/dL Albumin/Globulin Ratio 0.9 (1.0-2.7) L Lipase 105 U/L (73-393) Human Chorionic Gonadotropin, Quant 1 mIU/mL (1-6) Last Vital Signs Date Time Temp Pulse Resp B/P (MAP) Pulse Ox O2 Delivery O2 Flow Rate FiO2 07/11/18 16:20 98.4 68 18 99/64 99 Room Air Disposition: HOME, SELF-CARE Scripts Ondansetron (Zofran) 4 Mg Tablet 4 MG ORAL Q6H PRN, #14 TAB 0 Refills Prov: SUZE ZACARIAS 07/11/18 Hydrocodone Bit/Acetaminophen 5-325* (NORCO 5-325*) 1 Each Tablet 1 TAB ORAL Q6H PRN, #20 TAB 0 Refills Prov: SUZE ZACARIAS 07/11/18 Referrals: NOT CHOSEN IPA/,REFERRING (PCP) Patient Instructions: Abdominal Pain, Adult SUZE ZACARIAS Jul 11, 2018 17:02
[2018-07-11 17:29] LABS: EOSINOPHILS % (AUTO) 2.5 % (0.0-3.0); HEMATOCRIT 33.3 % (37.0-47.0); HEMOGLOBIN 11.4 G/DL (12.0-16.0); LYMPHOCYTES % (AUTO) 54.8 % (20.0-45.0); MEAN CORPUSCULAR VOLUME 89 FL (80-99); MONOCYTES % (AUTO) 7.4 % (1.0-10.0); NEUTROPHILS % (AUTO) 34.4 % (45.0-75.0); PLATELET COUNT 218 K/UL (150-450); RED BLOOD COUNT 3.72 M/UL (4.20-5.40); RED CELL DISTRIBUTION WIDTH 11.8 % (11.6-14.8); WHITE BLOOD COUNT 8.3 K/UL (4.8-10.8)
[2018-07-11 17:33] LABS: APPEARANCE,URINE SLIGHTLY CLOUDY; BILIRUBIN, URINE NEGATIVE (NEGATIVE); COLOR,URINE PALE YELLOW; GLUCOSE, URINE (UA) NEGATIVE (NEGATIVE); KETONES,URINE NEGATIVE (NEGATIVE); LEUKOCYTE ESTERASE ,URINE NEGATIVE (NEGATIVE); NITRITE,URINE NEGATIVE (NEGATIVE); PH,URINE 8 (4.5-8.0); PROTEIN,URINE NEGATIVE (NEGATIVE); UROBILINOGEN,URINE NORMAL MG/DL (0.0-1.0)
[2018-07-11 17:42] LABS: ANION GAP 8 mmol/L (5-15); BLOOD UREA NITROGEN 7 mg/dL (7-18); CALCIUM 8.8 MG/DL (8.5-10.1); CARBON DIOXIDE 26 MMOL/L (21-32); CHLORIDE 108 MMOL/L (98-107); CREATININE 0.7 MG/DL (0.55-1.30); POTASSIUM 3.9 MMOL/L (3.5-5.1); SODIUM 142 MMOL/L (136-145)
[2018-07-11 17:48] LABS: ALANINE AMINOTRANSFERASE 27 U/L (12-78); ALBUMIN 3.4 G/DL (3.4-5.0); ALBUMIN/GLOBULIN RATIO 0.9 (1.0-2.7); ALKALINE PHOSPHATASE 50 U/L (46-116); ASPARTATE AMINO TRANSFERASE 19 U/L (15-37); BILIRUBIN,TOTAL 0.3 MG/DL (0.2-1.0)
[2018-07-11 18:20] VITALS: BP 105/50
[2018-07-11] MEDS ORDERED: NORCO 5-325 TA1 EACH ORAL (18:41)
[2018-07-11] MEDS ORDERED: ZOFRAN4 MG ORAL (18:41)
[2018-07-11 19:25] VITALS: BP 111/54
[2018-07-11 19:44] VITALS: BP 111/54
== END 2018-07-11 19:48 | disposition home or self-care (01) ==
LOC: EMR 16:55
DX: R10.12 Left upper quadrant pain (principal); R11.10 Vomiting, unspecified; Z90.49 Acquired absence of other specified parts of digestive tract; Z88.8 Allergy status to other drugs, medicaments and biological substances
CPT/HCPCS: 36415; 80053; 81003; 83690; 84702; 85025; 87086; 96361; 96374; 96375; 99284; J2270; J2405

== ENCOUNTER 2018-07-16 15:06 | Emergency (ER) | payer MEDICAID ==
[~2018-07-16] VITALS: Ht 152.4 cm; Wt 54.4 kg
[2018-07-16] MEDS ORDERED: Norco 5mg/325mg tab ORAL ONE (15:30)
[2018-07-16 15:31] VITALS: BP 100/69
--- NOTE | 2018-07-16 16:13 | Emergency Room Report ---
History of Present Illness General Chief Complaint: Pain Source: Patient, Medical Record Present Illness HPI 37-year-old female presents to the emergency department complaining of 10 out of 10 in severity pain localized to the right elbow times one month. Patient reports one month ago she fell and landed on her elbow and has had increase in her pain ever since. Patient denies skin color changes or changes in temperature of the affected extremity. Patient denies new trauma or fall. She denies swelling, erythema, or paresthesias. Patient reports that she has been taking naproxen at home with no relief.Denies numbness tingling or loss of sensation or gross motor movements of the extremities, incontinence of bowel or bladder. Denies CP, Palpitations, LOC, AMS, dizziness, Changes in Vision, weakness or a sudden severe headache. Allergies: Coded Allergies: KETOROLAC (Verified Allergy, Unknown, 07/16/18) PROCHLORPERAZINE (Verified Allergy, Unknown, 07/16/18) PROCHLORPERAZINE EDISYLATE (Verified Adverse Reaction, Severe, Anaphylaxis , 07/16/18) Tremors PROCHLORPERAZINE MALEATE (Verified Adverse Reaction, Severe, Anaphylaxis, 07/16/18) Tremors Patient History Past Medical History: see triage record Past Surgical History: none Pertinent Family History: none Last Menstrual Period: May 2018 Now: No Reviewed Nursing Documentation: PMH: Agreed; PSxH: Agreed Nursing Documentation-PMH Past Medical History: No History, Except For Hx Cardiac Problems: No Hx Cancer: No - kidney stone Hx Gastrointestinal Problems: Yes - Laparoscopic Cholecystectomy Hx Neurological Problems: No - MIGRAINE Review of Systems All Other Systems: negative except mentioned in HPI Physical Exam Vital Signs Date Time Temp Pulse Resp B/P (MAP) Pulse Ox O2 Delivery O2 Flow Rate FiO2 07/16/18 15:19 98.8 71 16 100/69 100 Room Air Sp02 EP Interpretation: reviewed, normal General Appearance: no apparent distress, alert, GCS 15, non-toxic Head: normocephalic, atraumatic Eyes: bilateral eye normal inspection, bilateral eye PERRL ENT: hearing grossly normal, normal voice Neck: full range of motion Respiratory: lungs clear, normal breath sounds, speaking full sentences Cardiovascular #1: regular rate, rhythm, normal capillary refill Cardiovascular #2: 2+ radial (R), 2+ radial (L) Musculoskeletal: back normal, gait/station normal, normal range of motion, tender - TTP to right elbow, laterally and posteriorly, no swelling, no erythema , no bruises, pt. has FROm, no obvious deformity. NVi distally. Neurologic: alert, oriented x3, responsive, motor strength/tone normal, sensory intact, speech normal, grossly normal Psychiatric: judgement/insight normal Skin: normal color, no rash, warm/dry, well hydrated Medical Decision Making PA Attestation Dr. green is my supervising Physician whom patient management has been discussed with. Diagnostic Impression: Primary Impression: Elbow pain, right Additional Impressions: Right elbow tendonitis Opiate dependence Qualified Codes: F11.20 - Opioid dependence, uncomplicated Drug-seeking behavior ER Course 37-year-old female presents to the emergency department complaining of 10 out of 10 in severity pain localized to the right elbow times one month. Patient reports one month ago she fell and landed on her elbow and has had increase in her pain ever since. Patient denies skin color changes or changes in temperature of the affected extremity. Patient denies new trauma or fall. She denies swelling, erythema, or paresthesias. Patient reports that she has been taking naproxen at home with no relief.Denies numbness tingling or loss of sensation or gross motor movements of the extremities, incontinence of bowel or bladder. Denies CP, Palpitations, LOC, AMS, dizziness, Changes in Vision, weakness or a sudden severe headache. Ddx considered but are not limited to Fracture, dislocation, contusion, Sprain/ Strain/Spasm, Tendonitis , cellulitis, just to name a few. Vital signs: are WNL, pt. is afebrile H&PE are most consistent with musculoskeletal injury will perform imaging to r/ o fractures/dislocations. ORDERS: - X-ray Right elbow 3 views - negative for fx, Dislocation, or significant soft tissue injury, per preliminary read in ED, and signed by MOHINDER Douglass , my supervising physician has reviewed, and agrees with my interpretation. ED INTERVENTIONS: - [place] PO -- Right arm Sling applied by sterile preparation technician. Pt. remains neurovascularly intact. -Review of [facility] web-site :2-3 prescriptions for [place] monthly. Patient's last filled for 25 mg pills was on the of this month and prior to that she received 30 pills on the sixth of the same month. It also appears the patient receives her prescriptions from different doctors at different practices and does not regularly see one particular provider. DISCHARGE: At this time pt. is stable for d/c to home. Will provide printed patient care instructions, and any necessary prescriptions. Care plan and follow up instructions have been discussed with the patient prior to discharge. Other X-Ray Diagnostic Results Other X-Ray Diagnostic Results : X-Ray ordered: Right elbow # of Views/Limited Vs Complete: 3 View Indication: Pain EP Interpretation: Yes PA Xray: Interpretation reviewed, by supervising MD, and agrees with findings. Interpretation: no dislocation, no soft tissue swelling, no fractures Impression: No acute disease Electronically Signed by: Nilda Douglass PA-C Last Vital Signs Date Time Temp Pulse Resp B/P (MAP) Pulse Ox O2 Delivery O2 Flow Rate FiO2 07/16/18 15:31 98.7 71 16 100/69 100 Room Air Status: improved Disposition: HOME, SELF-CARE Condition: Stable Scripts Acetaminophen* (TYLENOL EXTRA STRENGTH*) 500 Mg Tablet 500 MG ORAL Q6H, #20 TAB 0 Refills Prov: Nilda Douglass 07/16/18 Diclofenac Sodium (VOLTAREN) 100 Gm Gel..gram. 1 APPLIC TP BID, #100 GM Prov: Nilda Douglass 07/16/18 Referrals: NOT CHOSEN [facility]/,REFERRING (PCP) Patient Instructions: Elbow Contusion Additional Instructions: Take previously prescribed medications as directed. Follow up with a Primary Care Provider in 3-5 days, even if your symptoms have resolved. --Please review list of primary care clinics, if you do not already have a primary care provider Return sooner to ED if new symptoms occur, or current symptoms become worse. - Please note that this Emergency Department Report was dictated using [employer] program [employer] technology software, occasionally this can lead to erroneous entry secondary to interpretation by the dictation equipment. Nilda Douglass Jul 16, 2018 16:13
[2018-07-16] MEDS ORDERED: TYLENOL EXTRA500 MG ORAL (16:17)
[2018-07-16] MEDS ORDERED: VOLTAREN100 G1 TP (16:17)
[2018-07-16 16:27] VITALS: BP 100/69
--- NOTE | 2018-07-16 16:50 | Diagnostic Imaging Report ---
Indication: Pain status post injury Technique: XRAY Elbow Min 3v R Comparison: None Findings: Bone mineralization within normal limits. No definite/displaced acute fractures identified. Joint spaces and anatomic alignment are maintained. No elbow joint effusion/abnormal elevation of anterior posterior fat pads identified. Impression: * No definite/displaced acute fracture identified. * No elbow joint effusion.
== END 2018-07-16 16:24 | disposition home or self-care (01) ==
LOC: EMR 15:43
DX: M25.521 Pain in right elbow (principal); M77.8 Other enthesopathies, not elsewhere classified; F11.20 Opioid dependence, uncomplicated; Z76.5 Malingerer [conscious simulation]
CPT/HCPCS: 99283

== ENCOUNTER 2018-08-21 17:03 | Emergency (ER) | payer MEDICAID ==
[~2018-08-21] VITALS: Ht 154.9 cm; Wt 55.3 kg
[~2018-08-21 17:03] MED LIST changes: +VOLTAREN100 G1 TP
--- NOTE | 2018-08-21 17:29 | Emergency Room Report ---
History of Present Illness General Chief Complaint: Nausea Source: Patient Present Illness HPI Patient presents with complaints of epigastric abdominal pain Reports the pain started last night around midnight Soon after that she began also developing a headache increased nausea Denies any lower abdominal pain denies any diarrhea denies any chest pain or shortness of breath Denies any focal weakness Denies any recent fall or trauma Patient had gallbladder removal in September has had persistent off-and-on discomfort since then Allergies: Coded Allergies: KETOROLAC (Verified Allergy, Unknown, 07/16/18) PROCHLORPERAZINE (Verified Allergy, Unknown, 07/16/18) PROCHLORPERAZINE EDISYLATE (Verified Adverse Reaction, Severe, Anaphylaxis , 07/16/18) Tremors PROCHLORPERAZINE MALEATE (Verified Adverse Reaction, Severe, Anaphylaxis, 07/16/18) Tremors Patient History Past Medical History: see triage record Pertinent Family History: none Now: No Reviewed Nursing Documentation: PMH: Agreed; PSxH: Agreed Nursing Documentation-PMH Past Medical History: No History, Except For Hx Cardiac Problems: No Hx Cancer: No - kidney stone Hx Gastrointestinal Problems: Yes - Laparoscopic Cholecystectomy Hx Neurological Problems: No - MIGRAINE Review of Systems All Other Systems: negative except mentioned in HPI Physical Exam Vital Signs Date Time Temp Pulse Resp B/P (MAP) Pulse Ox O2 Delivery O2 Flow Rate FiO2 08/21/18 17:14 98.2 83 18 114/76 98 Room Air Sp02 EP Interpretation: reviewed, normal General Appearance: well appearing, no apparent distress Head: normocephalic, atraumatic Eyes: bilateral eye PERRL, bilateral eye EOMI ENT: hearing grossly normal, normal pharynx, TMs + canals normal, uvula midline Neck: full range of motion, supple, no meningismus, no bony tend Respiratory: lungs clear, normal breath sounds, no rhonchi, no respiratory distress, no retraction, no accessory muscle use Cardiovascular #1: normal peripheral pulses, regular rate, rhythm, no edema, no gallop, no JVD, no murmur Gastrointestinal: normal bowel sounds, non tender - However subjectively points to epigastric area for discomfort, soft, no mass, no organomegaly, non- distended, no guarding, no hernia, no pulsatile mass, no rebound Genitourinary: no CVA tenderness Musculoskeletal: normal inspection Neurologic: oriented x3, responsive, transmission and coordination engineer III-XII nml as tested, motor strength/ tone normal, sensory intact Psychiatric: mood/affect normal Skin: normal color, no rash, warm/dry, palpation normal Lymphatic: normal inspection, no adenopathy Medical Decision Making Diagnostic Impression: Primary Impression: Nausea alone Additional Impressions: migraine headaches Acute abdominal pain ER Course With the patient's history and examination, multiple differentials considered, including but not limited to , ectopic , ovarian torsion, gastritis, cholecystitis, pancreatitis, appendicitis Patient has had fairly extensive previous evaluations given the complaints however repeat blood work was initiated Patient's abdomen remains soft and I did not feel repeat imaging was required Patient has rested comfortably there is some correlation with her headaches and the abdominal discomfort Patient was discussed the need for closer outpatient follow-up Labs Test 08/21/18 17:30 White Blood Count 8.8 K/UL (4.8-10.8) Red Blood Count 3.74 M/UL (4.20-5.40) Hemoglobin 12.0 G/DL (12.0-16.0) Hematocrit 35.1 % (37.0-47.0) Mean Corpuscular Volume 94 FL (80-99) Mean Corpuscular Hemoglobin 32.2 PG (27.0-31.0) Mean Corpuscular Hemoglobin Concent 34.3 G/DL (32.0-36.0) Red Cell Distribution Width 11.8 % (11.6-14.8) Platelet Count 236 K/UL (150-450) Mean Platelet Volume 7.5 FL (6.5-10.1) Neutrophils (%) (Auto) 46.9 % (45.0-75.0) Lymphocytes (%) (Auto) 43.3 % (20.0-45.0) Monocytes (%) (Auto) 6.7 % (1.0-10.0) Eosinophils (%) (Auto) 1.7 % (0.0-3.0) Basophils (%) (Auto) 1.3 % (0.0-2.0) Sodium Level 140 MMOL/L (136-145) Potassium Level 4.0 MMOL/L (3.5-5.1) Chloride Level 103 MMOL/L (98-107) Carbon Dioxide Level 27 MMOL/L (21-32) Anion Gap 10 mmol/L (5-15) Blood Urea Nitrogen 13 mg/dL (7-18) Creatinine 0.8 MG/DL (0.55-1.30) Estimat Glomerular Filtration Rate > 60 mL/min (>60) Glucose Level 95 MG/DL (74-106) Calcium Level 9.5 MG/DL (8.5-10.1) Total Bilirubin 0.6 MG/DL (0.2-1.0) Aspartate Amino Transf (AST/SGOT) 17 U/L (15-37) Alanine Aminotransferase (ALT/SGPT) 24 U/L (12-78) Alkaline Phosphatase 58 U/L (46-116) Total Protein 7.1 G/DL (6.4-8.2) Albumin 3.7 G/DL (3.4-5.0) Globulin 3.4 g/dL Albumin/Globulin Ratio 1.1 (1.0-2.7) Lipase 93 U/L (73-393) Last Vital Signs Date Time Temp Pulse Resp B/P (MAP) Pulse Ox O2 Delivery O2 Flow Rate FiO2 08/21/18 17:14 98.2 83 18 114/76 98 Room Air Status: improved Disposition: HOME, SELF-CARE Condition: Improved Scripts Acetamin/Butalbital/Caffeine* (FIORICET*) 1 Ea Tab 1 TAB ORAL Q8HR, #15 TAB 0 Refills Prov: Nacho Ybarra DO 08/21/18 Ondansetron (Zofran) 4 Mg Tablet 4 MG ORAL Q8H PRN for Nausea & Vomiting, #10 TAB 0 Refills Prov: Nacho Ybarra DO 08/21/18 Additional Instructions: Patient is provided with the discharge instructions notified to follow up with primary doctor in the next 2-3 days otherwise return to the er with any worsening symptoms. Please note that this report is being documented using [employer] technology. This can lead to erroneous entry secondary to incorrect interpretation by the dictating instrument. Nacho Ybarra DO Aug 21, 2018 17:29
[2018-08-21] MEDS ORDERED: DiphenhydrAMINE 50mg/ml Inj IM ONE (17:30)
[2018-08-21 17:47] VITALS: BP 104/59
[2018-08-21 17:51] LABS: BASOPHILS % (AUTO) 1.3 % (0.0-2.0); EOSINOPHILS % (AUTO) 1.7 % (0.0-3.0); HEMATOCRIT 35.1 % (37.0-47.0); LYMPHOCYTES % (AUTO) 43.3 % (20.0-45.0); MEAN CORPUSCULAR VOLUME 94 FL (80-99); MONOCYTES % (AUTO) 6.7 % (1.0-10.0); NEUTROPHILS % (AUTO) 46.9 % (45.0-75.0); PLATELET COUNT 236 K/UL (150-450); RED BLOOD COUNT 3.74 M/UL (4.20-5.40); RED CELL DISTRIBUTION WIDTH 11.8 % (11.6-14.8); WHITE BLOOD COUNT 8.8 K/UL (4.8-10.8)
[2018-08-21 17:55] LABS: ANION GAP 10 mmol/L (5-15); BLOOD UREA NITROGEN 13 mg/dL (7-18); CALCIUM 9.5 MG/DL (8.5-10.1); CARBON DIOXIDE 27 MMOL/L (21-32); CHLORIDE 103 MMOL/L (98-107); CREATININE 0.8 MG/DL (0.55-1.30); SODIUM 140 MMOL/L (136-145)
[2018-08-21 18:00] LABS: ALANINE AMINOTRANSFERASE 24 U/L (12-78); ALBUMIN 3.7 G/DL (3.4-5.0); ALBUMIN/GLOBULIN RATIO 1.1 (1.0-2.7); ALKALINE PHOSPHATASE 58 U/L (46-116); ASPARTATE AMINO TRANSFERASE 17 U/L (15-37); BILIRUBIN,TOTAL 0.6 MG/DL (0.2-1.0)
[2018-08-21] MEDS ORDERED: FIORICET1 EA ORAL (18:43)
[2018-08-21] MEDS ORDERED: ZOFRAN4 MG ORAL (18:43)
[2018-08-21 18:54] VITALS: BP 111/72
== END 2018-08-21 18:55 | disposition home or self-care (01) ==
LOC: EMR 17:48
DX: R11.0 Nausea (principal); G43.909 Migraine, unspecified, not intractable, without status migrainosus; R10.9 Unspecified abdominal pain; Z88.8 Allergy status to other drugs, medicaments and biological substances; Z90.49 Acquired absence of other specified parts of digestive tract
CPT/HCPCS: 36415; 80053; 83690; 85025; 96372; 99284; J1200

== ENCOUNTER 2018-09-09 17:08 | Emergency (ER) | payer MEDICAID ==
[~2018-09-09] VITALS: Ht 152.4 cm; Wt 56.7 kg
[~2018-09-09 17:08] MED LIST changes: +FIORICET1 EA ORAL
[2018-09-09 17:43] VITALS: BP 111/65
[2018-09-09 18:11] LABS: APPEARANCE,URINE CLEAR; BILIRUBIN, URINE NEGATIVE (NEGATIVE); COLOR,URINE PALE YELLOW; GLUCOSE, URINE (UA) NEGATIVE (NEGATIVE); KETONES,URINE NEGATIVE (NEGATIVE); LEUKOCYTE ESTERASE ,URINE NEGATIVE (NEGATIVE); NITRITE,URINE NEGATIVE (NEGATIVE); PH,URINE 6 (4.5-8.0); PROTEIN,URINE NEGATIVE (NEGATIVE); UROBILINOGEN,URINE NORMAL MG/DL (0.0-1.0)
[2018-09-09 18:13] LABS: ANION GAP 10 mmol/L (5-15); BLOOD UREA NITROGEN 9 mg/dL (7-18); CALCIUM 9.1 MG/DL (8.5-10.1); CARBON DIOXIDE 26 MMOL/L (21-32); CHLORIDE 105 MMOL/L (98-107); CREATININE 0.7 MG/DL (0.55-1.30); POTASSIUM 3.6 MMOL/L (3.5-5.1); SODIUM 141 MMOL/L (136-145)
[2018-09-09 18:19] LABS: ALANINE AMINOTRANSFERASE 20 U/L (12-78); ALBUMIN 3.9 G/DL (3.4-5.0); ALBUMIN/GLOBULIN RATIO 1.2 (1.0-2.7); ALKALINE PHOSPHATASE 54 U/L (46-116); ASPARTATE AMINO TRANSFERASE 18 U/L (15-37); BILIRUBIN,TOTAL 0.6 MG/DL (0.2-1.0)
[2018-09-09 18:20] LABS: BASOPHILS % (AUTO) 1.5 % (0.0-2.0); EOSINOPHILS % (AUTO) 0.9 % (0.0-3.0); HEMATOCRIT 35.8 % (37.0-47.0); HEMOGLOBIN 12.1 G/DL (12.0-16.0); LYMPHOCYTES % (AUTO) 45.1 % (20.0-45.0); MEAN CORPUSCULAR VOLUME 94 FL (80-99); MONOCYTES % (AUTO) 7.2 % (1.0-10.0); NEUTROPHILS % (AUTO) 45.2 % (45.0-75.0); PLATELET COUNT 219 K/UL (150-450); RED BLOOD COUNT 3.79 M/UL (4.20-5.40); RED CELL DISTRIBUTION WIDTH 11.5 % (11.6-14.8); WHITE BLOOD COUNT 8.9 K/UL (4.8-10.8)
[2018-09-09] MEDS ORDERED: Lactulose 20gm/30ml UDC ORAL ONE (19:30)
--- NOTE | 2018-09-09 19:30 | Emergency Room Report ---
History of Present Illness General Chief Complaint: Abdominal Pain Source: Patient Present Illness HPI 37-year-old female presents to the emergency department complaining of 9 out of 10 in severity abdominal pain 2 days. Patient denies abdominal tenderness she states her last bowel movement was on Sunday (3 days ago). Patient denies taking medications within the past few weeks. She denies fevers or chills. Denies , diarrhea or vomiting. Patient reports she has some mild nausea. Denies hematuria, dysuria, urinary frequency or urgency. Pt. had gallbladder surgically removed this past Sep. Denies blood in the stool or dark tarry stools. Allergies: Coded Allergies: KETOROLAC (Verified Allergy, Unknown, 09/09/18) PROCHLORPERAZINE (Verified Allergy, Unknown, 09/09/18) PROCHLORPERAZINE EDISYLATE (Verified Adverse Reaction, Severe, Anaphylaxis , 09/09/18) Tremors PROCHLORPERAZINE MALEATE (Verified Adverse Reaction, Severe, Anaphylaxis, 09/09/18) Tremors Patient History Past Medical History: see triage record Past Surgical History: none Pertinent Family History: none Last Menstrual Period: jul 2018 Reviewed Nursing Documentation: PMH: Agreed; PSxH: Agreed Nursing Documentation-PMH Past Medical History: No History, Except For Hx Cardiac Problems: No Hx Cancer: No - kidney stone Hx Gastrointestinal Problems: Yes - Laparoscopic Cholecystectomy Hx Neurological Problems: No - MIGRAINE Review of Systems All Other Systems: negative except mentioned in HPI Physical Exam Vital Signs Date Time Temp Pulse Resp B/P (MAP) Pulse Ox O2 Delivery O2 Flow Rate FiO2 09/09/18 17:15 98.4 75 16 107/60 100 Room Air 09/09/18 17:43 98 Sp02 EP Interpretation: reviewed, normal General Appearance: no apparent distress, alert, GCS 15, non-toxic Head: normocephalic, atraumatic Eyes: bilateral eye normal inspection, bilateral eye PERRL ENT: hearing grossly normal, normal voice Neck: full range of motion Respiratory: lungs clear, normal breath sounds, speaking full sentences Cardiovascular #1: regular rate, rhythm Gastrointestinal: normal bowel sounds, non tender, soft, non-distended, no guarding Genitourinary: normal inspection, no CVA tenderness Musculoskeletal: back normal, gait/station normal, normal range of motion, non- tender Neurologic: alert, oriented x3, responsive, motor strength/tone normal, sensory intact, normal gait, speech normal, grossly normal Psychiatric: judgement/insight normal Skin: normal color, no rash, warm/dry, well hydrated Medical Decision Making PA Attestation Dr. Puri is my supervising Physician whom patient management has been discussed with. Diagnostic Impression: Primary Impression: Abdominal pain Qualified Codes: R10.30 - Lower abdominal pain, unspecified ER Course 37-year-old female presents to the emergency department complaining of 9 out of 10 in severity abdominal pain 2 days. Patient denies abdominal tenderness she states her last bowel movement was on Sunday (3 days ago). Patient denies taking medications within the past few weeks. She denies fevers or chills. Denies , diarrhea or vomiting. Patient reports she has some mild nausea. Denies hematuria, dysuria, urinary frequency or urgency. Pt. had gallbladder surgically removed this past Sep. Denies blood in the stool or dark tarry stools. Ddx considered but are not limited to Diverticulitis, acute appy, diarrhea,UC, PUD, GE, pancreatitis, constipation, opiate dependence, somatic pain. Vital signs: are WNL, pt. is afebrile H&PE are most consistent with strain associated with constipation ORDERS: -CBC, CMP, lipase, UA-- Unremarkable -Hcg: Negative -KUB: unremarkable other than stool. ED INTERVENTIONS: - Tylenol PO -Lactulose PO DISCHARGE: At this time pt. is stable for d/c to home. Will provide printed patient care instructions, and any necessary prescriptions. Care plan and follow up instructions have been discussed with the patient prior to discharge. Labs Test 09/09/18 17:25 White Blood Count 8.9 K/UL (4.8-10.8) Red Blood Count 3.79 M/UL (4.20-5.40) Hemoglobin 12.1 G/DL (12.0-16.0) Hematocrit 35.8 % (37.0-47.0) Mean Corpuscular Volume 94 FL (80-99) Mean Corpuscular Hemoglobin 31.9 PG (27.0-31.0) Mean Corpuscular Hemoglobin Concent 33.9 G/DL (32.0-36.0) Red Cell Distribution Width 11.5 % (11.6-14.8) Platelet Count 219 K/UL (150-450) Mean Platelet Volume 6.8 FL (6.5-10.1) Neutrophils (%) (Auto) 45.2 % (45.0-75.0) Lymphocytes (%) (Auto) 45.1 % (20.0-45.0) Monocytes (%) (Auto) 7.2 % (1.0-10.0) Eosinophils (%) (Auto) 0.9 % (0.0-3.0) Basophils (%) (Auto) 1.5 % (0.0-2.0) Urine Color Pale yellow Urine Appearance Clear Urine pH 6 (4.5-8.0) Urine Specific [place] 1.010 (1.005-1.035) Urine Protein Negative (NEGATIVE) Urine Glucose (UA) Negative (NEGATIVE) Urine Ketones Negative (NEGATIVE) Urine Blood Negative (NEGATIVE) Urine Nitrite Negative (NEGATIVE) Urine Bilirubin Negative (NEGATIVE) Urine Urobilinogen Normal MG/DL (0.0-1.0) Urine Leukocyte Esterase Negative (NEGATIVE) Urine HCG, Qualitative Negative (NEGATIVE) Sodium Level 141 MMOL/L (136-145) Potassium Level 3.6 MMOL/L (3.5-5.1) Chloride Level 105 MMOL/L (98-107) Carbon Dioxide Level 26 MMOL/L (21-32) Anion Gap 10 mmol/L (5-15) Blood Urea Nitrogen 9 mg/dL (7-18) Creatinine 0.7 MG/DL (0.55-1.30) Estimat Glomerular Filtration Rate > 60 mL/min (>60) Glucose Level 81 MG/DL (74-106) Calcium Level 9.1 MG/DL (8.5-10.1) Total Bilirubin 0.6 MG/DL (0.2-1.0) Aspartate Amino Transf (AST/SGOT) 18 U/L (15-37) Alanine Aminotransferase (ALT/SGPT) 20 U/L (12-78) Alkaline Phosphatase 54 U/L (46-116) Total Protein 7.2 G/DL (6.4-8.2) Albumin 3.9 G/DL (3.4-5.0) Globulin 3.3 g/dL Albumin/Globulin Ratio 1.2 (1.0-2.7) Other X-Ray Diagnostic Results Other X-Ray Diagnostic Results : X-Ray ordered: KUB # of Views/Limited Vs Complete: 1 View Indication: Pain EP Interpretation: Yes PA Xray: Interpretation reviewed, by supervising MD, and agrees with findings. Interpretation: no dislocation, no soft tissue swelling, nonspecific bowel gas, no sbo, other - unremarkable other than stool. Impression: No acute disease Electronically Signed by: Nilda Douglass PA-C Last Vital Signs Date Time Temp Pulse Resp B/P (MAP) Pulse Ox O2 Delivery O2 Flow Rate FiO2 09/09/18 17:43 77 20 Room Air 98 09/09/18 17:43 98.4 111/65 98 Disposition: HOME, SELF-CARE Condition: Stable Scripts Docusate Sodium* (COLACE*) 100 Mg Capsule 100 MG ORAL THREE TIMES A DAY, #30 CAP Prov: Nilda Douglass 09/09/18 Lactulose (LACTULOSE*) 20 Gm/30 Ml Solution 30 ML ORAL BID, #360 ML 0 Refills Prov: Nilda Douglass 09/09/18 Patient Instructions: Abdominal Pain, Adult, Constipation, Adult, [id number] Additional Instructions: Take medications as directed. Follow up with a Primary Care Provider in 3-5 days, even if your symptoms have resolved. --Please review list of primary care clinics, if you do not already have a primary care provider Return sooner to ED if new symptoms occur, or current symptoms become worse. - Please note that this Emergency Department Report was dictated using [employer]pr[employer] keeper technology software, occasionally this can lead to erroneous entry secondary to interpretation by the dictation equipment. Nilda Douglass Sep 09, 2018 19:30
[2018-09-09] MEDS ORDERED: COLACE100 MG ORAL (19:59)
[2018-09-09] MEDS ORDERED: LACTULOSE20 GM/301 ORAL (19:59)
[2018-09-09 20:45] VITALS: BP 113/62
--- NOTE | 2018-09-10 11:04 | Diagnostic Imaging Report ---
Indication: Abdominal pain Comparison: 07/27/2017 Single view of the abdomen obtained Findings: Bowel gas pattern is nonspecific. Cholecystectomy clips are noted. No mass, ectopic calcifications, or abnormal gas collections are identified. The bones are unremarkable. Impression: No acute findings
== END 2018-09-09 20:50 | disposition home or self-care (01) ==
LOC: EMR 20:50
DX: R10.9 Unspecified abdominal pain (principal); Z90.49 Acquired absence of other specified parts of digestive tract
CPT/HCPCS: 36415; 74018; 80053; 81003; 81025; 85025; 99283

== ENCOUNTER 2018-11-25 15:44 | Emergency (ER) | payer MEDICAID ==
[~2018-11-25] VITALS: Ht 152.4 cm; Wt 56.2 kg
[~2018-11-25 15:44] MED LIST changes: +LACTULOSE20 GM/301 ORAL
[2018-11-25] MEDS ORDERED: Mylanta II UD 30ml ORAL ONE (16:00)
[2018-11-25] MEDS ORDERED: Lidocaine 2% Visc 15ml soln ORAL ONE (16:00)
[2018-11-25 16:05] VITALS: BP 99/75
--- NOTE | 2018-11-25 16:05 | NUR ---
ED Nurse Note: pt walked in to ED due to epigastric cp that started last Sat. no n/v/d. skin warm to touch. no open wound. on truck service manager. AAO x4. respirations even and non-labord noted. ambulatory with steady gait. will wait for the further order.
[2018-11-25 16:23] LABS: APPEARANCE,URINE CLEAR; BILIRUBIN, URINE NEGATIVE (NEGATIVE); GLUCOSE, URINE (UA) NEGATIVE (NEGATIVE); KETONES,URINE NEGATIVE (NEGATIVE); LEUKOCYTE ESTERASE ,URINE NEGATIVE (NEGATIVE); NITRITE,URINE NEGATIVE (NEGATIVE); PH,URINE 8 (4.5-8.0); PROTEIN,URINE NEGATIVE (NEGATIVE); UROBILINOGEN,URINE NORMAL MG/DL (0.0-1.0)
[2018-11-25 16:26] LABS: COLOR,URINE YELLOW
[2018-11-25 16:29] LABS: BASOPHILS % (AUTO) 1.3 % (0.0-2.0); EOSINOPHILS % (AUTO) 1.4 % (0.0-3.0); HEMATOCRIT 34.3 % (37.0-47.0); LYMPHOCYTES % (AUTO) 35.6 % (20.0-45.0); MEAN CORPUSCULAR VOLUME 92 FL (80-99); MONOCYTES % (AUTO) 7.8 % (1.0-10.0); NEUTROPHILS % (AUTO) 53.8 % (45.0-75.0); PLATELET COUNT 214 K/UL (150-450); RED BLOOD COUNT 3.73 M/UL (4.20-5.40); RED CELL DISTRIBUTION WIDTH 10.5 % (11.6-14.8); WHITE BLOOD COUNT 8.7 K/UL (4.8-10.8)
[2018-11-25 16:34] LABS: ANION GAP 9 mmol/L (5-15); BLOOD UREA NITROGEN 12 mg/dL (7-18); CALCIUM 9.1 MG/DL (8.5-10.1); CARBON DIOXIDE 28 MMOL/L (21-32); CHLORIDE 104 MMOL/L (98-107); CREATININE 0.9 MG/DL (0.55-1.30); POTASSIUM 3.8 MMOL/L (3.5-5.1); SODIUM 141 MMOL/L (136-145)
[2018-11-25 16:38] LABS: ALANINE AMINOTRANSFERASE 22 U/L (12-78); ALBUMIN 3.6 G/DL (3.4-5.0); ALBUMIN/GLOBULIN RATIO 1.1 (1.0-2.7); ALKALINE PHOSPHATASE 47 U/L (46-116); ASPARTATE AMINO TRANSFERASE 15 U/L (15-37); BILIRUBIN,TOTAL 0.5 MG/DL (0.2-1.0)
[2018-11-25] MEDS ORDERED: Tylenol #3 tab (300mg/30mg) ORAL ONE (16:45)
--- NOTE | 2018-11-25 16:53 | Emergency Room Report ---
History of Present Illness General Chief Complaint: Chest Pain Source: Patient Present Illness HPI This patient complains of chest pain and abdominal pain. She states the pain started Sunday night. She states the pain comes and goes. She also complains of a rash on her left mid back. She states that area lira. She has had nausea. She denies vomiting. She denies fever or chills. She denies shortness of breath. She denies cough or congestion. She denies recent illness. She has no other complaints. Allergies: Coded Allergies: KETOROLAC (Verified Allergy, Unknown, 09/09/18) PROCHLORPERAZINE (Verified Allergy, Unknown, 09/09/18) PROCHLORPERAZINE EDISYLATE (Verified Adverse Reaction, Severe, Anaphylaxis , 09/09/18) Tremors PROCHLORPERAZINE MALEATE (Verified Adverse Reaction, Severe, Anaphylaxis, 09/09/18) Tremors Patient History Past Medical History: none, see triage record, migraines Social History: Reports: alcohol use - social; Denies: smoking, drug use Reviewed Nursing Documentation: PMH: Agreed; PSxH: Agreed Nursing Documentation-PMH Hx Cardiac Problems: No Hx Cancer: No - kidney stone Hx Gastrointestinal Problems: Yes - Laparoscopic Cholecystectomy Hx Neurological Problems: No - MIGRAINE Review of Systems All Other Systems: negative except mentioned in HPI Physical Exam Vital Signs Date Time Temp Pulse Resp B/P (MAP) Pulse Ox O2 Delivery O2 Flow Rate FiO2 11/25/18 15:50 98.8 70 19 101/63 98 Room Air Sp02 EP Interpretation: reviewed, normal General Appearance: no apparent distress, alert, GCS 15, non-toxic Head: normocephalic, atraumatic Eyes: bilateral eye normal inspection, bilateral eye PERRL ENT: hearing grossly normal, normal pharynx, no angioedema, normal voice Neck: full range of motion, supple/symm/no masses Respiratory: chest non-tender, lungs clear, normal breath sounds, no respiratory distress, no retraction, no accessory muscle use, speaking full sentences Cardiovascular #1: regular rate, rhythm, no edema Gastrointestinal: normal bowel sounds, soft, non-distended, no guarding, no rebound, tenderness - TTP in the RUQ Rectal: deferred Genitourinary: normal inspection, no CVA tenderness Musculoskeletal: back normal, gait/station normal, normal range of motion, non- tender, calf tenderness Neurologic: alert, oriented x3, responsive, motor strength/tone normal, sensory intact, speech normal Psychiatric: judgement/insight normal, memory normal, mood/affect normal, no suicidal/homicidal ideation Skin: normal color, no rash, warm/dry, well hydrated Medical Decision Making Diagnostic Impression: Primary Impression: Shingles ER Course This patient has nonspecific chest pain and RUQ abdominal pain. Given the length of symptoms, this workup is very reassuring with negative cardiac enzymes , normal CBC, LFTs, BMP, normal EKG, and normal chest x-ray. The patient is low risk and her symptoms are atypical for acute coronary syndrome. I have very low suspicion for PE, aortic dissection or pneumothorax based on history/ physical, laboratory and radiologic workup. This patient has a history of recurrent and chronic pain. She presents to the emergency department regularly and request narcotics. I suspect narcotic seeking. The patient was found to have an area on her left upper back consistent with a regional herpes zoster. This is not disseminated and a small area. The patient does not have a history of immunocompromise. At this time, I did not identify an emergency medical condition. The patient was given close return precautions and followup instructions. Laboratory Tests Test 11/25/18 16:00 White Blood Count 8.7 K/UL (4.8-10.8) Red Blood Count 3.73 M/UL (4.20-5.40) L Hemoglobin 12.0 G/DL (12.0-16.0) Hematocrit 34.3 % (37.0-47.0) L Mean Corpuscular Volume 92 FL (80-99) Mean Corpuscular Hemoglobin 32.1 PG (27.0-31.0) H Mean Corpuscular Hemoglobin Concent 35.0 G/DL (32.0-36.0) Red Cell Distribution Width 10.5 % (11.6-14.8) L Platelet Count 214 K/UL (150-450) Mean Platelet Volume 7.7 FL (6.5-10.1) Neutrophils (%) (Auto) 53.8 % (45.0-75.0) Lymphocytes (%) (Auto) 35.6 % (20.0-45.0) Monocytes (%) (Auto) 7.8 % (1.0-10.0) Eosinophils (%) (Auto) 1.4 % (0.0-3.0) Basophils (%) (Auto) 1.3 % (0.0-2.0) Urine Color Yellow Urine Appearance Clear Urine pH 8 (4.5-8.0) Urine Specific [place] 1.015 (1.005-1.035) Urine Protein Negative (NEGATIVE) Urine Glucose (UA) Negative (NEGATIVE) Urine Ketones Negative (NEGATIVE) Urine Blood 1+ (NEGATIVE) H Urine Nitrite Negative (NEGATIVE) Urine Bilirubin Negative (NEGATIVE) Urine Urobilinogen Normal MG/DL (0.0-1.0) Urine Leukocyte Esterase Negative (NEGATIVE) Urine RBC 2-4 /HPF (0 - 2) H Urine WBC 0-2 /HPF (0 - 2) Urine Squamous Epithelial Cells Few /LPF (NONE/OCC) Urine Bacteria Few /HPF (NONE) Urine HCG, Qualitative Negative (NEGATIVE) Sodium Level 141 MMOL/L (136-145) Potassium Level 3.8 MMOL/L (3.5-5.1) Chloride Level 104 MMOL/L (98-107) Carbon Dioxide Level 28 MMOL/L (21-32) Anion Gap 9 mmol/L (5-15) Blood Urea Nitrogen 12 mg/dL (7-18) Creatinine 0.9 MG/DL (0.55-1.30) Estimate Glomerular Filtration Rate > 60 mL/min (>60) Glucose Level 97 MG/DL (74-106) Calcium Level 9.1 MG/DL (8.5-10.1) Total Bilirubin 0.5 MG/DL (0.2-1.0) Aspartate Amino Transferase (AST) 15 U/L (15-37) Alanine Aminotransferase (ALT) 22 U/L (12-78) Alkaline Phosphatase 47 U/L (46-116) Troponin I 0.000 ng/mL (0.000-0.056) Total Protein 6.9 G/DL (6.4-8.2) Albumin 3.6 G/DL (3.4-5.0) Globulin 3.3 g/dL Albumin/Globulin Ratio 1.1 (1.0-2.7) Lipase 162 U/L (73-393) Urine Opiates Screen Negative (NEGATIVE) Urine Barbiturates Screen Negative (NEGATIVE) Phencyclidine (PCP) Screen Negative (NEGATIVE) Urine Amphetamines Screen Negative (NEGATIVE) Urine Benzodiazepines Screen Negative (NEGATIVE) Urine Cocaine Screen Negative (NEGATIVE) Urine Marijuana (THC) Screen Negative (NEGATIVE) EKG Diagnostic Results Rate: normal Rhythm: NSR ST Segments: no acute changes Rhythm Strip Diag. Results EP Interpretation: yes Rate: 60's Rhythm: NSR, no PVC's, no ectopy Chest X-Ray Diagnostic Results Chest X-Ray Diagnostic Results : Chest X-Ray Ordered: Yes # of Views/Limited/Complete: 1 View Indication: Chest Pain EP Interpretation: Yes Interpretation: no consolidation, no effusion, no pneumothorax, no acute cardiopulmonary disease Impression: No acute disease Electronically Signed by: Anna Marie Gutiérrez DO CT/MRI/US Diagnostic Results CT/MRI/US Diagnostic Results : Imaging Test Ordered: US RUQ Impression No acute findings. See official report in electronic medical record. Last Vital Signs Date Time Temp Pulse Resp B/P (MAP) Pulse Ox O2 Delivery O2 Flow Rate FiO2 11/25/18 16:05 61 20 99/75 100 Room Air 11/25/18 15:50 98.8 Status: improved Disposition: HOME, SELF-CARE Condition: Improved Scripts Acyclovir* (ACYCLOVIR*) 400 Mg Tablet 400 MG ORAL FIVE TIMES A DAY, #35 TAB Prov: Anna Marie Gutiérrez DO 11/25/18 Acetaminophen With Codeine (T#3) (TYLENOL #3 TAB*) Y Tab 1 TAB ORAL Q8H PRN for For Pain, #10 TAB Prov: Anna Marie Gutiérrez DO 11/25/18 Referrals: NON PHYSICIAN (PCP) Anna Marie Gutiérrez DO Nov 25, 2018 16:53
[2018-11-25] MEDS ORDERED: ACYCLOVIR400 MG ORAL (16:57)
[2018-11-25] MEDS ORDERED: ACETAMINOPHEN-1 EAC1 ORAL (16:57)
--- NOTE | 2018-11-25 17:26 | NUR ---
ED Nurse Note: US tech at the bed side.
--- NOTE | 2018-11-25 17:44 | NUR ---
ED Nurse Note: pt c/o pressure, 10/10, pain on abdomen. RN notified to Dr. Gutiérrez. will wait for the further order.
[2018-11-25] MEDS ORDERED: Capsaicin 0.075% Cream TOPIC ONE (18:00)
[2018-11-25 18:08] VITALS: BP 107/63
--- NOTE | 2018-11-25 18:09 | NUR ---
ER DISCHARGE NOTE: Patient is cleared to be discharged per ERMD, pt is aox4, on room air, with stable vital signs. pt was given dc and prescription instructions, pt was able to verbalize understanding, pt id band and iv site removed without complications. pt is able to ambulate with steady gait. pt took all belongings.
--- NOTE | 2018-11-26 10:11 | Diagnostic Imaging Report ---
Indication: Right upper quadrant pain Technique: Steinberg-scale and duplex images of the upper abdomen were obtained. Doppler interrogation of the hepatic and pancreatic vessels Comparison: 06/26/2018 Findings: Gallbladder is surgically absent. Sonographic Jordan's sign is negative. Common bile duct measures 2 mm in diameter. No intrahepatic biliary ductal dilatation. Liver demonstrates normal echogenicity, no focal abnormality. Portal vein and hepatic veins are patent. Pancreas is unremarkable. Spleen is unremarkable. Left kidney measures 11.7 cm in length. Right kidney measures 11.1 cm length. Both kidneys demonstrate normal echogenicity. There is no hydronephrosis. No focal abnormality . Non-aneurysmal abdominal aorta . No significant interim change Impression: Status post cholecystectomy Negative for dilated bile ducts or other significant abnormality
--- NOTE | 2018-11-26 10:13 | Diagnostic Imaging Report ---
Indication: Chest pain Technique: One view of the chest Comparison: 12/23/2017 Findings: Lungs and pleural spaces are clear. Heart size is normal. No significant interim change Impression: No acute process
--- NOTE | 2018-11-26 18:26 | Cardiology Report ---
APPROVED REPORT EKG Measurement Heart [id number] Normal sinus rhythm Normal ECG
== END 2018-11-25 18:14 | disposition home or self-care (01) ==
LOC: EMR 16:20
DX: B02.9 Zoster without complications (principal); R07.89 Other chest pain; R10.11 Right upper quadrant pain; Z90.49 Acquired absence of other specified parts of digestive tract
CPT/HCPCS: 36415; 71045; 76700; 80053; 80307; 81003; 81025; 83690; 84484; 85025; 93005; 96361; 96374; 99284; S0028

== ENCOUNTER 2018-11-30 17:01 | Emergency (ER) | payer MEDICAID ==
[~2018-11-30] VITALS: Ht 152.4 cm; Wt 55.3 kg
[~2018-11-30 17:01] MED LIST changes: +ACYCLOVIR400 MG ORAL
[2018-11-30 17:10] VITALS: BP 106/70
--- NOTE | 2018-11-30 17:20 | NUR ---
ED Nurse Note: Pt from home came in due to generalized body rashes since sunday. per pt, she was treated with acyclovir for her rash on her back and was seen here 11/25/18. Pt is AAO x,4 noted redness on her body with bigger rashes on her bacvk.
[2018-11-30] MEDS ORDERED: DiphenhydrAMINE 25mg/10ml Elixir ORAL ONE (17:30)
[2018-11-30] MEDS ORDERED: ATARAX25 MG ORAL (17:31)
[2018-11-30] MEDS ORDERED: NORCO 5-325 TA1 EACH ORAL (17:31)
--- NOTE | 2018-11-30 17:33 | Emergency Room Report ---
History of Present Illness General Chief Complaint: Skin Rash/Abscess Present Illness HPI Patient is a 38-year-old female presented after increased skin rash. Patient had recent diagnosis of shingles and was given prescription for Tylenol with codeine as well as acyclovir. Patient reports of increased generalized itchiness as well as continued pain to the shingles lesions. She reports having been compliant with her acyclovir as well as her medications for pain. She denies any fever. She reports having generalized itchiness throughout her whole body. She reports having some increased nausea as well. Allergies: Coded Allergies: KETOROLAC (Verified Allergy, Unknown, 09/09/18) PROCHLORPERAZINE (Verified Allergy, Unknown, 09/09/18) PROCHLORPERAZINE EDISYLATE (Verified Adverse Reaction, Severe, Anaphylaxis , 09/09/18) Tremors PROCHLORPERAZINE MALEATE (Verified Adverse Reaction, Severe, Anaphylaxis, 09/09/18) Tremors Patient History Past Medical History: see triage record Last Menstrual Period: 10/2018 Now: No : 4 Para: 4 Reviewed Nursing Documentation: PMH: Agreed; PSxH: Agreed Nursing Documentation-PMH Hx Cardiac Problems: No Hx Cancer: No - kidney stone Hx Gastrointestinal Problems: Yes - Laparoscopic Cholecystectomy Hx Neurological Problems: No - MIGRAINE Review of Systems All Other Systems: negative except mentioned in HPI Physical Exam Vital Signs Date Time Temp Pulse Resp B/P (MAP) Pulse Ox O2 Delivery O2 Flow Rate FiO2 11/30/18 17:10 98.2 98 18 106/70 100 Room Air General Appearance: well appearing, no apparent distress, alert, GCS 15 Head: normocephalic, atraumatic ENT: hearing grossly normal, normal voice Neck: full range of motion, supple Respiratory: no respiratory distress, speaking full sentences Gastrointestinal: normal inspection Musculoskeletal: normal inspection, no calf tenderness Neurologic: normal inspection, alert, oriented x3, responsive, keno writer III-XII nml as tested, normal gait Psychiatric: mood/affect normal Skin: other - patchy vesicular rash to mid back, generalized excoriation without urticaria. Medical Decision Making Diagnostic Impression: Primary Impression: Skin rash Additional Impression: Shingles ER Course . Patient presented for skin rash. Differential diagnosis include was not limited to abscess, allergic reaction, opiate withdrawal, among others. Patient has a benign exam and does not appear to require any further imaging or laboratory testing at this time. Patient appears to have a generalized itching to codeine. Patient will be switched to [place]. Patient was given Atarax for itching. She is advised to follow-up with primary care physician for recheck. Last Vital Signs Date Time Temp Pulse Resp B/P (MAP) Pulse Ox O2 Delivery O2 Flow Rate FiO2 11/30/18 17:10 98.2 98 18 106/70 100 Room Air Status: improved Disposition: HOME, SELF-CARE Condition: Stable Scripts Hydrocodone Bit/Acetaminophen 5-325* (NORCO 5-325*) 1 Each Tablet 1 TAB ORAL Q4H PRN for For Pain, #30 TAB 0 Refills Prov: Morales Puri MD 11/30/18 Hydroxyzine HCl (Hydroxyzine HCl) 25 Mg Tablet 25 MG ORAL FOUR TIMES A DAY, #30 TAB Prov: Morales Puri MD 11/30/18 Patient Instructions: Morales Mcknight MD Nov 30, 2018 17:33
--- NOTE | 2018-11-30 17:48 | NUR ---
ED Nurse Note: pt cleared to be d/c per ERMD, pt dc and aftercare instruction provided w/ prescription, pt education done via discussion and handout, pt advised to follow up with pcp or return to ed if sx worsen or new sx develop, pt verbalized understanding and agrees with plan, vss, ambulatory w/ steady gait, accompanied by . id band removed.
[2018-11-30 17:49] VITALS: BP 106/70
== END 2018-11-30 17:49 | disposition home or self-care (01) ==
LOC: EMR 17:49
DX: B02.9 Zoster without complications (principal); Z88.8 Allergy status to other drugs, medicaments and biological substances
CPT/HCPCS: 99282

== ENCOUNTER 2018-12-13 17:42 | Emergency (ER) | payer MEDICAID ==
[~2018-12-13] VITALS: Ht 157.5 cm; Wt 56.2 kg
[~2018-12-13 17:42] MED LIST changes: +ATARAX25 MG ORAL
--- NOTE | 2018-12-13 17:56 | NUR ---
ED Nurse Note: pt walked in c/o lower abd pain radiating to low back and left thigh pain and headache started last night. pt AA&ox4, gcs=15, skin warm and dry, resp even and unlabored on RA, no active n/v/d at this time, abd soft nontender, will cont monitor.
[2018-12-13 17:57] VITALS: BP 99/65
[2018-12-13 18:30] VITALS: BP 99/65
--- NOTE | 2018-12-13 18:30 | NUR ---
ED Nurse Note: pt cleared to be d/c per ER provider, pt refused to take discharge paperwork and prescription and left without signing paperwork, ER provider notified. pt vss. resp even and unlabored on RA, no sx distress.
[2018-12-13] MEDS ORDERED: LIDODERM700 M1 TOPIC (18:40)
[2018-12-13] MEDS ORDERED: ROBAXIN-750750 MG PO (18:40)
--- NOTE | 2018-12-13 18:41 | Emergency Room Report ---
History of Present Illness General Chief Complaint: Abdominal Pain Source: Patient Present Illness HPI 38-year-old female presents with lower back pain that is chronic. She is a frequent flyer here in the ER and is requesting pain medication. She states that she looks to Toradol. She states that she has pain in her lower back that radiates down her left leg and that she normally takes narcotic medications for these. She denies any saddle anesthesia, incontinence, foot drop, urinary symptoms, abdominal pain or fever. Allergies: Coded Allergies: KETOROLAC (Verified Allergy, Unknown, 09/09/18) PROCHLORPERAZINE (Verified Allergy, Unknown, 09/09/18) PROCHLORPERAZINE EDISYLATE (Verified Adverse Reaction, Severe, Anaphylaxis , 09/09/18) Tremors PROCHLORPERAZINE MALEATE (Verified Adverse Reaction, Severe, Anaphylaxis, 09/09/18) Tremors Patient History Past Medical History: see triage record Last Menstrual Period: 12/08/2018 Reviewed Nursing Documentation: PMH: Agreed; PSxH: Agreed Nursing Documentation-PMH Past Medical History: No History, Except For Hx Cardiac Problems: No Hx Cancer: No - kidney stone Hx Gastrointestinal Problems: Yes - Laparoscopic Cholecystectomy Hx Neurological Problems: No - MIGRAINE Review of Systems All Other Systems: negative except mentioned in HPI Physical Exam Vital Signs Date Time Temp Pulse Resp B/P (MAP) Pulse Ox O2 Delivery O2 Flow Rate FiO2 12/13/18 17:47 98.8 72 16 99/65 97 Room Air Sp02 EP Interpretation: reviewed, normal General Appearance: no apparent distress, alert, GCS 15, non-toxic Head: normocephalic, atraumatic Eyes: bilateral eye normal inspection, bilateral eye PERRL ENT: hearing grossly normal, normal pharynx, no angioedema, normal voice Neck: normal inspection Respiratory: no respiratory distress Cardiovascular #1: normal capillary refill Musculoskeletal: gait/station normal, normal range of motion Neurologic: alert, oriented x3, responsive, motor strength/tone normal, sensory intact, speech normal Psychiatric: judgement/insight normal, memory normal, mood/affect normal, no suicidal/homicidal ideation Skin: normal color, no rash, warm/dry, well hydrated Medical Decision Making PA Attestation Dr. Gant is my supervising physician with whom patient management has been discussed with. Diagnostic Impression: Primary Impression: Chronic sciatica of left side ER Course Pt. presents to the ED c/o low back pain. Patient is a known frequent flyer here in the ER requesting for narcotics. Her cures report is positive for aberrant behavior and has had multiple prescriptions written by several different providers over the past 6 months. Ddx considered but are not limited to fracture, contusion, cauda aquina syndrome , UTI, Kidney stone sprain, strain, spinal fracture Vital signs: are stable pt. is afebrile H&PE are most consistent with chronic left sciatica ORDERS: none required at this time, the diagnosis is clinical. Patient has no incontinence, saddle anesthesia, or foot drop. Patient has no significant mechanism of injury. ED INTERVENTIONS: Patient is allergic to NSAIDs and her cures report shows aberrant behavior so narcotics were withheld. She is ambulating w/o difficulty and shows no significant limitations for her self reported sciatica. DISCHARGE: At this time pt. is stable for d/c to home. Will provide printed patient care instructions, and any necessary prescriptions. Care plan and follow up instructions have been discussed with the patient prior to discharge. Last Vital Signs Date Time Temp Pulse Resp B/P (MAP) Pulse Ox O2 Delivery O2 Flow Rate FiO2 12/13/18 17:57 72 16 Room Air 12/13/18 17:57 98.8 99/65 97 Disposition: HOME, SELF-CARE Condition: Stable Scripts Methocarbamol* (ROBAXIN-750*) 750 Mg Tablet 750 MG PO TID, #30 TAB 0 Refills Prov: Gilles Platt 12/13/18 Lidocaine (Lidoderm) 1 Each Adh..patch 1 PATCH TOPIC Q12HR, #7 PATCH 0 Refills Patch(es) may remain in place for up to 12 hours in any 24-hour period. Prov: Gilles Platt 12/13/18 Patient Instructions: Sciatica With [facility]hab[facility] Additional Instructions: Advised patient to take needed. Advised patient that muscle relaxers causes drowsiness and to not take it if they plan on leaving the house or operating heavy machinery. Patient education on Alejandro method back exercises for radiculopathy and given hand out with stretches detailed. Advised patient to sleep with pillow behind leg if laying supine or between the knees if laying on their side. Advised patient to wear proper footwear with good insoles in addition to good ergonomics while at home and at work. Patient encouraged for weight loss through diet and exercise to help prevent recurrence of future back pain. Advised patient to go to the ER immediately if she experiences any new LE numbness, weakness, irretractible back pain, or if any paralysis, urinary, or bowel incontinence begins. Gilles Platt Dec 13, 2018 18:41
== END 2018-12-13 18:30 | disposition home or self-care (01) ==
LOC: EMR 18:30
DX: M54.42 Lumbago with sciatica, left side (principal); Z88.8 Allergy status to other drugs, medicaments and biological substances; Z90.49 Acquired absence of other specified parts of digestive tract
CPT/HCPCS: 99281

== ENCOUNTER 2019-02-05 19:25 | Emergency (ER) | payer MEDICAID ==
[~2019-02-05] VITALS: Ht 152.4 cm; Wt 56.7 kg
[~2019-02-05 19:25] MED LIST changes: +LIDODERM700 M1 TOPIC; +ROBAXIN-750750 MG PO
[2019-02-05 20:02] VITALS: BP 110/67
[2019-02-05] MEDS ORDERED: Naproxen 500mg tab ORAL ONE (20:30)
[2019-02-05] MEDS ORDERED: Bacitracin Oint UD TOPIC ONE (20:30)
[2019-02-05] MEDS ORDERED: Bactrim-DS 1 tab ORAL ONE (20:30)
--- NOTE | 2019-02-05 21:13 | Emergency Room Report ---
History of Present Illness General Chief Complaint: Skin Rash/Abscess Source: Patient Present Illness HPI Presents with 2 problems. One is that she has a bump in her right axillary area. It is painful and freely mobile. She is worried about possibility of cancer. She denies fevers or chills. No chest pain, cough or breast pain. No nipple discharge. She is never had mammogram. She rates the pain 10/10, aching and nonradiating. However she does have pain in the right arm. In addition she is been seen in the past for pain in her wrist on the right- hand side. She's been seen and her doctors have told her that she has carpal tunnel. She is considering whether this might be related. In addition she is wondering if x-rays might be helpful to determine what the problem is. She's been given the diagnosis here of right elbow tendinitis in the past. Elbow x- ray in the past was normal. She has tolerated taking Naprosyn in the past with some help. There has been no splinting of the wrist. In November she was treated for shingles. This was on her Left upper back. She denies pain there. She has chronic abdominal pain and has multiple presentations for this. She has had multiple studies which have only revealed post cholecystectomy. In the past we also diagnosed right sided renal colic. She has chronic sciatica of the left leg. Last menstrual period was normal for her on February 03. No dysuria. In the past, opiate dependence has been considered. She is currently not taking any opiates. Allergies: Coded Allergies: KETOROLAC (Verified Allergy, Unknown, 09/09/18) PROCHLORPERAZINE (Verified Allergy, Unknown, 09/09/18) PROCHLORPERAZINE EDISYLATE (Verified Adverse Reaction, Severe, Anaphylaxis , 09/09/18) Tremors PROCHLORPERAZINE MALEATE (Verified Adverse Reaction, Severe, Anaphylaxis, 09/09/18) Tremors Patient History Past Medical History: see triage record Past Surgical History: kiara Social History: Reports: smoking Social History Narrative Last Menstrual Period: Feb 03 2019 Now: No Reviewed Nursing Documentation: PMH: Agreed; PSxH: Agreed Nursing Documentation-PMH Hx Cardiac Problems: No Hx Cancer: No - kidney stone Hx Gastrointestinal Problems: Yes - Laparoscopic Cholecystectomy Hx Neurological Problems: No - MIGRAINE Review of Systems All Other Systems: negative except mentioned in HPI Physical Exam Vital Signs Date Time Temp Pulse Resp B/P (MAP) Pulse Ox O2 Delivery O2 Flow Rate FiO2 02/05/19 19:48 98.2 70 18 110/67 (81) 97 Room Air Sp02 EP Interpretation: reviewed, normal General Appearance: well appearing, no apparent distress, GCS 15, non-toxic Head: normocephalic, atraumatic Eyes: bilateral eye normal inspection, bilateral eye PERRL ENT: hearing grossly normal, normal voice, moist mucus membranes Neck: full range of motion, supple Respiratory: chest non-tender, lungs clear, normal breath sounds, no respiratory distress, speaking full sentences Cardiovascular #1: regular rate, rhythm Cardiovascular #2: 2+ radial (R) Gastrointestinal: normal inspection, non tender Genitourinary: no CVA tenderness Musculoskeletal: digits/nails normal, normal range of motion, other - Tenderness of right wrist and ulnar gutter however several other wrist tendons are tender to palpation however range of motion is full without deformity or swelling. Neurologic: alert, oriented x3, normal gait, grossly normal Psychiatric: mood/affect normal Skin: other - tender nodule in Right axilla without fluctuance Medical Decision Making Diagnostic Impression: Primary Impression: Cellulitis of axilla, right Additional Impression: Tendonitis ER Course Patient presents with 2 problems. One is bump in the right axilla. The second is pain in her wrist and elbow on the right-hand side. Differential includes cellulitis, abscess, lymphadenitis amongst others in addition the wrist could be carpal tunnel, tendinitis, sprain, ulnar tunnel syndrome amongst others. Clinically this appears more like an infected hair follicle and antibiotics are indicated topically and orally. In addition to that the wrist I will respond to splinting and also anti-inflammatory medication. Patient's tetanus is up-to- date. No labs or imaging indicated. Patient advised that she needs to get a mammogram done. Also treatment plan discussed with the patient. A splint was applied by the java technical manager. Initial splint not Velcro. Position was excellent and neurovascular is normal as checked by me. Velcro splint was applied however the patient was discharged before I was able to check this splint. Patient stable for outpatient observation and treatment. Last Vital Signs Date Time Temp Pulse Resp B/P (MAP) Pulse Ox O2 Delivery O2 Flow Rate FiO2 6/12/19 21:24 98.2 72 18 112/64 97 Room Air Status: improved Disposition: HOME, SELF-CARE Condition: Improved Scripts Tramadol Hcl* (ULTRAM*) 50 Mg Tablet 50 MG ORAL Q6H PRN for For Pain, #10 TAB 0 Refills Prov: Patrick Soto MD 02/05/19 Naproxen* (NAPROXEN*) 375 Mg Tablet.dr 375 MG ORAL TID, #20 TAB Prov: Patrick Soto MD 02/05/19 Bacitracin (Bacitracin) 28.4 Gm Oint...g. 1 APPLIC TOPIC BID, #20 GM Prov: Patrick Soto MD 02/05/19 Trimethoprim/Sulfamethoxazole 160/800* (BACTRIM DS TABLET*) 1 Each Tablet 1 TAB ORAL Q12H, #14 TAB 0 Refills Prov: Patrick Soto MD 02/05/19 Patrick Soto MD Feb 05, 2019 21:13
[2019-02-05] MEDS ORDERED: TRAMADOL HCL50 MG ORAL (21:17)
[2019-02-05] MEDS ORDERED: BACITRACIN15 GM TOPIC (21:17)
[2019-02-05] MEDS ORDERED: NAPROXEN375 M2 ORAL (21:17)
[2019-02-05] MEDS ORDERED: BACTRIM DS TAB1 EAC1 ORAL (21:17)
[2019-02-05 21:24] VITALS: BP 112/64
== END 2019-02-05 21:24 | disposition home or self-care (01) ==
LOC: EMR 20:30
DX: L03.111 Cellulitis of right axilla (principal); M77.9 Enthesopathy, unspecified; Z90.49 Acquired absence of other specified parts of digestive tract; F17.200 Nicotine dependence, unspecified, uncomplicated; Z88.8 Allergy status to other drugs, medicaments and biological substances
CPT/HCPCS: 29125; 99283

== ENCOUNTER 2019-03-07 21:39 | Emergency (ER) | payer MEDICAID ==
[~2019-03-07] VITALS: Ht 152.4 cm; Wt 55.3 kg
[~2019-03-07 21:39] MED LIST changes: +BACITRACIN15 GM TOPIC; +BACTRIM DS TAB1 EAC1 ORAL
[2019-03-07 21:55] VITALS: BP 94/70
--- NOTE | 2019-03-07 21:55 | NUR ---
ED Nurse Note: Patient presents with recurrent abdominal pain. Patient has recurrent issue.
[2019-03-07] MEDS: Lidocaine 2% Visc 15ml soln ORAL ONE (22:11)
[2019-03-07] MEDS: Mylanta II UD 30ml ORAL ONE (22:11)
[2019-03-07] MEDS ORDERED: SUCRALFATE1 GM ORAL (22:15)
[2019-03-07] MEDS ORDERED: PRILOSEC OTC20 MG ORAL (22:15)
--- NOTE | 2019-03-07 22:15 | Emergency Room Report ---
History of Present Illness General Chief Complaint: Abdominal Pain Source: Patient, Medical Record Present Illness HPI This is a 38-year-old female with a history of cholecystectomy. She also has a history of epigastric pain is been chronic. She was diagnosed with gastritis. She tried [id number] medication is not helping. She has not follow-up with her primary care doctor or see a GI doctor for endoscopy. This is due to insurance. She only have emergency [employer]. She complained of epigastric pain is been ongoing for a week or more. Worse with eating. No nausea no vomiting. No fever chills. Pain is crampy in nature. No urinary complaint. Radiate up to her chest. Allergies: Coded Allergies: KETOROLAC (Verified Allergy, Unknown, 09/09/18) PROCHLORPERAZINE (Verified Allergy, Unknown, 09/09/18) PROCHLORPERAZINE EDISYLATE (Verified Adverse Reaction, Severe, Anaphylaxis , 09/09/18) Tremors PROCHLORPERAZINE MALEATE (Verified Adverse Reaction, Severe, Anaphylaxis, 09/09/18) Tremors Patient History Past Medical History: see triage record, old chart reviewed Past Surgical History: kiara Pertinent Family History: none Social History: Denies: smoking Last Menstrual Period: 03/05/19 Now: No : 3 Para: 4 Immunizations: other Reviewed Nursing Documentation: PMH: Agreed; PSxH: Agreed Nursing Documentation-PMH Past Medical History: No History, Except For Hx Cardiac Problems: No Hx Cancer: No - kidney stone Hx Gastrointestinal Problems: Yes - Laparoscopic Cholecystectomy Hx Neurological Problems: No - MIGRAINE Review of Systems Eye: Denies: eye pain, blurred vision ENT: Denies: ear pain, nose congestion, throat swelling Respiratory: Denies: cough, shortness of breath Cardiovascular: Denies: chest pain, palpitations Gastrointestinal: Reports: abdominal pain, nausea; Denies: diarrhea, vomiting Musculoskeletal: Denies: back pain, joint pain Skin: Denies: rash Neurological: Denies: headache, numbness Endocrine: Denies: increased thirst, increased urine Hematologic/Lymphatic: Denies: easy bruising All Other Systems: negative except mentioned in HPI Physical Exam Vital Signs Date Time Temp Pulse Resp B/P (MAP) Pulse Ox O2 Delivery O2 Flow Rate FiO2 03/07/19 21:55 98.1 69 18 94/70 (78) 100 Room Air Vitals normal Sp02 EP Interpretation: reviewed, normal General Appearance: well appearing, no apparent distress, alert Head: normocephalic, atraumatic Eyes: bilateral eye PERRL, bilateral eye EOMI ENT: hearing grossly normal, normal pharynx Neck: full range of motion, supple, no meningismus Respiratory: chest non-tender, lungs clear, normal breath sounds Cardiovascular #1: regular rate, rhythm, no murmur Gastrointestinal: normal bowel sounds, no mass, no organomegaly, no bruit, non- distended, tenderness - mild epigastric Musculoskeletal: back normal, gait/station normal, normal range of motion Psychiatric: mood/affect normal Medical Decision Making Diagnostic Impression: Primary Impression: Gastritis Qualified Codes: K29.00 - Acute gastritis without bleeding ER Course Patient with epigastric pain. This is most likely a peptic ulcer disease with gastritis. No evidence of acute abdomen. Exam is benign. She has multiple work-up in the past. Will discharge home. Last Vital Signs Date Time Temp Pulse Resp B/P (MAP) Pulse Ox O2 Delivery O2 Flow Rate FiO2 03/07/19 21:55 98.1 69 18 94/70 (78) 100 Room Air Status: improved Disposition: HOME, SELF-CARE Condition: Stable Scripts Sucralfate* (CARAFATE*) 1 Gm Tablet 1 GM ORAL FOUR TIMES A DAY, #30 TAB Prov: Andrea Moreno MD 03/07/19 Omeprazole Magnesium (PRILOSEC OTC) 20 Mg Tablet. 20 MG ORAL DAILY, #30 TAB Prov: Andrea Moreno MD 03/07/19 Referrals: NOT CHOSEN IPA/,REFERRING (PCP) Additional Instructions: Follow-up with your doctor in 7 days. You may benefit from a referral to see a GI doctor for endoscopy. Return if worse. Andrea Moreno MD Mar 07, 2019 22:15
--- NOTE | 2019-03-07 22:16 | NUR ---
ED Nurse Note: Patient tolerated medication well.
--- NOTE | 2019-03-07 22:23 | NUR ---
ED Nurse Note: Patient currently cleared for discharge, IV band removed. Patient verbalized understanding of discharge instructions. Patient departed with all belongings.
[2019-03-07 22:25] VITALS: BP 94/70
== END 2019-03-07 22:29 | disposition home or self-care (01) ==
LOC: EMR 21:53
DX: K29.70 Gastritis, unspecified, without bleeding (principal); Z88.8 Allergy status to other drugs, medicaments and biological substances; Z90.49 Acquired absence of other specified parts of digestive tract
CPT/HCPCS: 99282

== ENCOUNTER 2019-05-04 16:55 | Emergency (ER) | payer MEDICAID ==
[~2019-05-04] VITALS: Ht 157.5 cm; Wt 58.1 kg
[~2019-05-04 16:55] MED LIST changes: +PRILOSEC OTC20 MG ORAL; +SUCRALFATE1 GM ORAL
--- NOTE | 2019-05-04 17:07 | NUR ---
ED Nurse Note: Pt came in from home due to L upper chest pain started around 0400 this morning. Pt stated pain constant and throbbing 9/10 brayden. Also c/o shortness of breath. SAT >95%. Pt speaks in full sentences. AOx4, VSS brayden. Will cont to monitor.
[2019-05-04 17:17] VITALS: BP 100/60
[2019-05-04] MEDS ORDERED: Aspirin Baby 81mg ORAL ONE (17:30)
--- NOTE | 2019-05-04 17:33 | Emergency Room Report ---
History of Present Illness General Chief Complaint: Chest Pain Source: Patient, Medical Record Present Illness HPI Disclaimer: Please note that this report is being documented using [employer] technology. This can lead to erroneous entry secondary to incorrect interpretation by the dictating instrument. HPI: 38-year-old female presents for evaluation of chest pain. Symptoms began abruptly this morning waking her up from sleep. She describes left-sided chest soreness/aching but denies any pressure, squeezing or sharp pain. She was diaphoretic and nauseated but did not vomit. The pain originally did not radiate however over the past 2 hours the pain has spread to the left shoulder and down the left bicep. She does not remember any injury, excessive exercise or other change in her health recently. She feels slightly short of breath but denies any recent cough, fevers, URI symptoms, vomiting, diarrhea, dysuria, hematuria or flank pain. There is a family history of [place] in her mother. She is a smoker. No long distance travel, no OCPs or exogenous hormones, no recent immobilization or surgery. PMH: None PSH: None Allergies: Reglan, Toradol, Compazine Social Hx: Current smoker, social alcohol, denies drugs Allergies: Coded Allergies: KETOROLAC (Verified Allergy, Unknown, 09/09/18) METOCLOPRAMIDE (Verified Allergy, Unknown, 05/04/19) PROCHLORPERAZINE (Verified Allergy, Unknown, 09/09/18) PROCHLORPERAZINE EDISYLATE (Verified Adverse Reaction, Severe, Anaphylaxis , 09/09/18) Tremors PROCHLORPERAZINE MALEATE (Verified Adverse Reaction, Severe, Anaphylaxis, 09/09/18) Tremors Patient History Last Menstrual Period: 04/29/19 Nursing Documentation-PMH Past Medical History: No History, Except For Hx Cardiac Problems: No Hx Cancer: No - kidney stone Hx Gastrointestinal Problems: Yes - Laparoscopic Cholecystectomy Hx Neurological Problems: No - MIGRAINE Review of Systems All Other Systems: negative except mentioned in HPI Physical Exam Vital Signs Date Time Temp Pulse Resp B/P (MAP) Pulse Ox O2 Delivery O2 Flow Rate FiO2 05/04/19 16:57 98.2 72 18 100/69 (79) 99 Room Air General: Awake and alert, no acute distress HEENT: NC/AT. EOMI. Neck: Supple, trachea midline Chest Wall: No deformity. There is tenderness palpation across the left upper chest wall extending into the left shoulder Cardiovascular: RRR. S1 and S2 normal. No murmur appreciated Resp: Normal work of breathing. No cough, wheezing or crackles appreciated Abdomen: Abdomen is soft, nondistended. Nontender Skin: Intact. No abrasions, laceration or rash over the exposed skin MSK: Normal tone and bulk. Moving all extremities. No obvious deformity. No lower extremity edema Neuro: Awake and alert. Mentating appropriately. Medical Decision Making Diagnostic Impression: Primary Impression: Chest pain ER Course This a 38-year-old female presenting for evaluation of chest pain beginning this morning approximately 4 AM. Differential includes but is not limited to angina, ACS, PE, pneumonia, pneumothorax, musculoskeletal chest pain. The patient's to risk factors are for smoking and family history. EKG obtained on arrival shows normal sinus rhythm without acute ischemic changes. We will start broad cardiac work-up and order a d-dimer to rule out PE. Aspirin given. Can expand work-up as needed. Laboratory Tests Test 05/04/19 17:40 White Blood Count 6.9 K/UL (4.8-10.8) Red Blood Count 3.46 M/UL (4.20-5.40) L Hemoglobin 11.1 G/DL (12.0-16.0) L Hematocrit 30.7 % (37.0-47.0) L Mean Corpuscular Volume 89 FL (80-99) Mean Corpuscular Hemoglobin 32.1 PG (27.0-31.0) H Mean Corpuscular Hemoglobin Concent 36.1 G/DL (32.0-36.0) H Red Cell Distribution Width 10.5 % (11.6-14.8) L Platelet Count 250 K/UL (150-450) Mean Platelet Volume 6.5 FL (6.5-10.1) Neutrophils (%) (Auto) 37.2 % (45.0-75.0) L Lymphocytes (%) (Auto) 50.8 % (20.0-45.0) H Monocytes (%) (Auto) 9.4 % (1.0-10.0) Eosinophils (%) (Auto) 1.1 % (0.0-3.0) Basophils (%) (Auto) 1.4 % (0.0-2.0) D-Dimer 0.25 mg/L FEU (0.00-0.49) Sodium Level 141 MMOL/L (136-145) Potassium Level 4.1 MMOL/L (3.5-5.1) Chloride Level 108 MMOL/L (98-107) H Carbon Dioxide Level 26 MMOL/L (21-32) Anion Gap 8 mmol/L (5-15) Blood Urea Nitrogen 14 mg/dL (7-18) Creatinine 0.7 MG/DL (0.55-1.30) Estimate Glomerular Filtration Rate > 60 mL/min (>60) Glucose Level 99 MG/DL (74-106) Calcium Level 8.8 MG/DL (8.5-10.1) Total Bilirubin 0.4 MG/DL (0.2-1.0) Aspartate Amino Transferase (AST) 18 U/L (15-37) Alanine Aminotransferase (ALT) 21 U/L (12-78) Alkaline Phosphatase 47 U/L (46-116) Total Creatine Kinase 82 U/L (26-308) Creatine Kinase MB 0.5 NG/ML (0.0-3.6) Creatine Kinase MB Relative Index 0.6 Troponin I 0.000 ng/mL (0.000-0.056) Pro-B-Type Natriuretic Peptide 33 pg/mL (0-125) Total Protein 6.8 G/DL (6.4-8.2) Albumin 3.5 G/DL (3.4-5.0) Globulin 3.3 g/dL Albumin/Globulin Ratio 1.1 (1.0-2.7) EKG Diagnostic Results EKG Time: 17:15 Rate: normal Rhythm: NSR ST Segments: no acute changes Other Impression Sinus rhythm, normal axis, normal intervals, no acute ST changes. Rhythm Strip Diag. Results Rhythm Strip Time: 17:15 EP Interpretation: yes Rate: 60s Rhythm: NSR, no PVC's, no ectopy Chest X-Ray Diagnostic Results Chest X-Ray Diagnostic Results : Chest X-Ray Ordered: Yes # of Views/Limited/Complete: 1 View Indication: Chest Pain EP Interpretation: Yes Interpretation: no consolidation, no effusion, no pneumothorax, no acute cardiopulmonary disease Impression: No acute disease Electronically Signed by: Electronically signed by Dr. Jaswinder Stallings Reevaluation Time: 18:58 Last Vital Signs Date Time Temp Pulse Resp B/P (MAP) Pulse Ox O2 Delivery O2 Flow Rate FiO2 05/04/19 17:17 98.2 75 18 100/60 100 Room Air Reevaluation Impression EKG unremarkable, chest x-ray shows no consolidation, pneumothorax, no effusion no other significant pathology. Cardiac silhouette is normal. Lab work including troponin, CK, d-dimer are unremarkable. The patient did not have any significant improvement in her chest pain after receiving nitroglycerin and given her low cardiac risk factors believe her symptoms are likely musculoskeletal. She would be discharged on high-strength Motrin and instructed to follow-up with her PMD to schedule outpatient evaluation and further testing as needed. Her heart score is low but given her family history should be evaluated as an outpatient. We discussed reasons to return to the emergency department patient and her as well as smoking cessation. They understand and agree with this treatment plan and will be discharged home. Disposition: HOME, SELF-CARE Condition: Stable Scripts Ibuprofen* (MOTRIN*) 600 Mg Tablet 600 MG ORAL Q8H PRN for For Pain, #30 TAB 0 Refills Prov: Jaswinder Stallings MD 05/04/19 Jaswinder Stallings MD May 04, 2019 17:33
[2019-05-04 18:05] LABS: ANION GAP 8 mmol/L (5-15); BLOOD UREA NITROGEN 14 mg/dL (7-18); CALCIUM 8.8 MG/DL (8.5-10.1); CARBON DIOXIDE 26 MMOL/L (21-32); CHLORIDE 108 MMOL/L (98-107); CREATININE 0.7 MG/DL (0.55-1.30); POTASSIUM 4.1 MMOL/L (3.5-5.1); SODIUM 141 MMOL/L (136-145)
[2019-05-04 18:06] LABS: BASOPHILS % (AUTO) 1.4 % (0.0-2.0); EOSINOPHILS % (AUTO) 1.1 % (0.0-3.0); HEMATOCRIT 30.7 % (37.0-47.0); HEMOGLOBIN 11.1 G/DL (12.0-16.0); LYMPHOCYTES % (AUTO) 50.8 % (20.0-45.0); MEAN CORPUSCULAR VOLUME 89 FL (80-99); MONOCYTES % (AUTO) 9.4 % (1.0-10.0); NEUTROPHILS % (AUTO) 37.2 % (45.0-75.0); PLATELET COUNT 250 K/UL (150-450); RED BLOOD COUNT 3.46 M/UL (4.20-5.40); RED CELL DISTRIBUTION WIDTH 10.5 % (11.6-14.8); WHITE BLOOD COUNT 6.9 K/UL (4.8-10.8)
[2019-05-04 18:19] LABS: ALANINE AMINOTRANSFERASE 21 U/L (12-78); ALBUMIN 3.5 G/DL (3.4-5.0); ALBUMIN/GLOBULIN RATIO 1.1 (1.0-2.7); ALKALINE PHOSPHATASE 47 U/L (46-116); ASPARTATE AMINO TRANSFERASE 18 U/L (15-37); BILIRUBIN,TOTAL 0.4 MG/DL (0.2-1.0); CKMB 0.5 NG/ML (0.0-3.6); CREATINE KINASE 82 U/L (26-308)
[2019-05-04] MEDS: Nitroglycerin Subl 0.4mg tab SL PRN ×2 (18:26→18:33)
[2019-05-04 18:35] VITALS: BP_SYST 88; BP_SYST 91; BP_DIAS 56; BP_DIAS 60
--- NOTE | 2019-05-04 18:35 | NUR ---
ED Nurse Note: Pt reported that she took "[place] 5-325" at home prior to arrival today, ERMD aware.
[2019-05-04] MEDS ORDERED: IBUPROFEN600 MG ORAL (18:52)
[2019-05-04 18:57] VITALS: BP 91/60
--- NOTE | 2019-05-05 11:44 | Cardiology Report ---
APPROVED REPORT EKG Measurement Heart [id number] Normal sinus rhythm Normal ECG
--- NOTE | 2019-05-05 12:52 | Diagnostic Imaging Report ---
Indication: Chest pain Technique: One view of the chest Comparison: 11/25/2018 Findings: Lungs and pleural spaces are clear. Heart size is normal. No significant interim change Impression: No acute process
== END 2019-05-04 18:57 | disposition home or self-care (01) ==
LOC: EMR 17:53
DX: R07.9 Chest pain, unspecified (principal); Z82.49 Family history of ischemic heart disease and other diseases of the circulatory system; F17.200 Nicotine dependence, unspecified, uncomplicated; Z90.49 Acquired absence of other specified parts of digestive tract
CPT/HCPCS: 36415; 71045; 80053; 82550; 82553; 83880; 84484; 85025; 85379; 93005; 96360; Z7502; 99284

== ENCOUNTER 2019-06-26 10:53 | Emergency (ER) | payer MEDICAID ==
[~2019-06-26] VITALS: Ht 154.9 cm; Wt 59.0 kg
[~2019-06-26 10:53] MED LIST changes: +DICYCLOMINE HCL10 MG ORAL; +ONDANSETRON ODT4 MG BC; +RANITIDINE HCL150 MG ORAL
[2019-06-26 10:58] VITALS: BP 113/72
[2019-06-26] MEDS ORDERED: NKM (11:02)
--- NOTE | 2019-06-26 11:07 | NUR ---
ED Nurse Note: PT FROM HOME CAME IN DUE TO RIGHT SIDE ABD PAIN 10/10 AND LARGE AMOUNT VAGINAL BLEEDING WITH CLOTS X 2 WEEKS. DENIES N/V. AAO X4, AMBULATORY AND RESPIRATIONS ARE EVEN AND NON LABORED.
--- NOTE | 2019-06-26 11:15 | NUR ---
ED Nurse Note: URINE COLLECTED THEN SENT.
[2019-06-26 11:18] VITALS: BP 122/76
--- NOTE | 2019-06-26 11:18 | NUR ---
ER DISCHARGE NOTE: Patient is cleared to be discharged per ERMD, pt is aox4, on room air, with stable vital signs. pt was given dc instructions, pt was able to verbalize understanding, pt id band removed. pt is able to ambulate with steady gait. pt took all belongings.
--- NOTE | 2019-06-26 11:25 | Emergency Room Report ---
History of Present Illness General Chief Complaint: Abdominal Pain Source: Patient Present Illness HPI Patient presents with complaints of abnormal vaginal bleeding patient reports that she Started having her menstrual cycle 2 weeks ago and it has continued since then Off and on with spotting and cramping Denies any vomiting or diarrhea denies any chest pain or shortness of breath Denies any dysuria frequency denies any focal weakness Patient's cramping is fairly minimal 2 out of 10 however patient more concerned about the continued vaginal bleeding Allergies: Coded Allergies: KETOROLAC (Verified Allergy, Unknown, 09/09/18) METOCLOPRAMIDE (Verified Allergy, Unknown, 05/04/19) PROCHLORPERAZINE (Verified Allergy, Unknown, 09/09/18) PROCHLORPERAZINE EDISYLATE (Verified Adverse Reaction, Severe, Anaphylaxis , 09/09/18) Tremors PROCHLORPERAZINE MALEATE (Verified Adverse Reaction, Severe, Anaphylaxis, 09/09/18) Tremors Patient History Past Medical History: see triage record Last Menstrual Period: May 27, 2019 Now: No Reviewed Nursing Documentation: PMH: Agreed; PSxH: Agreed Nursing Documentation-PMH Past Medical History: No Stated History Hx Cardiac Problems: No Hx Cancer: No - kidney stone Hx Gastrointestinal Problems: Yes - Laparoscopic Cholecystectomy Hx Neurological Problems: No - MIGRAINE Review of Systems All Other Systems: negative except mentioned in HPI Physical Exam Vital Signs Date Time Temp Pulse Resp B/P (MAP) Pulse Ox O2 Delivery O2 Flow Rate FiO2 06/26/19 10:58 97.7 82 17 113/72 99 Room Air Sp02 EP Interpretation: reviewed, normal General Appearance: well appearing, no apparent distress Head: normocephalic, atraumatic Eyes: bilateral eye PERRL, bilateral eye EOMI ENT: hearing grossly normal, normal pharynx, TMs + canals normal, uvula midline Neck: full range of motion, supple, no meningismus, no bony tend Respiratory: lungs clear, normal breath sounds, no rhonchi, no respiratory distress, no retraction, no accessory muscle use Cardiovascular #1: normal peripheral pulses, regular rate, rhythm, no edema, no gallop, no JVD, no murmur Gastrointestinal: normal bowel sounds, non tender, soft, no mass, no organomegaly, non-distended, no guarding, no hernia, no pulsatile mass, no rebound Musculoskeletal: normal inspection Neurologic: oriented x3, responsive, mold filling operator III-XII nml as tested, motor strength/ tone normal, sensory intact Psychiatric: mood/affect normal Skin: no rash Lymphatic: normal inspection, no adenopathy Medical Decision Making Diagnostic Impression: Primary Impression: abnormal vaginal bleeding ER Course Multiple differentials including but not limited to UTI, , ectopic , dysfunctional uterine bleeding, fibroids all considered Patient has had fairly extensive work-up and imaging On [facility] patient has also filled medications recently at a different facility Upon asking regarding this patient reports that she was told she was not and did not find any other abnormalities Patient has not had the ability to follow-up otherwise at outpatient clinics Given the lack of given the duration of this And the patient's benign medical evaluation she is stable for conservative outpatient follow-up and gynecology referral Labs Test 06/26/19 11:27 Urine HCG, Qualitative Negative (NEGATIVE) Last Vital Signs Date Time Temp Pulse Resp B/P (MAP) Pulse Ox O2 Delivery O2 Flow Rate FiO2 06/26/19 11:18 98.2 79 16 122/76 100 Room Air Status: unchanged Disposition: HOME, SELF-CARE Condition: Stable Referrals: NOT CHOSEN IPA/,REFERRING (PCP) [facility] Dante Aggarwal [facility] Patient Instructions: Abnormal Uterine Bleeding Additional Instructions: Patient is provided with the discharge instructions notified to follow up with primary doctor in the next 2-3 days otherwise return to the er with any worsening symptoms. Please note that this report is being documented using [employer] technology. This can lead to erroneous entry secondary to incorrect interpretation by the dictating instrument. Nacho Ybarra DO Jun 26, 2019 11:25
== END 2019-06-26 11:20 | disposition home or self-care (01) ==
LOC: EMR 11:20
DX: N93.9 Abnormal uterine and vaginal bleeding, unspecified (principal); Z90.49 Acquired absence of other specified parts of digestive tract; Z87.442 Personal history of urinary calculi; Z88.8 Allergy status to other drugs, medicaments and biological substances
CPT/HCPCS: 81025; Z7502; 99282

== ENCOUNTER 2019-10-07 00:42 | Emergency (ER) | payer MEDICAID ==
[~2019-10-07] VITALS: Ht 152.4 cm; Wt 59.9 kg
[2019-10-07 01:12] VITALS: BP 108/72
--- NOTE | 2019-10-07 01:15 | NUR ---
ER Nurse Note: Pt walked in c/o LT chest pain that radiates to shoulder and LT neck since 10/05. Pt stated pain is increasing; 10/10 pain. Pt does not recall the events pior to episode. Pt denies ETOH, drug use, trauma. Pt denies being . EKG completed; blood sent to urine. Will continue to monitor.
[2019-10-07 01:30] LABS: BASOPHILS % (AUTO) 1.3 % (0.0-2.0); EOSINOPHILS % (AUTO) 0.4 % (0.0-3.0); HEMATOCRIT 36.6 % (37.0-47.0); LYMPHOCYTES % (AUTO) 39.4 % (20.0-45.0); MEAN CORPUSCULAR VOLUME 91 FL (80-99); MONOCYTES % (AUTO) 8.1 % (1.0-10.0); NEUTROPHILS % (AUTO) 50.8 % (45.0-75.0); PLATELET COUNT 228 K/UL (150-450); RED BLOOD COUNT 4.01 M/UL (4.20-5.40); WHITE BLOOD COUNT 8.9 K/UL (4.8-10.8)
--- NOTE | 2019-10-07 01:30 | Emergency Room Report ---
History of Present Illness General Chief Complaint: Chest Pain Source: Patient Present Illness HPI Disclaimer: Please note that this report is being documented using [employer] technology. This can lead to erroneous entry secondary to incorrect interpretation by the dictating instrument. HPI: 38-year-old female presents for evaluation of chest pain shortness of breath. Symptoms began last night approximately 9 PM. She reports a pressure over the left side of the chest and some radiation to the left arm. Denies cough, fever, sore throat, URI symptoms, nausea, vomiting, diarrhea, rash or other changes in her health. She had similar complaints last year but did not seek cardiology evaluation after ER visit returned largely unremarkable. Cardiac enzymes, dimer, EKG and chest x-rays were unremarkable at that time. She also complaining of restless legs over the past few days. States she involuntarily kicks her while sleeping. Makes it difficult to sleep. Has not seen her doctor about this either. She is a current smoker. Denies any long distance travel. Denies OCP use, recent surgery/immobilization or other risk factors for DVT. PMH: Denies PSH: Denies Allergies: Toradol, Reglan, Compazine Social Hx: Current smoker, social alcohol use, denies drug use Allergies: Coded Allergies: KETOROLAC (Verified Allergy, Unknown, 09/09/18) METOCLOPRAMIDE (Verified Allergy, Unknown, 05/04/19) PROCHLORPERAZINE (Verified Allergy, Unknown, 09/09/18) PROCHLORPERAZINE EDISYLATE (Verified Adverse Reaction, Severe, Anaphylaxis , 09/09/18) Tremors PROCHLORPERAZINE MALEATE (Verified Adverse Reaction, Severe, Anaphylaxis, 09/09/18) Tremors Patient History Last Menstrual Period: 09/19/19 Now: No Nursing Documentation-PMH Hx Cardiac Problems: No Hx Cancer: No - kidney stone Hx Gastrointestinal Problems: Yes - Laparoscopic Cholecystectomy Review of Systems All Other Systems: negative except mentioned in HPI Physical Exam Vital Signs Date Time Temp Pulse Resp B/P (MAP) Pulse Ox O2 Delivery O2 Flow Rate FiO2 10/07/19 00:46 98.1 78 20 108/72 (84) 97 Room Air General: Awake and alert, no acute distress HEENT: NC/AT. EOMI. Neck: Supple, trachea midline Chest Wall: No tenderness, no deformity Cardiovascular: RRR. S1 and S2 normal. No murmur appreciated Resp: Normal work of breathing. No cough, wheezing or crackles appreciated Abdomen: Abdomen is soft, nondistended. Nontender Skin: Intact. No abrasions, laceration or rash over the exposed skin MSK: Normal tone and bulk. Moving all extremities. No obvious deformity. No lower extremity edema. Calves are symmetrical. Nontender. Neuro: Awake and alert. Mentating appropriately. Medical Decision Making Diagnostic Impression: Primary Impression: Opiate withdrawal Additional Impressions: Restless legs Acute nonspecific chest pain with low risk of coronary artery disease ER Course This a 38-year-old female presenting for evaluation of chest pain starting 9 PM last evening. Continues to complain of mild shortness of breath. Differential includes but is not limited to angina, ACS, pneumonia, pneumothorax, musculoskeletal chest pain. The patient's to risk factors are for smoking and family history. EKG obtained on arrival shows normal sinus rhythm without acute ischemic changes. Patient has no risk factors for pulmonary embolism and is PERC negative. Will repeat cardiac work-up including EKG, chest x-ray, labs. Laboratory Tests Test 10/07/19 01:05 White Blood Count 8.9 K/UL (4.8-10.8) Red Blood Count 4.01 M/UL (4.20-5.40) L Hemoglobin 13.0 G/DL (12.0-16.0) Hematocrit 36.6 % (37.0-47.0) L Mean Corpuscular Volume 91 FL (80-99) Mean Corpuscular Hemoglobin 32.5 PG (27.0-31.0) H Mean Corpuscular Hemoglobin Concent 35.5 G/DL (32.0-36.0) Red Cell Distribution Width 11.0 % (11.6-14.8) L Platelet Count 228 K/UL (150-450) Mean Platelet Volume 7.7 FL (6.5-10.1) Neutrophils (%) (Auto) 50.8 % (45.0-75.0) Lymphocytes (%) (Auto) 39.4 % (20.0-45.0) Monocytes (%) (Auto) 8.1 % (1.0-10.0) Eosinophils (%) (Auto) 0.4 % (0.0-3.0) Basophils (%) (Auto) 1.3 % (0.0-2.0) Sodium Level 141 MMOL/L (136-145) Potassium Level 3.7 MMOL/L (3.5-5.1) Chloride Level 107 MMOL/L (98-107) Carbon Dioxide Level 25 MMOL/L (21-32) Anion Gap 9 mmol/L (5-15) Blood Urea Nitrogen 11 mg/dL (7-18) Creatinine 0.7 MG/DL (0.55-1.30) Estimate Glomerular Filtration Rate > 60 mL/min (>60) Glucose Level 105 MG/DL (74-106) Calcium Level 9.3 MG/DL (8.5-10.1) Total Bilirubin 0.8 MG/DL (0.2-1.0) Aspartate Amino Transferase (AST) 20 U/L (15-37) Alanine Aminotransferase (ALT) 31 U/L (12-78) Alkaline Phosphatase 54 U/L (46-116) Troponin I 0.000 ng/mL (0.000-0.056) Total Protein 7.6 G/DL (6.4-8.2) Albumin 4.0 G/DL (3.4-5.0) Globulin 3.6 g/dL Albumin/Globulin Ratio 1.1 (1.0-2.7) EKG Diagnostic Results EKG Time: 00:55 Rate: normal Rhythm: NSR ST Segments: no acute changes Other Impression Sinus rhythm, normal axis, normal intervals, no ST segment changes Rhythm Strip Diag. Results Rhythm Strip Time: 00:55 EP Interpretation: yes Rate: 70s Rhythm: NSR, no PVC's, no ectopy Chest X-Ray Diagnostic Results Chest X-Ray Diagnostic Results : Chest X-Ray Ordered: Yes # of Views/Limited/Complete: 1 View Indication: Chest Pain EP Interpretation: Yes Interpretation: no consolidation, no effusion, no pneumothorax, no acute cardiopulmonary disease Impression: No acute disease Electronically Signed by: Electronically signed by Dr. Jaswinder Stallings Reevaluation Time: 02:10 Last Vital Signs Date Time Temp Pulse Resp B/P (MAP) Pulse Ox O2 Delivery O2 Flow Rate FiO2 10/07/19 01:12 78 20 Room Air 10/07/19 01:12 98.1 108/72 97 Reevaluation Impression Labs including troponin are within normal limits. EKG nonischemic and chest x- ray unremarkable. The patient told nursing staff that she has been taking [place] for approximately 1 month as she is postop from a recent surgery. She has documented history of opioid use. She stopped taking it approximate 3 days ago when the symptoms began. Likely this is opiate withdrawal with anxiety as well. Gave 1 mg of Ativan here for symptom control. She feels better and is ready for discharge home. She will follow-up with her PMD to discuss today's emergency department visit and further work-up as needed. Discussed reasons to return to the emergency department patient and . They understand agree with this treatment plan Disposition: HOME, SELF-CARE Condition: Stable Jaswinder Stallings MD Oct 07, 2019 01:30
[2019-10-07] MEDS ORDERED: LORazepam Inj 2mg/ml 1ml IV ONE (01:45)
[2019-10-07 01:49] LABS: ANION GAP 9 mmol/L (5-15); BLOOD UREA NITROGEN 11 mg/dL (7-18); CALCIUM 9.3 MG/DL (8.5-10.1); CARBON DIOXIDE 25 MMOL/L (21-32); CHLORIDE 107 MMOL/L (98-107); CREATININE 0.7 MG/DL (0.55-1.30); POTASSIUM 3.7 MMOL/L (3.5-5.1); SODIUM 141 MMOL/L (136-145)
[2019-10-07 01:53] LABS: ALANINE AMINOTRANSFERASE 31 U/L (12-78); ALBUMIN/GLOBULIN RATIO 1.1 (1.0-2.7); ALKALINE PHOSPHATASE 54 U/L (46-116); ASPARTATE AMINO TRANSFERASE 20 U/L (15-37); BILIRUBIN,TOTAL 0.8 MG/DL (0.2-1.0)
[2019-10-07 02:40] VITALS: BP 112/0
--- NOTE | 2019-10-07 02:40 | NUR ---
ED Nurse Note: Pt cleared by health care Provider for discharge. All orders completed per ERMD orders. DC instructions was given and explained to pt and verbalized understanding of teachings. Instructed pt to follow up with primary care physican within 4-7 days. All medical deviecs such as ID band and IV site removed. Pt is AAO x4, ambulatory and left with all personal belongings. Pt denies pain; admits to withdrawl s/s from oxy that she stopped using 4 days ago.
--- NOTE | 2019-10-07 14:25 | Diagnostic Imaging Report ---
Indication: Chest pain Technique: One view of the chest Comparison: 2018 Findings: Lungs and pleural spaces are clear. Heart size is normal. . No significant interim change Impression: No acute process
== END 2019-10-07 02:40 | disposition home or self-care (01) ==
LOC: EMR 02:11
DX: F11.23 Opioid dependence with withdrawal (principal); R07.9 Chest pain, unspecified; G25.81 Restless legs syndrome; Z88.8 Allergy status to other drugs, medicaments and biological substances; Z90.49 Acquired absence of other specified parts of digestive tract; F17.200 Nicotine dependence, unspecified, uncomplicated
CPT/HCPCS: 36415; 71045; 80053; 84484; 85025; 93005; 96374; Z7502; 99284

== ENCOUNTER 2019-10-23 14:18 | Emergency (ER) | payer MEDICAID ==
[~2019-10-23] VITALS: Ht 154.9 cm; Wt 56.7 kg
--- NOTE | 2019-10-23 14:33 | NUR ---
ED Nurse Note: Pt walked into ED from home w/ c/o chills, body ache 5/10, WICK, nausea and vomiting 3x since yesterday. Pt stopped taking [place] and tramadol yesterday morning and thinks that might be the cause. Pt is alert and orientedx4, ambulatory.
[2019-10-23 14:35] VITALS: BP 101/67
--- NOTE | 2019-10-23 14:54 | Emergency Room Report ---
History of Present Illness General Chief Complaint: General Complaint Source: Patient Present Illness HPI 38-year-old female, Mexican-speaking, with history of chronic pain here complaining of anxiety after stopping taking her tramadol and Florence. Patient reports that few years ago she had her gallbladder removed and after the removal of gallbladder patient still having chronic pain, primary doctor only gave her tramadol and Florence and never take any referral to specialist. Patient now has a hernia and reports that is pending to be treated with specialist. Patient reports that 2 days ago she stopped taking tramadol and Florence. Patient contacted the prescribing doctor and reported that she has some anxiety. Prescribing doctor told her that she needs to go to the emergency room as she may have convulsions. Patient sitting comfortably with stable vital signs. Reports that she does not want any anxiety medication that causes her dependence. Denies any tobacco smoke, drug use. Denies chest pain, shortness of breath, palpitation, headache and dizziness at this time. Agrees to take 1 dose of p.o. Ativan here and be discharged with propranolol. Patient also has history of gastritis and I advised her to take omeprazole. Also has Zofran at home and reports that ever since she stopped taking Florence and tramadol she has been nauseated. Denies . Denies SI and HI. Allergies: Coded Allergies: KETOROLAC (Verified Allergy, Unknown, 09/09/18) METOCLOPRAMIDE (Verified Allergy, Unknown, 05/04/19) PROCHLORPERAZINE (Verified Allergy, Unknown, 09/09/18) PROCHLORPERAZINE EDISYLATE (Verified Adverse Reaction, Severe, Anaphylaxis , 09/09/18) Tremors PROCHLORPERAZINE MALEATE (Verified Adverse Reaction, Severe, Anaphylaxis, 09/09/18) Tremors Patient History Past Medical History: see triage record Past Surgical History: none Pertinent Family History: none Last Menstrual Period: 10/17/19 Now: No : 0 Para: 0 Immunizations: UTD Reviewed Nursing Documentation: PMH: Agreed; PSxH: Agreed Nursing Documentation-PMH Past Medical History: No History, Except For Hx Cardiac Problems: No Hx Cancer: No - kidney stone Hx Gastrointestinal Problems: Yes - Laparoscopic Cholecystectomy Review of Systems All Other Systems: negative except mentioned in HPI Physical Exam Vital Signs Date Time Temp Pulse Resp B/P (MAP) Pulse Ox O2 Delivery O2 Flow Rate FiO2 2/27/20 14:21 98.2 86 19 100/66 (77) 96 Room Air 10/23/19 14:35 99 Sp02 EP Interpretation: reviewed, normal General Appearance: no apparent distress, alert, GCS 15, non-toxic Head: normocephalic, atraumatic Eyes: bilateral eye normal inspection, bilateral eye PERRL ENT: hearing grossly normal, normal pharynx, no angioedema, normal voice Neck: full range of motion, supple/symm/no masses Respiratory: chest non-tender, lungs clear, normal breath sounds, no rhonchi, no wheezing, speaking full sentences Cardiovascular #1: regular rate, rhythm, no edema, no murmur, normal capillary refill Gastrointestinal: normal bowel sounds, non tender, soft, non-distended, no guarding, no rebound Rectal: deferred Musculoskeletal: back normal Neurologic: alert, motor strength/tone normal, oriented x3, sensory intact, responsive, speech normal Psychiatric: judgement/insight normal, memory normal, anxious Skin: no rash Lymphatic: no adenopathy Medical Decision Making PA Attestation Diagnosis and treatment plans were reviewed and discussed with my supervising physician Dr. Georges Diagnostic Impression: Primary Impression: Opiate withdrawal ER Course 38-year-old female, Mexican-speaking, with history of chronic pain here complaining of anxiety after stopping taking her tramadol and Florence. Patient reports that few years ago she had her gallbladder removed and after the removal of gallbladder patient still having chronic pain, primary doctor only gave her tramadol and Florence and never take any referral to specialist. Patient now has a hernia and reports that is pending to be treated with specialist. Patient reports that 2 days ago she stopped taking tramadol and Florence. Patient contacted the prescribing doctor and reported that she has some anxiety. Prescribing doctor told her that she needs to go to the emergency room as she may have convulsions. Patient sitting comfortably with stable vital signs. Reports that she does not want any anxiety medication that causes her dependence. Denies any tobacco smoke, drug use. Denies chest pain, shortness of breath, palpitation, headache and dizziness at this time. Agrees to take 1 dose of p.o. Ativan here and be discharged with propranolol. Patient also has history of gastritis and I advised her to take omeprazole. Also has Zofran at home and reports that ever since she stopped taking Florence and tramadol she has been nauseated. Denies . Denies SI and HI. Ddx considered but are not limited to: generalized anxiety disorder, panic attack, depression with psychotic feature, bipolar disorder, drug overdose Vital signs: are WNL, pt. is afebrile H&PE are most consistent with: Opiate withdrawal ORDERS: Propranolol, omeprazole ED INTERVENTIONS: 1 mg of Ativan p.o. DISCHARGE: At this time pt. is stable for d/c to home. Will provide printed patient care instructions, and any necessary prescriptions. Care plan and follow up instructions have been discussed with the patient prior to discharge. Patient follow with psychiatrist, increase oral hydration, if worsening symptoms return to the emergency room. Advised to check heart rate when taking propranolol if falls below 50 start taking propranolol. Also gave a list of places that can help her with withdrawal symptoms. Last Vital Signs Date Time Temp Pulse Resp B/P (MAP) Pulse Ox O2 Delivery O2 Flow Rate FiO2 10/23/19 14:35 98.2 80 18 101/67 97 Room Air 10/23/19 14:35 99 Disposition: HOME, SELF-CARE Condition: Stable Scripts Omeprazole (OMEPRAZOLE) 20 Mg Tablet. 20 MG ORAL DAILY, #30 TAB Prov: Long Lott 10/23/19 Propranolol Hcl* (INDERAL*) 20 Mg Tablet 20 MG ORAL BID for 7 Days, #14 TAB 0 Refills Prov: Long Lott 10/23/19 Patient Instructions: Opioid Withdrawal Additional Instructions: Increase oral hydration, avoid alcohol, take medication as directed, follow-up with your primary care provider, if worsening symptoms return to the emergency room Long Lott Oct 23, 2019 14:54
[2019-10-23] MEDS ORDERED: PROPRANOLOL HCL20 MG ORAL (14:55)
[2019-10-23] MEDS ORDERED: OMEPRAZOLE20 M3 ORAL (14:56)
[2019-10-23] MEDS ORDERED: LORazepam 1mg tab ORAL ONE (15:00)
--- NOTE | 2019-10-23 15:04 | NUR ---
ER DISCHARGE NOTE: Patient is cleared to be discharged per ERMD, pt is aox4, on room air, with stable vital signs. pt was given dc and prescription instructions, pt was able to verbalize understanding, pt id band removed. pt is able to ambulate with steady gait. pt took all belongings. provided teaching on propanolol.
[2019-10-23 15:05] VITALS: BP 123/66
[2019-10-23] MEDS ORDERED: NORCO 5-325 TA1 EACH ORAL (22:50)
[2019-10-23] MEDS ORDERED: GABAPENTIN300 MG ORAL (23:08)
== END 2019-10-23 15:05 | disposition home or self-care (01) ==
LOC: EMR 14:50
DX: F11.23 Opioid dependence with withdrawal (principal); Z90.49 Acquired absence of other specified parts of digestive tract; Z88.8 Allergy status to other drugs, medicaments and biological substances
CPT/HCPCS: 99282

== ENCOUNTER 2019-10-23 22:20 | Emergency (ER) | payer MEDICAID ==
[~2019-10-23] VITALS: Ht 152.4 cm; Wt 60.8 kg
[~2019-10-23 22:20] MED LIST changes: +OMEPRAZOLE20 M3 ORAL; +PROPRANOLOL HCL20 MG ORAL
--- NOTE | 2019-10-23 22:34 | NUR ---
ED Nurse Note: pt presents to ED c/o chills, muscle aches, and chest tightness since this AM. pt states she has been taking norcos and tramadol for years due to chronic pain from various medical problems. she was seen today at 1300 for similar symptoms, prescribed omeprazole and propanolol. states that she ran out of norcos and tramadol yesterday.
[2019-10-23 22:35] VITALS: BP 101/60
[2019-10-23] MEDS ORDERED: HYDROmorphone 1mg/ml Carpuject IM ONE (22:45)
[2019-10-23] MEDS ORDERED: NORCO 5-325 TA1 EACH ORAL (22:50)
--- NOTE | 2019-10-23 22:51 | Emergency Room Report ---
History of Present Illness General Chief Complaint: General Complaint Source: Patient Present Illness [facility] This a 38-year-old female with history of chronic abdominal pain. Her doctor been putting her on tramadol and [place] for over a year. She quit cold turkey a couple days ago. She presents with chief complaint of feeling anxious, body pain, nausea vomiting. No diarrhea. She says she does not feel well. She was here earlier this afternoon. Labs are unremarkable. She was given Ativan here. Denies any fever chills. Denies any trauma. Denies any drug use. She was told that she had gallstones and gallbladder was removed. She still having symptoms. Her doctor said that she had kidney stones and hernia. Allergies: Coded Allergies: KETOROLAC (Verified Allergy, Unknown, 09/09/18) METOCLOPRAMIDE (Verified Allergy, Unknown, 05/04/19) PROCHLORPERAZINE EDISYLATE (Verified Adverse Reaction, Severe, Anaphylaxis , 09/09/18) Tremors Patient History Past Medical History: see triage record, old chart reviewed Past Surgical History: kiara Pertinent Family History: none Social History: Denies: smoking Last Menstrual Period: 10/17 Now: No Immunizations: other Reviewed Nursing Documentation: PMH: Agreed; PSxH: Agreed Nursing Documentation-PMH Hx Cardiac Problems: No Hx Cancer: No - kidney stone Hx Gastrointestinal Problems: Yes - Laparoscopic Cholecystectomy Review of Systems Constitutional: Reports: weakness Eye: Denies: eye pain, blurred vision ENT: Denies: ear pain, nose congestion, throat swelling Respiratory: Denies: cough, shortness of breath Cardiovascular: Denies: chest pain, palpitations Gastrointestinal: Reports: abdominal pain, nausea, vomiting; Denies: diarrhea Musculoskeletal: Denies: back pain, joint pain Skin: Denies: rash Neurological: Denies: headache, numbness Endocrine: Denies: increased thirst, increased urine Hematologic/Lymphatic: Denies: easy bruising All Other Systems: negative except mentioned in HPI Physical Exam Vital Signs Date Time Temp Pulse Resp B/P (MAP) Pulse Ox O2 Delivery O2 Flow Rate FiO2 10/23/19 22:22 98.1 73 19 101/60 (74) 95 Room Air Vitals unremarkable Sp02 EP Interpretation: reviewed, normal General Appearance: well appearing, no apparent distress, alert Head: normocephalic, atraumatic Eyes: bilateral eye PERRL, bilateral eye EOMI ENT: hearing grossly normal, normal pharynx Neck: full range of motion, supple, no meningismus Respiratory: chest non-tender, lungs clear, normal breath sounds Cardiovascular #1: regular rate, rhythm, no murmur Gastrointestinal: normal bowel sounds, non tender, no mass, no organomegaly, no bruit, non-distended Musculoskeletal: back normal, normal range of motion, gait/station normal Psychiatric: mood/affect normal Medical Decision Making Diagnostic Impression: Primary Impression: Opiate withdrawal ER Course Patient with symptoms consistent with opiate withdrawal. Labs from earlier today was unremarkable. Will discharge home. Last Vital Signs Date Time Temp Pulse Resp B/P (MAP) Pulse Ox O2 Delivery O2 Flow Rate FiO2 10/23/19 22:35 73 19 Room Air 10/23/19 22:35 98.1 101/60 95 Status: improved Disposition: HOME, SELF-CARE Condition: Stable Scripts Hydrocodone Bit/Acetaminophen 5-325* (NORCO 5-325*) 1 Each Tablet 1 TAB ORAL Q6H PRN for For Pain, #20 TAB 0 Refills Prov: Andrea Moreno MD 10/23/19 Additional Instructions: Follow-up with your doctor in 7 days. Return if symptoms worsen. Take 1 [place] 3 times a day for 3 days. Then take 1 tablet twice a day for 3 days. Then take 1 tablet a day for 5 days. Andrea Moreno MD Oct 23, 2019 22:51
[2019-10-23 23:00] VITALS: BP 115/65
--- NOTE | 2019-10-23 23:00 | NUR ---
ER DISCHARGE NOTE: Patient is cleared to be discharged per ERMD, pt is aox4, on room air, with stable vital signs. pt was given dc and prescription instructions, pt was able to verbalize understanding, pt id band removed without complications. pt is able to ambulate with steady gait. pt took all belongings.
[2019-10-23] MEDS ORDERED: GABAPENTIN300 MG ORAL (23:08)
== END 2019-10-23 23:00 | disposition home or self-care (01) ==
LOC: EMR 22:41
DX: F11.23 Opioid dependence with withdrawal (principal); Z90.49 Acquired absence of other specified parts of digestive tract; Z88.8 Allergy status to other drugs, medicaments and biological substances
CPT/HCPCS: 96372; J1170; Z7502; 99283

== ENCOUNTER 2020-02-10 07:55 | Emergency (ER) | payer MEDICAID ==
[~2020-02-10] VITALS: Ht 152.4 cm; Wt 64.0 kg
[~2020-02-10 07:55] MED LIST changes: +GABAPENTIN300 MG ORAL
[2020-02-10] MEDS ORDERED: SUBOXONE 2 MG-1 EACH SL (08:07)
[2020-02-10] MEDS ORDERED: Bacitracin Oint UD TOPIC ONE (08:45)
[2020-02-10] MEDS ORDERED: Ketorolac 60mg Inj IM ONE (09:00)
--- NOTE | 2020-02-10 09:28 | Emergency Room Report ---
History of Present Illness General Chief Complaint: Upper Extremity Injury Source: Patient Present Illness HPI The patient presents with left wrist pain. She has been diagnosed with carpal tunnel syndrome. She hit her wrist without the splint on and it is red at this time and more painful. There is no weakness or numbness in the hand aside from some chronic numbness from the carpal tunnel in the middle of her palm. She denies fevers or chills. She has placed an ice pack and also some morning compresses and the pain is still present. She rates the pain 9/10 and aching without radiation. She was given Suboxone. She has difficulty keeping the splint on. She is scheduled for an evaluation February 25 for possible plan for surgery for carpal tunnel release. She is not undergoing physical therapy at this time. The patient is requesting a cast. The patient states she has been able to take Motrin in the past. In addition she initially presented with a ketorolac allergy but says that she has been given an injection without any problems. She was seen twice late September for opiate withdrawal. 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 COVID-19 Screening: Negative COVID-19 COVID-19 Testing Source: [facility] [place] Patient History Past Medical History: see triage record Social History: Denies: smoking - Former Last Menstrual Period: 6-9 Now: No Reviewed Nursing Documentation: PMH: Agreed; PSxH: Agreed Nursing Documentation-PMH Hx Cardiac Problems: No Hx Cancer: No - kidney stone Hx Gastrointestinal Problems: Yes - Laparoscopic Cholecystectomy Review of Systems Constitutional: Reports: see HPI Musculoskeletal: Reports: see HPI Skin: Reports: see HPI Neurological: Reports: see HPI Physical Exam Vital Signs Date Time Temp Pulse Resp B/P (MAP) Pulse Ox O2 Delivery O2 Flow Rate FiO2 02/10/20 08:00 99.1 69 18 101/70 (80) 97 Sp02 EP Interpretation: reviewed, normal General Appearance: well appearing, no apparent distress, GCS 15 Head: normocephalic Eyes: bilateral eye normal inspection, bilateral eye PERRL ENT: moist mucus membranes Neck: full range of motion Respiratory: normal inspection Cardiovascular #1: regular rate, rhythm Cardiovascular #2: 2+ radial (R) - Good capillary refill Gastrointestinal: normal inspection Musculoskeletal: gait/station normal, swelling - Volar medial wrist, digits/ nails normal, tenderness - Volar medial wrist Neurologic: alert, distal neuro normal - Except area in mid palm where she states she has numbness Psychiatric: mood/affect normal Skin: warm/dry, other - Erythema versus bruising circular pattern volar surface of wrist Medical Decision Making Diagnostic Impression: Primary Impression: Carpal tunnel syndrome Qualified Codes: G56.01 - Carpal tunnel syndrome, right upper limb Additional Impression: Cellulitis Qualified Codes: L03.113 - Cellulitis of right upper limb ER Course Patient presents with redness swelling and increased pain in the right wrist area. She banged the area a few days ago. Based on physical exam fracture is extremely unlikely. Differential of the erythema has hematoma versus cellulitis. She also is complaining about symptoms of carpal tunnel syndrome. Bacitracin is applied to the area. X-rays are not indicated at this time. Patient is requesting a cast. I discussed that we are unable to do so. In addition a Velcro splint would allow removal to examine the area of questionable cellulitis in the wrist. The patient was given a dose of ketorolac. Velcro splint was applied. Position was excellent with some improvement and distal neurovascular was intact. The patient was also provided a sling and this was appropriately applied by my evaluation. Discussed the need to see specialist for the possibility of surgery. She has an appointment. Discussed treatment plan. Patient improved and stable for outpatient observation and treatment. Last Vital Signs Date Time Temp Pulse Resp B/P (MAP) Pulse Ox O2 Delivery O2 Flow Rate FiO2 02/10/20 09:49 99.2 61 18 101/70 97 Room Air Status: improved Disposition: HOME, SELF-CARE Condition: Improved Scripts Bacitracin (Bacitracin) 28.4 Gm Oint...g. 1 APPLIC TOPIC BID, #15 GM Prov: Patrick Soto MD 02/10/20 Acetaminophen (Tylenol) 325 Mg Tablet 650 MG ORAL Q6H PRN for Prn Pain/Headache/Temp > 101, #30 TAB 0 Refills Prov: Patrick Soto MD 02/10/20 Referrals: NOT CHOSEN IPA/,REFERRING (PCP) Patrick Soto MD Feb 10, 2020 09:28
[2020-02-10] MEDS ORDERED: TYLENOL325 MG ORAL (09:31)
[2020-02-10] MEDS ORDERED: BACITRACIN15 GM TOPIC (09:34)
[2020-02-10 09:49] VITALS: BP 101/70
== END 2020-02-10 09:49 | disposition home or self-care (01) ==
LOC: EMR 08:46
DX: G56.01 Carpal tunnel syndrome, right upper limb (principal); L03.113 Cellulitis of right upper limb; Z88.8 Allergy status to other drugs, medicaments and biological substances; Z87.891 Personal history of nicotine dependence; Z90.49 Acquired absence of other specified parts of digestive tract
CPT/HCPCS: 29125; 96372; Z7502; 99283

== ENCOUNTER 2020-07-07 09:18 | Emergency (ER) | payer MEDICAID ==
[~2020-07-07] VITALS: Ht 154.9 cm; Wt 61.2 kg
[~2020-07-07 09:18] MED LIST changes: +LACTULOSE10 GM/153 PO; +SUBOXONE 2 MG-1 EACH SL; +TYLENOL325 MG ORAL
[2020-07-07 09:37] VITALS: BP 113/71
--- NOTE | 2020-07-07 09:40 | NUR ---
ED Nurse Note: Patient walked in to ER from home c/o little lump on the left side of her neck x 3 days. Patient AAO x4, VSS at this time.
[2020-07-07 09:43] VITALS: BP 113/71
--- NOTE | 2020-07-07 09:44 | NUR ---
ED Nurse Note: Pt cleared by health care Provider for discharge. DC instructions/prescription was given and explained to pt and verbalized understanding of teachings. All medical deviecs such as ID band removed. Pt is AAO x4, ambulatory and left with all personal belongings.
--- NOTE | 2020-07-07 09:46 | Emergency Room Report ---
History of Present Illness General Chief Complaint: General Complaint Source: Patient Present Illness HPI Disclaimer: Please note that this report is being documented using DRAGON technology. This can lead to erroneous entry secondary to incorrect interpretation by the dictating instrument. HPI: 39-year-old female presents for evaluation of mass in her neck. Patient noticed a small nodule on the left side of her neck 2 days ago. Nontender. Denies recent fever, chills, sore throat, nasal congestion, postnasal drip, cough, congestion, shortness of breath, chest pain or other changes in her health. She smokes cigarettes. No trauma to the neck. Denies overlying skin changes or swelling. Denies swelling over the anterior neck. No history of thyroid issues according to patient. PMH: Reviewed PSH: Reviewed Allergies: Reglan, Phenergan Social Hx: Pack-a-day smoker Allergies: Coded Allergies: METOCLOPRAMIDE (Verified Allergy, Unknown, 05/04/19) PROCHLORPERAZINE EDISYLATE (Verified Adverse Reaction, Severe, Anaphylaxis, 09/09/18) Tremors COVID-19 Screening Contact w/high risk pt: No Recent Travel to affected area: No Experienced COVID-19 symptoms?: No COVID-19 Testing performed TUBE PULLER: No Patient History Last Menstrual Period: 06/24/2020 Now: No Nursing Documentation-PMH Hx Cardiac Problems: No Hx Cancer: No - kidney stone Hx Gastrointestinal Problems: Yes - Laparoscopic Cholecystectomy Review of Systems All Other Systems: negative except mentioned in HPI Physical Exam Vital Signs Date Time Temp Pulse Resp B/P (MAP) Pulse Ox O2 Delivery O2 Flow Rate FiO2 07/07/20 09:23 98.2 89 20 113/71 (85) 96 Room Air General: Awake and alert, no acute distress HEENT: NC/AT. EOMI. Neck: No palpable thyromegaly, thyroid nodules. There is a small firm nodule just below the skin over the anterior lateral portion of the left neck just above the left clavicle. Nontender. Mobile. Approximately 0.5 cm in size. No overlying skin changes or ulcerations. No submandibular lymphadenopathy. Resp: Normal work of breathing Skin: Intact. No abrasions, laceration or rash over the exposed skin MSK: Normal tone and bulk. Moving all extremities. No obvious deformity. Neuro: Awake and alert. Mentating appropriately Medical Decision Making Diagnostic Impression: Primary Impression: Nodule of neck ER Course Is a 39-year-old female presenting for evaluation of nodule to the left side of the neck she noticed 2 days ago. Differential includes was not limited to inflammatory lymphadenopathy, infectious lymphadenopathy, nonspecific nodule, cancerous lesion, thyroid nodule among others. She is otherwise well-appearing in her usual state of health. Patient is increased risk for cancer given her smoking history and should have an outpatient ultrasound and needle biopsy to ev aluate for malignancy as well as outpatient labs to evaluate for thyroid disease though I find no abnormalities on exam of the thyroid and patient is not presenting with any symptoms of thyroid dysfunction. These can be scheduled outpatient basis. She will be referred to primary care clinic. Instructed to return with new or worsening symptoms. Last Vital Signs Date Time Temp Pulse Resp B/P (MAP) Pulse Ox O2 Delivery O2 Flow Rate FiO2 07/07/20 09:37 98.2 20 113/71 96 Room Air 07/07/20 09:37 89 Disposition: HOME, SELF-CARE Condition: Stable Referrals: [facility] Patient Instructions: Skin Biopsy, Needle Biopsy, Care After, [id number] Additional Instructions: Follow-up with one of the clinics listed here in your discharge paperwork to establish yourself as a new patient. Request further evaluation of the bump on your neck with ultrasound and needle biopsy. Stop smoking as soon as possible to reduce cancer risk. Return to the emergency department with new or worsening symptoms. Jaswinder Stallings MD Jul 07, 2020 09:46
== END 2020-07-07 09:43 | disposition home or self-care (01) ==
LOC: EMR 09:35
DX: R22.1 Localized swelling, mass and lump, neck (principal); F17.200 Nicotine dependence, unspecified, uncomplicated; Z90.49 Acquired absence of other specified parts of digestive tract; Z88.8 Allergy status to other drugs, medicaments and biological substances
CPT/HCPCS: 99282

== ENCOUNTER 2020-11-09 14:03 | Emergency (ER) | payer MEDICAID ==
[~2020-11-09] VITALS: Ht 154.9 cm; Wt 61.2 kg
[2020-11-09 14:07] VITALS: BP 116/96
[2020-11-09] MEDS ORDERED: Morphine Sulfate 4mg/ml Inj (IV USE ONLY) IVP ONE ×2 (14:30→16:00)
[2020-11-09 15:01] LABS: APPEARANCE,URINE CLEAR; BILIRUBIN, URINE NEGATIVE (NEGATIVE); GLUCOSE, URINE (UA) NEGATIVE (NEGATIVE); KETONES,URINE NEGATIVE (NEGATIVE); LEUKOCYTE ESTERASE ,URINE NEGATIVE (NEGATIVE); NITRITE,URINE NEGATIVE (NEGATIVE); PH,URINE 5 (4.5-8.0); PROTEIN,URINE NEGATIVE (NEGATIVE); UROBILINOGEN,URINE NORMAL MG/DL (0.0-1.0)
[2020-11-09 15:04] LABS: COLOR,URINE YELLOW
[2020-11-09 15:06] LABS: ANION GAP 8 mmol/L (5-15); BLOOD UREA NITROGEN 10 mg/dL (7-18); CARBON DIOXIDE 28 MMOL/L (21-32); CHLORIDE 105 MMOL/L (98-107); CREATININE 0.7 MG/DL (0.55-1.30); POTASSIUM 3.6 MMOL/L (3.5-5.1); SODIUM 141 MMOL/L (136-145)
[2020-11-09 15:08] LABS: BASOPHILS % (AUTO) 1.3 % (0.0-2.0); EOSINOPHILS % (AUTO) 0.7 % (0.0-3.0); HEMATOCRIT 34.4 % (37.0-47.0); HEMOGLOBIN 11.6 G/DL (12.0-16.0); LYMPHOCYTES % (AUTO) 36.8 % (20.0-45.0); MEAN CORPUSCULAR VOLUME 92 FL (80-99); MONOCYTES % (AUTO) 6.5 % (1.0-10.0); NEUTROPHILS % (AUTO) 54.7 % (45.0-75.0); PLATELET COUNT 290 K/UL (150-450); RED BLOOD COUNT 3.73 M/UL (4.20-5.40); RED CELL DISTRIBUTION WIDTH 11.8 % (11.6-14.8); WHITE BLOOD COUNT 8.4 K/UL (4.8-10.8)
[2020-11-09 15:09] LABS: ALANINE AMINOTRANSFERASE 25 U/L (12-78); ALBUMIN 3.7 G/DL (3.4-5.0); ALBUMIN/GLOBULIN RATIO 1.1 (1.0-2.7); ALKALINE PHOSPHATASE 75 U/L (46-116); ASPARTATE AMINO TRANSFERASE 18 U/L (15-37); BILIRUBIN,TOTAL 0.4 MG/DL (0.2-1.0)
--- NOTE | 2020-11-09 15:12 | NUR ---
pt states abd pain for 5 days, R sided, radiating to R flank. pt states nausea/vomiting x2. pt denies diarrhea. pt took tramadol today with no pain relief. pt medicated per eMAR. pt on continuous cardiac/O2 monitor. VSS. will continue to monitor.
--- NOTE | 2020-11-09 15:16 | NUR ---
pt to CT at 1515
--- NOTE | 2020-11-09 15:27 | NUR ---
pt still having pain. md notified. pt given socks and blanket.
--- NOTE | 2020-11-09 16:14 | Diagnostic Imaging Report ---
Indication: Abdominal pain for 5 days, right-sided, radiating to right flank Technique: Spiral acquisitions obtained through the abdomen and pelvis. No oral contrast utilized, per emergency room physician request No IV contrast utilized, per referring physician request.. Multiplanar reconstructions were generated. Total dose length product 302 mGycm. CTDIvol(s) 6 mGy. Dose reduction achieved using automated exposure control Comparison: 05/09/2020 Findings: No evidence of renal ureteral calculi, hydronephrosis, or hydroureter. Lack of IV contrast limits assessment of the renal parenchyma. No gross renal parenchymal mass or cyst demonstrated. The lack of IV contrast limits assessment of the other solid organs. The liver is grossly unremarkable. Gallbladder has been removed. No biliary ductal dilatation. The pancreas, spleen, adrenals, kidneys are unremarkable. No retroperitoneal or mesenteric mass or adenopathy. No pelvic mass or adenopathy. Uterus and ovaries are unremarkable. Lack of enteric contrast limits assessment of the GI tract. No small bowel distention. No free or loculated intraperitoneal gas or fluid. There is moderate retained colonic stool. No evidence of diverticulosis or diverticulitis. The appendix is normal. There is a tiny umbilical hernia contains only fat. The included lung bases are clear. The bones are unremarkable. Impression: Limited exam, due to lack of IV and enteric contrast No gross acute abnormality As previously, moderate retained fecal material could indicate constipation Prior cholecystectomy The CT scanner at [facility] is accredited by the [employer] and the scans are performed using protocols designed to limit radiation exposure to as low as reasonably achievable to attain images of sufficient resolution adequate for diagnostic evaluation.
[2020-11-09] MEDS ORDERED: MAGNESIUM CITR296 M1 PO (16:22)
[2020-11-09] MEDS ORDERED: COLACE100 MG ORAL (16:22)
--- NOTE | 2020-11-09 18:43 | Emergency Room Report ---
History of Present Illness General Chief Complaint: Abdominal Pain Source: Patient Present Illness HPI 40-year-old female presents for evaluation. Complaining of abdominal pain. Right flank. 10 out of 10, sharp, nonradiating. History of kidney stone. Denies chest pain or shortness of breath. Denies dysuria or hematuria. No other aggravating relieving factors. Denies any other associated symptoms Allergies: Coded Allergies: METOCLOPRAMIDE (Verified Allergy, Unknown, 05/04/19) PROCHLORPERAZINE EDISYLATE (Verified Adverse Reaction, Severe, Anaphylaxis, 09/09/18) Tremors COVID-19 Screening Contact w/high risk pt: No Recent Travel to affected area: No Experienced COVID-19 symptoms?: No COVID-19 Testing performed DIRECTOR SHIP: No Patient History Past Medical History: other - kidney stone Past Surgical History: kiara Pertinent Family History: none Social History: Denies: smoking, alcohol use, drug use Last Menstrual Period: 10/16/20 Now: No : 0 Para: 0 Immunizations: UTD Reviewed Nursing Documentation: PMH: Agreed; PSxH: Agreed Nursing Documentation-PMH Past Medical History: No History, Except For Hx Cardiac Problems: No Hx Cancer: No - kidney stone Hx Gastrointestinal Problems: Yes - Laparoscopic Cholecystectomy Review of Systems All Other Systems: negative except mentioned in HPI Physical Exam Vital Signs Date Time Temp Pulse Resp B/P (MAP) Pulse Ox O2 Delivery O2 Flow Rate FiO2 11/09/20 14:07 98.1 74 18 116/96 (103) 11/09/20 14:56 Room Air 100 Sp02 EP Interpretation: reviewed, normal General Appearance: no apparent distress, alert, GCS 15, non-toxic Head: normocephalic, atraumatic Eyes: bilateral eye normal inspection, bilateral eye PERRL ENT: hearing grossly normal, normal pharynx, no angioedema, normal voice Neck: full range of motion, supple/symm/no masses Respiratory: chest non-tender, lungs clear, normal breath sounds, speaking full sentences Cardiovascular #1: regular rate, rhythm, no edema Cardiovascular #2: 2+ carotid (R), 2+ carotid (L), 2+ radial (R), 2+ radial (L), 2+ dorsalis pedis (R), 2+ dorsalis pedis (L) Gastrointestinal: normal bowel sounds, soft, non-distended, no guarding, no rebound, tenderness Rectal: deferred Genitourinary: normal inspection, CVA tenderness (R) Musculoskeletal: back normal, normal range of motion, gait/station normal, non- tender Neurologic: alert, motor strength/tone normal, oriented x3, sensory intact, responsive, speech normal Psychiatric: judgement/insight normal, memory normal, mood/affect normal, no suicidal/homicidal ideation Reflexes: 3+ bicep (R), 3+ bicep (L), 3+ tricep (R), 3+ tricep (L), 3+ knee (R), 3+ knee (L) Skin: no rash Lymphatic: no adenopathy Medical Decision Making Diagnostic Impression: Primary Impression: Constipation Qualified Codes: K59.00 - Constipation, unspecified Additional Impression: Opiate dependence Qualified Codes: F11.29 - Opioid dependence with unspecified opioid-induced disorder ER Course Hospital Course 40-year-old F presents to ED with abdominal pain Differential diagnosis includes-appendicitis, cholecystitis, small bowel obstruction, gastritis, Clinical course Patient placed on stretcher. After initial history and physical I ordered labs, IV fluids, pain medications and CT Labs - no leukocytosis, electrolytes ok, LFTs normal, UA unremarkable CT - copious stool noted Discussed findings with patient. Patient has been here multiple times history of opioid dependence. Cures shows multiple narcotic prescriptions filled. Will discharge with Colace and mag citrate. Safe for discharge with close outpatient follow-up I feel this is a highly complex case requiring extensive working including EKG/Rhythm strip, Xray/CT/US, Blood/urine lab work, repeat exams while in ED, and administration of strong opiates/narcotics for pain control, admission to hospital or close patient follow up. Diagnosis - constipation Stable and discharged to home with Rx Mag citrate, Colace. instructed on high- fiber diet. Followup with PMD. Return to ED if symptoms recur or worsen Laboratory Tests Test 11/09/20 14:24 11/09/20 14:25 White Blood Count 8.4 K/UL (4.8-10.8) Red Blood Count 3.73 M/UL (4.20-5.40) L Hemoglobin 11.6 G/DL (12.0-16.0) L Hematocrit 34.4 % (37.0-47.0) L Mean Corpuscular Volume 92 FL (80-99) Mean Corpuscular Hemoglobin 31.1 PG (27.0-31.0) H Mean Corpuscular Hemoglobin Concent 33.8 G/DL (32.0-36.0) Red Cell Distribution Width 11.8 % (11.6-14.8) Platelet Count 290 K/UL (150-450) Mean Platelet Volume 8.0 FL (6.5-10.1) Neutrophils (%) (Auto) 54.7 % (45.0-75.0) Lymphocytes (%) (Auto) 36.8 % (20.0-45.0) Monocytes (%) (Auto) 6.5 % (1.0-10.0) Eosinophils (%) (Auto) 0.7 % (0.0-3.0) Basophils (%) (Auto) 1.3 % (0.0-2.0) Sodium Level 141 MMOL/L (136-145) Potassium Level 3.6 MMOL/L (3.5-5.1) Chloride Level 105 MMOL/L (98-107) Carbon Dioxide Level 28 MMOL/L (21-32) Anion Gap 8 mmol/L (5-15) Blood Urea Nitrogen 10 mg/dL (7-18) Creatinine 0.7 MG/DL (0.55-1.30) Estimat Glomerular Filtration Rate > 60 mL/min (>60) Glucose Level 93 MG/DL (74-106) Calcium Level 9.0 MG/DL (8.5-10.1) Total Bilirubin 0.4 MG/DL (0.2-1.0) Aspartate Amino Transf (AST/SGOT) 18 U/L (15-37) Alanine Aminotransferase (ALT/SGPT) 25 U/L (12-78) Alkaline Phosphatase 75 U/L (46-116) Total Protein 7.0 G/DL (6.4-8.2) Albumin 3.7 G/DL (3.4-5.0) Globulin 3.3 g/dL Albumin/Globulin Ratio 1.1 (1.0-2.7) Lipase 91 U/L (73-393) Urine Color Yellow Urine Appearance Clear Urine pH 5 (4.5-8.0) Urine Specific Clever 1.025 (1.005-1.035) Urine Protein Negative (NEGATIVE) Urine Glucose (UA) Negative (NEGATIVE) Urine Ketones Negative (NEGATIVE) Urine Blood 2+ (NEGATIVE) H Urine Nitrite Negative (NEGATIVE) Urine Bilirubin Negative (NEGATIVE) Urine Urobilinogen Normal MG/DL (0.0-1.0) Urine Leukocyte Esterase Negative (NEGATIVE) Urine RBC 0-2 /HPF (0 - 2) Urine WBC 0-2 /HPF (0 - 2) Urine Squamous Epithelial Cells Few /LPF (NONE/OCC) Urine Bacteria Moderate /HPF (NONE) H Urine HCG, Qualitative Negative (NEGATIVE) CT/MRI/US Diagnostic Results CT/MRI/US Diagnostic Results : Imaging Test Ordered: CT A/P Impression Procedure: CT Abdomen Pelvis WO Contrast Indication: Abdominal pain for 5 days, right-sided, radiating to right flank Technique: Spiral acquisitions obtained through the abdomen and pelvis. No oral contrast utilized, per emergency room physician request No IV contrast utilized, per referring physician request.. Multiplanar reconstructions were generated. Total dose length product 302 mGycm. CTDIvol(s) 6 mGy. Dose reduction achieved using automated exposure control Comparison: 05/09/2020 Findings: No evidence of renal ureteral calculi, hydronephrosis, or hydroureter. Lack of IV contrast limits assessment of the renal parenchyma. No gross renal parenchymal mass or cyst demonstrated. The lack of IV contrast limits assessment of the other solid organs. The liver is grossly unremarkable. Gallbladder has been removed. No biliary ductal dilatation. The pancreas, spleen, adrenals, kidneys are unremarkable. No retroperitoneal or mesenteric mass or adenopathy. No pelvic mass or adenopathy. Uterus and ovaries are unremarkable. Lack of enteric contrast limits assessment of the GI tract. No small bowel distention. No free or loculated intraperitoneal gas or fluid. There is moderate retained colonic stool. No evidence of diverticulosis or diverticulitis. The appendix is normal. There is a tiny umbilical hernia contains only fat. The included lung bases are clear. The bones are unremarkable. Impression: Limited exam, due to lack of IV and enteric contrast No gross acute abnormality As previously, moderate retained fecal material could indicate constipation Prior cholecystectomy The CT scanner at [facility] is accredited by the [employer] and the scans are performed using protocols designed to limit radiation exposure to as low as reasonably achievable to attain images of sufficient resolution adequate for diagnostic evaluation. Dictated By: Lazarus Clemons MD Electronically Signed By:Lazarus Clemons MD Signed Date/Time03/16/21 1610 CC: Dion Gant MD Last Vital Signs Date Time Temp Pulse Resp B/P (MAP) Pulse Ox O2 Delivery O2 Flow Rate FiO2 11/09/20 17:25 Room Air 11/09/20 14:56 78 18 100 11/09/20 14:07 98.1 116/96 (103) Status: improved Disposition: HOME, SELF-CARE Condition: Stable Scripts Magnesium Citrate (MAGNESIUM CITRATE) 296 Ml Solution 150 ML PO DAILY for 2 Days, #296 ML Prov: Dion Gant MD 11/09/20 Docusate Sodium* (COLACE*) 100 Mg Capsule 100 MG ORAL THREE TIMES A DAY, #30 CAP Prov: Dion Gant MD 11/09/20 Patient Instructions: Constipation, Adult, [id number] Dion Gant MD Nov 09, 2020 18:43
== END 2020-11-09 16:54 | disposition home or self-care (01) ==
LOC: EMR 14:26
DX: K59.00 Constipation, unspecified (principal); K42.9 Umbilical hernia without obstruction or gangrene; F11.29 Opioid dependence with unspecified opioid-induced disorder; Z88.8 Allergy status to other drugs, medicaments and biological substances; Z90.49 Acquired absence of other specified parts of digestive tract
CPT/HCPCS: 36415; 74176; 80053; 81003; 81025; 83690; 85025; 87086; 96361; 96374; 96375; 96376; J2270; J2405; J7030; Z7502; 99284